=== PATIENT | male | born 1935 | race Native Hawaiian/Other Pacific Islander ===

== ENCOUNTER 2018-12-22 08:41 | Outpatient (CLI) | payer MEDICARE ==
[2018-12-22 12:13] LABS: BASOPHILS # (AUTO) 0.1 10^3/uL (0.0-0.1); BASOPHILS % (AUTO) 1.1 %; EOSINOPHILS # (AUTO) 0.5 10^3/uL (0.0-0.7); EOSINOPHILS % (AUTO) 6.4 %; HGB - HEMOGLOBIN 12.3 g/dL (14.0-18.0); LYMPHOCYTES # (AUTO) 1.6 10^3/uL (1.5-3.5); LYMPHOCYTES % (AUTO) 19.7 %; MEAN CORPUSCULAR HEMOGLOBIN 27.2 pg (27.0-31.0); MEAN CORPUSCULAR VOLUME 79.9 fL (80.0-94.0); MEAN PLATELET VOLUME 7.2 fL (7.4-11.4); MONOCYTES # (AUTO) 0.7 10^3/uL (0.0-1.0); NEUTROPHILS # (AUTO) 5.1 10^3/uL (1.5-6.6); NEUTROPHILS % (AUTO) 63.8 %; PLT - PLATELET COUNT 307 10^3/uL (130-450); RED BLOOD COUNT 4.53 10^6/uL (4.70-6.10); RED CELL DISTRIBUTION WIDTH 14.1 % (12.0-15.0); WHITE BLOOD COUNT 8.1 x10^3/uL (4.8-10.8)
[2018-12-22 12:47] LABS: ALBUMIN 3.8 g/dL (3.2-5.5); ALBUMIN/GLOBULIN RATIO 1.1 (1.0-2.2); ALKALINE PHOSPHATASE 55 IU/L (42-121); ALT ALANINE AMINOTRANSFERASE 28 IU/L (10-60); AST ASPARTATE AMINOTRANSFERASE 25 IU/L (10-42); BILIRUBIN,TOTAL 0.7 mg/dL (0.2-1.0); BUN - BLOOD UREA NITROGEN 26 mg/dL (6-20); CALCIUM 8.9 mg/dL (8.5-10.3); CARBON DIOXIDE - CO2 24 mmol/L (21-32); CHLORIDE 106 mmol/L (101-111); CHOL/HDL RATIO 2.6 (<5.0); CHOLESTEROL 100 mg/dL; CREATININE 1.1 mg/dL (0.6-1.2); GFR - MDRD 64 (>89); GLUCOSE 107 mg/dL (70-100); HDL CHOLESTEROL 38 mg/dL; LDL CHOLESTEROL,CALCULATED 51 mg/dL; LDL/HDL RATIO 1.3 (<3.6); SODIUM 140 mmol/L (135-145); TOTAL PROTEIN 7.2 g/dL (6.7-8.2); VLDL CHOLESTEROL 11 mg/dL
== END 2018-12-22 08:42 | disposition home or self-care (01) ==
LOC: LAB.WCP 08:41
PROVIDERS: ATTEND Family Medicine
DX: I25.10 Atherosclerotic heart disease of native coronary artery without angina pectoris (principal); I10 Essential (primary) hypertension; R73.01 Impaired fasting glucose; E78.5 Hyperlipidemia, unspecified
CPT/HCPCS: 36415; 80053; 80061; 83721; 84443; 85025

== ENCOUNTER 2019-07-07 08:00 | Outpatient (CLI) | payer MEDICARE, OTHER ==
[2019-07-07 12:30] LABS: ALBUMIN 4.1 g/dL (3.2-5.5); ALBUMIN/GLOBULIN RATIO 1.2 (1.0-2.2); BASOPHILS # (AUTO) 0.1 10^3/uL (0.0-0.1); BILIRUBIN,TOTAL 0.7 mg/dL (0.2-1.0); CALCIUM 9.3 mg/dL (8.5-10.3); CREATININE 1.4 mg/dL (0.6-1.2); EOSINOPHILS # (AUTO) 0.5 10^3/uL (0.0-0.7); EOSINOPHILS % (AUTO) 6.4 %; HGB - HEMOGLOBIN 12.5 g/dL (14.0-18.0); LYMPHOCYTES # (AUTO) 2.1 10^3/uL (1.5-3.5); LYMPHOCYTES % (AUTO) 26.3 %; MEAN CORPUSCULAR HEMOGLOBIN 30.4 pg (27.0-31.0); MEAN CORPUSCULAR HGB CONC 35.8 g/dL (32.0-36.0); MEAN CORPUSCULAR VOLUME 84.9 fL (80.0-94.0); MEAN PLATELET VOLUME 9.5 fL (7.4-11.4); MONOCYTES # (AUTO) 0.8 10^3/uL (0.0-1.0); MONOCYTES % (AUTO) 9.8 %; NEUTROPHILS # (AUTO) 4.6 10^3/uL (1.5-6.6); NEUTROPHILS % (AUTO) 56.3 %; PLT - PLATELET COUNT 241 10^3/uL (130-450); RED BLOOD COUNT 4.11 10^6/uL (4.70-6.10); RED CELL DISTRIBUTION WIDTH 15.1 % (12.0-15.0); TOTAL PROTEIN 7.5 g/dL (6.7-8.2); WHITE BLOOD COUNT 8.1 x10^3/uL (4.8-10.8)
== END 2019-07-07 23:59 | disposition home or self-care (01) ==
LOC: LAB.WCP 08:00
PROVIDERS: ATTEND Family Medicine
DX: I10 Essential (primary) hypertension (principal); E78.5 Hyperlipidemia, unspecified
CPT/HCPCS: 36415; 80053; 84443; 85025

== ENCOUNTER 2019-08-08 09:05 | Outpatient (CLI) | payer MEDICARE, OTHER ==
[2019-08-08 13:45] LABS: CREATININE 1.1 mg/dL (0.6-1.2)
== END 2019-08-08 23:59 | disposition home or self-care (01) ==
LOC: LAB.WCP 09:05
PROVIDERS: ATTEND Family Medicine
DX: I10 Essential (primary) hypertension (principal); R05 Cough
CPT/HCPCS: 36415; 80048

== ENCOUNTER 2020-05-03 08:00 | Outpatient (CLI) | payer MEDICARE, OTHER ==
[2020-05-03 11:47] LABS: BASOPHILS # (AUTO) 0.1 10^3/uL (0.0-0.1); BASOPHILS % (AUTO) 1.2 %; EOSINOPHILS # (AUTO) 0.3 10^3/uL (0.0-0.7); EOSINOPHILS % (AUTO) 4.9 %; HGB - HEMOGLOBIN 12.9 g/dL (14.0-18.0); LYMPHOCYTES # (AUTO) 1.5 10^3/uL (1.5-3.5); LYMPHOCYTES % (AUTO) 23.3 %; MEAN CORPUSCULAR HEMOGLOBIN 28.9 pg (27.0-31.0); MEAN CORPUSCULAR HGB CONC 34.6 g/dL (32.0-36.0); MEAN CORPUSCULAR VOLUME 83.4 fL (80.0-94.0); MEAN PLATELET VOLUME 9.3 fL (7.4-11.4); MONOCYTES # (AUTO) 0.6 10^3/uL (0.0-1.0); MONOCYTES % (AUTO) 8.4 %; NEUTROPHILS # (AUTO) 4.1 10^3/uL (1.5-6.6); NEUTROPHILS % (AUTO) 61.9 %; PLT - PLATELET COUNT 252 10^3/uL (130-450); RED BLOOD COUNT 4.47 10^6/uL (4.70-6.10); RED CELL DISTRIBUTION WIDTH 14.9 % (12.0-15.0); WHITE BLOOD COUNT 6.6 x10^3/uL (4.8-10.8)
[2020-05-03 11:53] LABS: HB2 TOTAL 13.5 g/dL; HEMOGLOBIN A1C 0.58 g/dL; HEMOGLOBIN A1C % 6.1 % (4.6-6.2)
[2020-05-03 12:23] LABS: ALBUMIN 3.9 g/dL (3.2-5.5); ALBUMIN/GLOBULIN RATIO 1.2 (1.0-2.2); ALKALINE PHOSPHATASE 45 IU/L (42-121); ALT ALANINE AMINOTRANSFERASE 29 IU/L (10-60); AST ASPARTATE AMINOTRANSFERASE 29 IU/L (10-42); BILIRUBIN,TOTAL 1.1 mg/dL (0.2-1.0); BUN - BLOOD UREA NITROGEN 24 mg/dL (6-20); CALCIUM 8.9 mg/dL (8.5-10.3); CARBON DIOXIDE - CO2 26 mmol/L (21-32); CHLORIDE 110 mmol/L (101-111); CHOL/HDL RATIO 2.4 (<5.0); CHOLESTEROL 115 mg/dL; CREATININE 1.1 mg/dL (0.6-1.2); GLUCOSE 107 mg/dL (70-100); HDL CHOLESTEROL 47 mg/dL; LDL CHOLESTEROL,CALCULATED 57 mg/dL; LDL/HDL RATIO 1.2 (<3.6); SODIUM 140 mmol/L (135-145); TOTAL PROTEIN 7.1 g/dL (6.7-8.2); VLDL CHOLESTEROL 11 mg/dL
== END 2020-05-03 23:59 | disposition home or self-care (01) ==
LOC: LAB.WCP 08:00
PROVIDERS: ATTEND Family Medicine
DX: R73.01 Impaired fasting glucose (principal); I25.10 Atherosclerotic heart disease of native coronary artery without angina pectoris; I10 Essential (primary) hypertension
CPT/HCPCS: 36415; 80053; 80061; 83036; 83721; 84443; 85025

== ENCOUNTER 2021-01-01 08:45 | Outpatient (CLI) | payer MEDICARE, OTHER ==
[2021-01-01 12:17] LABS: HEMOGLOBIN A1c% 5.7 % (4.27-6.07)
[2021-01-01 12:24] LABS: BASOPHILS # (AUTO) 0.1 10^3/uL (0.0-0.1); BASOPHILS % (AUTO) 1.1 %; EOSINOPHILS # (AUTO) 0.4 10^3/uL (0.0-0.7); EOSINOPHILS % (AUTO) 5.2 %; HGB - HEMOGLOBIN 11.6 g/dL (14.0-18.0); LYMPHOCYTES # (AUTO) 1.5 10^3/uL (1.5-3.5); LYMPHOCYTES % (AUTO) 18.1 %; MEAN CORPUSCULAR HEMOGLOBIN 29.3 pg (27.0-31.0); MEAN CORPUSCULAR HGB CONC 34.6 g/dL (32.0-36.0); MEAN CORPUSCULAR VOLUME 84.6 fL (80.0-94.0); MEAN PLATELET VOLUME 9.5 fL (7.4-11.4); MONOCYTES # (AUTO) 0.8 10^3/uL (0.0-1.0); NEUTROPHILS # (AUTO) 5.2 10^3/uL (1.5-6.6); NEUTROPHILS % (AUTO) 65.4 %; PLT - PLATELET COUNT 276 10^3/uL (130-450); RED BLOOD COUNT 3.96 10^6/uL (4.70-6.10); RED CELL DISTRIBUTION WIDTH 13.8 % (12.0-15.0)
[2021-01-01 12:33] LABS: ALBUMIN 3.9 g/dL (3.2-5.5); ALBUMIN/GLOBULIN RATIO 1.2 (1.0-2.2); ALKALINE PHOSPHATASE 51 IU/L (42-121); ALT ALANINE AMINOTRANSFERASE 24 IU/L (10-60); AST ASPARTATE AMINOTRANSFERASE 21 IU/L (10-42); BILIRUBIN,TOTAL 0.7 mg/dL (0.2-1.0); BUN - BLOOD UREA NITROGEN 24 mg/dL (6-20); CALCIUM 9.7 mg/dL (8.5-10.3); CARBON DIOXIDE - CO2 26 mmol/L (21-32); CHLORIDE 104 mmol/L (101-111); CHOL/HDL RATIO 2.3 (<5.0); CHOLESTEROL 107 mg/dL; CREATININE 1.2 mg/dL (0.6-1.2); GLUCOSE 105 mg/dL (70-100); HDL CHOLESTEROL 46 mg/dL; LDL CHOLESTEROL,CALCULATED 51 mg/dL; LDL/HDL RATIO 1.1 (<3.6); TOTAL PROTEIN 7.2 g/dL (6.7-8.2); VLDL CHOLESTEROL 10 mg/dL
[2021-01-01 12:34] LABS: CREATININE,URINE 79.6 mg/dL; MICROALBUM/CREATININE RATIO,UR 56.5 ug/mg (<30.0); MICROALBUMIN,URINE 4.5 mg/dL (0-300.0)
== END 2021-01-01 08:46 | disposition home or self-care (01) ==
LOC: LAB.N 08:45
PROVIDERS: ATTEND Internal Medicine
DX: I25.10 Atherosclerotic heart disease of native coronary artery without angina pectoris (principal); G20 Parkinson's disease; I10 Essential (primary) hypertension; Z83.3 Family history of diabetes mellitus; R73.03 Prediabetes
CPT/HCPCS: 36415; 80053; 80061; 82043; 82570; 83036; 83721; 84443; 85025

== ENCOUNTER 2021-01-08 07:00 | Outpatient (CLI) | payer MEDICARE, OTHER | END 2021-01-08 23:59 | disposition home or self-care (01) | LOC: LAB.R 07:00 | PROVIDERS: ATTEND Internal Medicine | DX: D64.9 Anemia, unspecified (principal) | CPT/HCPCS: 82274 ==

== ENCOUNTER 2021-02-09 10:45 | Outpatient (CLI) | payer MEDICARE, OTHER ==
--- NOTE | 2021-02-09 11:43 | CT Report ---
PROCEDURE: LUMBAR SPINE WO INDICATIONS: NEUROGENIC CLAUDICATION DUE TO SPINAL STENOSIS TECHNIQUE: Noncontrast 3 mm thick sections acquired from the T12 level to the sacrum. Sagittal and coronal refo rmats were constructed. For radiation dose reduction, the following was used: automated exposure co ntrol, adjustment of mA and/or kV according to patient size. COMPARISON: None. FINDINGS: Image quality: Excellent. Bones: No acute vertebral body compression fractures. No suspicious lytic or blastic bony lesions . Central spinal caliber is of normal overall caliber. No pars defects. Mild levoconvex scoliotic curvature is seen. No significant AP alignment abnormality can be seen. T12-L1: There is mild loss of disc height. Bridging anterior osteophytes are seen. No significant ne ural foraminal or central canal narrowing can be seen. L1-L2: The disc height is well-preserved. Bridging anterior osteophytes are seen. No significant n eural foraminal or central canal narrowing can be seen. L2-L3: The disc height is relatively well preserved. Bridging anterior osteophytes are seen. Mode rate disc bulge is seen, which is eccentric to the right side. There is mild to moderate left-sided a nd moderate right-sided neuroforaminal narrowing seen. Mild central canal narrowing is seen. L3-L4: The disc height is relatively well preserved. Moderate disc bulge is seen at this level. Mild facet hypertrophy is seen. There is moderate right-sided and no significant left-sided neurofor aminal narrowing seen. No significant central canal narrowing is seen. L4-L5: The disc height is relatively well preserved. Moderate disc bulge is seen, which is eccentri c to the right side. Bridging anterior osteophytes can be seen on both the right and on the left. The re is mild to moderate right and no significant left-sided neuroforaminal narrowing. No significant c entral canal narrowing can be seen. L5-S1: The disc height is relatively well preserved. Vacuum disc phenomenon is seen at this level. Moderate disc bulge is seen, which is eccentric to the left. Bridging anterior osteophytes are see n on the left and on the right. Mild bilateral neural foraminal narrowing is seen. Mild central c anal narrowing is seen. Soft tissues: No retroperitoneal masses or hematomas. Visualized aorta is normal in caliber. Ather osclerotic calcification is seen. Pacer leads are seen. Apparent simple cysts are seen involving the right kidney. IMPRESSION: Generalized degenerative changes are seen, which are considered to be within normal limits for age. Incidental note is made of: Atherosclerotic calcification Right renal cysts Pacer leads Reviewed by: Saji Cifuentes MD on 02/09/2021 10:41 AM [facility] Approved by: Saji Cifuentes MD on 02/09/2021 10:41 AM [facility] Station ID: [id number]
== END 2021-02-09 10:46 | disposition home or self-care (01) ==
LOC: DI 10:45
PROVIDERS: ATTEND Internal Medicine
DX: M48.062 Spinal stenosis, lumbar region with neurogenic claudication (principal)

== ENCOUNTER 2021-05-22 08:00 | Outpatient (CLI) | payer MEDICARE, OTHER ==
[2021-05-22 12:50] LABS: FERRITIN 530.7 ng/mL (23.9-336.2)
[2021-05-22 12:51] LABS: % IRON SATURATION 25 % (20-50); IRON 77 ug/dL (45-182); TOTAL IRON BINDING CAPACITY 304 ug/dL (250-450); TRANSFERRIN 217 mg/dL (180-329)
[2021-05-22 13:12] LABS: RED BLOOD COUNT 3.6 10^6/uL (4.70-6.10)
[2021-05-22 13:13] LABS: ABSOLUTE RETICS # AUTO 0.05 10^6/uL (0.020-0.110); RETICULOCYTE COUNT % (AUTO) 1.38 % (0.5-2.3)
== END 2021-05-22 23:59 | disposition home or self-care (01) ==
LOC: LAB.WCP 08:00
PROVIDERS: ATTEND Internal Medicine
DX: D64.9 Anemia, unspecified (principal)
CPT/HCPCS: 36415; 82607; 82728; 83540; 84466; 85045

== ENCOUNTER 2021-11-04 09:50 | Outpatient (CLI) | payer MEDICARE, OTHER | END 2021-11-04 09:51 | disposition critical access hospital (66) | LOC: EMS 09:50 | DX: R32 Unspecified urinary incontinence (principal); R47.81 Slurred speech | CPT/HCPCS: A0425; A0429 ==

== ENCOUNTER 2021-11-04 10:05 | Inpatient (IN) | payer MEDICARE, OTHER ==
[2021-11-04] MEDS ORDERED: SODIUM CHLORIDE 0.9% 1,000 ML IV STA (10:20)
[2021-11-04] MEDS ORDERED: IOPAMIDOL-300 100 ML VIAL ONE (10:28)
--- NOTE | 2021-11-04 10:33 | ED Physician Documentation ---
PD HPI ALTERED MENTAL STATUS - Stated complaint Stated Complaint: CVA - History obtained from History obtained from: Patient, Family (), EMS - History of Present Illness Timing - onset: How many days ago (2) Timing - duration: Days (2 Days ago the noted the patient having some mild confusion and slurring of speech. No unilateral weakness noted. She had to help feed him yesterday which is unusual. She found him on the floor beside the bed this morning (she had fallen asleep on the couch last night).) Timing - details: Gradual onset, Still present Quality / character: Less responsive ( says he was not as talkative and seemed weak all over. She helped him to eat yesterday, which had not been necessary before. No noted focal weakness. SPeech seemed weak but not inappropriate.), Confused Associated symptoms: No: Fever, Headache (he denies headache but has abrasion on forehead, so apparent fall.) Contributing factors: No: Anticoagulated, Diabetic, New medication, Recent med change Basline status: Alert and oriented X 3, Ambulatory, Confused ( says some forgetfulness c/w dementia. Has history of Parkinsons as well.) PD PAST MEDICAL HISTORY - Present Medications Home Medications: Ambulatory Orders Medication Instructions Recorded Confirmed Apixaban [Eliquis] 5 mg PO BID 11/04/21 11/04/21 Aspirin Chewable [St Jimmy 81 mg PO QPM 11/04/21 11/04/21 Aspirin] Carbidopa/Levodopa 25/100 [Sinemet 1 tablet PO TID 11/04/21 11/04/21 25 mg/100 mg] Cyanocobalamin [Vitamin B-12] 250 mcg PO DAILY 11/04/21 Isosorbide Mononitrate [Isosorbide 90 mg PO DAILY 11/04/21 11/04/21 Mononitrate ER] Lisinopril [Zestril] 40 mg PO DAILY 11/04/21 11/04/21 Meloxicam [Mobic] 15 mg PO DAILY 11/04/21 11/04/21 Metoprolol Tartrate [Lopressor] 50 mg PO BID 11/04/21 11/04/21 Nitroglycerin [Nitrostat] 0.4 mg SL Q5MIN PRN 11/04/21 11/04/21 Simvastatin [Zocor] 40 mg PO QPM 11/04/21 11/04/21 Tamsulosin HCl [Flomax] 0.8 mg PO QPM 11/04/21 11/04/21 amLODIPine [Norvasc] 5 mg PO DAILY 11/04/21 11/04/21 - Allergies Allergies/Adverse Reactions: Allergies Allergy/AdvReac Type Severity Reaction Status Date / Time No Known Drug Allergies Allergy Verified 11/04/21 10:22 PD ED PE NORMAL - Vitals Vital signs reviewed: Yes (hypothermic. HR seems paced at 60. ) - General General: Well developed/nourished, Other (he is able to answer questions but voice is weak and sluggish thought process. Symmetric movements of face and e xtremities. ) - HEENT HEENT: PERRL, EOMI. No: Atraumatic (abrasion with mild local swelling mid forehead. ), Moist mucous membranes - Neck Neck: Supple, no meningeal sign, No bony TTP, No adenopathy - Cardiac Cardiac: RRR, No murmur, Other (pacemaker felt on left chest wall. ) - Respiratory Respiratory: Clear bilaterally - Abdomen Abdomen: Soft, Non tender, Non distended. No: Normal bowel sounds (diminished) - Back Back: No CVA TTP - Derm Derm: Normal color, Warm and dry - Extremities Extremities: No edema, No calf tenderness / cord - Neuro Neuro: No motor deficit (symmetric but general weakness. ), No sensory deficit. No: Alert and oriented X 3 (sleepy but rouses easily to voice/tactile. sluggish thought process but answers appropriately. ) Eye Opening: To Voice Motor: Obeys Commands Verbal: Oriented GCS Score: 14 - Psych Psych: No: Normal affect (flat) Results - Vitals Vitals: Vital Signs - 24 hr 11/04/21 11/04/21 11/04/21 10:22 10:56 11:34 Temperature 31.8 C L 31.6 C L 32.1 C L Heart Rate 59 L 60 60 Respiratory 11 L 10 L 13 Rate Blood Pressure 130/63 124/69 148/77 H O2 Saturation 100 100 100 11/04/21 11/04/21 11/04/21 12:00 12:30 13:00 Temperature 32.2 C L 32.5 C L 32.9 C L Heart Rate 60 60 60 Respiratory 12 10 L 12 Rate Blood Pressure 125/84 H 131/59 H 90/52 L O2 Saturation 100 100 100 11/04/21 13:30 Temperature 33.2 C L Heart Rate 74 Respiratory 13 Rate Blood Pressure 136/90 H O2 Saturation 100 Oxygen O2 Source Room air - Labs Labs: Laboratory Tests 11/04/21 11/04/21 11/04/21 10:30 10:30 10:30 WBC 5.7 RBC 4.31 L Hgb 11.2 L Hct 34.0 L MCV 78.9 L MCH 26.0 L MCHC 32.9 RDW 15.2 H Plt Count 204 MPV 8.9 Neut # (Auto) 4.4 Lymph # (Auto) 0.6 L Stokes # (Auto) 0.5 Eos # (Auto) 0.1 Baso # (Auto) 0.0 Absolute Nucleated RBC 0.00 Nucleated RBC % 0.0 PT 15.3 H INR 1.4 H APTT 42.0 H Sodium 130 L Potassium 3.7 Chloride 98 L Carbon Dioxide 21 Anion Gap 11.0 BUN 28 H Creatinine 0.9 Estimated GFR (MDRD) 80 L Glucose 90 Lactic Acid Calcium 9.0 Magnesium 2.2 Total Bilirubin 0.7 AST 70 H ALT 18 Alkaline Phosphatase 76 Total Creatine Kinase 355 H Troponin I High Sens Total Protein 6.7 Albumin 3.6 Globulin 3.1 Albumin/Globulin Ratio 1.2 Lipase 54 H TSH Urine Color Urine Clarity Urine pH Ur Specific [place] Urine Protein Urine Glucose (UA) Urine Ketones Urine Occult Blood Urine Nitrite Urine Bilirubin Urine Urobilinogen Ur Leukocyte Esterase Urine RBC Urine WBC Ur Squamous Epith Cells Urine Bacteria Ur Microscopic Review Urine Culture Comments Nasal Adenovirus (PCR) Nasal B. parapertussis DNA (PCR) Nasal Coronavir 229E PCR Nasal Coronavir HKU1 PCR Nasal Coronavir NL63 PCR Nasal Coronavir OC43 PCR Nasal Enterovir/Rhinovir PCR Nasal Influenza B PCR Nasal Influenza A PCR Nasal Parainfluen 1 PCR Nasal Parainfluen 2 PCR Nasal Parainfluen 3 PCR Nasal Parainfluen 4 PCR Nasal RSV (PCR) Nasal B.pertussis DNA PCR Nasal C.pneumoniae (PCR) Micky Human Metapneumo PCR Nasal M.pneumoniae (PCR) Nasal SARS-CoV-2 (PCR) Urine Opiates Screen Ur Oxycodone Screen Urine Methadone Screen Ur Propoxyphene Screen Ur Barbiturates Screen Ur Tricyclics Screen Ur Phencyclidine Scrn Ur Amphetamine Screen U Methamphetamines Scrn U Benzodiazepines Scrn Urine Cocaine Screen U Cannabinoids Screen 11/04/21 11/04/21 11/04/21 10:30 10:30 10:30 WBC RBC Hgb Hct MCV MCH MCHC RDW Plt Count MPV Neut # (Auto) Lymph # (Auto) Stokes # (Auto) Eos # (Auto) Baso # (Auto) Absolute Nucleated RBC Nucleated RBC % PT INR APTT Sodium Potassium Chloride Carbon Dioxide Anion Gap BUN Creatinine Estimated GFR (MDRD) Glucose Lactic Acid 1.0 Calcium Magnesium Total Bilirubin AST ALT Alkaline Phosphatase Total Creatine Kinase Troponin I High Sens 10.8 Total Protein Albumin Globulin Albumin/Globulin Ratio Lipase TSH 2.97 Urine Color Urine Clarity Urine pH Ur Specific [place] Urine Protein Urine Glucose (UA) Urine Ketones Urine Occult Blood Urine Nitrite Urine Bilirubin Urine Urobilinogen Ur Leukocyte Esterase Urine RBC Urine WBC Ur Squamous Epith Cells Urine Bacteria Ur Microscopic Review Urine Culture Comments Nasal Adenovirus (PCR) Nasal B. parapertussis DNA (PCR) Nasal Coronavir 229E PCR Nasal Coronavir HKU1 PCR Nasal Coronavir NL63 PCR Nasal Coronavir OC43 PCR Nasal Enterovir/Rhinovir PCR Nasal Influenza B PCR Nasal Influenza A PCR Nasal Parainfluen 1 PCR Nasal Parainfluen 2 PCR Nasal Parainfluen 3 PCR Nasal Parainfluen 4 PCR Nasal RSV (PCR) Nasal B.pertussis DNA PCR Nasal C.pneumoniae (PCR) Micky Human Metapneumo PCR Nasal M.pneumoniae (PCR) Nasal SARS-CoV-2 (PCR) Urine Opiates Screen Ur Oxycodone Screen Urine Methadone Screen Ur Propoxyphene Screen Ur Barbiturates Screen Ur Tricyclics Screen Ur Phencyclidine Scrn Ur Amphetamine Screen U Methamphetamines Scrn U Benzodiazepines Scrn Urine Cocaine Screen U Cannabinoids Screen 11/04/21 11/04/21 11/04/21 10:32 10:59 10:59 WBC RBC Hgb Hct MCV MCH MCHC RDW Plt Count MPV Neut # (Auto) Lymph # (Auto) Stokes # (Auto) Eos # (Auto) Baso # (Auto) Absolute Nucleated RBC Nucleated RBC % PT INR APTT Sodium Potassium Chloride Carbon Dioxide Anion Gap BUN Creatinine Estimated GFR (MDRD) Glucose Lactic Acid Calcium Magnesium Total Bilirubin AST ALT Alkaline Phosphatase Total Creatine Kinase Troponin I High Sens Total Protein Albumin Globulin Albumin/Globulin Ratio Lipase TSH Urine Color LIGHT YELLOW Urine Clarity CLEAR Urine pH 6.0 Ur Specific Trufant 1.020 Urine Protein NEGATIVE Urine Glucose (UA) NEGATIVE Urine Ketones NEGATIVE Urine Occult Blood MODERATE H Urine Nitrite NEGATIVE Urine Bilirubin NEGATIVE Urine Urobilinogen 0.2 (NORMAL) Ur Leukocyte Esterase NEGATIVE Urine RBC TNTC H Urine WBC 0-3 Ur Squamous Epith Cells NONE SEEN Urine Bacteria None Seen Ur Microscopic Review INDICATED Urine Culture Comments NOT INDICATED Nasal Adenovirus (PCR) NOT DETECTED Nasal B. parapertussis DNA (PCR) NOT DETECTED Nasal Coronavir 229E PCR NOT DETECTED Nasal Coronavir HKU1 PCR NOT DETECTED Nasal Coronavir NL63 PCR NOT DETECTED Nasal Coronavir OC43 PCR NOT DETECTED Nasal Enterovir/Rhinovir PCR NOT DETECTED Nasal Influenza B PCR NOT DETECTED Nasal Influenza A PCR NOT DETECTED Nasal Parainfluen 1 PCR NOT DETECTED Nasal Parainfluen 2 PCR NOT DETECTED Nasal Parainfluen 3 PCR NOT DETECTED Nasal Parainfluen 4 PCR NOT DETECTED Nasal RSV (PCR) NOT DETECTED Nasal B.pertussis DNA PCR NOT DETECTED Nasal C.pneumoniae (PCR) NOT DETECTED Micky Human Metapneumo PCR NOT DETECTED Nasal M.pneumoniae (PCR) NOT DETECTED Nasal SARS-CoV-2 (PCR) NOT DETECTED Urine Opiates Screen NEGATIVE Ur Oxycodone Screen NEGATIVE Urine Methadone Screen NEGATIVE Ur Propoxyphene Screen NEGATIVE Ur Barbiturates Screen NEGATIVE Ur Tricyclics Screen NEGATIVE Ur Phencyclidine Scrn NEGATIVE Ur Amphetamine Screen NEGATIVE U Methamphetamines Scrn NEGATIVE U Benzodiazepines Scrn NEGATIVE Urine Cocaine Screen NEGATIVE U Cannabinoids Screen NEGATIVE - Rads (name of study) head/neck CT angio Radiology: Prelim report reviewed (no acute process), See rad report chest xray Radiology: Prelim report reviewed (mild vascular congestion; cannot exclude perihilar infiltrates. ), See rad report PD MEDICAL DECISION MAKING - ED course Complexity details: reviewed results (NO obvious source for infection/sepsis. CT and CT-A head okay. Metabolic labs good. Not clear the cause of the weakness generally and subsequent fall to floor/hypothermia (the low temp from expsoure and on floor).), re-evaluated patient (he is becoming more talkative and alert with temp improving. Did start to shiver and feel uncomfortable, so given Benadryl for that. ), considered differential (patient feels very cold. Temp not readable oral/temporal. Rectal temp showing 30 degrees. ), d/w patient, d/w family () - Critical Care Time(min): 45 Comments: altered mental status, and significant hypothermia. Assess for dysrhythmia and metabolic/sepsis causes. Evaluate vitals. Time Includes: Direct patient care, Reassess patient, Document care, Coordinate care Data interpretation: Labs, CXR Procedures excluded from critical care time: EKG Departure - Departure Disposition: ED Place in Observation Clinical Impression: Altered mental status Qualifiers: Altered mental status type: disorientation Qualified Code(s): R41.0 - Disorientation, unspecified Hypothermia Qualifiers: Encounter type: initial encounter Qualified Code(s): T68.XXXA - Hypothermia, initial encounter Condition: Stable Record reviewed to determine appropriate education?: Yes Discharge Date/Time: 11/04/21 14:48
[2021-11-04 10:37] LABS: BASOPHILS % (AUTO) 0.4 %; EOSINOPHILS # (AUTO) 0.1 10^3/uL (0.0-0.7); EOSINOPHILS % (AUTO) 1.2 %; HGB - HEMOGLOBIN 11.2 g/dL (14.0-18.0); LYMPHOCYTES # (AUTO) 0.6 10^3/uL (1.5-3.5); LYMPHOCYTES % (AUTO) 11.1 %; MEAN CORPUSCULAR HGB CONC 32.9 g/dL (32.0-36.0); MEAN CORPUSCULAR VOLUME 78.9 fL (80.0-94.0); MEAN PLATELET VOLUME 8.9 fL (7.4-11.4); MONOCYTES # (AUTO) 0.5 10^3/uL (0.0-1.0); MONOCYTES % (AUTO) 9.5 %; NEUTROPHILS # (AUTO) 4.4 10^3/uL (1.5-6.6); NEUTROPHILS % (AUTO) 77.6 %; PLT - PLATELET COUNT 204 10^3/uL (130-450); RED BLOOD COUNT 4.31 10^6/uL (4.70-6.10); RED CELL DISTRIBUTION WIDTH 15.2 % (12.0-15.0); WHITE BLOOD COUNT 5.7 x10^3/uL (4.8-10.8)
[2021-11-04 10:47] LABS: INR 1.4 (0.8-1.2); PT - PROTHROMBIN TIME 15.3 secs (9.9-12.6)
--- NOTE | 2021-11-04 10:49 | XRAY Report ---
PROCEDURE: Chest 1 View X-Ray INDICATIONS: chest pain TECHNIQUE: One view of the chest was acquired. COMPARISON: 11/12/2018 FINDINGS: Surgical changes and devices: Left chest wall pacemaker leads are in the region of right atrium and r ight ventricle.. Lungs and pleura: No pleural effusions or pneumothorax. Mild pulmonary vascular congestion is seen. Small bilateral perihilar infiltrates cannot be excluded. Mediastinum: Mediastinal contours appear normal. Heart size is mildly enlarged. Bones and chest wall: No suspicious bony lesions. Overlying soft tissues appear unremarkable. IMPRESSION: Mild pulmonary vascular congestion. Cannot rule out underlying bilateral perihilar small infiltrates. No pleural effusion or pneumothorax. Reviewed by: Luis A Cervantes MD on 11/04/2021 10:47 AM [facility] Approved by: Luis A Cervantes MD on 11/04/2021 10:47 AM [facility] Station ID: [id number]
[2021-11-04 10:56] LABS: ALBUMIN 3.6 g/dL (3.2-5.5); ALBUMIN/GLOBULIN RATIO 1.2 (1.0-2.2); BILIRUBIN,TOTAL 0.7 mg/dL (0.2-1.0); CREATININE 0.9 mg/dL (0.6-1.2); MAGNESIUM 2.2 mg/dL (1.7-2.8); POTASSIUM 3.7 mmol/L (3.5-5.0); TOTAL PROTEIN 6.7 g/dL (6.7-8.2)
[2021-11-04] MEDS ORDERED: IOPAMIDOL-300 100 ML VIAL IVP ONE (11:43)
[2021-11-04 12:03] LABS: BILIRUBIN,URINE NEGATIVE (NEGATIVE); GLUCOSE, URINE (UA) NEGATIVE (NEGATIVE); KETONES,URINE (UA) NEGATIVE (NEGATIVE); LEUKOCYTE ESTERASE, URINE NEGATIVE (NEGATIVE); NITRITE,URINE NEGATIVE (NEGATIVE); OCCULT BLOOD,URINE MODERATE (NEGATIVE); PROTEIN,URINE NEGATIVE (NEGATIVE); UROBILINOGEN,URINE 0.2 (NORMAL) E.U./dL (NORMAL)
[2021-11-04 12:05] LABS: CLARITY,URINE CLEAR (CLEAR)
--- NOTE | 2021-11-04 12:22 | CT Report ---
PROCEDURE: ANGIO HEAD W/WO INDICATIONS: L sided facial droop CONTRAST: IV CONTRAST: Isovue 300 ml: 80 PO CONTRAST: *NO PO CONTRAST TECHNIQUE: Precontrast 4.5 mm thick angled axial sections acquired from the foramen magnum to the vertex. Afte r the administration of intravenous contrast, 1 mm thick sections acquired through the [place] of [place] is. Postcontrast 4.5 mm thick sections then re-acquired from the foramen magnum to the vertex. 3-di mensional awxhrkn-zonwjdnra-kvdazcoqqy (MIP) and/or volume rendering reformats were acquired of the c entral intracranial vasculature. For radiation dose reduction, the following was used: automated ex posure control, adjustment of mA and/or kV according to patient size. COMPARISON: None FINDINGS: Image quality: Excellent. Anterior circulation: Intracranial internal carotid arteries have calcified atherosclerotic disease with no significant stenosis. The left A1 segment has a narrow caliber with luminal irregularity like ly due to atherosclerotic disease, otherwise flow within the paired anterior cerebral arteries is nor mal and symmetric. The flow within the middle cerebral arteries is normal and symmetric. The anteri or communicating artery is seen. No aneurysms are seen. Posterior circulation: Visualized portions of the vertebral arteries demonstrate normal caliber, and join to form a normal appearing basilar artery. Flow within the posterior cerebral arteries is norm al and symmetric. No aneurysms are seen. CSF spaces: Ventricles are normal in size and shape. Basal cisterns are patent. No extra-axial flu id collections. Brain: No midline shift. No intracranial bleeds or masses. Garcia-white matter interface appears int act. Skull and face: Calvarium and facial bones appear intact, without suspicious lesions. Sinuses: Visualized sinuses and mastoids are clear. IMPRESSION: 1. No large vessel occlusion. 2. No aneurysm or dissection. 3. 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 4. Calcifications of the cavernous segments of the intracranial internal carotid arteries with no sig nificant stenosis. Reviewed by: Flaco Perea on 11/04/2021 11:20 AM [facility] Approved by: Flaco Perea on 11/04/2021 11:20 AM [facility] Station ID: [id number]
[2021-11-04 12:26] LABS: B. PARAPERTUSSIS- RESP PCR PAN NOT DETECTED; B. PERTUSSIS- RESP PCR PANEL NOT DETECTED; C. PNEUMONIAE- RESP PCR PANEL NOT DETECTED; CORONAVIRUS 229E-RESP PCR NOT DETECTED; CORONAVIRUS HKU1-RESP PCR NOT DETECTED; CORONAVIRUS NL63-RESP PCR NOT DETECTED; CORONAVIRUS OC43-RESP PCR NOT DETECTED; HUMAN METAPNEUMOVIRUS NOT DETECTED; INFLUENZA A- RESP PCR PANEL NOT DETECTED; INFLUENZA B - RESP PCR PANEL NOT DETECTED; M. PNEUMONIAE- RESP PCR PANEL NOT DETECTED; PARAINFLUENZA VIRUS 1 NOT DETECTED; PARAINFLUENZA VIRUS 2 NOT DETECTED; PARAINFLUENZA VIRUS 3 NOT DETECTED; PARAINFLUENZA VIRUS 4 NOT DETECTED; RHINOVIRUS/ENTEROVIRUS NOT DETECTED; RSV- RESP PCR PANEL NOT DETECTED; SARS-CoV-2 -RESP PCR PANEL NOT DETECTED
[2021-11-04 12:30] LABS: BACTERIA,URINE None Seen /HPF (None Seen); RBC,URINE TNTC /HPF (0-5); SQUAMOUS EPITHELIAL CELL,UR NONE SEEN (<= Few); WBC,URINE 0-3 /HPF (0-3)
--- NOTE | 2021-11-04 13:03 | CT Report ---
PROCEDURE: ANGIO NECK W INDICATIONS: L sided facial droop CONTRAST: IV CONTRAST: Isovue 300 ml: 80 PO CONTRAST: *NO PO CONTRAST TECHNIQUE: After the administration of intravenous contrast, 1.5 mm axial sections acquired from the aortic arch to the [place] of Ngo. Coronal 3-D maximum intensity projection (MIP) and/or volume rendering ref ormats were then performed. For radiation dose reduction, the following was used: automated exposur e control, adjustment of mA and/or kV according to patient size. COMPARISON: None. FINDINGS: Image quality: Excellent. Carotid system: The great vessels demonstrate a conventional anatomy as they arise from the aortic a [facility]. The origins of the common carotid arteries appear patent. The common carotid arteries demonstr ate normal calibers and courses. There is artifactual narrowing of the right common carotid artery du e to hardening artifact from the contrast bolus in the left jugular vein. The bifurcation regions hav e atherosclerotic calcifications bilaterally causing approximately 20% stenosis on the right and no s ignificant stenosis on the left. The internal carotid arteries demonstrate normal caliber and course. Posterior circulation: The origin of the right vertebral artery has a focal calcification with high-g rade stenosis. The more superior portions of the vertebral arteries demonstrate normal course and murali iber. They join to form a normal appearing basilar artery. Soft tissues: Visualized neck soft tissues demonstrate no suspicious abnormalities. The thyroid is normal in size and there are no incidental findings. Bones: No suspicious bony lesions. Visualized cervical spine appears normally aligned. IMPRESSION: 1. Atherosclerotic calcifications in the carotid bulbs bilaterally with 20% stenosis on the right and no significant stenosis on the left. 2. Focal atherosclerotic calcification at the origin of the right vertebral artery with high-grade st enosis. 3. No aneurysm or dissection of the carotid or vertebral arteries. The estimate of stenosis included in the report of the imaging study was calculated using the NASCET method Reviewed by: Flaco Perea on 11/04/2021 12:01 PM [facility] Approved by: Flaco Perea on 11/04/2021 12:01 PM [facility] Station ID: [id number]
[2021-11-04] MEDS ORDERED: ONDANSETRON 4 MG/2 ML VIAL IVP PRN (13:51)
--- NOTE | 2021-11-04 13:58 | HISTORY & PHYSICAL EXAMINATION ---
Chief Complaint - Chief Complaint Chief Complaint: altered mental status, hypothermia History of Present Illness - Admitted From Admitted From:: [facility] ED - History Obtained From Records Reviewed: yes History obtained from: patient's Exam Limitations: altered mental status - History of Present Illness HPI Comment/Other: Patient is an 86-year-old male with medical history significant for hypertension, hyperlipidemia, Parkinson's disease, BPH and a pacemaker placed in June 2021 for an unspecified reason who presented to the ED with altered mental status. The history is mostly provided by the patient's who reports that for the past 2 to 3 days the patient's speech has been slurred and he has been intermittently confused. She found the patient on the floor of the bedroom around 815 this morning. She had last checked on him around 4 AM. He was incontinent of urine at the time. She has numerous he was trying to go to the bathroom and must of fallen. The room was cold and he was exposed to cold temperatures. As a result upon presentation his temperature was 31.8 C. Thus warming unit was applied. The patient is somewhat agitated but moving all extremities. He is unable to provide any history. He has pulled out one of the IV lines placed and has been attempting to pull out Burden catheter. Work-up in the ED included a CT/CT angiogram of the head and neck Which was negative for any large vessel occlusion aneurysm or dissection. There was atherosclerotic disease of the left A1 segment with narrowing. Calcification of the cavernous segments of the intracranial internal carotid arteries with no significant stenosis. CT angiogram of the neck showed focal atherosclerotic calcification at the origin of the right vertebral artery with high-grade stenosis. Showed mild pulmonary vascular congestion. Perihilar small infiltrates could not be ruled out. Urine analysis and toxicology was negative. Patient's white blood cell count was 5.7. As a result of his altered mental status he was presented for admission for further work-up. History - Past Medical History Cardiovascular: reports: Hypertension, High cholesterol, Coronary artery disease Neuro: reports: Parkinson's : reports: Benign prostate hypertrophy - Past Surgical History Cardiovascular: reports: Pacemaker (in [facility] in June 2021) - Family & Social History Family History Comment/Other: Family history is limited because the patient is currently encephalopathic and unable to provide. His does not know his fam kristina medical history Social History Notes: He lives at home with his . He quit smoking about 50 years ago. He rarely consumes alcohol. He does not consume any recreational substance.. They have been for 11 years only. - POLST Patient has POLST: No POLST Status: Full Code Meds/Allgy - Home Medications Home Medications: Ambulatory Orders Medication Instructions Recorded Confirmed Apixaban [Eliquis] 5 mg PO BID 11/04/21 11/04/21 Aspirin Chewable [St Jimmy 81 mg PO QPM 11/04/21 11/04/21 Aspirin] Carbidopa/Levodopa 25/100 [Sinemet 1 tablet PO TID 11/04/21 11/04/21 25 mg/100 mg] Cyanocobalamin [Vitamin B-12] 250 mcg PO DAILY 11/04/21 Isosorbide Mononitrate [Isosorbide 90 mg PO DAILY 11/04/21 11/04/21 Mononitrate ER] Lisinopril [Zestril] 40 mg PO DAILY 11/04/21 11/04/21 Meloxicam [Mobic] 15 mg PO DAILY 11/04/21 11/04/21 Metoprolol Tartrate [Lopressor] 50 mg PO BID 11/04/21 11/04/21 Nitroglycerin [Nitrostat] 0.4 mg SL Q5MIN PRN 11/04/21 11/04/21 Simvastatin [Zocor] 40 mg PO QPM 11/04/21 11/04/21 Tamsulosin HCl [Flomax] 0.8 mg PO QPM 11/04/21 11/04/21 amLODIPine [Norvasc] 5 mg PO DAILY 11/04/21 11/04/21 - Allergies Allergies/Adverse Reactions: Allergies Allergy/AdvReac Type Severity Reaction Status Date / Time No Known Drug Allergies Allergy Verified 11/04/21 10:22 Review of Systems - Other Findings Other Findings: Review of system is limited because the patient currently has altered mental status and is unable to provide. Prior Level of Functionality: Patient is fairly independent of activities of daily living. He no longer drives due to his 's discomfort with him driving since placement of his pacemaker in June 2021. Exam - Vital Signs Vital Signs: Vital Signs x48h Temp Pulse Resp BP Pulse Ox 11/04/21 13:30 33.2 C L 74 13 136/90 H 100 11/04/21 13:00 32.9 C L 60 12 90/52 L 100 11/04/21 12:30 32.5 C L 60 10 L 131/59 H 100 11/04/21 12:00 32.2 C L 60 12 125/84 H 100 11/04/21 11:34 32.1 C L 60 13 148/77 H 100 11/04/21 10:56 31.6 C L 60 10 L 124/69 100 11/04/21 10:22 31.8 C L 59 L 11 L 130/63 100 - Physical Exam General Appearance: positive: No acute distress, Other (Not oriented to place, time or reason) Eyes Bilateral: positive: PERRL, EOMI ENT: positive: Dry mucous membranes Neck: positive: No JVD, Trachea midline Respiratory: positive: Chest non-tender, No respiratory distress, Breath sounds nml. negative: Wheezes, Rales, Rhonchi Cardiovascular: positive: No murmur, Other (paced rhythm) Abdomen: positive: Non-tender, No organomegaly, Nml bowel sounds, No distention. negative: Guarding, Rebound Back: positive: Nml inspection Skin: positive: Color nml, No rash, Warm, Dry. negative: Cyanosis Extremities: positive: Non-tender, No pedal edema Neurologic/Psychiatric: positive: Disoriented to person, Disoriented to place, Disoriented to time, Other (agitated, altered mental status). negative: Facial droop Conclusion/Plan - Problem List (1) Altered mental status Conclusion/Plan: Etiology undetermined however suspect CVA. Infection is possible but less likely Urine analysis and toxicology was negative. WBC was 5.7 CT/CT angio head and neck was negative for any acute process. An MRI is likely not possible because the patient has a pacemaker. His informed us that the pacemaker was placed in [place] in June 2021. Records have been requested from [facility] to determine if it would be compatible with an MRI 2D echocardiogram and lipid panel ordered. Neurochecks every shift. Patient has required nonviolent restraints and Ativan due to agitation and pulling on IV lines and Burden catheter. Patient was given a full dose of aspirin in the ED. We will continue aspirin 81 mg p.o. daily. Qualifiers: Altered mental status type: disorientation Qualified Code(s): R41.0 - Disorientation, unspecified (2) Hypothermia Conclusion/Plan: Temperature at admission was 31.8 degrees Celsius. This is likely because the patient was exposed to cold temperatures uncovered in the bedroom for at least 4 hours. A warming unit was applied to patient. Over 3 hours the patient's temperature improved to 36.4 C. Qualifiers: Encounter type: initial encounter Qualified Code(s): T68.XXXA - Hypothermia, initial encounter (3) Hypertension Conclusion/Plan: Given that it is over 48 hours since patient's symptoms started, will resume patient's blood pressure medications once verified On Imdur 90 mg p.o. daily, lisinopril 40 mg p.o. daily, metoprolol tartrate 50 mg p.o. twice daily, Amlodipine 5 mg p.o. daily (4) Hyperlipidemia Conclusion/Plan: On simvastatin 40 mg p.o. every afternoon. Lipid panel ordered for the morning. (5) Parkinson disease Conclusion/Plan: On Sinemet 25 mg / 100 mg 1 tablet p.o. 3 times daily (6) BPH (benign prostatic hyperplasia) Conclusion/Plan: On tamsulosin 0.8 mg p.o. every afternoon (7) History of coronary artery disease Conclusion/Plan: This is presumed given the patient is on a baby aspirin, Imdur, lisinopril, metoprolol, simvastatin and sublingual nitroglycerin as needed. - Lab Results Fish Bones: 11/04/21 10:30 11/04/21 10:30 Core Measures - Anticipated LOS I expect patient to be DC'd or transferred within 96 hours.: Yes - DVT/VTE - Prophylaxis VTE/DVT Device ordered at admit?: Yes VTE/DVT Prophylaxis med ordered at admit?: Yes
[2021-11-04 14:13] LABS: MUDS CUTOFF CONCENTRATIONS CUTOFF CONC BELOW:
[2021-11-04] MEDS ORDERED: diphenhydrAMINE INJ 50 MG/ML VIAL IVP STA (14:25)
[2021-11-04 14:27] LABS: AMPHETAMINE SCREEN,URINE NEGATIVE (NEGATIVE); BARBITURATE SCREEN,UR NEGATIVE (NEGATIVE); BENZODIAZEPINES SCREEN, URINE NEGATIVE (NEGATIVE); COCAINE SCREEN URINE NEGATIVE (NEGATIVE); METHADONE SCREEN, URINE NEGATIVE (NEGATIVE); METHAMPHETAMINES SCREEN, URINE NEGATIVE (NEGATIVE); OPIATE SCREEN, URINE NEGATIVE (NEGATIVE); OXYCODONE SCREEN, URINE NEGATIVE (NEGATIVE); PROPOXYPHENE SCREEN, URINE NEGATIVE (NEGATIVE); THC CANNABINOID SCREEN, URINE NEGATIVE (NEGATIVE); TRICYCLIC ANTIDEPRESSANT,URINE NEGATIVE (NEGATIVE)
--- NOTE | 2021-11-04 16:31 | PHARMACY PROGRESS NOTE ---
- Best Possible Medication History Admit Date and Time: 11/04/21 1747 Processed by: Pharmacy Medication History completed: Yes Patient Interview: Pt unable to participate Secondary Source(s): Physician records, Pharmacy records, Insurance records As the person ultimately responsible for medication therapy, providers are able to order a medication from an existing home medication list in [facility] via the "Reconcile Routine" prior to Confirmation of that medication by support coordinator. Such practice is discouraged except when the physician, in their clinical judgment, deems that a medical need exists for a medication without regard to previous use.
[2021-11-04] MEDS ORDERED: LORazepam 2 MG/ML VIAL IVP PRN (17:54)
[2021-11-04] MEDS: SODIUM CHLORIDE FLUSH 0.9% 10 ML SYRINGE IVP SCH (18:03)
[2021-11-04] MEDS ORDERED: NITROGLYCERIN SL 0.4 MG TABLET SL PRN (21:16)
[2021-11-04] MEDS ORDERED: SODIUM CHLORIDE 0.9% 500 ML IV ONE (21:19)
[2021-11-04] MEDS: SODIUM CHLORIDE FLUSH 0.9% 10 ML SYRINGE IVP PRN (21:38)
[2021-11-04] MEDS ORDERED: DEXTROSE 5%-0.9% NACL 1,000 ML IV SCH (22:00)
[2021-11-05] MEDS: SODIUM CHLORIDE FLUSH 0.9% 10 ML SYRINGE IVP SCH ×3 (01:50→18:59)
[2021-11-05 06:11] LABS: BASOPHILS % (AUTO) 0.5 %; EOSINOPHILS # (AUTO) 0.1 10^3/uL (0.0-0.7); EOSINOPHILS % (AUTO) 0.6 %; HCT - HEMATOCRIT 30.4 % (42.0-52.0); LYMPHOCYTES # (AUTO) 0.8 10^3/uL (1.5-3.5); LYMPHOCYTES % (AUTO) 10.3 %; MEAN CORPUSCULAR HEMOGLOBIN 25.4 pg (27.0-31.0); MEAN CORPUSCULAR HGB CONC 32.9 g/dL (32.0-36.0); MEAN CORPUSCULAR VOLUME 77.4 fL (80.0-94.0); MEAN PLATELET VOLUME 9.3 fL (7.4-11.4); NEUTROPHILS # (AUTO) 5.9 10^3/uL (1.5-6.6); NEUTROPHILS % (AUTO) 75.1 %; NRBC ABSOLUTE COUNT (AUTO) 0.02 x10^3/uL; NUCLEATED RED BLOOD CELLS AUTO 0.3 /100WBC; PLT - PLATELET COUNT 151 10^3/uL (130-450); RED BLOOD COUNT 3.93 10^6/uL (4.70-6.10); RED CELL DISTRIBUTION WIDTH 15.6 % (12.0-15.0); WHITE BLOOD COUNT 7.8 x10^3/uL (4.8-10.8)
[2021-11-05 06:21] LABS: CALCIUM 8.5 mg/dL (8.5-10.3); CREATININE 1.3 mg/dL (0.6-1.2); POTASSIUM 3.8 mmol/L (3.5-5.0)
[2021-11-05 06:40] LABS: CHOL/HDL RATIO 1.8 (<5.0); CHOLESTEROL 91 mg/dL; CK- CREATINE KINASE 295 IU/L (22-269); HDL CHOLESTEROL 52 mg/dL; LDL CHOLESTEROL,CALCULATED 29 mg/dL; LDL/HDL RATIO 0.6 (<3.6); TRIGLYCERIDES 51 mg/dL; VLDL CHOLESTEROL 10 mg/dL
[2021-11-05 08:05] LABS: ABSOLUTE RETICS # AUTO 0.06 10^6/uL (0.020-0.110); RED BLOOD COUNT 3.72 10^6/uL (4.70-6.10); RETICULOCYTE COUNT % (AUTO) 1.62 % (0.5-2.3)
[2021-11-05 08:25] LABS: % IRON SATURATION 12 % (20-50); IRON 29 ug/dL (45-182); TOTAL IRON BINDING CAPACITY 245 ug/dL (250-450); TRANSFERRIN 175 mg/dL (180-329)
[2021-11-05] MEDS: SODIUM CHLORIDE 0.9% 1,000 ML IV SCH ×2 (08:27→18:59)
[2021-11-05] MEDS: APIXABAN 5 MG TABLET PO SCH ×2 (08:44→21:53)
[2021-11-05] MEDS ORDERED: ASPIRIN CHEW 81 MG TABLET PO SCH (09:00)
[2021-11-05] MEDS ORDERED: FERROUS GLUCONATE 324 MG TABLET PO SCH (09:00)
--- NOTE | 2021-11-05 09:37 | CT Report ---
PROCEDURE: HEAD WO INDICATIONS: Slurred speech for 3 days TECHNIQUE: Noncontrast 4.5 mm thick angled axial sections acquired from the foramen magnum to the vertex. For r adiation dose reduction, the following was used: automated exposure control, adjustment of mA and/or kV according to patient size. COMPARISON: CT had an angiogram of the head 11/04/2021 FINDINGS: These images demonstrate subtle decreased attenuation of the right caudate and putamen when compared with the prior study. There is also questionable decreased attenuation of the right insular ribbon wi th decreased creatinine and white matter differentiation in the right lenticulostriate region. Findin gs raise concern for ischemia, although chronic microvascular ischemic changes could cause a similar appearance. No acute intracranial hemorrhage or abnormal extra axial fluid collection. Global cerebral volume los s and mild to moderate chronic vascular ischemic changes are redemonstrated. The ventricular system a nd basilar cisterns are patent. There is no mass effect or midline shift. Regional osseous structures intact. Paranasal sinuses and mastoid air cells are clear. IMPRESSION: Hypoattenuation of the right deep fried nuclei with subtle decrease in fried-white matter differentiati on. Findings raise concern for ischemia. Correlate with clinical symptoms and consider MRI for furthe r evaluation. Reviewed by: Skip Gold MD on 11/05/2021 9:36 AM PST Approved by: Skip Gold MD on 11/05/2021 9:36 AM PST Station ID: [id number]
[2021-11-05] MEDS: METOPROLOL TARTRATE 50 MG TABLET PO SCH ×2 (10:25→21:52)
--- NOTE | 2021-11-05 11:00 | PROVIDER PROGRESS NOTE ---
Assessment/Plan - Problem List (1) Stroke Assessment/Plan: 11/05 pt fall in the deep sleep and he had Ativan. pt's report he still has slurred speech. pt ate about 25% his breakfast, it seems pt has no Dysphagia issue. Patient's hope patient could be transferred to [facility]. I called twice but I could not get call back from [facility]. 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 Repeat CT of the head show hypoattenuation of right deep fried nuclei with subtle decrease fried-white matter. finding raise concern for ischemia. Will resume home medication aspirin, Eliquis, Lipitor. We will finish echo study. We will have PT and OT evaluation and treatment for patient. Consult social work for disposition planning. (2) Hypothermia Resolved, TSH is at normal range (3) Hypertension Patient's blood pressure is at low side, we will hold other home blood pressure medicine, just resume metoprolol now (4) Hyperlipidemia add Lipitor (5) Parkinson disease Conclusion/Plan: resume home Sinemet (6) BPH (benign prostatic hyperplasia) Conclusion/Plan: On tamsulosin 0.8 mg p.o. every afternoon. pt's report pt can urinate by herself, will d/c Bertram (7) History of coronary artery disease Conclusion/Plan: stable now. will have ECHO study for pt and is pending. resume his home meds metoprolol, simvastatin and sublingual nitroglycerin as needed. 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, avoid nephrotoxic agents - Current Meds Current Meds: Current Medications Generic Name Dose Route Start Last Admin Trade Name Buddyq PRN Reason Stop Dose Admin Apixaban 5 mg 11/05/21 09:00 11/05/21 08:44 Apixaban 5 Mg Tablet PO 5 mg BID LITA Administration Aspirin 81 mg 11/05/21 09:00 11/05/21 08:44 Aspirin Chew 81 Mg Tablet PO 81 mg DAILY LITA Administration Ferrous Gluconate 324 mg 11/05/21 09:00 11/05/21 10:26 Ferrous Gluconate 324 Mg Tablet PO 324 mg DAILYWM LITA Administration Sodium Chloride 1,000 mls @ 100 mls/hr 11/05/21 08:00 11/05/21 10:28 Normal Saline 0.9% IV 11/06/21 03:59 0 mls/hr .Q10H LITA Infusion Metoprolol Tartrate 50 mg 11/05/21 09:00 11/05/21 10:25 Metoprolol Tartrate 50 Mg Tablet PO Not Given BID LITA Sodium Chloride 10 ml 11/04/21 13:51 11/04/21 21:38 Sodium Chloride Flush 0.9% 10 Ml Syringe IVP 10 ml PRN PRN Administration NEEDED PER PROVIDER ORDERS Sodium Chloride 10 ml 11/04/21 17:00 11/05/21 10:25 Sodium Chloride Flush 0.9% 10 Ml Syringe IVP Not Given 0100,0900,1700 LITA - Lab Result Fish Bone Diagrams: 11/05/21 05:55 11/05/21 05:55 - Additional Planning My Orders: My Active Orders 11/05/21 Evaluate and Treat OT [OT] Routine Evaluate and Treat PT [PT] Routine 11/05/21 08:00 Sodium Chloride 0.9% [Normal Saline 0.9%] 1,000 ml IV 100 mls/hr 11/05/21 09:00 Apixaban [Eliquis] 5 mg PO BID Ferrous Gluconate [Fergon] 324 mg PO DAILYWM 11/05/21 14:00 Carbidopa/Levodopa 25/100 [Sinemet 25 mg/100 mg] 1 tab PO TID 11/05/21 21:00 Atorvastatin [Lipitor] 40 mg PO QPM Subjective - Subjective Patient Reports: Resting Comfortably Objective Vital Signs: Vital Signs - 24 hr 11/04/21 11/04/21 11/04/21 11:34 12:00 12:30 Temperature 32.1 C L 32.2 C L 32.5 C L Heart Rate 60 60 60 Heart Rate [ Brachial] Heart Rate [ Radial] Respiratory 13 12 10 L Rate Blood Pressure 148/77 H 125/84 H 131/59 H Blood Pressure [Left Brachial artery] Blood Pressure [Right Radial artery] O2 Saturation 100 100 100 11/04/21 11/04/21 11/04/21 13:00 13:30 14:00 Temperature 32.9 C L 33.2 C L 33.8 C L Heart Rate 60 74 88 Heart Rate [ Brachial] Heart Rate [ Radial] Respiratory 12 13 15 Rate Blood Pressure 90/52 L 136/90 H 105/89 H Blood Pressure [Left Brachial artery] Blood Pressure [Right Radial artery] O2 Saturation 100 100 100 11/04/21 11/04/21 11/04/21 14:30 14:40 14:54 Temperature 34.1 C L 34.3 C L 34.6 C L Heart Rate 89 90 Heart Rate [ Brachial] Heart Rate [ 88 Radial] Respiratory 14 16 14 Rate Blood Pressure 110/62 122/84 H Blood Pressure [Left Brachial artery] Blood Pressure 126/57 L [Right Radial artery] O2 Saturation 100 100 100 11/04/21 11/04/21 11/04/21 16:00 18:00 20:52 Temperature 36.4 C L 36.4 C L 37.1 C Heart Rate Heart Rate [ 61 Brachial] Heart Rate [ 60 Radial] Respiratory 20 18 Rate Blood Pressure Blood Pressure [Left Brachial artery] Blood Pressure 126/94 H 99/63 [Right Radial artery] O2 Saturation 100 96 11/05/21 11/05/21 11/05/21 00:34 02:00 06:03 Temperature 37.4 C 37.4 C 37.2 C Heart Rate Heart Rate [ 61 60 Brachial] Heart Rate [ Radial] Respiratory 19 19 18 Rate Blood Pressure Blood Pressure 128/90 H [Left Brachial artery] Blood Pressure 110/84 H [Right Radial artery] O2 Saturation 96 96 95 11/05/21 11/05/21 08:43 10:25 Temperature 36.9 C Heart Rate Heart Rate [ 62 Brachial] Heart Rate [ Radial] Respiratory 20 Rate Blood Pressure 105/81 H Blood Pressure 105/81 H [Left Brachial artery] Blood Pressure [Right Radial artery] O2 Saturation 95 Oxygen O2 Source Room air I&O (Last 24 Hrs): Intake and Output Totals x24h 11/03/21 11/04/21 11/05/21 23:59 23:59 23:59 Intake Total 1850 1252.217 Output Total 450 725 Balance 1400 527.217 General: Alert, No acute distress HEENT: Atraumatic Neck: Supple Lymphatic: no adenopathy Neuro: Alert, Speech Slurred Cardiovascular: Regular rate, Normal S1, Normal S2 Respiratory: Chest non-tender, No respiratory distress Abdomen: Normal bowel sounds, Soft, No tenderness Extremities: Normal pulses - Results Results: Laboratory Results WBC 7.8 x10^3/uL (4.8-10.8) 11/05/21 05:55 RBC 3.72 10^6/uL (4.70-6.10) L 11/05/21 05:55 RBC 3.93 10^6/uL (4.70-6.10) L 11/05/21 05:55 Hgb 10.0 g/dL (14.0-18.0) L 11/05/21 05:55 Hct 30.4 % (42.0-52.0) L 11/05/21 05:55 MCV 77.4 fL (80.0-94.0) L 11/05/21 05:55 MCH 25.4 pg (27.0-31.0) L 11/05/21 05:55 MCHC 32.9 g/dL (32.0-36.0) 11/05/21 05:55 RDW 15.6 % (12.0-15.0) H 11/05/21 05:55 Plt Count 151 10^3/uL (130-450) 11/05/21 05:55 MPV 9.3 fL (7.4-11.4) 11/05/21 05:55 Reticulocyte % (Auto) 1.62 % (0.5-2.3) 11/05/21 05:55 Neut # (Auto) 5.9 10^3/uL (1.5-6.6) 11/05/21 05:55 Lymph # (Auto) 0.8 10^3/uL (1.5-3.5) L 11/05/21 05:55 Hunt # (Auto) 1.0 10^3/uL (0.0-1.0) 11/05/21 05:55 Eos # (Auto) 0.1 10^3/uL (0.0-0.7) 11/05/21 05:55 Baso # (Auto) 0.0 10^3/uL (0.0-0.1) 11/05/21 05:55 Absolute Nucleated RBC 0.02 x10^3/uL 11/05/21 05:55 Nucleated RBC % 0.3 /100WBC 11/05/21 05:55 Absolute Retic 0.060 10^6/uL (0.020-0.110) 11/05/21 05:55 PT 15.3 secs (9.9-12.6) H 11/04/21 10:30 INR 1.4 (0.8-1.2) H 11/04/21 10:30 APTT 42.0 secs (24.9-33.3) H 11/04/21 10:30 Sodium 140 mmol/L (135-145) 11/05/21 05:55 Potassium 3.8 mmol/L (3.5-5.0) 11/05/21 05:55 Chloride 110 mmol/L (101-111) 11/05/21 05:55 Carbon Dioxide 22 mmol/L (21-32) 11/05/21 05:55 Anion Gap 8.0 (6-13) 11/05/21 05:55 BUN 27 mg/dL (6-20) H 11/05/21 05:55 Creatinine 1.3 mg/dL (0.6-1.2) H 11/05/21 05:55 Estimated GFR (MDRD) 52 (>89) L 11/05/21 05:55 Glucose 94 mg/dL (70-100) 11/05/21 05:55 Lactic Acid 1.0 mmol/L (0.5-2.2) 11/04/21 10:30 Calcium 8.5 mg/dL (8.5-10.3) 11/05/21 05:55 Magnesium 2.2 mg/dL (1.7-2.8) 11/04/21 10:30 Iron 29 ug/dL (45-182) L 11/05/21 05:55 TIBC 245 ug/dL (250-450) L 11/05/21 05:55 % Saturation 12 % (20-50) L 11/05/21 05:55 Transferrin 175 mg/dL (180-329) L 11/05/21 05:55 Ferritin 544.0 ng/mL (23.9-336.2) H 11/05/21 05:55 Total Bilirubin 0.7 mg/dL (0.2-1.0) 11/04/21 10:30 AST 70 IU/L (10-42) H 11/04/21 10:30 ALT 18 IU/L (10-60) 11/04/21 10:30 Alkaline Phosphatase 76 IU/L (42-121) 11/04/21 10:30 Lactate Dehydrogenase 160 IU/L (91-225) 11/05/21 05:55 Total Creatine Kinase 295 IU/L (22-269) H 11/05/21 05:55 Troponin I High Sens 14.3 ng/L (2.3-19.7) 11/04/21 22:00 Total Protein 6.7 g/dL (6.7-8.2) 11/04/21 10:30 Albumin 3.6 g/dL (3.2-5.5) 11/04/21 10:30 Globulin 3.1 g/dL (2.1-4.2) 11/04/21 10:30 Albumin/Globulin Ratio 1.2 (1.0-2.2) 11/04/21 10:30 Triglycerides 51 mg/dL (-149) 11/05/21 05:55 Cholesterol 91 mg/dL (-199) 11/05/21 05:55 LDL Cholesterol, Calc 29 mg/dL (-129) 11/05/21 05:55 VLDL Cholesterol 10 mg/dL 11/05/21 05:55 HDL Cholesterol 52 mg/dL (60-) L 11/05/21 05:55 LDL/HDL Ratio 0.6 (<3.6) 11/05/21 05:55 Cholesterol/HDL Ratio 1.8 (<5.0) 11/05/21 05:55 Lipase 54 U/L (22-51) H 11/04/21 10:30 Vitamin B12 > 7000 pg/mL (180-914) H 11/05/21 05:55 TSH 2.97 uIU/mL (0.34-5.60) 11/04/21 10:30 Urine Color LIGHT YELLOW 11/04/21 10:59 Urine Clarity CLEAR (CLEAR) 11/04/21 10:59 Urine pH 6.0 PH (5.0-7.5) 11/04/21 10:59 Ur Specific [place] 1.020 (1.002-1.030) 11/04/21 10:59 Urine Protein NEGATIVE mg/dL (NEGATIVE) 11/04/21 10:59 Urine Glucose (UA) NEGATIVE mg/dL (NEGATIVE) 11/04/21 10:59 Urine Ketones NEGATIVE mg/dL (NEGATIVE) 11/04/21 10:59 Urine Occult Blood MODERATE (NEGATIVE) H 11/04/21 10:59 Urine Nitrite NEGATIVE (NEGATIVE) 11/04/21 10:59 Urine Bilirubin NEGATIVE (NEGATIVE) 11/04/21 10:59 Urine Urobilinogen 0.2 (NORMAL) E.U./dL (NORMAL) 11/04/21 10:59 Ur Leukocyte Esterase NEGATIVE (NEGATIVE) 11/04/21 10:59 Urine RBC TNTC /HPF (0-5) H 11/04/21 10:59 Urine WBC 0-3 /HPF (0-3) 11/04/21 10:59 Ur Squamous Epith Cells NONE SEEN (<= Few) 11/04/21 10:59 Urine Bacteria None Seen /HPF (None Seen) 11/04/21 10:59 Ur Microscopic Review INDICATED 11/04/21 10:59 Urine Culture Comments NOT INDICATED 11/04/21 10:59 Nasal Adenovirus (PCR) NOT DETECTED 11/04/21 10:32 Nasal B. parapertussis DNA (PCR) NOT DETECTED 11/04/21 10:32 Nasal Coronavir 229E PCR NOT DETECTED 11/04/21 10:32 Nasal Coronavir HKU1 PCR NOT DETECTED 11/04/21 10:32 Nasal Coronavir NL63 PCR NOT DETECTED 11/04/21 10:32 Nasal Coronavir OC43 PCR NOT DETECTED 11/04/21 10:32 Nasal Enterovir/Rhinovir PCR NOT DETECTED 11/04/21 10:32 Nasal Influenza B PCR NOT DETECTED 11/04/21 10:32 Nasal Influenza A PCR NOT DETECTED 11/04/21 10:32 Nasal Parainfluen 1 PCR NOT DETECTED 11/04/21 10:32 Nasal Parainfluen 2 PCR NOT DETECTED 11/04/21 10:32 Nasal Parainfluen 3 PCR NOT DETECTED 11/04/21 10:32 Nasal Parainfluen 4 PCR NOT DETECTED 11/04/21 10:32 Nasal RSV (PCR) NOT DETECTED 11/04/21 10:32 Nasal B.pertussis DNA PCR NOT DETECTED 11/04/21 10:32 Nasal C.pneumoniae (PCR) NOT DETECTED 11/04/21 10:32 Micky Human Metapneumo PCR NOT DETECTED 11/04/21 10:32 Nasal M.pneumoniae (PCR) NOT DETECTED 11/04/21 10:32 Nasal SARS-CoV-2 (PCR) NOT DETECTED 11/04/21 10:32 Urine Opiates Screen NEGATIVE (NEGATIVE) 11/04/21 10:59 Ur Oxycodone Screen NEGATIVE (NEGATIVE) 11/04/21 10:59 Urine Methadone Screen NEGATIVE (NEGATIVE) 11/04/21 10:59 Ur Propoxyphene Screen NEGATIVE (NEGATIVE) 11/04/21 10:59 Ur Barbiturates Screen NEGATIVE (NEGATIVE) 11/04/21 10:59 Ur Tricyclics Screen NEGATIVE (NEGATIVE) 11/04/21 10:59 Ur Phencyclidine Scrn NEGATIVE (NEGATIVE) 11/04/21 10:59 Ur Amphetamine Screen NEGATIVE (NEGATIVE) 11/04/21 10:59 U Methamphetamines Scrn NEGATIVE (NEGATIVE) 11/04/21 10:59 U Benzodiazepines Scrn NEGATIVE (NEGATIVE) 11/04/21 10:59 Urine Cocaine Screen NEGATIVE (NEGATIVE) 11/04/21 10:59 U Cannabinoids Screen NEGATIVE (NEGATIVE) 11/04/21 10:59 Ethyl Alcohol < 5.0 mg/dL 11/04/21 14:02 ABX Reporting Has patient been on IV antibiotics over the past 48 hours?: No Current Medications - Current Medications Current Medications: Active Medications Acetaminophen (Acetaminophen 325 Mg Tablet) 650 mg PO Q4HR PRN PRN Reason: Pain 1 to 4 Apixaban (Apixaban 5 Mg Tablet) 5 mg PO BID [facility] Last Admin: 11/05/21 08:44 Dose: 5 mg Documented by: Aspirin (Aspirin Chew 81 Mg Tablet) 81 mg PO DAILY [facility] Last Admin: 11/05/21 08:44 Dose: 81 mg Documented by: Atorvastatin Calcium (Atorvastatin 40 Mg Tablet) 40 mg PO QPM [facility] Carbidopa/Levodopa (Carbidopa/Levodopa 25 Mg/100 Mg Tablet) 1 tab PO TID [facility] Ferrous Gluconate (Ferrous Gluconate 324 Mg Tablet) 324 mg PO DAILYWM [facility] Last Admin: 11/05/21 10:26 Dose: 324 mg Documented by: Sodium Chloride (Normal Saline 0.9%) 1,000 mls @ 100 mls/hr IV .Q10H [facility] Stop: 11/06/21 03:59 Last Infusion: 11/05/21 10:58 Dose: 100 mls/hr Documented by: Metoprolol Tartrate (Metoprolol Tartrate 50 Mg Tablet) 50 mg PO BID [facility] Last Admin: 11/05/21 10:25 Dose: Not Given Documented by: Nitroglycerin (Nitroglycerin Sl 0.4 Mg Tablet) 0.4 mg SL Q5MIN PRN PRN Reason: Chest Pain Ondansetron HCl (Ondansetron 4 Mg/2 Ml Vial) 4 mg IVP Q6HR PRN PRN Reason: Nausea / Vomiting Sodium Chloride (Sodium Chloride Flush 0.9% 10 Ml Syringe) 10 ml IVP PRN PRN PRN Reason: NEEDED PER PROVIDER ORDERS Last Admin: 11/04/21 21:38 Dose: 10 ml Documented by: Sodium Chloride (Sodium Chloride Flush 0.9% 10 Ml Syringe) 10 ml IVP 0100,0900,1700 LITA Last Admin: 11/05/21 10:25 Dose: Not Given Documented by: Tamsulosin HCl (Tamsulosin 0.4 Mg Capsule) 0.8 mg PO QPM [facility] Apixaban [Eliquis] 5 mg PO BID 11/04/21 Aspirin Chewable [St Jimmy Aspirin] 81 mg PO QPM 11/04/21 Carbidopa/Levodopa 25/100 [Sinemet 25 mg/100 mg] 1 tablet PO TID 11/04/21 Cyanocobalamin [Vitamin B-12] 250 mcg PO DAILY 11/04/21 Isosorbide Mononitrate [Isosorbide Mononitrate ER] 90 mg PO DAILY 11/04/21 Lisinopril [Zestril] 40 mg PO DAILY 11/04/21 Meloxicam [Mobic] 15 mg PO DAILY 11/04/21 Metoprolol Tartrate [Lopressor] 50 mg PO BID 11/04/21 Nitroglycerin [Nitrostat] 0.4 mg SL Q5MIN PRN 11/04/21 Simvastatin [Zocor] 40 mg PO QPM 11/04/21 Tamsulosin HCl [Flomax] 0.8 mg PO QPM 11/04/21 amLODIPine [Norvasc] 5 mg PO DAILY 11/04/21
[2021-11-05] MEDS: ACETAMINOPHEN 325 MG TABLET PO PRN ×2 (12:17→21:54)
[2021-11-05] MEDS: CARBIDOPA/LEVODOPA 25 MG/100 MG TABLET PO SCH ×2 (15:43→21:51)
[2021-11-05] MEDS ORDERED: ATORVASTATIN 40 MG TABLET PO SCH (21:00)
[2021-11-05] MEDS ORDERED: TAMSULOSIN 0.4 MG CAPSULE PO SCH (21:00)
--- NOTE | 2021-11-05 22:16 | PROVIDER PROGRESS NOTE ---
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 Plan: Chest x-ray ordered Diet and p.o. meds discontinued. IV beta-blockers continued, aspirin per rectum daily also continued. BPH medication unfortunately needed to be stopped. I reviewed his chart and cannot find a reason that he is on the Eliquis. We will stop the Eliquis since in this acute phase of stroke, anticoagulant may contribute to changing his stroke to a hemorrhagic stroke. Swallowing eval by the speech therapist ordered to be done tomorrow.
--- NOTE | 2021-11-05 22:26 | XRAY Report ---
PROCEDURE: Chest 1 View X-Ray INDICATIONS: Poss aspiration TECHNIQUE: One view of the chest was acquired. COMPARISON: CXR 11/04/2021, 11/12/2018. FINDINGS: Surgical changes and devices: Left pacemaker with right atrial and right ventricular leads. Lungs and pleura: No pleural effusions or pneumothorax. Bilateral hazy airspace opacity with a centr al predominance. Mediastinum: Mediastinal contours appear unchanged. Aortic arch calcifications. Heart size is at th e upper limits of normal. Bones and chest wall: No suspicious bony lesions. Overlying soft tissues appear unremarkable. IMPRESSION: Bilateral hazy airspace opacity. Imaging appearance most likely represents fluid overload/CHF. Aspiration or multifocal pneumonia are felt to be less likely. Reviewed by: Roge Cat MD on 11/05/2021 10:24 PM PST Approved by: Roge Cat MD on 11/05/2021 10:24 PM PST Station ID: [id number]
[2021-11-06] MEDS: METOPROLOL 5 MG/5 ML VIAL IVP SCH ×2 (05:09→13:30)
[2021-11-06 08:13] LABS: BASOPHILS % (AUTO) 0.2 %; EOSINOPHILS % (AUTO) 0.1 %; HCT - HEMATOCRIT 34.1 % (42.0-52.0); HGB - HEMOGLOBIN 11.2 g/dL (14.0-18.0); LYMPHOCYTES # (AUTO) 0.6 10^3/uL (1.5-3.5); LYMPHOCYTES % (AUTO) 4.5 %; MEAN CORPUSCULAR HGB CONC 32.8 g/dL (32.0-36.0); MEAN CORPUSCULAR VOLUME 79.3 fL (80.0-94.0); MEAN PLATELET VOLUME 8.7 fL (7.4-11.4); MONOCYTES # (AUTO) 0.9 10^3/uL (0.0-1.0); MONOCYTES % (AUTO) 6.6 %; NEUTROPHILS # (AUTO) 12.2 10^3/uL (1.5-6.6); NEUTROPHILS % (AUTO) 88.2 %; PLT - PLATELET COUNT 173 10^3/uL (130-450); RED CELL DISTRIBUTION WIDTH 15.9 % (12.0-15.0); WHITE BLOOD COUNT 13.8 x10^3/uL (4.8-10.8)
[2021-11-06 08:24] LABS: CALCIUM 8.5 mg/dL (8.5-10.3); CREATININE 1.1 mg/dL (0.6-1.2); POTASSIUM 4.1 mmol/L (3.5-5.0)
[2021-11-06] MEDS ORDERED: ASPIRIN 300 MG SUPP PR SCH (09:00)
[2021-11-06] MEDS ORDERED: FUROSEMIDE 20 MG/2 ML VIAL IVP SCH (09:00)
[2021-11-06] MEDS ORDERED: LORazepam 0.5 MG TABLET PO PRN ×2 (09:07→09:20)
[2021-11-06] MEDS: SODIUM CHLORIDE FLUSH 0.9% 10 ML SYRINGE IVP SCH ×3 (09:07→17:05)
[2021-11-06] MEDS: AMPICILLIN/SULBACTAM 1.5 GM in SODIUM CHLORIDE 0.9% MINIBAG 100 ML IV SCH ×3 (11:00→22:19)
[2021-11-06] MEDS ORDERED: DEXTROSE 5%-0.9% NACL 1,000 ML IV SCH ×2 (13:00→19:00)
--- NOTE | 2021-11-06 13:02 | PROVIDER PROGRESS NOTE ---
Subjective - Prog Note Date Prog Note Date: 11/06/21 Prog Note Time: 12:58 - Subjective Pt reports feeling: No change Subjective: pt's hope we could transfer pt to [facility]. I called three times but I did not get phone call back from [facility]. I updated the information to pt and his . pt and her initially request AMA, then they change their mind and continue stay at hospital for treatment. Current Medications - Current Medications Current Medications: Active Medications Acetaminophen (Acetaminophen 325 Mg Tablet) 650 mg PO Q4HR PRN PRN Reason: Pain 1 to 4 Last Admin: 11/05/21 21:54 Dose: 650 mg Documented by: Aspirin (Aspirin 300 Mg Supp) 300 mg SD DAILY [facility] Last Admin: 11/06/21 11:03 Dose: 300 mg Documented by: Atorvastatin Calcium (Atorvastatin 40 Mg Tablet) 40 mg PO QPM [facility] Ampicillin Sodium/Sulbactam (Sodium 1.5 gm/ Sodium Chloride) 100 mls @ 200 mls/hr IV Q6H [facility] Last Infusion: 11/06/21 11:35 Dose: Infused Documented by: Dextrose/Sodium Chloride (D5ns) 1,000 mls @ 75 mls/hr IV .[id number] [facility] Stop: 11/07/21 15:39 Lorazepam (Lorazepam 0.5 Mg Tablet) 0.5 mg PO Q8H PRN PRN Reason: Anxiety Metoprolol Tartrate (Metoprolol 5 Mg/5 Ml Vial) 5 mg IVP Q8HR [facility] Last Admin: 11/06/21 05:09 Dose: Not Given Documented by: Nitroglycerin (Nitroglycerin Sl 0.4 Mg Tablet) 0.4 mg SL Q5MIN PRN PRN Reason: Chest Pain Ondansetron HCl (Ondansetron 4 Mg/2 Ml Vial) 4 mg IVP Q6HR PRN PRN Reason: Nausea / Vomiting Saccharomyces Boulardii (Saccharomyces Boulardii 250 Mg Capsule) 250 mg PO BIDWM [facility] Sodium Chloride (Sodium Chloride Flush 0.9% 10 Ml Syringe) 10 ml IVP PRN PRN PRN Reason: NEEDED PER PROVIDER ORDERS Last Admin: 11/04/21 21:38 Dose: 10 ml Documented by: Sodium Chloride (Sodium Chloride Flush 0.9% 10 Ml Syringe) 10 ml IVP 0100,0900,1700 [facility] Last Admin: 11/06/21 09:07 Dose: 10 ml Documented by: Apixaban [Eliquis] 5 mg PO BID 11/04/21 Aspirin Chewable [[facility] Jimmy Aspirin] 81 mg PO QPM 11/04/21 Carbidopa/Levodopa 25/100 [Sinemet 25 mg/100 mg] 1 tablet PO TID 11/04/21 Cyanocobalamin [Vitamin B-12] 250 mcg PO DAILY 11/04/21 Isosorbide Mononitrate [Isosorbide Mononitrate ER] 90 mg PO DAILY 11/04/21 Lisinopril [Zestril] 40 mg PO DAILY 11/04/21 Meloxicam [Mobic] 15 mg PO DAILY 11/04/21 Metoprolol Tartrate [Lopressor] 50 mg PO BID 11/04/21 Nitroglycerin [Nitrostat] 0.4 mg SL Q5MIN PRN 11/04/21 Simvastatin [Zocor] 40 mg PO QPM 11/04/21 Tamsulosin HCl [Flomax] 0.8 mg PO QPM 11/04/21 amLODIPine [Norvasc] 5 mg PO DAILY 11/04/21 Objective - Vital Signs/Intake & Output Vital Signs: Vital Signs x48h Temp Pulse Resp BP Pulse Ox 11/06/21 07:48 36.3 C L 69 23 92 11/06/21 05:09 130/67 Intake & Output: Intake & Output 11/03/21 11/04/21 11/05/21 11/06/21 23:59 23:59 23:59 23:59 Intake Total 1850 2880.550 100 Output Total 450 825 Balance 1400 2055.550 100 - Objective General Appearance: positive: Alert, Mild distress. negative: Lethargic Eyes Bilateral: positive: Normal inspection, No lid inflammation ENT: positive: ENT inspection nml. negative: Purulent nasal drainage Neck: positive: Nml inspection, Trachea midline. negative: Tracheal deviation Respiratory: positive: Chest non-tender, Wheezes, Rales Cardiovascular: positive: Regular rate & rhythm. negative: Tachycardia, Bradycardia, Systolic murmur Peripheral Pulses: 2+ Radial (R), 2+ Radial (L) Abdomen: positive: Non-tender, Nml bowel sounds, No distention Back: positive: Nml inspection Skin: positive: Color nml, Warm, Dry. negative: Cyanosis Extremities: positive: Non-tender, Nml appearance Neurologic/Psychiatric: positive: Sensation nml, Weakness (left upper extremity show weakness), Slurred/abnml speech. negative: Facial droop - Lab Results Fish Bones: 11/06/21 08:07 11/06/21 08:07 Other Labs: Lab Results x24hrs 11/06/21 11/06/21 11/06/21 Range/Units 08:07 08:07 08:07 WBC 13.8 H (4.8-10.8) x10^3/uL RBC 4.30 L (4.70-6.10) 10^6/uL Hgb 11.2 L (14.0-18.0) g/dL Hct 34.1 L (42.0-52.0) % MCV 79.3 L (80.0-94.0) fL MCH 26.0 L (27.0-31.0) pg MCHC 32.8 (32.0-36.0) g/dL RDW 15.9 H (12.0-15.0) % Plt Count 173 (130-450) 10^3/uL MPV 8.7 (7.4-11.4) fL Neut # (Auto) 12.2 H (1.5-6.6) 10^3/uL Lymph # (Auto) 0.6 L (1.5-3.5) 10^3/uL [place] # (Auto) 0.9 (0.0-1.0) 10^3/uL Eos # (Auto) 0.0 (0.0-0.7) 10^3/uL Baso # (Auto) 0.0 (0.0-0.1) 10^3/uL Absolute Nucleated RBC 0.00 x10^3/uL Nucleated RBC % 0.0 /100WBC Sodium 139 (135-145) mmol/L Potassium 4.1 (3.5-5.0) mmol/L Chloride 109 (101-111) mmol/L Carbon Dioxide 20 L (21-32) mmol/L Anion Gap 10.0 (6-13) BUN 26 H (6-20) mg/dL Creatinine 1.1 (0.6-1.2) mg/dL Estimated GFR (MDRD) 63 L (>89) Glucose 132 H (70-100) mg/dL Calcium 8.5 (8.5-10.3) mg/dL Total Creatine Kinase 423 H (22-269) IU/L B-Natriuretic Peptide 918 H (5-100) pg/mL ABX Reporting Has patient been on IV antibiotics over the past 48 hours?: Yes Assessment/Plan - Problem List (1) Stroke Impression: (1) Stroke Assessment/Plan: 11/06 pt represent left side weakness, still present slurred speech. CT of the head show hypoattenuation of right deep fried nuclei with subtle decrease fried- white matter. finding raise concern for ischemia. ECHO is unremarkable. pt has aspiration, we will aspiration precaution for pt. order ST for pt, begin NPO. continue SD aspirin unfortunately pt refused to PT/OT updated and discussed care plan with pt's at the bedside 11/05 pt fall in the deep sleep and he had Ativan. pt's report he still has slurred speech. pt ate about 25% his breakfast, it seems pt has no Dysphagia issue. Patient's hope patient could be transferred to [facility]. I called twice but [facility] 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 Repeat CT of the head show hypoattenuation of right deep fried nuclei with subtle decrease fried-white matter. finding raise concern for ischemia. Will resume home medication aspirin, Eliquis, Lipitor. We will finish echo [facility]. We will have PT and OT evaluation and treatment for patient. Consult social work for disposition planning. (2)aspiration pneumonia pt had elevated WBC, pt require more O2, pt clinic show aspiration after he had stroke. CXR reveals bilateral hazy airspace opacity. order once Lasix IV, start with Unasy IV and probiotics, hold IVF until tonight. pt is NPO and pending ST evaluation. (3) Hypothermia Resolved, TSH is at normal range (4) Hypertension Patient's blood pressure is at low side, we will hold other home blood pressure medicine, just resume metoprolol now (5) Hyperlipidemia add Lipitor (6) Parkinson disease Conclusion/Plan: resume home Sinemet (7) BPH (benign prostatic hyperplasia) Conclusion/Plan: On tamsulosin 0.8 mg p.o. every afternoon. pt's report pt can urinate by herself, will d/c Bertram (8) History of coronary artery disease Conclusion/Plan: stable now. will have ECHO study for pt and is pending. resume his home meds metoprolol, simvastatin and sublingual nitroglycerin as needed. (9)BORIS 11/06 resolved. 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
[2021-11-06] MEDS: SODIUM CHLORIDE FLUSH 0.9% 10 ML SYRINGE IVP PRN ×2 (13:31→22:20)
[2021-11-06] MEDS: SACCHAROMYCES BOULARDII 250 MG CAPSULE PO SCH (17:05)
[2021-11-06] MEDS: CARBIDOPA/LEVODOPA 25 MG/100 MG TABLET PO SCH ×2 (17:05→22:20)
[2021-11-06] MEDS: LORazepam 0.5 MG TABLET PO PRN (17:05)
[2021-11-06] MEDS: ACETAMINOPHEN 325 MG TABLET PO PRN ×2 (17:05→22:20)
[2021-11-06] MEDS: ATORVASTATIN 40 MG TABLET PO SCH (22:20)
[2021-11-06] MEDS: METOPROLOL TARTRATE 50 MG TABLET PO SCH (22:20)
[2021-11-07] MEDS: SODIUM CHLORIDE FLUSH 0.9% 10 ML SYRINGE IVP SCH ×3 (01:00→17:15)
[2021-11-07] MEDS: AMPICILLIN/SULBACTAM 1.5 GM in SODIUM CHLORIDE 0.9% MINIBAG 100 ML IV SCH ×4 (04:41→22:08)
[2021-11-07 05:31] LABS: BASOPHILS % (AUTO) 0.3 %; EOSINOPHILS % (AUTO) 0.3 %; HCT - HEMATOCRIT 32.8 % (42.0-52.0); HGB - HEMOGLOBIN 11.4 g/dL (14.0-18.0); LYMPHOCYTES # (AUTO) 0.6 10^3/uL (1.5-3.5); LYMPHOCYTES % (AUTO) 4.9 %; MEAN CORPUSCULAR HEMOGLOBIN 28.6 pg (27.0-31.0); MEAN CORPUSCULAR HGB CONC 34.8 g/dL (32.0-36.0); MEAN CORPUSCULAR VOLUME 82.2 fL (80.0-94.0); MEAN PLATELET VOLUME 9.5 fL (7.4-11.4); MONOCYTES % (AUTO) 8.4 %; NEUTROPHILS # (AUTO) 10.3 10^3/uL (1.5-6.6); NEUTROPHILS % (AUTO) 85.8 %; PLT - PLATELET COUNT 167 10^3/uL (130-450); RED BLOOD COUNT 3.99 10^6/uL (4.70-6.10); RED CELL DISTRIBUTION WIDTH 16.2 % (12.0-15.0)
[2021-11-07 05:38] LABS: POTASSIUM 3.8 mmol/L (3.5-5.0)
[2021-11-07] MEDS: CARBIDOPA/LEVODOPA 25 MG/100 MG TABLET PO SCH ×3 (06:58→22:09)
--- NOTE | 2021-11-07 08:05 | XRAY Report ---
PROCEDURE: Chest 1 View X-Ray INDICATIONS: SOB TECHNIQUE: One view of the chest was acquired. COMPARISON: 11/05/2021. FINDINGS: Surgical changes and devices: None. Lungs and pleura: Small bilateral pleural fluid collections. Bilateral lung hazy opacification with p erihilar predominance stable compared to 11/05/2021. Focal opacity in the right upper lobe and right lower lobe. Mediastinum: Mediastinal contours appear normal. Heart size is normal. Bones and chest wall: No suspicious bony lesions. Overlying soft tissues appear unremarkable. IMPRESSION: 1. Persistent CHF/fluid overload. 2. Focal opacities in the right upper lobe and right lower lobe which could represent atelectasis or pneumonia. 3. Small bilateral pleural fluid collections. Reviewed by: Alicia Farooq MD, PhD on 11/07/2021 8:04 AM PST Approved by: Alicia Farooq MD, PhD on 11/07/2021 8:04 AM PST Station ID: [id number]
[2021-11-07] MEDS ORDERED: FUROSEMIDE 20 MG/2 ML VIAL IVP SCH (08:09)
[2021-11-07] MEDS: METOPROLOL TARTRATE 50 MG TABLET PO SCH ×2 (08:50→22:09)
[2021-11-07] MEDS: SACCHAROMYCES BOULARDII 250 MG CAPSULE PO SCH ×2 (08:51→17:15)
[2021-11-07] MEDS: ISOSORBIDE MONONITRATE ER 30 MG TABLET PO SCH (08:51)
[2021-11-07] MEDS: lisinopriL 20 MG TABLET PO SCH (08:51)
[2021-11-07] MEDS: ASPIRIN 325 MG TABLET PO SCH (08:51)
[2021-11-07] MEDS ORDERED: ISOSORBIDE MONONITRATE ER 30 MG TABLET PO SCH (09:00)
[2021-11-07] MEDS ORDERED: FUROSEMIDE 20 MG/2 ML VIAL IVP ONE (09:00)
--- NOTE | 2021-11-07 11:24 | PROVIDER PROGRESS NOTE ---
Assessment/Plan - Problem List (1) Stroke Assessment/Plan: 1223, Patient feels better. Patient ate 50% of his breakfast feed by his . ST saw the patient on yesterday, patient is on dysphagia diet. ST will continue see the patient to help patient improve for his slurring speech. Patient still present significant weakness at his left side with his significantly slurring speech. We will continue to have PT and OT for patient, Continue aspirin, Lipitor. Consult with social work for disposition planning. 11/06 pt represent left side weakness, still present slurred speech. CT of the head show hypoattenuation of right deep fried nuclei with subtle decrease fried- white matter. finding raise concern for ischemia. ECHO is unremarkable. pt has aspiration, we will aspiration precaution for pt. order ST for pt, begin NPO. continue MA aspirin unfortunately pt refused to PT/OT updated and discussed care plan with pt's at the bedside 11/05 pt fall in the deep sleep and he had Ativan. pt's report he still has slurred speech. pt ate about 25% his breakfast, it seems pt has no Dysphagia issue. Patient's hope patient could be transferred to [facility]. I called twice but I could not get call back from [facility]. 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 Repeat CT of the head show hypoattenuation of right deep fried nuclei with subtle decrease fried-white matter. finding raise concern for ischemia. Will resume home medication aspirin, Eliquis, Lipitor. We will finish echo study. We will have PT and OT evaluation and treatment for patient. Consult social work for disposition planning. (2)aspiration pneumonia 11/07, improved. Patient has no acute respiratory distress, patient he had a 95% oxygen saturation on 4 liter of O2. BNP is down to 570 from 900 on yesterday. CXR reveal patient had right lung pneumonia and pulmonary congestion/fluid overloaded. We will continue intravenous antibiotics, probiotics, Lasix. pt had elevated WBC, pt require more O2, pt clinic show aspiration after he had stroke. CXR reveals bilateral hazy airspace opacity. order once Lasix IV, start with Unasy IV and probiotics, hold IVF until tonight. pt is NPO and pending ST evaluation. (3) Hypothermia Resolved, TSH is at normal range (4) Hypertension 11/07 stable, resume home meds Patient's blood pressure is at low side, we will hold other home blood pressure medicine, just resume metoprolol now (5) Hyperlipidemia add Lipitor (6) Parkinson disease Conclusion/Plan: resume home Sinemet (7) BPH (benign prostatic hyperplasia) Conclusion/Plan: On tamsulosin 0.8 mg p.o. every afternoon. pt's report pt can urinate by herself, will d/c Burden (8) History of coronary artery disease Conclusion/Plan: stable now. will have ECHO study for pt and is pending. resume his home meds metoprolol, simvastatin and sublingual nitroglycerin as needed. (9)BORIS 11/06 resolved. 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, avoid nephrotoxic agents (10)anxiety 11/06 pt present anxiety, start lower dosage Ativan PRN - Current Meds Current Meds: Current Medications Generic Name Dose Route Start Last Admin Trade Name Terri PRN Reason Stop Dose Admin Acetaminophen 650 mg 11/04/21 13:51 11/06/21 22:20 Acetaminophen 325 Mg Tablet PO 650 mg Q4HR PRN Administration Pain 1 to 4 Aspirin 325 mg 11/07/21 08:00 11/07/21 08:51 Aspirin 325 Mg Tablet PO 325 mg DAILYWM LITA Administration Atorvastatin Calcium 40 mg 11/06/21 21:00 11/06/21 22:20 Atorvastatin 40 Mg Tablet PO 40 mg QPM LITA Administration Carbidopa/Levodopa 1 tab 11/06/21 15:32 11/07/21 06:58 Carbidopa/Levodopa 25 Mg/100 Mg Tablet PO 1 tab TID LITA Administration Ampicillin Sodium/Sulbactam 100 mls @ 200 mls/hr 11/06/21 10:30 11/07/21 10:05 Sodium 1.5 gm/ Sodium Chloride IV Infused Q6H LITA Infusion Isosorbide Mononitrate 90 mg 11/07/21 09:00 11/07/21 08:51 Isosorbide Mononitrate Er 30 Mg Tablet PO 90 mg DAILY LITA Administration Lisinopril 40 mg 11/07/21 09:00 11/07/21 08:51 Lisinopril 20 Mg Tablet PO 40 mg DAILY LITA Administration Lorazepam 0.5 mg 11/06/21 14:17 11/06/21 17:05 Lorazepam 0.5 Mg Tablet PO 0.5 mg Q12H PRN Administration Anxiety Metoprolol Tartrate 50 mg 11/06/21 21:00 11/07/21 08:50 Metoprolol Tartrate 50 Mg Tablet PO 50 mg BID LITA Administration Saccharomyces Boulardii 250 mg 11/06/21 17:00 11/07/21 08:51 Saccharomyces Boulardii 250 Mg Capsule PO 250 mg BIDWM LITA Administration Sodium Chloride 10 ml 11/04/21 13:51 11/06/21 22:20 Sodium Chloride Flush 0.9% 10 Ml Syringe IVP 10 ml PRN PRN Administration NEEDED PER PROVIDER ORDERS Sodium Chloride 10 ml 11/04/21 17:00 11/07/21 08:48 Sodium Chloride Flush 0.9% 10 Ml Syringe IVP 10 ml 0100,0900,1700 LITA Administration - Lab Result Fish Bone Diagrams: 11/07/21 04:35 11/07/21 04:35 - Additional Planning My Orders: My Active Orders 11/06/21 10:30 Ampicillin/Sulbactam [Unasyn] 1.5 gm Sodium Chloride 0.9% Minibag [Normal Rui ine 0.9% Minibag] 100 ml IV Q6H 11/06/21 14:17 LORazepam [Ativan] 0.5 mg PO Q12H PRN 11/06/21 15:32 Carbidopa/Levodopa 25/100 [Sinemet 25 mg/100 mg] 1 tab PO TID 11/06/21 Dinner Dysphagia - Minced and Moist [DIET] 11/06/21 16:42 Miscellaenous Nursing Order [RC] PRN 11/06/21 17:00 Saccharomyces Boulardii [Florastor] 250 mg PO BIDWM 11/06/21 21:00 Atorvastatin [Lipitor] 40 mg PO QPM Metoprolol Tartrate [Lopressor] 50 mg PO BID 11/07/21 08:00 Aspirin [Ariane] 325 mg PO DAILYWM 11/07/21 09:00 Isosorbide Mononitrate ER [Imdur] 90 mg PO DAILY lisinopriL [Zestril] 40 mg PO DAILY Subjective - Subjective Patient Reports: Feeling Better, Resting Comfortably Objective Vital Signs: Vital Signs - 24 hr 12/22/21 12/22/21 12/22/21 13:29 15:25 17:00 Temperature 36.6 C 36.4 C L Heart Rate [ 73 Brachial] Heart Rate [ 80 Monitoring electrodes] Heart Rate [ 73 Supine] Respiratory 23 18 Rate Blood Pressure Blood Pressure 148/77 H [Left Brachial artery] Blood Pressure 153/87 H [Right Brachial artery] Blood Pressure 153/87 H [Supine] O2 Saturation 91 L 94 11/06/21 11/06/21 11/06/21 20:32 22:20 22:29 Temperature 36.9 C Heart Rate [ 69 Brachial] Heart Rate [ Monitoring electrodes] Heart Rate [ Supine] Respiratory 20 24 Rate Blood Pressure 147/62 H Blood Pressure [Left Brachial artery] Blood Pressure 162/105 H [Right Brachial artery] Blood Pressure [Supine] O2 Saturation 100 95 11/06/21 11/07/21 11/07/21 23:44 04:15 04:23 Temperature 36.9 C Heart Rate [ Brachial] Heart Rate [ 59 L 67 72 Monitoring electrodes] Heart Rate [ Supine] Respiratory 22 24 24 Rate Blood Pressure Blood Pressure [Left Brachial artery] Blood Pressure 144/58 H [Right Brachial artery] Blood Pressure [Supine] O2 Saturation 94 85 L 92 11/07/21 11/07/21 11/07/21 05:15 05:26 07:31 Temperature 36.8 C 36.5 C Heart Rate [ Brachial] Heart Rate [ 75 70 68 Monitoring electrodes] Heart Rate [ Supine] Respiratory 28 H 28 H 23 Rate Blood Pressure Blood Pressure [Left Brachial artery] Blood Pressure 151/88 H 156/64 H [Right Brachial artery] Blood Pressure [Supine] O2 Saturation 79 L 91 L 92 11/07/21 11/07/21 08:17 08:50 Temperature Heart Rate [ Brachial] Heart Rate [ 66 Monitoring electrodes] Heart Rate [ Supine] Respiratory Rate Blood Pressure 160/56 H Blood Pressure [Left Brachial artery] Blood Pressure [Right Brachial artery] Blood Pressure [Supine] O2 Saturation 95 Oxygen O2 Source Nasal cannula I&O (Last 24 Hrs): Intake and Output Totals x24h 11/05/21 11/06/21 11/07/21 23:59 23:59 23:59 Intake Total 2880.550 300 400 Output Total 825 Balance 2055.550 300 400 General: Alert, Cooperative, No acute distress HEENT: Atraumatic Neck: Supple Lymphatic: no adenopathy Neuro: Alert, Focal Deficits, Speech Slurred Cardiovascular: Regular rate, Normal S1, Normal S2 Respiratory: Chest non-tender, No respiratory distress Abdomen: Normal bowel sounds, Soft Extremities: Normal pulses - Results Results: Laboratory Results WBC 12.0 x10^3/uL (4.8-10.8) H 11/07/21 04:35 RBC 3.99 10^6/uL (4.70-6.10) L 11/07/21 04:35 Hgb 11.4 g/dL (14.0-18.0) L 11/07/21 04:35 Hct 32.8 % (42.0-52.0) L 11/07/21 04:35 MCV 82.2 fL (80.0-94.0) 11/07/21 04:35 MCH 28.6 pg (27.0-31.0) 11/07/21 04:35 MCHC 34.8 g/dL (32.0-36.0) 11/07/21 04:35 RDW 16.2 % (12.0-15.0) H 11/07/21 04:35 Plt Count 167 10^3/uL (130-450) 11/07/21 04:35 MPV 9.5 fL (7.4-11.4) 11/07/21 04:35 Reticulocyte % (Auto) 1.62 % (0.5-2.3) 11/05/21 05:55 Neut # (Auto) 10.3 10^3/uL (1.5-6.6) H 11/07/21 04:35 Lymph # (Auto) 0.6 10^3/uL (1.5-3.5) L 11/07/21 04:35 Mcdonald # (Auto) 1.0 10^3/uL (0.0-1.0) 11/07/21 04:35 Eos # (Auto) 0.0 10^3/uL (0.0-0.7) 11/07/21 04:35 Baso # (Auto) 0.0 10^3/uL (0.0-0.1) 11/07/21 04:35 Absolute Nucleated RBC 0.00 x10^3/uL 11/07/21 04:35 Nucleated RBC % 0.0 /100WBC 11/07/21 04:35 Absolute Retic 0.060 10^6/uL (0.020-0.110) 11/05/21 05:55 PT 15.3 secs (9.9-12.6) H 11/04/21 10:30 INR 1.4 (0.8-1.2) H 11/04/21 10:30 APTT 42.0 secs (24.9-33.3) H 11/04/21 10:30 Sodium 145 mmol/L (135-145) 11/07/21 04:35 Potassium 3.8 mmol/L (3.5-5.0) 11/07/21 04:35 Chloride 110 mmol/L (101-111) 11/07/21 04:35 Carbon Dioxide 24 mmol/L (21-32) 11/07/21 04:35 Anion Gap 11.0 (6-13) 11/07/21 04:35 BUN 30 mg/dL (6-20) H 11/07/21 04:35 Creatinine 1.0 mg/dL (0.6-1.2) 11/07/21 04:35 Estimated GFR (MDRD) 71 (>89) L 11/07/21 04:35 Glucose 110 mg/dL (70-100) H 11/07/21 04:35 Lactic Acid 1.0 mmol/L (0.5-2.2) 11/04/21 10:30 Calcium 9.0 mg/dL (8.5-10.3) 11/07/21 04:35 Magnesium 2.2 mg/dL (1.7-2.8) 11/04/21 10:30 Iron 29 ug/dL (45-182) L 11/05/21 05:55 TIBC 245 ug/dL (250-450) L 11/05/21 05:55 % Saturation 12 % (20-50) L 11/05/21 05:55 Transferrin 175 mg/dL (180-329) L 11/05/21 05:55 Ferritin 544.0 ng/mL (23.9-336.2) H 11/05/21 05:55 Total Bilirubin 0.7 mg/dL (0.2-1.0) 11/04/21 10:30 AST 70 IU/L (10-42) H 11/04/21 10:30 ALT 18 IU/L (10-60) 11/04/21 10:30 Alkaline Phosphatase 76 IU/L (42-121) 11/04/21 10:30 Lactate Dehydrogenase 160 IU/L (91-225) 11/05/21 05:55 Total Creatine Kinase 423 IU/L (22-269) H 11/06/21 08:07 Troponin I High Sens 14.3 ng/L (2.3-19.7) 11/04/21 22:00 B-Natriuretic Peptide 571 pg/mL (5-100) H 11/07/21 05:24 Total Protein 6.7 g/dL (6.7-8.2) 11/04/21 10:30 Albumin 3.6 g/dL (3.2-5.5) 11/04/21 10:30 Globulin 3.1 g/dL (2.1-4.2) 11/04/21 10:30 Albumin/Globulin Ratio 1.2 (1.0-2.2) 11/04/21 10:30 Triglycerides 51 mg/dL (-149) 11/05/21 05:55 Cholesterol 91 mg/dL (-199) 11/05/21 05:55 LDL Cholesterol, Calc 29 mg/dL (-129) 11/05/21 05:55 VLDL Cholesterol 10 mg/dL 11/05/21 05:55 HDL Cholesterol 52 mg/dL (60-) L 11/05/21 05:55 LDL/HDL Ratio 0.6 (<3.6) 11/05/21 05:55 Cholesterol/HDL Ratio 1.8 (<5.0) 11/05/21 05:55 Lipase 54 U/L (22-51) H 11/04/21 10:30 Vitamin B12 > 7000 pg/mL (180-914) H 11/05/21 05:55 TSH 2.97 uIU/mL (0.34-5.60) 11/04/21 10:30 Urine Color LIGHT YELLOW 11/04/21 10:59 Urine Clarity CLEAR (CLEAR) 11/04/21 10:59 Urine pH 6.0 PH (5.0-7.5) 11/04/21 10:59 Ur Specific [place] 1.020 (1.002-1.030) 11/04/21 10:59 Urine Protein NEGATIVE mg/dL (NEGATIVE) 11/04/21 10:59 Urine Glucose (UA) NEGATIVE mg/dL (NEGATIVE) 11/04/21 10:59 Urine Ketones NEGATIVE mg/dL (NEGATIVE) 11/04/21 10:59 Urine Occult Blood MODERATE (NEGATIVE) H 11/04/21 10:59 Urine Nitrite NEGATIVE (NEGATIVE) 11/04/21 10:59 Urine Bilirubin NEGATIVE (NEGATIVE) 11/04/21 10:59 Urine Urobilinogen 0.2 (NORMAL) E.U./dL (NORMAL) 11/04/21 10:59 Ur Leukocyte Esterase NEGATIVE (NEGATIVE) 11/04/21 10:59 Urine RBC TNTC /HPF (0-5) H 11/04/21 10:59 Urine WBC 0-3 /HPF (0-3) 11/04/21 10:59 Ur Squamous Epith Cells NONE SEEN (<= Few) 11/04/21 10:59 Urine Bacteria None Seen /HPF (None Seen) 11/04/21 10:59 Ur Microscopic Review INDICATED 11/04/21 10:59 Urine Culture Comments NOT INDICATED 11/04/21 10:59 Nasal Adenovirus (PCR) NOT DETECTED 11/04/21 10:32 Nasal B. parapertussis DNA (PCR) NOT DETECTED 11/04/21 10:32 Nasal Coronavir 229E PCR NOT DETECTED 11/04/21 10:32 Nasal Coronavir HKU1 PCR NOT DETECTED 11/04/21 10:32 Nasal Coronavir NL63 PCR NOT DETECTED 11/04/21 10:32 Nasal Coronavir OC43 PCR NOT DETECTED 11/04/21 10:32 Nasal Enterovir/Rhinovir PCR NOT DETECTED 11/04/21 10:32 Nasal Influenza B PCR NOT DETECTED 11/04/21 10:32 Nasal Influenza A PCR NOT DETECTED 11/04/21 10:32 Nasal Parainfluen 1 PCR NOT DETECTED 11/04/21 10:32 Nasal Parainfluen 2 PCR NOT DETECTED 11/04/21 10:32 Nasal Parainfluen 3 PCR NOT DETECTED 11/04/21 10:32 Nasal Parainfluen 4 PCR NOT DETECTED 11/04/21 10:32 Nasal RSV (PCR) NOT DETECTED 11/04/21 10:32 Nasal B.pertussis DNA PCR NOT DETECTED 11/04/21 10:32 Nasal C.pneumoniae (PCR) NOT DETECTED 11/04/21 10:32 Micky Human Metapneumo PCR NOT DETECTED 11/04/21 10:32 Nasal M.pneumoniae (PCR) NOT DETECTED 11/04/21 10:32 Nasal SARS-CoV-2 (PCR) NOT DETECTED 11/04/21 10:32 Urine Opiates Screen NEGATIVE (NEGATIVE) 11/04/21 10:59 Ur Oxycodone Screen NEGATIVE (NEGATIVE) 11/04/21 10:59 Urine Methadone Screen NEGATIVE (NEGATIVE) 11/04/21 10:59 Ur Propoxyphene Screen NEGATIVE (NEGATIVE) 11/04/21 10:59 Ur Barbiturates Screen NEGATIVE (NEGATIVE) 11/04/21 10:59 Ur Tricyclics Screen NEGATIVE (NEGATIVE) 11/04/21 10:59 Ur Phencyclidine Scrn NEGATIVE (NEGATIVE) 11/04/21 10:59 Ur Amphetamine Screen NEGATIVE (NEGATIVE) 11/04/21 10:59 U Methamphetamines Scrn NEGATIVE (NEGATIVE) 11/04/21 10:59 U Benzodiazepines Scrn NEGATIVE (NEGATIVE) 11/04/21 10:59 Urine Cocaine Screen NEGATIVE (NEGATIVE) 11/04/21 10:59 U Cannabinoids Screen NEGATIVE (NEGATIVE) 11/04/21 10:59 Ethyl Alcohol < 5.0 mg/dL 11/04/21 14:02 ABX Reporting Has patient been on IV antibiotics over the past 48 hours?: Yes Current Medications - Current Medications Current Medications: Active Medications Acetaminophen (Acetaminophen 325 Mg Tablet) 650 mg PO Q4HR PRN PRN Reason: Pain 1 to 4 Last Admin: 11/06/21 22:20 Dose: 650 mg Documented by: Aspirin (Aspirin 325 Mg Tablet) 325 mg PO DAILYWM [facility] Last Admin: 11/07/21 08:51 Dose: 325 mg Documented by: Atorvastatin Calcium (Atorvastatin 40 Mg Tablet) 40 mg PO QPM [facility] Last Admin: 11/06/21 22:20 Dose: 40 mg Documented by: Carbidopa/Levodopa (Carbidopa/Levodopa 25 Mg/100 Mg Tablet) 1 tab PO TID [facility] Last Admin: 11/07/21 06:58 Dose: 1 tab Documented by: Ampicillin Sodium/Sulbactam (Sodium 1.5 gm/ Sodium Chloride) 100 mls @ 200 mls/hr IV Q6H [facility] Last Infusion: 11/07/21 10:05 Dose: Infused Documented by: Isosorbide Mononitrate (Isosorbide Mononitrate Er 30 Mg Tablet) 90 mg PO DAILY [facility] Last Admin: 11/07/21 08:51 Dose: 90 mg Documented by: Lisinopril (Lisinopril 20 Mg Tablet) 40 mg PO DAILY [facility] Last Admin: 11/07/21 08:51 Dose: 40 mg Documented by: Lorazepam (Lorazepam 0.5 Mg Tablet) 0.5 mg PO Q12H PRN PRN Reason: Anxiety Last Admin: 11/06/21 17:05 Dose: 0.5 mg Documented by: Metoprolol Tartrate (Metoprolol Tartrate 50 Mg Tablet) 50 mg PO BID [facility] Last Admin: 11/07/21 08:50 Dose: 50 mg Documented by: Multi-Ingredient Ointment (Zinc Oxide 20% Oint 30 Gm Tube) 1 applic TOP PRN PRN PRN Reason: Skin Care Nitroglycerin (Nitroglycerin Sl 0.4 Mg Tablet) 0.4 mg SL Q5MIN PRN PRN Reason: Chest Pain Ondansetron HCl (Ondansetron 4 Mg/2 Ml Vial) 4 mg IVP Q6HR PRN PRN Reason: Nausea / Vomiting Saccharomyces Boulardii (Saccharomyces Boulardii 250 Mg Capsule) 250 mg PO BIDWM [facility] Last Admin: 11/07/21 08:51 Dose: 250 mg Documented by: Sodium Chloride (Sodium Chloride Flush 0.9% 10 Ml Syringe) 10 ml IVP PRN PRN PRN Reason: NEEDED PER PROVIDER ORDERS Last Admin: 11/06/21 22:20 Dose: 10 ml Documented by: Sodium Chloride (Sodium Chloride Flush 0.9% 10 Ml Syringe) 10 ml IVP 0100,0900,1700 [facility] Last Admin: 11/07/21 08:48 Dose: 10 ml Documented by: Apixaban [Eliquis] 5 mg PO BID 11/04/21 Aspirin Chewable [[facility] [place] Aspirin] 81 mg PO QPM 11/04/21 Carbidopa/Levodopa 25/100 [Sinemet 25 mg/100 mg] 1 tablet PO TID 11/04/21 Cyanocobalamin [Vitamin B-12] 250 mcg PO DAILY 11/04/21 Isosorbide Mononitrate [Isosorbide Mononitrate ER] 90 mg PO DAILY 11/04/21 Lisinopril [Zestril] 40 mg PO DAILY 11/04/21 Meloxicam [Mobic] 15 mg PO DAILY 11/04/21 Metoprolol Tartrate [Lopressor] 50 mg PO BID 11/04/21 Nitroglycerin [Nitrostat] 0.4 mg SL Q5MIN PRN 11/04/21 Simvastatin [Zocor] 40 mg PO QPM 11/04/21 Tamsulosin HCl [Flomax] 0.8 mg PO QPM 11/04/21 amLODIPine [Norvasc] 5 mg PO DAILY 11/04/21
[2021-11-07] MEDS: SODIUM CHLORIDE FLUSH 0.9% 10 ML SYRINGE IVP PRN (18:47)
[2021-11-07] MEDS: FUROSEMIDE 20 MG/2 ML VIAL IVP SCH (18:47)
[2021-11-07] MEDS: ATORVASTATIN 40 MG TABLET PO SCH (22:09)
[2021-11-08] MEDS: SODIUM CHLORIDE FLUSH 0.9% 10 ML SYRINGE IVP SCH ×3 (01:06→16:21)
[2021-11-08] MEDS: AMPICILLIN/SULBACTAM 1.5 GM in SODIUM CHLORIDE 0.9% MINIBAG 100 ML IV SCH ×4 (04:39→21:12)
[2021-11-08 05:40] LABS: BASOPHILS % (AUTO) 0.3 %; EOSINOPHILS # (AUTO) 0.1 10^3/uL (0.0-0.7); EOSINOPHILS % (AUTO) 0.6 %; HCT - HEMATOCRIT 30.5 % (42.0-52.0); HGB - HEMOGLOBIN 10.5 g/dL (14.0-18.0); LYMPHOCYTES # (AUTO) 0.8 10^3/uL (1.5-3.5); LYMPHOCYTES % (AUTO) 6.6 %; MEAN CORPUSCULAR HEMOGLOBIN 28.2 pg (27.0-31.0); MEAN CORPUSCULAR HGB CONC 34.4 g/dL (32.0-36.0); MEAN CORPUSCULAR VOLUME 81.8 fL (80.0-94.0); MEAN PLATELET VOLUME 9.5 fL (7.4-11.4); MONOCYTES % (AUTO) 8.7 %; NEUTROPHILS # (AUTO) 9.8 10^3/uL (1.5-6.6); NEUTROPHILS % (AUTO) 83.4 %; PLT - PLATELET COUNT 174 10^3/uL (130-450); RED BLOOD COUNT 3.73 10^6/uL (4.70-6.10); RED CELL DISTRIBUTION WIDTH 16.2 % (12.0-15.0); WHITE BLOOD COUNT 11.7 x10^3/uL (4.8-10.8)
[2021-11-08 05:49] LABS: POTASSIUM 3.3 mmol/L (3.5-5.0)
[2021-11-08] MEDS: CARBIDOPA/LEVODOPA 25 MG/100 MG TABLET PO SCH ×3 (06:15→21:11)
[2021-11-08] MEDS: FUROSEMIDE 20 MG/2 ML VIAL IVP SCH ×2 (06:16→14:10)
[2021-11-08] MEDS ORDERED: POTASSIUM CHLORIDE 20 MEQ TABLET PO ONE (07:48)
[2021-11-08] MEDS: ZINC OXIDE 20% OINT 30 GM TUBE TOP PRN (08:00)
[2021-11-08] MEDS: SACCHAROMYCES BOULARDII 250 MG CAPSULE PO SCH ×2 (08:19→16:20)
[2021-11-08] MEDS: ASPIRIN 325 MG TABLET PO SCH (08:19)
--- NOTE | 2021-11-08 08:52 | PROVIDER PROGRESS NOTE ---
Assessment/Plan - Problem List (1) Stroke Assessment/Plan: 11/08, slowly improved. pt ate 75% his breakfast, pt seem mild improved on his upper extremity strength. continue to have PT and OT for patient, Continue aspirin, Lipitor. Consult with social work for disposition planning. 1223, Patient feels better. Patient ate 50% of his breakfast feed by his . ST saw the patient on yesterday, patient is on dysphagia diet. ST will continue see the patient to help patient improve for his slurring speech. Patient still present significant weakness at his left side with his significantly slurring speech. We will continue to have PT and OT for patient, Continue aspirin, Lipitor. Consult with social work for disposition planning. 11/06 pt represent left side weakness, still present slurred speech. CT of the head show hypoattenuation of right deep fried nuclei with subtle decrease fried- white matter. finding raise concern for ischemia. ECHO is unremarkable. pt has aspiration, we will aspiration precaution for pt. order ST for pt, begin NPO. continue NM aspirin unfortunately pt refused to PT/OT updated and discussed care plan with pt's at the bedside 11/05 pt fall in the deep sleep and he had Ativan. pt's report he still has slurred speech. pt ate about 25% his breakfast, it seems pt has no Dysphagia issue. Patient's hope patient could be transferred to [facility]. I called twice but I could not get call back from [facility]. 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 Repeat CT of the head show hypoattenuation of right deep fried nuclei with subtle decrease fried-white matter. finding raise concern for ischemia. Will resume home medication aspirin, Eliquis, Lipitor. We will finish echo study. We will have PT and OT evaluation and treatment for patient. Consult social work for disposition planning. (2)aspiration pneumonia 11/08 slowly improved. pt had 95% on 3 liter of O2. Last night he had cough. WBC is slowly down to 11.7 on today. pt has no fever or chill. CXR reveal patient had right lung pneumonia and pulmonary congestion/fluid overloaded. BNP is slight trended down We will continue intravenous antibiotics, probiotics, Lasix. Supplemental oxygen as needed. Patient did not take oxygen at home. 11/07, improved. Patient has no acute respiratory distress, patient he had a 95% oxygen saturation on 4 liter of O2. BNP is down to 570 from 900 on yesterday. CXR reveal patient had right lung pneumonia and pulmonary congestion/fluid overloaded. We will continue intravenous antibiotics, probiotics, Lasix. pt had elevated WBC, pt require more O2, pt clinic show aspiration after he had stroke. CXR reveals bilateral hazy airspace opacity. order once Lasix IV, start with Unasy IV and probiotics, hold IVF until tonight. pt is NPO and pending ST evaluation. (3) Hypothermia Resolved, TSH is at normal range (4) Hypertension 11/07 stable, resume home meds Patient's blood pressure is at low side, we will hold other home blood pressure medicine, just resume metoprolol now (5) Hyperlipidemia add Lipitor (6) Parkinson disease Conclusion/Plan: resume home Sinemet (7) BPH (benign prostatic hyperplasia) Conclusion/Plan: On tamsulosin 0.8 mg p.o. every afternoon. pt's report pt can urinate by herself, will d/c Burden (8) History of coronary artery disease Conclusion/Plan: stable now. will have ECHO study for pt and is pending. resume his home meds metoprolol, simvastatin and sublingual nitroglycerin as needed. (9)BORIS 11/06 resolved. 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 agents (10)anxiety 11/06 pt present anxiety, start lower dosage Ativan PRN - Current Meds Current Meds: Current Medications Generic Name Dose Route Start Last Admin Trade Name Terri PRN Reason Stop Dose Admin Acetaminophen 650 mg 11/04/21 13:51 11/06/21 22:20 Acetaminophen 325 Mg Tablet PO 650 mg Q4HR PRN Administration Pain 1 to 4 Aspirin 325 mg 11/07/21 08:00 11/08/21 08:19 Aspirin 325 Mg Tablet PO 325 mg DAILYWM LITA Administration Atorvastatin Calcium 40 mg 11/06/21 21:00 11/07/21 22:09 Atorvastatin 40 Mg Tablet PO 40 mg QPM LITA Administration Carbidopa/Levodopa 1 tab 11/06/21 15:32 11/08/21 06:15 Carbidopa/Levodopa 25 Mg/100 Mg Tablet PO 1 tab TID LITA Administration Furosemide 20 mg 11/07/21 18:00 11/08/21 06:16 Furosemide 20 Mg/2 Ml Vial IVP 20 mg BIDDIURETIC LITA Administration Ampicillin Sodium/Sulbactam 100 mls @ 200 mls/hr 11/06/21 10:30 11/08/21 05:10 Sodium 1.5 gm/ Sodium Chloride IV Infused Q6H LITA Infusion Isosorbide Mononitrate 90 mg 11/07/21 09:00 11/07/21 08:51 Isosorbide Mononitrate Er 30 Mg Tablet PO 90 mg DAILY LITA Administration Lisinopril 40 mg 11/07/21 09:00 11/07/21 08:51 Lisinopril 20 Mg Tablet PO 40 mg DAILY LITA Administration Lorazepam 0.5 mg 11/06/21 14:17 11/06/21 17:05 Lorazepam 0.5 Mg Tablet PO 0.5 mg Q12H PRN Administration Anxiety Metoprolol Tartrate 50 mg 11/06/21 21:00 11/07/21 22:09 Metoprolol Tartrate 50 Mg Tablet PO 50 mg BID LITA Administration Saccharomyces Boulardii 250 mg 11/06/21 17:00 11/08/21 08:19 Saccharomyces Boulardii 250 Mg Capsule PO 250 mg BIDWM LITA Administration Sodium Chloride 10 ml 11/04/21 13:51 11/07/21 18:47 Sodium Chloride Flush 0.9% 10 Ml Syringe IVP 10 ml PRN PRN Administration NEEDED PER PROVIDER ORDERS Sodium Chloride 10 ml 11/04/21 17:00 11/08/21 01:06 Sodium Chloride Flush 0.9% 10 Ml Syringe IVP 10 ml 0100,0900,1700 LITA Administration - Lab Result Fish Bone Diagrams: 11/08/21 04:22 11/08/21 04:22 - Additional Planning My Orders: My Active Orders 11/07/21 08:00 Aspirin [Ariane] 325 mg PO DAILYWM 11/07/21 09:00 Isosorbide Mononitrate ER [Imdur] 90 mg PO DAILY lisinopriL [Zestril] 40 mg PO DAILY 11/07/21 18:00 FUROSEMIDE INJ 20mg VIAL [LASIX INJ 20mg VIAL] 20 mg IVP BIDDIURETIC 11/08/21 CUL, RESPIRATORY [RM] Urgent 11/08/21 09:00 guaiFENesin [Mucinex] 600 mg PO BID 11/09/21 05:00 BNP - B-NATRIURETIC PEPTIDE [IAI] DAILYLAB Subjective - Subjective Patient Reports: Resting Comfortably Objective Vital Signs: Vital Signs - 24 hr 11/07/21 11/07/21 11/07/21 13:00 15:49 22:09 Temperature 36.5 C 36.6 C Heart Rate [ 60 61 Brachial] Respiratory 20 21 Rate Blood Pressure 171/59 H Blood Pressure 123/53 L 146/79 H [Right Brachial artery] O2 Saturation 97 94 11/07/21 11/07/21 11/08/21 22:15 23:39 01:19 Temperature 37 C 36.9 C Heart Rate [ 63 60 Brachial] Respiratory 24 24 19 Rate Blood Pressure Blood Pressure 171/59 H 171/55 H 147/40 H [Right Brachial artery] O2 Saturation 95 92 92 11/08/21 04:51 Temperature 36.9 C Heart Rate [ 63 Brachial] Respiratory 20 Rate Blood Pressure Blood Pressure 150/71 H [Right Brachial artery] O2 Saturation 93 Oxygen O2 Source Nasal cannula I&O (Last 24 Hrs): Intake and Output Totals x24h 11/06/21 11/07/21 11/08/21 23:59 23:59 23:59 Intake Total 300 1250 100 Balance 300 1250 100 General: Alert, No acute distress HEENT: Atraumatic Neck: Supple Lymphatic: no adenopathy Neuro: Alert, Focal Deficits Cardiovascular: Regular rate, Normal S1, Normal S2 Respiratory: Chest non-tender, No respiratory distress, Rales Abdomen: Normal bowel sounds, Soft Extremities: Normal pulses - Results Results: Laboratory Results WBC 11.7 x10^3/uL (4.8-10.8) H 11/08/21 04:22 RBC 3.73 10^6/uL (4.70-6.10) L 11/08/21 04:22 Hgb 10.5 g/dL (14.0-18.0) L 11/08/21 04:22 Hct 30.5 % (42.0-52.0) L 11/08/21 04:22 MCV 81.8 fL (80.0-94.0) 11/08/21 04:22 MCH 28.2 pg (27.0-31.0) 11/08/21 04:22 MCHC 34.4 g/dL (32.0-36.0) 11/08/21 04:22 RDW 16.2 % (12.0-15.0) H 11/08/21 04:22 Plt Count 174 10^3/uL (130-450) 11/08/21 04:22 MPV 9.5 fL (7.4-11.4) 11/08/21 04:22 Reticulocyte % (Auto) 1.62 % (0.5-2.3) 11/05/21 05:55 Neut # (Auto) 9.8 10^3/uL (1.5-6.6) H 11/08/21 04:22 Lymph # (Auto) 0.8 10^3/uL (1.5-3.5) L 11/08/21 04:22 [place] # (Auto) 1.0 10^3/uL (0.0-1.0) 11/08/21 04:22 Eos # (Auto) 0.1 10^3/uL (0.0-0.7) 11/08/21 04:22 Baso # (Auto) 0.0 10^3/uL (0.0-0.1) 11/08/21 04:22 Absolute Nucleated RBC 0.00 x10^3/uL 11/08/21 04:22 Nucleated RBC % 0.0 /100WBC 11/08/21 04:22 Absolute Retic 0.060 10^6/uL (0.020-0.110) 11/05/21 05:55 PT 15.3 secs (9.9-12.6) H 11/04/21 10:30 INR 1.4 (0.8-1.2) H 11/04/21 10:30 APTT 42.0 secs (24.9-33.3) H 11/04/21 10:30 Sodium 143 mmol/L (135-145) 11/08/21 04:22 Potassium 3.3 mmol/L (3.5-5.0) L 11/08/21 04:22 Chloride 106 mmol/L (101-111) 11/08/21 04:22 Carbon Dioxide 26 mmol/L (21-32) 11/08/21 04:22 Anion Gap 11.0 (6-13) 11/08/21 04:22 BUN 35 mg/dL (6-20) H 11/08/21 04:22 Creatinine 1.0 mg/dL (0.6-1.2) 11/08/21 04:22 Estimated GFR (MDRD) 71 (>89) L 11/08/21 04:22 Glucose 119 mg/dL (70-100) H 11/08/21 04:22 Lactic Acid 1.0 mmol/L (0.5-2.2) 11/04/21 10:30 Calcium 9.0 mg/dL (8.5-10.3) 11/08/21 04:22 Magnesium 2.2 mg/dL (1.7-2.8) 11/04/21 10:30 Iron 29 ug/dL (45-182) L 11/05/21 05:55 TIBC 245 ug/dL (250-450) L 11/05/21 05:55 % Saturation 12 % (20-50) L 11/05/21 05:55 Transferrin 175 mg/dL (180-329) L 11/05/21 05:55 Ferritin 544.0 ng/mL (23.9-336.2) H 11/05/21 05:55 Total Bilirubin 0.7 mg/dL (0.2-1.0) 11/04/21 10:30 AST 70 IU/L (10-42) H 11/04/21 10:30 ALT 18 IU/L (10-60) 11/04/21 10:30 Alkaline Phosphatase 76 IU/L (42-121) 11/04/21 10:30 Lactate Dehydrogenase 160 IU/L (91-225) 11/05/21 05:55 Total Creatine Kinase 423 IU/L (22-269) H 11/06/21 08:07 Troponin I High Sens 14.3 ng/L (2.3-19.7) 11/04/21 22:00 B-Natriuretic Peptide 508 pg/mL (5-100) H 11/08/21 04:22 Total Protein 6.7 g/dL (6.7-8.2) 11/04/21 10:30 Albumin 3.6 g/dL (3.2-5.5) 11/04/21 10:30 Globulin 3.1 g/dL (2.1-4.2) 11/04/21 10:30 Albumin/Globulin Ratio 1.2 (1.0-2.2) 11/04/21 10:30 Triglycerides 51 mg/dL (-149) 11/05/21 05:55 Cholesterol 91 mg/dL (-199) 11/05/21 05:55 LDL Cholesterol, Calc 29 mg/dL (-129) 11/05/21 05:55 VLDL Cholesterol 10 mg/dL 11/05/21 05:55 HDL Cholesterol 52 mg/dL (60-) L 11/05/21 05:55 LDL/HDL Ratio 0.6 (<3.6) 11/05/21 05:55 Cholesterol/HDL Ratio 1.8 (<5.0) 11/05/21 05:55 Lipase 54 U/L (22-51) H 11/04/21 10:30 Vitamin B12 > 7000 pg/mL (180-914) H 11/05/21 05:55 TSH 2.97 uIU/mL (0.34-5.60) 11/04/21 10:30 Urine Color LIGHT YELLOW 11/04/21 10:59 Urine Clarity CLEAR (CLEAR) 11/04/21 10:59 Urine pH 6.0 PH (5.0-7.5) 11/04/21 10:59 Ur Specific [place] 1.020 (1.002-1.030) 11/04/21 10:59 Urine Protein NEGATIVE mg/dL (NEGATIVE) 11/04/21 10:59 Urine Glucose (UA) NEGATIVE mg/dL (NEGATIVE) 11/04/21 10:59 Urine Ketones NEGATIVE mg/dL (NEGATIVE) 11/04/21 10:59 Urine Occult Blood MODERATE (NEGATIVE) H 11/04/21 10:59 Urine Nitrite NEGATIVE (NEGATIVE) 11/04/21 10:59 Urine Bilirubin NEGATIVE (NEGATIVE) 11/04/21 10:59 Urine Urobilinogen 0.2 (NORMAL) E.U./dL (NORMAL) 11/04/21 10:59 Ur Leukocyte Esterase NEGATIVE (NEGATIVE) 11/04/21 10:59 Urine RBC TNTC /HPF (0-5) H 11/04/21 10:59 Urine WBC 0-3 /HPF (0-3) 11/04/21 10:59 Ur Squamous Epith Cells NONE SEEN (<= Few) 11/04/21 10:59 Urine Bacteria None Seen /HPF (None Seen) 11/04/21 10:59 Ur Microscopic Review INDICATED 11/04/21 10:59 Urine Culture Comments NOT INDICATED 11/04/21 10:59 Nasal Adenovirus (PCR) NOT DETECTED 11/04/21 10:32 Nasal B. parapertussis DNA (PCR) NOT DETECTED 11/04/21 10:32 Nasal Coronavir 229E PCR NOT DETECTED 11/04/21 10:32 Nasal Coronavir HKU1 PCR NOT DETECTED 11/04/21 10:32 Nasal Coronavir NL63 PCR NOT DETECTED 11/04/21 10:32 Nasal Coronavir OC43 PCR NOT DETECTED 11/04/21 10:32 Nasal Enterovir/Rhinovir PCR NOT DETECTED 11/04/21 10:32 Nasal Influenza B PCR NOT DETECTED 11/04/21 10:32 Nasal Influenza A PCR NOT DETECTED 11/04/21 10:32 Nasal Parainfluen 1 PCR NOT DETECTED 11/04/21 10:32 Nasal Parainfluen 2 PCR NOT DETECTED 11/04/21 10:32 Nasal Parainfluen 3 PCR NOT DETECTED 11/04/21 10:32 Nasal Parainfluen 4 PCR NOT DETECTED 11/04/21 10:32 Nasal RSV (PCR) NOT DETECTED 11/04/21 10:32 Nasal B.pertussis DNA PCR NOT DETECTED 11/04/21 10:32 Nasal C.pneumoniae (PCR) NOT DETECTED 11/04/21 10:32 Micky Human Metapneumo PCR NOT DETECTED 11/04/21 10:32 Nasal M.pneumoniae (PCR) NOT DETECTED 11/04/21 10:32 Nasal SARS-CoV-2 (PCR) NOT DETECTED 11/04/21 10:32 Urine Opiates Screen NEGATIVE (NEGATIVE) 11/04/21 10:59 Ur Oxycodone Screen NEGATIVE (NEGATIVE) 11/04/21 10:59 Urine Methadone Screen NEGATIVE (NEGATIVE) 11/04/21 10:59 Ur Propoxyphene Screen NEGATIVE (NEGATIVE) 11/04/21 10:59 Ur Barbiturates Screen NEGATIVE (NEGATIVE) 11/04/21 10:59 Ur Tricyclics Screen NEGATIVE (NEGATIVE) 11/04/21 10:59 Ur Phencyclidine Scrn NEGATIVE (NEGATIVE) 11/04/21 10:59 Ur Amphetamine Screen NEGATIVE (NEGATIVE) 11/04/21 10:59 U Methamphetamines Scrn NEGATIVE (NEGATIVE) 11/04/21 10:59 U Benzodiazepines Scrn NEGATIVE (NEGATIVE) 11/04/21 10:59 Urine Cocaine Screen NEGATIVE (NEGATIVE) 11/04/21 10:59 U Cannabinoids Screen NEGATIVE (NEGATIVE) 11/04/21 10:59 Ethyl Alcohol < 5.0 mg/dL 11/04/21 14:02 ABX Reporting Has patient been on IV antibiotics over the past 48 hours?: Yes Current Medications - Current Medications Current Medications: Active Medications Acetaminophen (Acetaminophen 325 Mg Tablet) 650 mg PO Q4HR PRN PRN Reason: Pain 1 to 4 Last Admin: 11/06/21 22:20 Dose: 650 mg Documented by: Aspirin (Aspirin 325 Mg Tablet) 325 mg PO DAILYWM [facility] Last Admin: 11/08/21 08:19 Dose: 325 mg Documented by: Atorvastatin Calcium (Atorvastatin 40 Mg Tablet) 40 mg PO QPM [facility] Last Admin: 11/07/21 22:09 Dose: 40 mg Documented by: Carbidopa/Levodopa (Carbidopa/Levodopa 25 Mg/100 Mg Tablet) 1 tab PO TID [facility] Last Admin: 11/08/21 06:15 Dose: 1 tab Documented by: Furosemide (Furosemide 20 Mg/2 Ml Vial) 20 mg IVP BIDDIURETIC [facility] Last Admin: 11/08/21 06:16 Dose: 20 mg Documented by: Guaifenesin (Guaifenesin 600 Mg Tablet) 600 mg PO BID [facility] Ampicillin Sodium/Sulbactam (Sodium 1.5 gm/ Sodium Chloride) 100 mls @ 200 ml s/hr IV Q6H [facility] Last Infusion: 11/08/21 05:10 Dose: Infused Documented by: Isosorbide Mononitrate (Isosorbide Mononitrate Er 30 Mg Tablet) 90 mg PO DAILY [facility] Last Admin: 11/07/21 08:51 Dose: 90 mg Documented by: Lisinopril (Lisinopril 20 Mg Tablet) 40 mg PO DAILY [facility] Last Admin: 11/07/21 08:51 Dose: 40 mg Documented by: Lorazepam (Lorazepam 0.5 Mg Tablet) 0.5 mg PO Q12H PRN PRN Reason: Anxiety Last Admin: 11/06/21 17:05 Dose: 0.5 mg Documented by: Metoprolol Tartrate (Metoprolol Tartrate 50 Mg Tablet) 50 mg PO BID [facility] Last Admin: 11/07/21 22:09 Dose: 50 mg Documented by: Multi-Ingredient Ointment (Zinc Oxide 20% Oint 30 Gm Tube) 1 applic TOP PRN PRN PRN Reason: Skin Care Nitroglycerin (Nitroglycerin Sl 0.4 Mg Tablet) 0.4 mg SL Q5MIN PRN PRN Reason: Chest Pain Ondansetron HCl (Ondansetron 4 Mg/2 Ml Vial) 4 mg IVP Q6HR PRN PRN Reason: Nausea / Vomiting Saccharomyces Boulardii (Saccharomyces Boulardii 250 Mg Capsule) 250 mg PO BIDWM [facility] Last Admin: 11/08/21 08:19 Dose: 250 mg Documented by: Sodium Chloride (Sodium Chloride Flush 0.9% 10 Ml Syringe) 10 ml IVP PRN PRN PRN Reason: NEEDED PER PROVIDER ORDERS Last Admin: 11/07/21 18:47 Dose: 10 ml Documented by: Sodium Chloride (Sodium Chloride Flush 0.9% 10 Ml Syringe) 10 ml IVP 0100,0900,1700 [facility] Last Admin: 11/08/21 01:06 Dose: 10 ml Documented by: Apixaban [Eliquis] 5 mg PO BID 11/04/21 Aspirin Chewable [[place] Aspirin] 81 mg PO QPM 11/04/21 Carbidopa/Levodopa 25/100 [Sinemet 25 mg/100 mg] 1 tablet PO TID 11/04/21 Cyanocobalamin [Vitamin B-12] 250 mcg PO DAILY 11/04/21 Isosorbide Mononitrate [Isosorbide Mononitrate ER] 90 mg PO DAILY 11/04/21 Lisinopril [Zestril] 40 mg PO DAILY 11/04/21 Meloxicam [Mobic] 15 mg PO DAILY 11/04/21 Metoprolol Tartrate [Lopressor] 50 mg PO BID 11/04/21 Nitroglycerin [Nitrostat] 0.4 mg SL Q5MIN PRN 11/04/21 Simvastatin [Zocor] 40 mg PO QPM 11/04/21 Tamsulosin HCl [Flomax] 0.8 mg PO QPM 11/04/21 amLODIPine [Norvasc] 5 mg PO DAILY 11/04/21
[2021-11-08] MEDS: lisinopriL 20 MG TABLET PO SCH (09:57)
[2021-11-08] MEDS: guaiFENesin 600 MG TABLET PO SCH ×2 (09:57→21:11)
[2021-11-08] MEDS: ISOSORBIDE MONONITRATE ER 30 MG TABLET PO SCH (09:57)
[2021-11-08] MEDS: METOPROLOL TARTRATE 50 MG TABLET PO SCH ×2 (09:57→21:12)
[2021-11-08] MEDS: SODIUM CHLORIDE FLUSH 0.9% 10 ML SYRINGE IVP PRN ×2 (14:11→21:13)
[2021-11-08] MEDS: DOCUSATE SODIUM 250 MG CAPSULE PO SCH (16:27)
[2021-11-08] MEDS: ATORVASTATIN 40 MG TABLET PO SCH (21:11)
[2021-11-09] MEDS: SODIUM CHLORIDE FLUSH 0.9% 10 ML SYRINGE IVP SCH ×4 (00:20→23:59)
[2021-11-09] MEDS: AMPICILLIN/SULBACTAM 1.5 GM in SODIUM CHLORIDE 0.9% MINIBAG 100 ML IV SCH ×4 (04:24→20:19)
[2021-11-09] MEDS: CARBIDOPA/LEVODOPA 25 MG/100 MG TABLET PO SCH ×3 (05:39→20:31)
[2021-11-09 06:25] LABS: BASOPHILS % (AUTO) 0.4 %; EOSINOPHILS # (AUTO) 0.2 10^3/uL (0.0-0.7); EOSINOPHILS % (AUTO) 2.2 %; HCT - HEMATOCRIT 29.7 % (42.0-52.0); LYMPHOCYTES # (AUTO) 1.1 10^3/uL (1.5-3.5); MEAN CORPUSCULAR HEMOGLOBIN 27.9 pg (27.0-31.0); MEAN CORPUSCULAR HGB CONC 33.7 g/dL (32.0-36.0); MEAN PLATELET VOLUME 9.7 fL (7.4-11.4); MONOCYTES # (AUTO) 0.9 10^3/uL (0.0-1.0); MONOCYTES % (AUTO) 11.8 %; NEUTROPHILS # (AUTO) 5.1 10^3/uL (1.5-6.6); NEUTROPHILS % (AUTO) 70.2 %; NRBC ABSOLUTE COUNT (AUTO) 0.02 x10^3/uL; NUCLEATED RED BLOOD CELLS AUTO 0.3 /100WBC; PLT - PLATELET COUNT 159 10^3/uL (130-450); RED BLOOD COUNT 3.58 10^6/uL (4.70-6.10); RED CELL DISTRIBUTION WIDTH 15.7 % (12.0-15.0); WHITE BLOOD COUNT 7.3 x10^3/uL (4.8-10.8)
[2021-11-09 06:31] LABS: CALCIUM 8.5 mg/dL (8.5-10.3); POTASSIUM 3.1 mmol/L (3.5-5.0)
[2021-11-09] MEDS ORDERED: POTASSIUM CHLORIDE 20 MEQ/15 ML UDC PO ONE (08:00)
[2021-11-09] MEDS: METOPROLOL TARTRATE 50 MG TABLET PO SCH ×2 (08:25→20:27)
[2021-11-09] MEDS: SENNA 8.6 MG TABLET PO SCH (08:26)
[2021-11-09] MEDS: SACCHAROMYCES BOULARDII 250 MG CAPSULE PO SCH ×2 (08:26→16:16)
[2021-11-09] MEDS: DOCUSATE SODIUM 250 MG CAPSULE PO SCH (08:26)
[2021-11-09] MEDS: ASPIRIN 325 MG TABLET PO SCH (08:27)
[2021-11-09] MEDS: ISOSORBIDE MONONITRATE ER 30 MG TABLET PO SCH (08:27)
[2021-11-09] MEDS: guaiFENesin 600 MG TABLET PO SCH ×2 (08:27→20:29)
[2021-11-09] MEDS: polyethylene glycoL 3350 17 GM PACKET PO SCH (08:28)
[2021-11-09] MEDS: lisinopriL 20 MG TABLET PO SCH (08:34)
[2021-11-09] MEDS ORDERED: FUROSEMIDE 20 MG/2 ML VIAL IVP SCH (09:00)
--- NOTE | 2021-11-09 14:21 | PROVIDER PROGRESS NOTE ---
Subjective - Prog Note Date Prog Note Date: 11/09/21 - Subjective Subjective: He denies any chest pain or dyspnea. Still has a cough. Reports no weakness in his extremities. Current Medications - Current Medications Current Medications: Active Medications Acetaminophen (Acetaminophen 325 Mg Tablet) 650 mg PO Q4HR PRN PRN Reason: Pain 1 to 4 Last Admin: 11/06/21 22:20 Dose: 650 mg Documented by: Aspirin (Aspirin 325 Mg Tablet) 325 mg PO DAILYWM [facility] Last Admin: 11/09/21 08:27 Dose: 325 mg Documented by: Atorvastatin Calcium (Atorvastatin 40 Mg Tablet) 40 mg PO QPM [facility] Last Admin: 11/08/21 21:11 Dose: 40 mg Documented by: Carbidopa/Levodopa (Carbidopa/Levodopa 25 Mg/100 Mg Tablet) 1 tab PO TID [facility] Last Admin: 11/09/21 05:39 Dose: 1 tab Documented by: Docusate Sodium (Docusate Sodium 250 Mg Capsule) 250 - 500 mg PO DAILY [facility] Last Admin: 11/09/21 08:26 Dose: 250 mg Documented by: Furosemide (Furosemide 20 Mg/2 Ml Vial) 20 mg IVP DAILY [facility] Last Admin: 11/09/21 08:28 Dose: 20 mg Documented by: Guaifenesin (Guaifenesin 600 Mg Tablet) 600 mg PO BID [facility] Last Admin: 11/09/21 08:27 Dose: 600 mg Documented by: Ampicillin Sodium/Sulbactam (Sodium 1.5 gm/ Sodium Chloride) 100 mls @ 200 mls/hr IV Q6H [facility] Last Infusion: 11/09/21 11:30 Dose: Infused Documented by: Isosorbide Mononitrate (Isosorbide Mononitrate Er 30 Mg Tablet) 90 mg PO DAILY [facility] Last Admin: 11/09/21 08:27 Dose: 90 mg Documented by: Lisinopril (Lisinopril 20 Mg Tablet) 40 mg PO DAILY [facility] Last Admin: 11/09/21 08:34 Dose: 40 mg Documented by: Lorazepam (Lorazepam 0.5 Mg Tablet) 0.5 mg PO Q12H PRN PRN Reason: Anxiety Last Admin: 11/06/21 17:05 Dose: 0.5 mg Documented by: Metoprolol Tartrate (Metoprolol Tartrate 50 Mg Tablet) 50 mg PO BID [facility] Last Admin: 11/09/21 08:25 Dose: 50 mg Documented by: Multi-Ingredient Ointment (Zinc Oxide 20% Oint 30 Gm Tube) 1 applic TOP PRN PRN PRN Reason: Skin Care Last Admin: 11/08/21 08:00 Dose: 1 applic Documented by: Nitroglycerin (Nitroglycerin Sl 0.4 Mg Tablet) 0.4 mg SL Q5MIN PRN PRN Reason: Chest Pain Ondansetron HCl (Ondansetron 4 Mg/2 Ml Vial) 4 mg IVP Q6HR PRN PRN Reason: Nausea / Vomiting Polyethylene Glycol (Polyethylene Glycol 3350 17 Gm Packet) 17 gm PO DAILY [facility] Last Admin: 11/09/21 08:28 Dose: 17 gm Documented by: Saccharomyces Boulardii (Saccharomyces Boulardii 250 Mg Capsule) 250 mg PO BIDWM [facility] Last Admin: 11/09/21 08:26 Dose: 250 mg Documented by: Senna (Senna 8.6 Mg Tablet) 8.6 - 17.2 mg PO DAILY [facility] Last Admin: 11/09/21 08:26 Dose: 8.6 mg Documented by: Sodium Chloride (Sodium Chloride Flush 0.9% 10 Ml Syringe) 10 ml IVP PRN PRN PRN Reason: NEEDED PER PROVIDER ORDERS Last Admin: 11/08/21 21:13 Dose: 10 ml Documented by: Sodium Chloride (Sodium Chloride Flush 0.9% 10 Ml Syringe) 10 ml IVP 0100,0900,1700 [facility] Last Admin: 11/09/21 08:29 Dose: 10 ml Documented by: Apixaban [Eliquis] 5 mg PO BID 11/04/21 Aspirin Chewable [[facility] [place] Aspirin] 81 mg PO QPM 11/04/21 Carbidopa/Levodopa 25/100 [Sinemet 25 mg/100 mg] 1 tablet PO TID 11/04/21 Cyanocobalamin [Vitamin B-12] 250 mcg PO DAILY 11/04/21 Isosorbide Mononitrate [Isosorbide Mononitrate ER] 90 mg PO DAILY 11/04/21 Lisinopril [Zestril] 40 mg PO DAILY 11/04/21 Meloxicam [Mobic] 15 mg PO DAILY 11/04/21 Metoprolol Tartrate [Lopressor] 50 mg PO BID 11/04/21 Nitroglycerin [Nitrostat] 0.4 mg SL Q5MIN PRN 11/04/21 Simvastatin [Zocor] 40 mg PO QPM 11/04/21 Tamsulosin HCl [Flomax] 0.8 mg PO QPM 11/04/21 amLODIPine [Norvasc] 5 mg PO DAILY 11/04/21 Objective - Vital Signs/Intake & Output Reviewed Vital Signs: Yes Vital Signs: Vital Signs x48h Temp Pulse Resp BP BP Pulse Ox 11/09/21 12:20 100 11/09/21 09:00 37.4 C 77 16 131/54 H 100 11/09/21 08:25 131/54 H Intake & Output: Intake & Output 11/06/21 11/07/21 11/08/21 11/09/21 23:59 23:59 23:59 23:59 Intake Total 300 1250 1560 320 Balance 300 1250 1560 320 - Objective General Appearance: positive: No acute distress, Alert Eyes Bilateral: positive: Normal inspection, Conjunctivae nml ENT: positive: ENT inspection nml, Other (Nasal cannula in place.) Neck: positive: Nml inspection Respiratory: positive: No respiratory distress, Rhonchi (Right upper and lower lobe). negative: Wheezes, Rales Cardiovascular: positive: Regular rate & rhythm. negative: Tachycardia Abdomen: positive: Non-tender, No distention. negative: Tenderness Skin: positive: Warm, Dry Extremities: positive: No pedal edema Neurologic/Psychiatric: positive: Slurred/abnml speech, Other (He has 5 out of 5 motor strength in his upper and bilateral lower extremities. He does have difficulty with fine motor movements of the upper extremities with slightly abnormal [id number] test). negative: Disoriented to person, Disoriented to place - Lab Results Fish Bones: 11/10/21 05:53 11/10/21 05:53 Other Labs: Lab Results x24hrs 11/09/21 11/09/21 11/09/21 Range/Units 05:24 05:24 05:24 WBC 7.3 (4.8-10.8) x10^3/uL RBC 3.58 L (4.70-6.10) 10^6/uL Hgb 10.0 L (14.0-18.0) g/dL Hct 29.7 L (42.0-52.0) % MCV 83.0 (80.0-94.0) fL MCH 27.9 (27.0-31.0) pg MCHC 33.7 (32.0-36.0) g/dL RDW 15.7 H (12.0-15.0) % Plt Count 159 (130-450) 10^3/uL MPV 9.7 (7.4-11.4) fL Neut # (Auto) 5.1 (1.5-6.6) 10^3/uL Lymph # (Auto) 1.1 L (1.5-3.5) 10^3/uL [place] # (Auto) 0.9 (0.0-1.0) 10^3/uL Eos # (Auto) 0.2 (0.0-0.7) 10^3/uL Baso # (Auto) 0.0 (0.0-0.1) 10^3/uL Absolute Nucleated RBC 0.02 x10^3/uL Nucleated RBC % 0.3 /100WBC Sodium 143 (135-145) mmol/L Potassium 3.1 L (3.5-5.0) mmol/L Chloride 105 (101-111) mmol/L Carbon Dioxide 28 (21-32) mmol/L Anion Gap 10.0 (6-13) BUN 39 H (6-20) mg/dL Creatinine 1.0 (0.6-1.2) mg/dL Estimated GFR (MDRD) 71 L (>89) Glucose 96 (70-100) mg/dL Calcium 8.5 (8.5-10.3) mg/dL B-Natriuretic Peptide 861 H (5-100) pg/mL - Diagnostic Imaging Diagnostic Imaging Results: positive: Final report reviewed Assessment/Plan - Problem List (1) Stroke Impression: Repeat CT was concerning for an infarct. Unfortunately cannot obtain MRI due to the pacemaker that was recently placed. Fortunately, he appears to clinically be improving. He still has slurred speech and difficulty with dysphagia. His motor strength is improving. We will continue him on aspirin and Lipitor. We are holding his home Eliquis until 2 weeks after the stroke. Continue with PT and OT who are recommending SNF. (2) Aspiration pneumonia Impression: This is secondary to the stroke. Imaging revealed a right-sided infiltrate. We have him on Unasyn and he is improving as oxygen comes in on 2 L. His sats are in the high 90s so I suspect we can wean him to room air over the next 24 hours. He has been supervene by speech therapy and we are continuing their diet recommendations. (3) Diastolic heart failure Impression: There was concern that he may have been an acute diastolic heart failure. Echocardiogram revealed a preserved ejection fraction. His BNP had been increasing and x-ray also aggressive pulmonary vascular congestion. He is receiving daily IV Lasix and he currently appears close to euvolemia. We will resume his oral Lasix tomorrow. (4) History of coronary artery disease Impression: Stable. We are continuing his home medications except for the Eliquis given the recent stroke. (5) Parkinson disease Impression: Continue Sinemet. (6) BPH (benign prostatic hyperplasia) Impression: Continue Flomax.
[2021-11-09] MEDS: SODIUM CHLORIDE FLUSH 0.9% 10 ML SYRINGE IVP PRN (20:18)
[2021-11-09] MEDS: ATORVASTATIN 40 MG TABLET PO SCH (20:23)
[2021-11-10] MEDS: AMPICILLIN/SULBACTAM 1.5 GM in SODIUM CHLORIDE 0.9% MINIBAG 100 ML IV SCH ×2 (04:00→10:08)
[2021-11-10] MEDS: ZINC OXIDE 20% OINT 30 GM TUBE TOP PRN (04:00)
[2021-11-10] MEDS: SODIUM CHLORIDE FLUSH 0.9% 10 ML SYRINGE IVP PRN (04:00)
[2021-11-10] MEDS: CARBIDOPA/LEVODOPA 25 MG/100 MG TABLET PO SCH ×3 (05:31→20:15)
[2021-11-10 06:05] LABS: BASOPHILS % (AUTO) 0.4 %; EOSINOPHILS # (AUTO) 0.4 10^3/uL (0.0-0.7); HCT - HEMATOCRIT 31.1 % (42.0-52.0); HGB - HEMOGLOBIN 9.8 g/dL (14.0-18.0); LYMPHOCYTES % (AUTO) 13.9 %; MEAN CORPUSCULAR HEMOGLOBIN 25.4 pg (27.0-31.0); MEAN CORPUSCULAR HGB CONC 31.5 g/dL (32.0-36.0); MEAN CORPUSCULAR VOLUME 80.6 fL (80.0-94.0); MEAN PLATELET VOLUME 9.8 fL (7.4-11.4); MONOCYTES # (AUTO) 0.8 10^3/uL (0.0-1.0); MONOCYTES % (AUTO) 10.7 %; NEUTROPHILS % (AUTO) 69.6 %; PLT - PLATELET COUNT 183 10^3/uL (130-450); RED BLOOD COUNT 3.86 10^6/uL (4.70-6.10); RED CELL DISTRIBUTION WIDTH 15.4 % (12.0-15.0); WHITE BLOOD COUNT 7.2 x10^3/uL (4.8-10.8)
[2021-11-10 06:10] LABS: CALCIUM 8.3 mg/dL (8.5-10.3); POTASSIUM 3.7 mmol/L (3.5-5.0)
--- NOTE | 2021-11-10 07:43 | PROVIDER PROGRESS NOTE ---
Subjective - Prog Note Date Prog Note Date: 11/10/21 - Subjective Subjective: He denies any dyspnea or weakness. is present at bedside and she is happy to see improvement each day. Current Medications - Current Medications Current Medications: Active Medications Acetaminophen (Acetaminophen 325 Mg Tablet) 650 mg PO Q4HR PRN PRN Reason: Pain 1 to 4 Last Admin: 11/06/21 22:20 Dose: 650 mg Documented by: Amoxicillin/Clavulanate Potassium (Amox/Clav 875 Mg/125 Mg Tablet) 1 tab PO BID [facility] Aspirin (Aspirin 325 Mg Tablet) 325 mg PO DAILYWM [facility] Last Admin: 11/10/21 10:07 Dose: 325 mg Documented by: Atorvastatin Calcium (Atorvastatin 40 Mg Tablet) 40 mg PO QPM [facility] Last Admin: 11/09/21 20:23 Dose: 40 mg Documented by: Carbidopa/Levodopa (Carbidopa/Levodopa 25 Mg/100 Mg Tablet) 1 tab PO TID [facility] Last Admin: 11/10/21 05:31 Dose: 1 tab Documented by: Docusate Sodium (Docusate Sodium 250 Mg Capsule) 250 - 500 mg PO DAILY [facility] Last Admin: 11/10/21 10:01 Dose: 250 mg Documented by: Furosemide (Furosemide 20 Mg Tablet) 20 mg PO DAILY [facility] Last Admin: 11/10/21 10:01 Dose: 20 mg Documented by: Guaifenesin (Guaifenesin 600 Mg Tablet) 600 mg PO BID [facility] Last Admin: 11/10/21 10:07 Dose: 600 mg Documented by: Isosorbide Mononitrate (Isosorbide Mononitrate Er 30 Mg Tablet) 90 mg PO DAILY [facility] Last Admin: 11/10/21 10:07 Dose: 90 mg Documented by: Lisinopril (Lisinopril 20 Mg Tablet) 40 mg PO DAILY [facility] Last Admin: 11/10/21 10:07 Dose: 40 mg Documented by: Lorazepam (Lorazepam 0.5 Mg Tablet) 0.5 mg PO Q12H PRN PRN Reason: Anxiety Last Admin: 11/06/21 17:05 Dose: 0.5 mg Documented by: Metoprolol Tartrate (Metoprolol Tartrate 50 Mg Tablet) 50 mg PO BID [facility] Last Admin: 11/10/21 10:06 Dose: 50 mg Documented by: Multi-Ingredient Ointment (Zinc Oxide 20% Oint 30 Gm Tube) 1 applic TOP PRN PRN PRN Reason: Skin Care Last Admin: 11/10/21 04:00 Dose: 1 applic Documented by: Nitroglycerin (Nitroglycerin Sl 0.4 Mg Tablet) 0.4 mg SL Q5MIN PRN PRN Reason: Chest Pain Ondansetron HCl (Ondansetron 4 Mg/2 Ml Vial) 4 mg IVP Q6HR PRN PRN Reason: Nausea / Vomiting Polyethylene Glycol (Polyethylene Glycol 3350 17 Gm Packet) 17 gm PO DAILY [facility] Last Admin: 11/10/21 10:07 Dose: 17 gm Documented by: Saccharomyces Boulardii (Saccharomyces Boulardii 250 Mg Capsule) 250 mg PO BIDWM [facility] Last Admin: 11/10/21 10:07 Dose: 250 mg Documented by: Senna (Senna 8.6 Mg Tablet) 8.6 - 17.2 mg PO DAILY [facility] Last Admin: 11/10/21 10:07 Dose: 8.6 mg Documented by: Sodium Chloride (Sodium Chloride Flush 0.9% 10 Ml Syringe) 10 ml IVP PRN PRN PRN Reason: NEEDED PER PROVIDER ORDERS Last Admin: 11/10/21 04:00 Dose: 10 ml Documented by: Sodium Chloride (Sodium Chloride Flush 0.9% 10 Ml Syringe) 10 ml IVP 0100,0900,1700 [facility] Last Admin: 11/10/21 10:08 Dose: 10 ml Documented by: Apixaban [Eliquis] 5 mg PO BID 11/04/21 Aspirin Chewable [St Jimmy Aspirin] 81 mg PO QPM 11/04/21 Carbidopa/Levodopa 25/100 [Sinemet 25 mg/100 mg] 1 tablet PO TID 11/04/21 Cyanocobalamin [Vitamin B-12] 250 mcg PO DAILY 11/04/21 Isosorbide Mononitrate [Isosorbide Mononitrate ER] 90 mg PO DAILY 11/04/21 Lisinopril [Zestril] 40 mg PO DAILY 11/04/21 Meloxicam [Mobic] 15 mg PO DAILY 11/04/21 Metoprolol Tartrate [Lopressor] 50 mg PO BID 11/04/21 Nitroglycerin [Nitrostat] 0.4 mg SL Q5MIN PRN 11/04/21 Simvastatin [Zocor] 40 mg PO QPM 11/04/21 Tamsulosin HCl [Flomax] 0.8 mg PO QPM 11/04/21 amLODIPine [Norvasc] 5 mg PO DAILY 11/04/21 Objective - Vital Signs/Intake & Output Reviewed Vital Signs: Yes Vital Signs: Vital Signs x48h Temp Pulse Resp BP Pulse Ox 11/10/21 04:06 94 11/10/21 04:05 62 16 149/51 H 99 11/10/21 01:10 97 11/10/21 01:05 91 L 11/10/21 01:00 36.9 C 62 16 142/58 H 99 Intake & Output: Intake & Output 11/07/21 11/08/21 11/09/21 11/10/21 23:59 23:59 23:59 23:59 Intake Total 1250 1560 1090 100 Output Total 100 Balance 1250 1560 990 100 - Objective General Appearance: positive: No acute distress, Alert Eyes Bilateral: positive: Normal inspection, Conjunctivae nml ENT: positive: ENT inspection nml Neck: positive: Nml inspection Respiratory: positive: No respiratory distress. negative: Wheezes, Rales Cardiovascular: positive: Regular rate & rhythm. negative: Tachycardia Abdomen: positive: Non-tender, No distention. negative: Tenderness Skin: positive: Warm, Dry Extremities: positive: No pedal edema Neurologic/Psychiatric: positive: Disoriented to time, Slurred/abnml speech, Other (He has 5 out of 5 motor strength in all 4 extremities. He is forgetful to location and has poor short-term memory.). negative: Disoriented to person, Disoriented to place - Lab Results Fish Bones: 11/10/21 05:53 11/10/21 05:53 Other Labs: Lab Results x24hrs 11/10/21 11/10/21 Range/Units 05:53 05:53 WBC 7.2 (4.8-10.8) x10^3/uL RBC 3.86 L (4.70-6.10) 10^6/uL Hgb 9.8 L (14.0-18.0) g/dL Hct 31.1 L (42.0-52.0) % MCV 80.6 (80.0-94.0) fL MCH 25.4 L (27.0-31.0) pg MCHC 31.5 L (32.0-36.0) g/dL RDW 15.4 H (12.0-15.0) % Plt Count 183 (130-450) 10^3/uL MPV 9.8 (7.4-11.4) fL Neut # (Auto) 5.0 (1.5-6.6) 10^3/uL Lymph # (Auto) 1.0 L (1.5-3.5) 10^3/uL [place] # (Auto) 0.8 (0.0-1.0) 10^3/uL Eos # (Auto) 0.4 (0.0-0.7) 10^3/uL Baso # (Auto) 0.0 (0.0-0.1) 10^3/uL Absolute Nucleated RBC 0.00 x10^3/uL Nucleated RBC % 0.0 /100WBC Sodium 144 (135-145) mmol/L Potassium 3.7 (3.5-5.0) mmol/L Chloride 107 (101-111) mmol/L Carbon Dioxide 29 (21-32) mmol/L Anion Gap 8.0 (6-13) BUN 37 H (6-20) mg/dL Creatinine 1.0 (0.6-1.2) mg/dL Estimated GFR (MDRD) 71 L (>89) Glucose 100 (70-100) mg/dL Calcium 8.3 L (8.5-10.3) mg/dL ABX Reporting Has patient been on IV antibiotics over the past 48 hours?: Yes Assessment/Plan - Problem List (1) Stroke Impression: Repeat CT was concerning for infarct in the cannot obtain MRI due to the pacemaker he has. He has been improving on a daily basis from a motor function standpoint. He still continues to have slurred speech and difficulty with dysphagia but is improved overall. We have him on aspirin and Lipitor as we are holding his home Eliquis in until 2 weeks after the stroke. He is being evaluated by PT and OT and SNF is recommended at this time. (2) Aspiration pneumonia Impression: He had aspiration secondary to the stroke and dysphagia. Imaging revealed a right-sided infiltrate. He was initially hypoxic but this is improved today and he is now down to room air. We will switch his Unasyn to Augmentin we will complete a total of 7 days of therapy. Continue with the diet recommended by speech therapy. (3) Diastolic heart failure Impression: This was initially thought to be an exacerbation but at this time, he appears euvolemic. We have DC'd his IV Lasix switch him to oral Lasix. (4) Hypertension Impression: His blood pressure is well controlled on his current antihypertensives which we will continue. (5) History of coronary artery disease Impression: Stable. We are continuing his home medications except for the Eliquis given the recent stroke. (6) Parkinson disease Impression: Continue Sinemet. (7) BPH (benign prostatic hyperplasia) Impression: Continue Flomax.
[2021-11-10] MEDS: DOCUSATE SODIUM 250 MG CAPSULE PO SCH (10:01)
[2021-11-10] MEDS: FUROSEMIDE 20 MG TABLET PO SCH (10:01)
[2021-11-10] MEDS: METOPROLOL TARTRATE 50 MG TABLET PO SCH ×2 (10:06→20:15)
[2021-11-10] MEDS: lisinopriL 20 MG TABLET PO SCH (10:07)
[2021-11-10] MEDS: SACCHAROMYCES BOULARDII 250 MG CAPSULE PO SCH ×2 (10:07→20:16)
[2021-11-10] MEDS: ASPIRIN 325 MG TABLET PO SCH (10:07)
[2021-11-10] MEDS: SENNA 8.6 MG TABLET PO SCH (10:07)
[2021-11-10] MEDS: ISOSORBIDE MONONITRATE ER 30 MG TABLET PO SCH (10:07)
[2021-11-10] MEDS: polyethylene glycoL 3350 17 GM PACKET PO SCH (10:07)
[2021-11-10] MEDS: guaiFENesin 600 MG TABLET PO SCH ×2 (10:07→20:16)
[2021-11-10] MEDS: SODIUM CHLORIDE FLUSH 0.9% 10 ML SYRINGE IVP SCH ×3 (10:08→22:58)
[2021-11-10] MEDS ORDERED: BISACODYL 10 MG SUPP PR ONE (15:11)
[2021-11-10] MEDS: AMOX/CLAV 875 MG/125 MG TABLET PO SCH (20:15)
[2021-11-10] MEDS: ATORVASTATIN 40 MG TABLET PO SCH (20:16)
[2021-11-11 05:34] LABS: BASOPHILS % (AUTO) 0.5 %; EOSINOPHILS # (AUTO) 0.3 10^3/uL (0.0-0.7); EOSINOPHILS % (AUTO) 4.1 %; HCT - HEMATOCRIT 29.7 % (42.0-52.0); HGB - HEMOGLOBIN 9.6 g/dL (14.0-18.0); LYMPHOCYTES # (AUTO) 0.9 10^3/uL (1.5-3.5); LYMPHOCYTES % (AUTO) 11.7 %; MEAN CORPUSCULAR HEMOGLOBIN 26.4 pg (27.0-31.0); MEAN CORPUSCULAR HGB CONC 32.3 g/dL (32.0-36.0); MEAN CORPUSCULAR VOLUME 81.6 fL (80.0-94.0); MEAN PLATELET VOLUME 9.9 fL (7.4-11.4); MONOCYTES # (AUTO) 0.8 10^3/uL (0.0-1.0); MONOCYTES % (AUTO) 10.1 %; NEUTROPHILS # (AUTO) 5.5 10^3/uL (1.5-6.6); NEUTROPHILS % (AUTO) 73.2 %; PLT - PLATELET COUNT 204 10^3/uL (130-450); RED BLOOD COUNT 3.64 10^6/uL (4.70-6.10); RED CELL DISTRIBUTION WIDTH 14.9 % (12.0-15.0); WHITE BLOOD COUNT 7.5 x10^3/uL (4.8-10.8)
[2021-11-11] MEDS: CARBIDOPA/LEVODOPA 25 MG/100 MG TABLET PO SCH ×3 (05:40→21:30)
[2021-11-11 05:55] LABS: CALCIUM 8.1 mg/dL (8.5-10.3); POTASSIUM 3.8 mmol/L (3.5-5.0)
[2021-11-11] MEDS: lisinopriL 20 MG TABLET PO SCH (08:52)
[2021-11-11] MEDS: DOCUSATE SODIUM 250 MG CAPSULE PO SCH (08:52)
[2021-11-11] MEDS: SENNA 8.6 MG TABLET PO SCH (08:52)
[2021-11-11] MEDS: guaiFENesin 600 MG TABLET PO SCH ×2 (08:52→21:29)
[2021-11-11] MEDS: ASPIRIN 325 MG TABLET PO SCH (08:52)
[2021-11-11] MEDS: FUROSEMIDE 20 MG TABLET PO SCH (08:52)
[2021-11-11] MEDS: ISOSORBIDE MONONITRATE ER 30 MG TABLET PO SCH (08:52)
[2021-11-11] MEDS: AMOX/CLAV 875 MG/125 MG TABLET PO SCH ×2 (08:52→21:29)
[2021-11-11] MEDS: SODIUM CHLORIDE FLUSH 0.9% 10 ML SYRINGE IVP SCH ×2 (08:53→17:33)
[2021-11-11] MEDS: SACCHAROMYCES BOULARDII 250 MG CAPSULE PO SCH ×2 (08:53→17:33)
[2021-11-11] MEDS: polyethylene glycoL 3350 17 GM PACKET PO SCH (08:53)
[2021-11-11] MEDS: METOPROLOL TARTRATE 50 MG TABLET PO SCH ×2 (08:53→21:30)
--- NOTE | 2021-11-11 10:58 | PROVIDER PROGRESS NOTE ---
Subjective - Prog Note Date Prog Note Date: 11/11/21 - Subjective Subjective: He feels well. Reports no dyspnea or chest pain. He feels stronger each day. Current Medications - Current Medications Current Medications: Active Medications Acetaminophen (Acetaminophen 325 Mg Tablet) 650 mg PO Q4HR PRN PRN Reason: Pain 1 to 4 Last Admin: 11/06/21 22:20 Dose: 650 mg Documented by: Amoxicillin/Clavulanate Potassium (Amox/Clav 875 Mg/125 Mg Tablet) 1 tab PO BID [facility] Last Admin: 11/11/21 08:52 Dose: 1 tab Documented by: Aspirin (Aspirin 325 Mg Tablet) 325 mg PO DAILYWM [facility] Last Admin: 11/11/21 08:52 Dose: 325 mg Documented by: Atorvastatin Calcium (Atorvastatin 40 Mg Tablet) 40 mg PO QPM [facility] Last Admin: 11/10/21 20:16 Dose: 40 mg Documented by: Carbidopa/Levodopa (Carbidopa/Levodopa 25 Mg/100 Mg Tablet) 1 tab PO TID [facility] Last Admin: 11/11/21 05:40 Dose: 1 tab Documented by: Docusate Sodium (Docusate Sodium 250 Mg Capsule) 250 - 500 mg PO DAILY [facility] Last Admin: 11/11/21 08:52 Dose: 250 mg Documented by: Furosemide (Furosemide 20 Mg Tablet) 20 mg PO DAILY [facility] Last Admin: 11/11/21 08:52 Dose: 20 mg Documented by: Guaifenesin (Guaifenesin 600 Mg Tablet) 600 mg PO BID [facility] Last Admin: 11/11/21 08:52 Dose: 600 mg Documented by: Isosorbide Mononitrate (Isosorbide Mononitrate Er 30 Mg Tablet) 90 mg PO DAILY [facility] Last Admin: 11/11/21 08:52 Dose: 90 mg Documented by: Lisinopril (Lisinopril 20 Mg Tablet) 40 mg PO DAILY [facility] Last Admin: 11/11/21 08:52 Dose: 40 mg Documented by: Lorazepam (Lorazepam 0.5 Mg Tablet) 0.5 mg PO Q12H PRN PRN Reason: Anxiety Last Admin: 11/06/21 17:05 Dose: 0.5 mg Documented by: Metoprolol Tartrate (Metoprolol Tartrate 50 Mg Tablet) 50 mg PO BID [facility] Last Admin: 11/11/21 08:53 Dose: 50 mg Documented by: Multi-Ingredient Ointment (Zinc Oxide 20% Oint 30 Gm Tube) 1 applic TOP PRN PRN PRN Reason: Skin Care Last Admin: 11/10/21 04:00 Dose: 1 applic Documented by: Nitroglycerin (Nitroglycerin Sl 0.4 Mg Tablet) 0.4 mg SL Q5MIN PRN PRN Reason: Chest Pain Ondansetron HCl (Ondansetron 4 Mg/2 Ml Vial) 4 mg IVP Q6HR PRN PRN Reason: Nausea / Vomiting Polyethylene Glycol (Polyethylene Glycol 3350 17 Gm Packet) 17 gm PO DAILY [facility] Last Admin: 11/11/21 08:53 Dose: 17 gm Documented by: Saccharomyces Boulardii (Saccharomyces Boulardii 250 Mg Capsule) 250 mg PO BIDWM [facility] Last Admin: 11/11/21 08:53 Dose: 250 mg Documented by: Senna (Senna 8.6 Mg Tablet) 8.6 - 17.2 mg PO DAILY [facility] Last Admin: 11/11/21 08:52 Dose: 8.6 mg Documented by: Sodium Chloride (Sodium Chloride Flush 0.9% 10 Ml Syringe) 10 ml IVP PRN PRN PRN Reason: NEEDED PER PROVIDER ORDERS Last Admin: 11/10/21 04:00 Dose: 10 ml Documented by: Sodium Chloride (Sodium Chloride Flush 0.9% 10 Ml Syringe) 10 ml IVP 0100,0900,1700 [facility] Last Admin: 11/11/21 08:53 Dose: 10 ml Documented by: Apixaban [Eliquis] 5 mg PO BID 11/04/21 Aspirin Chewable [St Jimmy Aspirin] 81 mg PO QPM 11/04/21 Carbidopa/Levodopa 25/100 [Sinemet 25 mg/100 mg] 1 tablet PO TID 11/04/21 Cyanocobalamin [Vitamin B-12] 250 mcg PO DAILY 11/04/21 Isosorbide Mononitrate [Isosorbide Mononitrate ER] 90 mg PO DAILY 11/04/21 Lisinopril [Zestril] 40 mg PO DAILY 11/04/21 Meloxicam [Mobic] 15 mg PO DAILY 11/04/21 Metoprolol Tartrate [Lopressor] 50 mg PO BID 11/04/21 Nitroglycerin [Nitrostat] 0.4 mg SL Q5MIN PRN 11/04/21 Simvastatin [Zocor] 40 mg PO QPM 11/04/21 Tamsulosin HCl [Flomax] 0.8 mg PO QPM 11/04/21 amLODIPine [Norvasc] 5 mg PO DAILY 11/04/21 Objective - Vital Signs/Intake & Output Reviewed Vital Signs: Yes Vital Signs: Vital Signs x48h Temp Pulse Pulse Resp BP BP Pulse Ox 11/11/21 08:53 116/40 L 11/11/21 08:15 37.1 C 70 16 116/40 L 97 11/11/21 05:00 36.9 C 63 16 125/40 L 94 Intake & Output: Intake & Output 11/08/21 11/09/21 11/10/21 11/11/21 23:59 23:59 23:59 23:59 Intake Total 1560 1090 880 440 Output Total 100 Balance 1560 990 880 440 - Objective General Appearance: positive: No acute distress, Alert Eyes Bilateral: positive: Normal inspection, Conjunctivae nml ENT: positive: ENT inspection nml Neck: positive: Nml inspection Respiratory: positive: No respiratory distress. negative: Wheezes, Rales Cardiovascular: positive: Regular rate & rhythm. negative: Tachycardia Skin: positive: Warm, Dry Extremities: positive: No pedal edema Neurologic/Psychiatric: positive: Slurred/abnml speech, Other (5/5 motor strength in all four extremities.). negative: Disoriented to person, Disoriented to place - Lab Results Fish Bones: 11/11/21 05:13 11/11/21 05:13 Other Labs: Lab Results x24hrs 11/11/21 11/11/21 Range/Units 05:13 05:13 WBC 7.5 (4.8-10.8) x10^3/uL RBC 3.64 L (4.70-6.10) 10^6/uL Hgb 9.6 L (14.0-18.0) g/dL Hct 29.7 L (42.0-52.0) % MCV 81.6 (80.0-94.0) fL MCH 26.4 L (27.0-31.0) pg MCHC 32.3 (32.0-36.0) g/dL RDW 14.9 (12.0-15.0) % Plt Count 204 (130-450) 10^3/uL MPV 9.9 (7.4-11.4) fL Neut # (Auto) 5.5 (1.5-6.6) 10^3/uL Lymph # (Auto) 0.9 L (1.5-3.5) 10^3/uL [place] # (Auto) 0.8 (0.0-1.0) 10^3/uL Eos # (Auto) 0.3 (0.0-0.7) 10^3/uL Baso # (Auto) 0.0 (0.0-0.1) 10^3/uL Absolute Nucleated RBC 0.00 x10^3/uL Nucleated RBC % 0.0 /100WBC Sodium 144 (135-145) mmol/L Potassium 3.8 (3.5-5.0) mmol/L Chloride 110 (101-111) mmol/L Carbon Dioxide 26 (21-32) mmol/L Anion Gap 8.0 (6-13) BUN 35 H (6-20) mg/dL Creatinine 1.0 (0.6-1.2) mg/dL Estimated GFR (MDRD) 71 L (>89) Glucose 107 H (70-100) mg/dL Calcium 8.1 L (8.5-10.3) mg/dL Assessment/Plan - Problem List (1) Stroke Impression: He has been doing well from motor function standpoint. He still is a 2 person assist and still has slurred speech at times and difficulty with dysphagia but has made progress each day. We had him on aspirin and Lipitor as we continue to hold his Eliquis until 2 weeks after the stroke. PT is now recommending inpatient rehab. I spoke extensively with his yesterday to discuss this as she prefers to take him home. I expressed my concern about him going home as she likely will not be able to care for him as he is a 2 person assist. She is worried that by going to rehab, she would not be able to see him and that might affect his motivation and willingness to improve. I have asked her to see how he does with physical therapy today and to reconsider but ultimately we should consider rehab. The decision will ultimately come down to her. (2) Aspiration pneumonia Impression: He is doing well on room air. We will continue Augmentin for total of 7 days of therapy. We will asked speech therapy to reevaluate him today to see if his diet can be advanced. (3) Diastolic heart failure Impression: Stable and not in exacerbation. We have him now on oral diuretics. (4) Hypertension Impression: His blood pressure is well controlled on the current regimen. (5) History of coronary artery disease Impression: We are continuing his home medication except for the Eliquis given the recent stroke. (6) Parkinson disease Impression: Continue Sinemet. (7) BPH (benign prostatic hyperplasia) Impression: Continue Flomax.
[2021-11-11] MEDS: ATORVASTATIN 40 MG TABLET PO SCH (21:29)
[2021-11-12] MEDS: SODIUM CHLORIDE FLUSH 0.9% 10 ML SYRINGE IVP SCH ×2 (00:29→08:24)
[2021-11-12] MEDS: LORazepam 0.5 MG TABLET PO PRN (01:44)
[2021-11-12 06:17] LABS: BASOPHILS # (AUTO) 0.1 10^3/uL (0.0-0.1); BASOPHILS % (AUTO) 0.6 %; EOSINOPHILS # (AUTO) 0.4 10^3/uL (0.0-0.7); EOSINOPHILS % (AUTO) 5.1 %; HCT - HEMATOCRIT 30.5 % (42.0-52.0); HGB - HEMOGLOBIN 9.7 g/dL (14.0-18.0); LYMPHOCYTES # (AUTO) 1.1 10^3/uL (1.5-3.5); LYMPHOCYTES % (AUTO) 14.5 %; MEAN CORPUSCULAR HEMOGLOBIN 25.9 pg (27.0-31.0); MEAN CORPUSCULAR HGB CONC 31.8 g/dL (32.0-36.0); MEAN CORPUSCULAR VOLUME 81.3 fL (80.0-94.0); MEAN PLATELET VOLUME 9.7 fL (7.4-11.4); MONOCYTES # (AUTO) 0.7 10^3/uL (0.0-1.0); MONOCYTES % (AUTO) 8.5 %; NEUTROPHILS # (AUTO) 5.5 10^3/uL (1.5-6.6); NEUTROPHILS % (AUTO) 70.8 %; PLT - PLATELET COUNT 231 10^3/uL (130-450); RED BLOOD COUNT 3.75 10^6/uL (4.70-6.10); RED CELL DISTRIBUTION WIDTH 14.9 % (12.0-15.0); WHITE BLOOD COUNT 7.8 x10^3/uL (4.8-10.8)
[2021-11-12 06:24] LABS: CALCIUM 8.5 mg/dL (8.5-10.3); CREATININE 0.9 mg/dL (0.6-1.2); POTASSIUM 3.5 mmol/L (3.5-5.0)
[2021-11-12] MEDS: CARBIDOPA/LEVODOPA 25 MG/100 MG TABLET PO SCH ×2 (06:29→14:05)
[2021-11-12] MEDS ORDERED: FERROUS GLUCONATE 324 MG TABLET PO SCH (08:00)
[2021-11-12] MEDS: polyethylene glycoL 3350 17 GM PACKET PO SCH (08:24)
[2021-11-12] MEDS: SENNA 8.6 MG TABLET PO SCH (08:24)
[2021-11-12] MEDS: DOCUSATE SODIUM 250 MG CAPSULE PO SCH (08:24)
[2021-11-12] MEDS: guaiFENesin 600 MG TABLET PO SCH (08:25)
[2021-11-12] MEDS: METOPROLOL TARTRATE 50 MG TABLET PO SCH (08:25)
[2021-11-12] MEDS: AMOX/CLAV 875 MG/125 MG TABLET PO SCH (08:25)
[2021-11-12] MEDS: FUROSEMIDE 20 MG TABLET PO SCH (08:25)
[2021-11-12] MEDS: lisinopriL 20 MG TABLET PO SCH (08:25)
[2021-11-12] MEDS: ISOSORBIDE MONONITRATE ER 30 MG TABLET PO SCH (08:25)
[2021-11-12] MEDS: ASPIRIN 325 MG TABLET PO SCH (08:25)
[2021-11-12] MEDS: SACCHAROMYCES BOULARDII 250 MG CAPSULE PO SCH (08:25)
[2021-11-12 11:23] VITALS: BP 103/35
--- NOTE | 2021-11-12 12:19 | Discharge Plan ---
Discharge Plan Problem Reviewed?: Yes Disposition: Home Health Service Condition: Poor Prescriptions: Amox/Clav 875/125 [Augmentin 875/125 Tab] 1 tab PO BID #10 tablet Ferrous Gluconate [Fergon] 324 mg PO DAILYWM #30 tablet Saccharomyces Boulardii [Florastor] 250 mg PO BIDWM #10 cap Furosemide [Lasix] 20 mg PO DAILY #30 tablet Diet: Soft (dysphagia pureed diet) Activity Restrictions: Activity as Tolerated (you are at high risk of fall, please extremely precaution of fall) Shower Restrictions: No (fall precaution, caregiver closely monitor ) Instruction Topics: Stroke Ischemic, Aphasia, Aphasia Improve Comm, Stroke Taking Meds, Stroke Prepare Home After, Stroke Resources Support, Aspiration Dysphagia, Dysphagia Diet Pureed, Falls Risks Prevent, Falls Change Living Space, Falls Prevent Home, Furosemide tablets, Amoxicillin Clavulanic Acid tablets Health Concerns: stroke, aspiration pneumonia Plan of Treatment: you were found to have stroke and your left side has significant weakness. you and your declined to be discharged to SNF or inpatient rehab. You are at the high risk of fall and aspiration pneumonia as we discussed with you and your . We discussed the Fall precaution and aspiration prevention. Home health PT/OT/ST/skill nurse and home health Aide are arranged for you. You may resume your home medications as the schedule. Antibiotics are prescribed for you continue treatment for your aspiration pneumonia. Care Goals: Stabilization and improvement for your stroke. Assessment: Discussed the care plan in detail with you and your , answered your questions, your and you understood Additional Instructions or Follow Up instructions: You may followup with your PCP in one week. Should your symptoms return or worsen, you may present to ER or call 911 for help Follow-Up Care: Home Health - RN, Home Health - PT, Home Health - OT, Home Health - ST No Smoking: If you smoke, Please STOP! Call for help. Follow-up with: Emmanuel Hernandez MD [Primary Care Provider] -
--- NOTE | 2021-11-12 12:37 | DISCHARGE SUMMARY ---
Discharge Summary Admit Date: 11/04/21 Discharge Date: 11/12/21 Discharging Provider: Reed Martinez Primary Care Provider: Emmanuel Mckeon Condition at Discharge: Poor Discharge Disposition: Home Health Service Discharge Facility Name: home - DIAGNOSES Discharge Diagnoses with Status of Each Condition: (1) Stroke repeat CT of head reveal hypoattenuation Of the right deep fried nuclei with subtle decreased in fried-white matter, concern of ischemia. pt present left upper and lower extremities weakness and worsen slurred speech. Unfortunately patient cannot have MRI of brain because he had pacemaker. Patient had PT and OT and speech therapist evaluation and treatment in hospital. Patient was strongly advised to be discharged to SNF or inpatient rehab for continue stroke rehab care but pt's and pt self continue to refuse the discharge plan and requested to be d/c to home. pt and her were Clearly explained that pt has high risk of fall and aspiration Pneumonia from his stroke. Resume pt's home Aspirin and eliquis, and statin. Patient was arranged to have home health PT, OT, ST, skilled nurse, home health aide. Patient may follow-up with his PCP and neurologist as outpatient. (2) Aspiration pneumonia Patient was found aspiration pneumonia in the hospital, patient is prescribed Augmentin to finish the treatment course. (3) Diastolic heart failure Patient had normal range EF in echo study patient but pt likely has diastolic heart failure. Patient was prescribed Lasix. Patient may continue his home meds lisinopril and metoprolol and statin. (4) Hypertension stable, resume home meds (5) History of coronary artery disease stable, resume home meds, Patient may continue follow-up with his director of home health services as outpatient (6) Parkinson disease Stable, resume home meds (7) BPH (benign prostatic hyperplasia) Stable, resume home meds - [facility] History of Present Illness: refer from Dr. King's HPI on 11/04/21 Patient is an 86-year-old male with medical history significant for hypertension, hyperlipidemia, Parkinson's disease, BPH and a pacemaker placed in June 2021 for an unspecified reason who presented to the ED with altered mental status. The history is mostly provided by the patient's who reports that for the past 2 to 3 days the patient's speech has been slurred and he has been intermittently confused. She found the patient on the floor of the bedroom around 815 this morning. She had last checked on him around 4 AM. He was incontinent of urine at the time. She has numerous he was trying to go to the bathroom and must of fallen. The room was cold and he was exposed to cold temperatures. As a result upon presentation his temperature was 31.8 C. Thus warming unit was applied. The patient is somewhat agitated but moving all extremities. He is unable to provide any history. He has pulled out one of the IV lines placed and has been attempting to pull out Burden catheter. Work-up in the ED included a CT/CT angiogram of the head and neck Which was negative for any large vessel occlusion aneurysm or dissection. There was atherosclerotic disease of the left A1 segment with narrowing. Calcification of the cavernous segments of the intracranial internal carotid arteries with no significant stenosis. CT angiogram of the neck showed focal atherosclerotic calcification at the origin of the right vertebral artery with high-grade stenosis. Showed mild pulmonary vascular congestion. Perihilar small infiltrates could not be ruled out. Urine analysis and toxicology was negative. Patient's white blood cell count was 5.7. As a result of his altered mental status he was presented for admission for further work-up. - ALLERGIES Allergies/Adverse Reactions: Allergies Allergy/AdvReac Type Severity Reaction Status Date / Time No Known Drug Allergies Allergy Verified 11/04/21 10:22 - MEDICATIONS Home Medications: Ambulatory Orders Medication Instructions Recorded Confirmed Apixaban [Eliquis] 5 mg PO BID 11/04/21 11/04/21 Aspirin Chewable [St Jimmy 81 mg PO QPM 11/04/21 11/04/21 Aspirin] Carbidopa/Levodopa 25/100 [Sinemet 1 tablet PO TID 11/04/21 11/04/21 25 mg/100 mg] Cyanocobalamin [Vitamin B-12] 250 mcg PO DAILY 11/04/21 Isosorbide Mononitrate [Isosorbide 90 mg PO DAILY 11/04/21 11/04/21 Mononitrate ER] Lisinopril [Zestril] 40 mg PO DAILY 11/04/21 11/04/21 Meloxicam [Mobic] 15 mg PO DAILY 11/04/21 11/04/21 Metoprolol Tartrate [Lopressor] 50 mg PO BID 11/04/21 11/04/21 Nitroglycerin [Nitrostat] 0.4 mg SL Q5MIN PRN 11/04/21 11/04/21 Simvastatin [Zocor] 40 mg PO QPM 11/04/21 11/04/21 Tamsulosin HCl [Flomax] 0.8 mg PO QPM 11/04/21 11/04/21 amLODIPine [Norvasc] 5 mg PO DAILY 11/04/21 11/04/21 Amox/Clav 875/125 [Augmentin 1 tab PO BID #10 tablet 11/12/21 875/125 Tab] Ferrous Gluconate [Fergon] 324 mg PO DAILYWM #30 tablet 11/12/21 Furosemide [Lasix] 20 mg PO DAILY #30 tablet 11/12/21 Saccharomyces Boulardii [Florastor] 250 mg PO BIDWM #10 cap 11/12/21 - PHYSICAL EXAM AT DISCHARGE General Appearance: positive: No acute distress, Alert. negative: Lethargic Eyes Bilateral: positive: Normal inspection, No lid inflammation ENT: positive: ENT inspection nml, No signs of dehydration. negative: Purulent nasal drainage Neck: positive: Nml inspection, Trachea midline. negative: Tracheal deviation Respiratory: positive: Chest non-tender, No respiratory distress. negative: Wheezes Cardiovascular: positive: Regular rate & rhythm, No murmur. negative: Tachycardia, Bradycardia, Systolic murmur Peripheral Pulses: positive: 2+ Abdomen: positive: Non-tender, Nml bowel sounds, No distention. negative: Tenderness Back: positive: Nml inspection Skin: positive: Color nml, Warm, Dry. negative: Cyanosis Extremities: positive: Non-tender, Nml appearance Neurologic/Psychiatric: positive: Weakness, Slurred/abnml speech, Other (left upper and lower extremities weakness). negative: Facial droop - LABS Result Diagrams: 11/12/21 06:04 11/12/21 06:04 - FOLLOW UP Follow Up: you were found to have stroke and your left side has significant weakness. you and your declined to be discharged to SNF or inpatient rehab. You are at the high risk of fall and aspiration pneumonia as we discussed with you and your . We discussed the Fall precaution and aspiration prevention. Home health PT/OT/ST/skill nurse and home health Aide are arranged for you. You may resume your home medications as the schedule. Antibiotics are prescribed for you continue treatment for your aspiration pneumonia. You may followup with your PCP in one week, Follow-up with neurologist as outpatient, Should your symptoms return or worsen, you may present to ER or call 911 for help - TIME SPENT Time Spent in Discharge (Minutes): 30
[2021-11-12] MEDS ORDERED: AMOX/CLAV 875 MG/125 MG TABLET PO ONE (16:00)
== END 2021-11-12 15:50 | disposition home health service (06) | DRG 64 ==
LOC: EDUNIT# → ED 10:05 → MS2 13:51 → OBSVTOIN 11-05 11:11
PROVIDERS: ADMIT Internal Medicine; ATTEND Nurse Practitioner Gerontology
DX: I63.9 Cerebral infarction, unspecified (principal); J69.0 Pneumonitis due to inhalation of food and vomit; G81.94 Hemiplegia, unspecified affecting left nondominant side; G20 Parkinson's disease; S00.81XA Abrasion of other part of head, initial encounter; W19.XXXA Unspecified fall, initial encounter; I50.30 Unspecified diastolic (congestive) heart failure; N17.9 Acute kidney failure, unspecified; Y92.009 Unspecified place in unspecified non-institutional (private) residence as the place of occurrence of the external cause; I10 Essential (primary) hypertension; I65.01 Occlusion and stenosis of right vertebral artery; I67.2 Cerebral atherosclerosis; T68.XXXA Hypothermia, initial encounter; R07.9 Chest pain, unspecified; I11.0 Hypertensive heart disease with heart failure; Z20.822 Contact with and (suspected) exposure to COVID-19; I25.10 Atherosclerotic heart disease of native coronary artery without angina pectoris; E78.00 Pure hypercholesterolemia, unspecified; N40.0 Benign prostatic hyperplasia without lower urinary tract symptoms; F41.9 Anxiety disorder, unspecified; R29.810 Facial weakness; R47.81 Slurred speech; Z79.01 Long term (current) use of anticoagulants; Z79.82 Long term (current) use of aspirin; Z79.899 Other long term (current) drug therapy; Z87.891 Personal history of nicotine dependence; Z95.0 Presence of cardiac pacemaker
CPT/HCPCS: 36415; 51702; 70450; 70496; 70498; 71045; 80048; 80053; 80061; 80306; 81001; 82550; 82607; 82728; 83540; 83605; 83615; 83690; 83735; 83880; 84443; 84466; 84484; 85025; 85045; 85610; 85730; 87070; 87205; 87631; 92523; 92610; 93005; 93306; 96361; 96365; 96366; 96375; 97116; 97162; 97530; 99285; 99291; A9270; G0480; J1200; J2060; Q9967; 0202U; 80320; 81003; 83721; 87086

== ENCOUNTER 2022-01-11 19:55 | Outpatient (CLI) | payer MEDICARE, OTHER | END 2022-01-11 19:56 | disposition critical access hospital (66) | LOC: EMS 19:55 | DX: R41.82 Altered mental status, unspecified (principal) | CPT/HCPCS: A0425; A0427 ==

== ENCOUNTER 2022-01-11 20:10 | Inpatient (IN) | payer MEDICARE, OTHER ==
[2022-01-11 20:29] LABS: BASOPHILS % (AUTO) 0.2 %; EOSINOPHILS % (AUTO) 0.4 %; HCT - HEMATOCRIT 28.7 % (42.0-52.0); HGB - HEMOGLOBIN 9.5 g/dL (14.0-18.0); LYMPHOCYTES # (AUTO) 0.4 10^3/uL (1.5-3.5); LYMPHOCYTES % (AUTO) 8.6 %; MEAN CORPUSCULAR HEMOGLOBIN 26.2 pg (27.0-31.0); MEAN CORPUSCULAR HGB CONC 33.1 g/dL (32.0-36.0); MEAN CORPUSCULAR VOLUME 79.1 fL (80.0-94.0); MONOCYTES # (AUTO) 0.3 10^3/uL (0.0-1.0); MONOCYTES % (AUTO) 6.2 %; NEUTROPHILS # (AUTO) 3.8 10^3/uL (1.5-6.6); NEUTROPHILS % (AUTO) 84.4 %; NRBC ABSOLUTE COUNT (AUTO) 0.04 x10^3/uL; NUCLEATED RED BLOOD CELLS AUTO 0.9 /100WBC; PLT - PLATELET COUNT 114 10^3/uL (130-450); RED BLOOD COUNT 3.63 10^6/uL (4.70-6.10); WHITE BLOOD COUNT 4.5 x10^3/uL (4.8-10.8)
[2022-01-11 20:32] LABS: VBG PCO2 42.2 mmHg (41-51); VBG PH 7.293 (7.31-7.41); VBG PO2 45.9 mmHg (25-47)
[2022-01-11 20:33] LABS: VBG BASE EXCESS -6.2 mmol/L (-2 - +2); VBG OXYGEN SATURATION 78.2 % (60-80); VBG TOTAL CO2 21.3 mmol/L (24-29)
--- NOTE | 2022-01-11 20:33 | ED Physician Documentation ---
PD HPI ALTERED MENTAL STATUS - Stated complaint Stated Complaint: GLF/AMS - Chief complaint Chief Complaint: Neuro - History obtained from History obtained from: EMS - Additional information Additional information: 86-year-old gentleman brought in by ambulance for altered mental status. 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 He is on Eliquis now. Reportedly fell 5 days ago and hit his head, did not seek medical attention at that time. Reportedly has had a slow decline since then culminating in an episode of weakness today where he had to be helped to the ground by his without obvious entered injury. He is noted to be quite hypothermic now and patient is unable to give any history due to altered mental status on arrival. Review of the chart shows that he also has a history of hypertension, hyperlipidemia, Parkinson's, BPH, and a pacemaker. Review of Systems Unable to obtain: Confused PD PAST MEDICAL HISTORY - Past Medical History Past Medical History: Yes Cardiovascular: Hypertension, Coronary artery disease Neuro: CVA, Parkinson's : Benign prostate hypertrophy Psych: Anxiety Musculoskeletal: None - Past Surgical History Past Surgical History: Yes Cardiovascular: Pacemaker - Present Medications Home Medications: Ambulatory Orders Medication Instructions Recorded Confirmed Apixaban [Eliquis] 5 mg PO BID 11/04/21 01/11/22 Aspirin Chewable [St Jimmy 81 mg PO QPM 11/04/21 01/11/22 Aspirin] Carbidopa/Levodopa 25/100 [Sinemet 1 tablet PO TID 11/04/21 01/11/22 25 mg/100 mg] Cyanocobalamin [Vitamin B-12] 250 mcg PO DAILY 11/04/21 01/11/22 Isosorbide Mononitrate [Isosorbide 90 mg PO DAILY 11/04/21 01/11/22 Mononitrate ER] Lisinopril [Zestril] 40 mg PO DAILY 11/04/21 01/11/22 Meloxicam [Mobic] 15 mg PO DAILY 11/04/21 01/11/22 Metoprolol Tartrate [Lopressor] 50 mg PO BID 11/04/21 01/11/22 Nitroglycerin [Nitrostat] 0.4 mg SL Q5MIN PRN 11/04/21 01/11/22 Simvastatin [Zocor] 40 mg PO QPM 11/04/21 01/11/22 Tamsulosin HCl [Flomax] 0.8 mg PO QPM 11/04/21 01/11/22 amLODIPine [Norvasc] 5 mg PO DAILY 11/04/21 01/11/22 Ferrous Gluconate [Fergon] 324 mg PO DAILYWM #30 tablet 11/12/21 01/11/22 Furosemide [Lasix] 20 mg PO DAILY #30 tablet 11/12/21 01/11/22 Saccharomyces Boulardii [Florastor] 250 mg PO BIDWM #10 cap 11/12/21 01/11/22 - Allergies Allergies/Adverse Reactions: Allergies Allergy/AdvReac Type Severity Reaction Status Date / Time No Known Drug Allergies Allergy Verified 01/11/22 20:22 - Living Situation Living Situation: reports: With spouse/s.o. - Social History Does the pt smoke?: No Smoking Status: Never smoker - POLST Patient has POLST: No POLST Status: Full Code PD ED PE NORMAL - Vitals Vital signs reviewed: Yes - General General: Other (He is moaning, incomprehensible. He will briefly follow simple commands but also resists others.) - HEENT HEENT: Other (Smallish pupils, unable to check extraocular movements) - Neck Neck: Other (No bony tenderness but maintained in a collar pending imaging given altered mental status; C-collar removed at 8:[address] PM after completion of CT imaging) - Cardiac Cardiac: RRR, No murmur - Respiratory Respiratory: No respiratory distress, Clear bilaterally - Abdomen Abdomen: Normal bowel sounds, Soft, Non tender - Back Back: No CVA TTP, No spinal TTP - Derm Derm: Normal color, Other (Feels cool to the touch) - Extremities Extremities: No edema, No calf tenderness / cord - Neuro Neuro: Other (Seems to respond to pain better in the left upper and lower extremity than the right) Eye Opening: To Voice Motor: Localizes to Pain Verbal: Incomprehensible GCS Score: 10 Results - Vitals Vitals: Vital Signs - 24 hr 01/11/22 01/11/22 01/11/22 20:05 20:38 20:44 Temperature 29.0 C L 30.0 C L Heart Rate 68 60 61 Respiratory 21 12 16 Rate Blood Pressure 144/95 H 156/79 H 156/79 H O2 Saturation 100 98 97 01/11/22 01/11/22 01/11/22 20:45 21:15 21:30 Temperature 30.0 C L 30.3 C L 30.5 C L Heart Rate 70 64 65 Respiratory 20 12 12 Rate Blood Pressure 156/79 H 85/68 L 84/63 L O2 Saturation 98 96 96 01/11/22 01/11/22 01/11/22 22:00 22:04 22:30 Temperature 31.4 C L 31 C L 31.4 C L Heart Rate 60 60 62 Respiratory 16 24 Rate Blood Pressure 108/78 88/75 L 108/78 O2 Saturation 96 96 Oxygen O2 Source Room air - Labs Labs: Laboratory Tests 01/11/22 01/11/22 01/11/22 20:25 20:25 20:25 WBC 4.5 L RBC 3.63 L Hgb 9.5 L Hct 28.7 L MCV 79.1 L MCH 26.2 L MCHC 33.1 RDW 16.0 H Plt Count 114 L MPV 10.0 Neut # (Auto) 3.8 Lymph # (Auto) 0.4 L [place] # (Auto) 0.3 Eos # (Auto) 0.0 Baso # (Auto) 0.0 Absolute Nucleated RBC 0.04 Nucleated RBC % 0.9 VBG pH VBG pCO2 VBG pO2 VBG HCO3 VBG Total CO2 VBG O2 Saturation VBG Base Excess Sodium 137 Potassium 4.6 Chloride 106 Carbon Dioxide 20 L Anion Gap 11.0 BUN 29 H Creatinine 1.1 Estimated GFR (MDRD) 63 L Glucose 91 Lactic Acid Calcium 9.2 Phosphorus 4.3 Magnesium 2.1 Total Bilirubin 1.0 AST 103 H ALT 37 Alkaline Phosphatase 68 Total Creatine Kinase 200 Troponin I High Sens 16.1 B-Natriuretic Peptide Total Protein 6.2 L Albumin 3.5 Globulin 2.7 Albumin/Globulin Ratio 1.3 Lipase 105 H TSH Urine Color Urine Clarity Urine pH Ur Specific Winter Urine Protein Urine Glucose (UA) Urine Ketones Urine Occult Blood Urine Nitrite Urine Bilirubin Urine Urobilinogen Ur Leukocyte Esterase Urine RBC Urine WBC Urine WBC Clumps Ur Squamous Epith Cells Urine Bacteria Ur Microscopic Review Urine Culture Comments Nasal Adenovirus (PCR) Nasal B. parapertussis DNA (PCR) Nasal Coronavir 229E PCR Nasal Coronavir HKU1 PCR Nasal Coronavir NL63 PCR Nasal Coronavir OC43 PCR Nasal Enterovir/Rhinovir PCR Nasal Influenza B PCR Nasal Influenza A PCR Nasal Parainfluen 1 PCR Nasal Parainfluen 2 PCR Nasal Parainfluen 3 PCR Nasal Parainfluen 4 PCR Nasal RSV (PCR) Nasal B.pertussis DNA PCR Nasal C.pneumoniae (PCR) Micky Human Metapneumo PCR Nasal M.pneumoniae (PCR) Nasal SARS-CoV-2 (PCR) Salicylates < 6.0 Urine Opiates Screen Ur Oxycodone Screen Urine Methadone Screen Ur Propoxyphene Screen Acetaminophen < 10 L Ur Barbiturates Screen Ur Tricyclics Screen Ur Phencyclidine Scrn Ur Amphetamine Screen U Methamphetamines Scrn U Benzodiazepines Scrn Urine Cocaine Screen U Cannabinoids Screen Ethyl Alcohol < 5.0 01/11/22 01/11/22 01/11/22 20:25 20:25 20:25 WBC RBC Hgb Hct MCV MCH MCHC RDW Plt Count MPV Neut # (Auto) Lymph # (Auto) [place] # (Auto) Eos # (Auto) Baso # (Auto) Absolute Nucleated RBC Nucleated RBC % VBG pH 7.293 L VBG pCO2 42.2 VBG pO2 45.9 VBG HCO3 20.0 L VBG Total CO2 21.3 L VBG O2 Saturation 78.2 VBG Base Excess -6.2 L Sodium Potassium Chloride Carbon Dioxide Anion Gap BUN Creatinine Estimated GFR (MDRD) Glucose Lactic Acid 3.7 H* Calcium Phosphorus Magnesium Total Bilirubin AST ALT Alkaline Phosphatase Total Creatine Kinase Troponin I High Sens B-Natriuretic Peptide Total Protein Albumin Globulin Albumin/Globulin Ratio Lipase TSH 4.53 Urine Color Urine Clarity Urine pH Ur Specific Winter Urine Protein Urine Glucose (UA) Urine Ketones Urine Occult Blood Urine Nitrite Urine Bilirubin Urine Urobilinogen Ur Leukocyte Esterase Urine RBC Urine WBC Urine WBC Clumps Ur Squamous Epith Cells Urine Bacteria Ur Microscopic Review Urine Culture Comments Nasal Adenovirus (PCR) Nasal B. parapertussis DNA (PCR) Nasal Coronavir 229E PCR Nasal Coronavir HKU1 PCR Nasal Coronavir NL63 PCR Nasal Coronavir OC43 PCR Nasal Enterovir/Rhinovir PCR Nasal Influenza B PCR Nasal Influenza A PCR Nasal Parainfluen 1 PCR Nasal Parainfluen 2 PCR Nasal Parainfluen 3 PCR Nasal Parainfluen 4 PCR Nasal RSV (PCR) Nasal B.pertussis DNA PCR Nasal C.pneumoniae (PCR) Micky Human Metapneumo PCR Nasal M.pneumoniae (PCR) Nasal SARS-CoV-2 (PCR) Salicylates Urine Opiates Screen Ur Oxycodone Screen Urine Methadone Screen Ur Propoxyphene Screen Acetaminophen Ur Barbiturates Screen Ur Tricyclics Screen Ur Phencyclidine Scrn Ur Amphetamine Screen U Methamphetamines Scrn U Benzodiazepines Scrn Urine Cocaine Screen U Cannabinoids Screen Ethyl Alcohol 01/11/22 01/11/22 01/11/22 20:25 20:37 20:50 WBC RBC Hgb Hct MCV MCH MCHC RDW Plt Count MPV Neut # (Auto) Lymph # (Auto) [place] # (Auto) Eos # (Auto) Baso # (Auto) Absolute Nucleated RBC Nucleated RBC % VBG pH VBG pCO2 VBG pO2 VBG HCO3 VBG Total CO2 VBG O2 Saturation VBG Base Excess Sodium Potassium Chloride Carbon Dioxide Anion Gap BUN Creatinine Estimated GFR (MDRD) Glucose Lactic Acid Calcium Phosphorus Magnesium Total Bilirubin AST ALT Alkaline Phosphatase Total Creatine Kinase Troponin I High Sens B-Natriuretic Peptide 396 H Total Protein Albumin Globulin Albumin/Globulin Ratio Lipase TSH Urine Color YELLOW Urine Clarity HAZY Urine pH 5.0 Ur Specific Winter >=1.030 H Urine Protein 30 H Urine Glucose (UA) NEGATIVE Urine Ketones NEGATIVE Urine Occult Blood MODERATE H Urine Nitrite NEGATIVE Urine Bilirubin NEGATIVE Urine Urobilinogen 0.2 (NORMAL) Ur Leukocyte Esterase NEGATIVE Urine RBC 11-25 H Urine WBC 4-5 Urine WBC Clumps PRESENT Ur Squamous Epith Cells FEW Squamous Urine Bacteria Rare Ur Microscopic Review INDICATED Urine Culture Comments NOT INDICATED Nasal Adenovirus (PCR) NOT DETECTED Nasal B. parapertussis DNA (PCR) NOT DETECTED Nasal Coronavir 229E PCR NOT DETECTED Nasal Coronavir HKU1 PCR NOT DETECTED Nasal Coronavir NL63 PCR NOT DETECTED Nasal Coronavir OC43 PCR NOT DETECTED Nasal Enterovir/Rhinovir PCR NOT DETECTED Nasal Influenza B PCR NOT DETECTED Nasal Influenza A PCR NOT DETECTED Nasal Parainfluen 1 PCR NOT DETECTED Nasal Parainfluen 2 PCR NOT DETECTED Nasal Parainfluen 3 PCR NOT DETECTED Nasal Parainfluen 4 PCR NOT DETECTED Nasal RSV (PCR) NOT DETECTED Nasal B.pertussis DNA PCR NOT DETECTED Nasal C.pneumoniae (PCR) NOT DETECTED Micky Human Metapneumo PCR NOT DETECTED Nasal M.pneumoniae (PCR) NOT DETECTED Nasal SARS-CoV-2 (PCR) NOT DETECTED Salicylates Urine Opiates Screen NEGATIVE Ur Oxycodone Screen NEGATIVE Urine Methadone Screen NEGATIVE Ur Propoxyphene Screen NEGATIVE Acetaminophen Ur Barbiturates Screen NEGATIVE Ur Tricyclics Screen NEGATIVE Ur Phencyclidine Scrn NEGATIVE Ur Amphetamine Screen NEGATIVE U Methamphetamines Scrn NEGATIVE U Benzodiazepines Scrn NEGATIVE Urine Cocaine Screen NEGATIVE U Cannabinoids Screen NEGATIVE Ethyl Alcohol - Rads (name of study) CT KUB Radiology: EMP read contemporaneously (CT KUB demonstrates L4 burst fracture, coronary artery calcifications and atherosclerosis, no hydronephrosis and bilateral pleural effusions with dependent bibasilar atelectasis.) CT of the cervical spine demonstrates spondylosis otherwise negative. Radiology: EMP read contemporaneously Procedures - Central Line Central Line Preparation: Consent Obtained (verbal from ), Time out completed, Ultrasound used Central line location: Right IJ Central line type: Triple lumen Central line aftercare: Chlorhexidine disc placed, Secured, Placement confirmed, No pneumothorax, No complications, Bundle checklist complete, Pt tolerated well PD MEDICAL DECISION MAKING - ED course ED course: 86-year-old gentleman presents by ambulance with encephalopathy, potentially a recent fall or 2, he is anticoagulated and found to be significantly hypothermic. Work-up here demonstrates low normal white count, elevated lactate and mild acidosis. His urinalysis has white blood cell clumps and it is quite cloudy which is concerning for UTI in the setting of sepsis. He also has potential aspiration. His chest x-ray was read as severe CHF, but I believe this is due to supine positioning and his pleural effusions as opposed to actual CHF. He did develop some borderline hypotension here and I presented the case to Dr. King for admission who asked me to place a central line prior to admission in case he developed a requirement for pressors. He was given broad- spectrum antibiotics after cultures including cefepime, Flagyl, vancomycin. This should cover him for aspiration or UTI. - Critical Care Time(min): 45 Time Includes: Direct patient care, Review records, Reassess patient, Document care, Coordinate care, Medical consult, Family consult for tx dec (Including code discussions with the and she would like him full code with all advanced treatments.) Data interpretation: Labs, Pulse ox Procedures excluded from critical care time: Central IV, EKG - Sepsis Event Sepsis Onset Date: 01/11/22 Sepsis Onset Time: 20:00 Current Stage of Sepsis: Severe sepsis Initial Hypotension: Not hypotensive Possible source of Sepsis: Genitourinary Mental/Cognitive Status: Lethargic Reason for not giving 30ml/kg crystalloid fluids: Not in septic shock Capillary refill: Greater than 2 seconds Peripheral Pulse Strength: 2+ Slightly Diminished Peripheral Pulse Location: Radial Departure - Departure Disposition: 66 [facility] DC/Xfer Clinical Impression: Delirium, Transient hypotension, Pleural effusion, Anticoagulation adequate, Full code status Sepsis Qualifiers: Sepsis type: sepsis due to unspecified organism Sepsis acute organ dysfunction status: with acute organ dysfunction Severe sepsis acute organ dysfunction type: encephalopathy Severe sepsis shock status: without septic shock Qualified Code(s): A41.9 - Sepsis, unspecified organism Fall Qualifiers: Encounter type: initial encounter Qualified Code(s): W19.XXXA - Unspecified fall, initial encounter Head injury Qualifiers: Encounter type: initial encounter Qualified Code(s): S09.90XA - Unspecified injury of head, initial encounter Condition: Critical Discharge Date/Time: 01/11/22 23:00
--- NOTE | 2022-01-11 20:49 | CT Report ---
PROCEDURE: HEAD WO INDICATIONS: head injury TECHNIQUE: Noncontrast 4.5 mm thick angled axial sections acquired from the foramen magnum to the vertex. For r adiation dose reduction, the following was used: automated exposure control, adjustment of mA and/or kV according to patient size. COMPARISON: None. FINDINGS: Image quality: Excellent. CSF spaces: Basal cisterns are patent. No extra-axial fluid collections. Ventricles are normal in size and shape. Brain: No midline shift. No intracranial masses or hemorrhage. Garcia-white matter interface is norm al. Age-related volume loss and small vessel ischemic change. Bilateral intracranial carotid calcifi cations. Skull and face: Calvarium and visualized facial bones are intact, without suspicious lesions. Sinuses: Minimal bilateral maxillary sinus air-fluid levels. No obvious facial bone fractures. IMPRESSION: 1. No evidence acute stroke, hemorrhage, or mass. 2. No evidence of significant intracranial sequelae of acute trauma. 3. Minimal bilateral maxillary sinusitis. Reviewed by: Herbert Marquez MD on 01/11/2022 8:48 PM PST Approved by: Herbert Marquez MD on 01/11/2022 8:48 PM PST Station ID: [id number]
[2022-01-11 20:51] LABS: ACETAMINOPHEN < 10 ug/mL (10-30); ALBUMIN 3.5 g/dL (3.2-5.5); ALBUMIN/GLOBULIN RATIO 1.3 (1.0-2.2); ALKALINE PHOSPHATASE 68 IU/L (42-121); ALT ALANINE AMINOTRANSFERASE 37 IU/L (10-60); AST ASPARTATE AMINOTRANSFERASE 103 IU/L (10-42); BUN - BLOOD UREA NITROGEN 29 mg/dL (6-20); CALCIUM 9.2 mg/dL (8.5-10.3); CARBON DIOXIDE - CO2 20 mmol/L (21-32); CHLORIDE 106 mmol/L (101-111); CK- CREATINE KINASE 200 IU/L (22-269); CREATININE 1.1 mg/dL (0.6-1.2); ETOH - ETHANOL < 5.0 mg/dL; GFR - MDRD 63 (>89); GLUCOSE 91 mg/dL (70-100); LIPASE 105 U/L (22-51); MAGNESIUM 2.1 mg/dL (1.7-2.8); PHOSPHORUS 4.3 mg/dL (2.5-4.6); POTASSIUM 4.6 mmol/L (3.5-5.0); SALICYLATE < 6.0 mg/dL; SODIUM 137 mmol/L (135-145); TOTAL PROTEIN 6.2 g/dL (6.7-8.2)
--- NOTE | 2022-01-11 20:52 | CT Report ---
PROCEDURE: CERVICAL SPINE WO INDICATIONS: trauma TECHNIQUE: Noncontrast 3 mm thick sections acquired from the skull base to the T4 level. Sagittal and coronal r eformats were then constructed. For radiation dose reduction, the following was used: automated exp osure control, adjustment of mA and/or kV according to patient size. COMPARISON: None. FINDINGS: Image quality: Diagnostic. There is some patient motion artifact.. Bones: No fractures or dislocations. Visualized superior ribs are intact. Moderate cervical spondy litic change. Soft tissues: Prevertebral soft tissues are normal in thickness. No paravertebral hematomas. No ap ical pneumothoraces. Bilateral pleural effusions. IMPRESSION: Moderate cervical spondylosis. No evidence acute cervical fracture or dislocation. Reviewed by: Herbert Marquez MD on 01/11/2022 8:50 PM PST Approved by: Herbert Marquez MD on 01/11/2022 8:50 PM PST Station ID: [id number]
--- NOTE | 2022-01-11 20:54 | XRAY Report ---
PROCEDURE: Chest 1 View X-Ray INDICATIONS: ams TECHNIQUE: One view of the chest was acquired. COMPARISON: 01/11/2022 chest films, cervical spine CT from today FINDINGS: Surgical changes and devices: Pacemaker. Lungs and pleura: Severe pulmonary edema. Bilateral pleural effusions, as is seen on the cervical spi ne CT Mediastinum: Mediastinal contours appear normal. Heart size is normal. Bones and chest wall: No suspicious bony lesions. Overlying soft tissues appear unremarkable. IMPRESSION: Severe congestive heart failure exacerbation. Reviewed by: Herbert Marquez MD on 01/11/2022 8:52 PM PST Approved by: Herbert Marquez MD on 01/11/2022 8:52 PM PST Station ID: [id number]
[2022-01-11 20:55] LABS: MUDS CUTOFF CONCENTRATIONS CUTOFF CONC BELOW:
[2022-01-11 20:56] LABS: BILIRUBIN,URINE NEGATIVE (NEGATIVE); GLUCOSE, URINE (UA) NEGATIVE (NEGATIVE); KETONES,URINE (UA) NEGATIVE (NEGATIVE); LEUKOCYTE ESTERASE, URINE NEGATIVE (NEGATIVE); NITRITE,URINE NEGATIVE (NEGATIVE); OCCULT BLOOD,URINE MODERATE (NEGATIVE); PROTEIN,URINE 30 mg/dL (NEGATIVE); UROBILINOGEN,URINE 0.2 (NORMAL) E.U./dL (NORMAL)
[2022-01-11] MEDS ORDERED: SODIUM CHLORIDE 0.9% 1,000 ML IV STA ×2 (20:56→21:35)
[2022-01-11 21:00] LABS: CLARITY,URINE HAZY (CLEAR)
[2022-01-11] MEDS ORDERED: VANCOMYCIN INJ 1.5 GM in SODIUM CHLORIDE 0.9% 500 ML IV STA (21:09)
[2022-01-11] MEDS ORDERED: metroNIDAZOLE 500 MG/100 ML 500 MG/100 ML BAG IV STA (21:09)
[2022-01-11] MEDS ORDERED: CEFEPIME 2 GM in SODIUM CHLORIDE 0.9% MINIBAG 100 ML IV STA (21:09)
[2022-01-11 21:11] LABS: AMPHETAMINE SCREEN,URINE NEGATIVE (NEGATIVE); BACTERIA,URINE Rare /HPF (None Seen); BENZODIAZEPINES SCREEN, URINE NEGATIVE (NEGATIVE); COCAINE SCREEN URINE NEGATIVE (NEGATIVE); METHADONE SCREEN, URINE NEGATIVE (NEGATIVE); METHAMPHETAMINES SCREEN, URINE NEGATIVE (NEGATIVE); OPIATE SCREEN, URINE NEGATIVE (NEGATIVE); SQUAMOUS EPITHELIAL CELL,UR FEW Squamous (<= Few); THC CANNABINOID SCREEN, URINE NEGATIVE (NEGATIVE); TRICYCLIC ANTIDEPRESSANT,URINE NEGATIVE (NEGATIVE); WBC CLUMPS,URINE PRESENT
[2022-01-11 21:12] LABS: BARBITURATE SCREEN,UR NEGATIVE (NEGATIVE); OXYCODONE SCREEN, URINE NEGATIVE (NEGATIVE); PROPOXYPHENE SCREEN, URINE NEGATIVE (NEGATIVE)
[2022-01-11 21:32] LABS: B. PARAPERTUSSIS- RESP PCR PAN NOT DETECTED; B. PERTUSSIS- RESP PCR PANEL NOT DETECTED; C. PNEUMONIAE- RESP PCR PANEL NOT DETECTED; CORONAVIRUS 229E-RESP PCR NOT DETECTED; CORONAVIRUS HKU1-RESP PCR NOT DETECTED; CORONAVIRUS NL63-RESP PCR NOT DETECTED; CORONAVIRUS OC43-RESP PCR NOT DETECTED; HUMAN METAPNEUMOVIRUS NOT DETECTED; INFLUENZA A- RESP PCR PANEL NOT DETECTED; INFLUENZA B - RESP PCR PANEL NOT DETECTED; M. PNEUMONIAE- RESP PCR PANEL NOT DETECTED; PARAINFLUENZA VIRUS 1 NOT DETECTED; PARAINFLUENZA VIRUS 2 NOT DETECTED; PARAINFLUENZA VIRUS 3 NOT DETECTED; PARAINFLUENZA VIRUS 4 NOT DETECTED; RHINOVIRUS/ENTEROVIRUS NOT DETECTED; RSV- RESP PCR PANEL NOT DETECTED; SARS-CoV-2 -RESP PCR PANEL NOT DETECTED
[2022-01-11] MEDS ORDERED: VANCOMYCIN 1 GM VIAL ONE (22:05)
--- NOTE | 2022-01-11 22:15 | CT Report ---
PROCEDURE: Abdomen/Pelvis WO INDICATIONS: UTI/Sepsis, R/O obstruction TECHNIQUE: Noncontrast 5 mm thick sections acquired from the diaphragms to the symphysis. 5 mm coronal and sagi ttal reformats were then performed. For radiation dose reduction, the following was used: automated exposure control, adjustment of mA and/or kV according to patient size. COMPARISON: None. FINDINGS: Image quality: Excellent. ABDOMEN: Lung bases: Moderate bilateral pleural effusions. Bibasilar atelectasis. Dense coronary artery athero sclerotic calcifications. Pacemaker. Solid organs: Liver and spleen are normal in size. Gallbladder is unremarkable. Pancreas is normal in contours. No adrenal nodules. Kidneys are normal in size, without hydronephrosis or nephrolithi asis. Bilateral renal cysts. Peritoneum and bowel: Unenhanced bowel loops demonstrate normal wall thickness and caliber. No free fluid or air. Nodes and vessels: No retroperitoneal or mesenteric adenopathy by size criteria. Aorta and inferior vena cava are normal in caliber. Dense abdominal aortic and bilateral common iliac artery atheroscle rotic calcifications. Miscellaneous: No ventral hernias. PELVIS: Genitourinary: Enlarged prostate. Burden catheter in place. Bladder is decompressed. Probable mild johanna dder wall thickening. Miscellaneous: No inguinal hernias or adenopathy. Bones: No suspicious bony lesions. There is a markedly comminuted burst type fracture of the L4 vert ebral body. There is no significant posterior bony retropulsion. IMPRESSION: 1. Acute burst type severe markedly comminuted fracture of the L4 vertebral body. 2. Advanced coronary artery atherosclerotic calcifications. 3. Dense aortobiiliac atherosclerotic calcifications. 4. No hydronephrosis. No stone disease. 5. Moderate bilateral pleural effusions, bibasilar atelectasis. Reviewed by: Herbert Marquez MD on 01/11/2022 10:14 PM PST Approved by: Herbert Marquez MD on 01/11/2022 10:14 PM PST Station ID: [id number]
[2022-01-11] MEDS ORDERED: ONDANSETRON 4 MG/2 ML VIAL IVP PRN (22:32)
--- NOTE | 2022-01-11 22:43 | XRAY Report ---
PROCEDURE: Chest for Line Placement INDICATIONS: line placement TECHNIQUE: One view of the chest was acquired. COMPARISON: 01/11/2022 at 2016 hours FINDINGS: Surgical changes and devices: Pacemaker is before, right IJ line, projecting to the superior vena cav a. Lungs and pleura: No pleural effusions or pneumothorax. Pulmonary edema, bilateral pleural effusions , basilar atelectasis Mediastinum: Mediastinal contours appear normal. Heart size is normal. Bones and chest wall: No suspicious bony lesions. Overlying soft tissues appear unremarkable. IMPRESSION: 1. Severe congestive heart failure. 2. Right IJ line projects to the superior vena cava. Reviewed by: Herbert Marquez MD on 01/11/2022 10:41 PM PST Approved by: Herbert Marquez MD on 01/11/2022 10:41 PM PST Station ID: [email or web address]
--- NOTE | 2022-01-11 22:54 | HISTORY & PHYSICAL EXAMINATION ---
Chief Complaint - Chief Complaint Chief Complaint: altered mental status, hypothermia, multiple falls History of Present Illness - Admitted From Admitted From:: [facility] ED - History Obtained From Records Reviewed: yes History obtained from: pt and records Exam Limitations: altered mental status - History of Present Illness HPI Comment/Other: Patient is an 86-year-old male who was brought to the ED via EMS for altered mental status. Patient's mentation was significantly different today around 3 AM onwards however it has progressively been worsening over the past 3 days to the point where he has not been able to feed himself. It is also reported that he has fallen about 4 times in the past week. He is on blood thinner Eliquis. Called EMS today because of the altered mental status, wheezing and another ep isode of almost falling. The patient was last admitted to the hospital on 11/04/2021 for altered mental status during which hospital stay he was diagnosed with a CVA. Recommendation at the time after treatment in the hospital was for group home facility for rehab. The patient's declined the recommendation saying that she would to take care of the patient at home. Upon presentation to the ED he had a core temperature of 29 C. Further work-up included a CBC which showed a WBC of 4.5. He also had a lactic acid of 3.7. Urine analysis has white blood cell clumps present. Even though leukocyte esterase and nitrates negative the urine appears very cloudy. She reported severe congestive heart failure. Patient's blood pressure has been as low was 88/75 in the ED. As a result of his presentation, he was presented for admission for further treatment. History - Past Medical History Cardiovascular: reports: Hypertension, Coronary artery disease Neuro: reports: CVA, Parkinson's : reports: Benign prostate hypertrophy Psych: reports: Anxiety Musculoskeletal: reports: None - Past Surgical History Cardiovascular: reports: Pacemaker - Family & Social History Family History Comment/Other: Family history is limited because the patient is currently encephalopathic and unable to provide. His does not know his family medical history Living Situation: With spouse/s.o. Social History Notes: He lives at home with his . He quit smoking about 50 years ago. He rarely consumes alcohol. He does not consume any recreational substance.. They have been for 11 years only. - POLST Patient has POLST: No POLST Status: Full Code Meds/Allgy - Home Medications Home Medications: Ambulatory Orders Medication Instructions Recorded Confirmed Apixaban [Eliquis] 5 mg PO BID 11/04/21 01/11/22 Aspirin Chewable [St Jimmy 81 mg PO QPM 11/04/21 01/11/22 Aspirin] Carbidopa/Levodopa 25/100 [Sinemet 1 tablet PO TID 11/04/21 01/11/22 25 mg/100 mg] Cyanocobalamin [Vitamin B-12] 250 mcg PO DAILY 11/04/21 01/11/22 Isosorbide Mononitrate [Isosorbide 90 mg PO DAILY 11/04/21 01/11/22 Mononitrate ER] Lisinopril [Zestril] 40 mg PO DAILY 11/04/21 01/11/22 Meloxicam [Mobic] 15 mg PO DAILY 11/04/21 01/11/22 Metoprolol Tartrate [Lopressor] 50 mg PO BID 11/04/21 01/11/22 Nitroglycerin [Nitrostat] 0.4 mg SL Q5MIN PRN 11/04/21 01/11/22 Simvastatin [Zocor] 40 mg PO QPM 11/04/21 01/11/22 Tamsulosin HCl [Flomax] 0.8 mg PO QPM 11/04/21 01/11/22 amLODIPine [Norvasc] 5 mg PO DAILY 11/04/21 01/11/22 Ferrous Gluconate [Fergon] 324 mg PO DAILYWM #30 tablet 11/12/21 01/11/22 Furosemide [Lasix] 20 mg PO DAILY #30 tablet 11/12/21 01/11/22 Saccharomyces Boulardii [Florastor] 250 mg PO BIDWM #10 cap 11/12/21 01/11/22 - Allergies Allergies/Adverse Reactions: Allergies Allergy/AdvReac Type Severity Reaction Status Date / Time No Known Drug Allergies Allergy Verified 01/11/22 20:22 Review of Systems - Other Findings Other Findings: A 12 point review of system is currently limited because the patient has altered mental status and is unable to provide a reliable history. Prior Level of Functionality: Patient recently had a stroke in October 2021. It had been recommended that he go to group home facility for rehab but his had declined. His reports that the patient is supposed to use a cane to get around the house but in the past 3 days it seems he has not been able to use it due to altered mental status. His is also been feeding the patient because he has been unable to feed himself. Exam - Vital Signs Vital Signs: Vital Signs x48h Temp Pulse Resp BP Pulse Ox 01/11/22 22:30 31.4 C L 62 24 108/78 96 01/11/22 22:04 31 C L 60 88/75 L 01/11/22 22:00 31.4 C L 60 16 108/78 96 01/11/22 21:30 30.5 C L 65 12 84/63 L 96 01/11/22 21:15 30.3 C L 64 12 85/68 L 96 01/11/22 20:45 30.0 C L 70 20 156/79 H 98 01/11/22 20:44 30.0 C L 61 16 156/79 H 97 01/11/22 20:38 60 12 156/79 H 98 01/11/22 20:05 29.0 C L 68 21 144/95 H 100 - Physical Exam General Appearance: positive: Mild distress, Other (altered mental status. Not oriented to place, time or reason). negative: Alert Eyes Bilateral: positive: PERRL, EOMI Neck: positive: No JVD, Trachea midline Respiratory: positive: Chest non-tender, No respiratory distress, Breath sounds nml. negative: Wheezes, Rales Cardiovascular: positive: Regular rate & rhythm Abdomen: positive: Non-tender, No organomegaly, Nml bowel sounds, No distention. negative: Guarding, Rebound Skin: positive: Color nml, No rash, Warm, Dry Extremities: positive: Nml appearance, No pedal edema Neurologic/Psychiatric: positive: Disoriented to person, Disoriented to place, Disoriented to time. negative: Oriented x3 Sepsis Event Note (H) - Evaluation Current Stage of Sepsis: Septic shock Possible source of Sepsis: positive: Genitourinary - Sepsis Criteria Sepsis Criteria: Recorded Temperature greater than 38.3C or Less than 36C, SBP drop more than 40mHg, SBP less than 90 mmHg, Metabolic: lactate > 2 mmol/L Conclusion/Plan - Problem List (1) Septic shock Conclusion/Plan: Etiology is unclear However UTI is suspected as potential cause. Also cannot rule out pneumonia. Blood cultures pending. WBC 4.5, lactic acid 3.7, temperature 29 C. Patient received 2 L of normal saline in the ED. Warming unit applied. Trend lactic acid every 4 hours X 3 Due to chest x-raypotentially showing severe CHF patient is currently on D5 plus half normal saline at 75 mL/h. Currently on vancomycin, cefepime and Flagyl. If no improvement in systolic blood pressure will consider adding Levophed. Patient was admitted to the ICU. (2) UTI (urinary tract infection) Conclusion/Plan: Suspected. Urine analysis showed WBC clumps. Urine appears very cloudy. Urine and blood cultures pending. Patient is on vancomycin, cefepime and Flagyl. (3) History of CVA (cerebrovascular accident) Conclusion/Plan: Patient was admitted to the hospital on 11/04/2021 with altered mental status which was eventually determined to be due to CVA. An MRI could not be done because the patient has a pacemaker. [facility] facility had been recommended for rehab at the time of discharge but family declined. On Eliquis 5 mg p.o. twice daily, baby aspirin every afternoon, Imdur 90 mg p.o. daily, Metoprolol tartrate 50 mg p.o. twice daily, lisinopril 40 mg p.o. daily and Simvastatin 40 mg p.o. every afternoon. We will hold lisinopril, Imdur and metoprolol for now due to septic shock. (4) Fall Conclusion/Plan: Patient has fallen at least 4 times in the past week. CT of the head without contrast and cervical spine was negative for any acute process. CT of the abdomen/pelvis showed an acute type with severe markedly comminuted fraction of the L4 vertebral body We will hold patient's Eliquis due to frequent falls. Qualifiers: Encounter type: initial encounter Qualified Code(s): W19.XXXA - Unspecified fall, initial encounter (5) L4 vertebral fracture Conclusion/Plan: Likely secondary to multiple falls. Pain management as needed. Patient may benefit from a back brace when ambulatory. (6) Altered mental status Conclusion/Plan: Likely secondary to septic shock. Patient currently on vancomycin, cefepime and Flagyl. Anticipating improvement in mentation with treatment of infection. Qualifiers: Altered mental status type: disorientation Qualified Code(s): R41.0 - Disorientation, unspecified (7) Hypothermia Conclusion/Plan: Body temperature was 29 C at presentation. Likely secondary to septic state. TSH was normal. Patient is currently on empiric antibiotics which include vancomycin, cefepime and Flagyl. A warming unit has been applied upon the patient. Qualifiers: Encounter type: initial encounter Qualified Code(s): T68.XXXA - Hypothermia, initial encounter (8) Diastolic heart failure Conclusion/Plan: Chest x-ray read severe heart failure. However patient is breathing comfortably on room air with oxygen saturation at 96%. BNP was 346. Mild wheezing noted. Patient required 2 L of NS in the ED per sepsis pathway. We will continue IV hydration with D5 plus half NS at 75 mL/h. (9) BPH (benign prostatic hyperplasia) Conclusion/Plan: Burden catheter in place. On tamsulosin 0.8 mg p.o. every afternoon. (10) History of coronary artery disease Conclusion/Plan: We will hold Imdur, lisinopril, metoprolol, amlodipine, lasix and nitroglycerin due to septic shock and low blood pressure (86/63). Eliquis held due to multiple falls. We will continue baby aspirin and simvastatin. (11) Hyperlipidemia Conclusion/Plan: On simvastatin (12) Parkinson disease Conclusion/Plan: On carbidopa/levodopa 1 tablet p.o. 3 times daily - Lab Results Fish Bones: 01/12/22 05:28 01/12/22 05:28 Core Measures - Anticipated LOS I expect patient to be DC'd or transferred within 96 hours.: Yes - DVT/VTE - Prophylaxis VTE/DVT Prophylaxis med ordered at admit?: Yes
[2022-01-11] MEDS ORDERED: DEXTROSE 5%-0.45% NACL 1,000 ML IV SCH (23:00)
[2022-01-11] MEDS: SODIUM CHLORIDE FLUSH 0.9% 10 ML SYRINGE IVP SCH (23:53)
[2022-01-12] MEDS ORDERED: SODIUM CHLORIDE 0.9% 500 ML IV ONE (00:10)
[2022-01-12] MEDS: SODIUM CHLORIDE FLUSH 0.9% 10 ML SYRINGE IVP PRN ×5 (04:33→07:10)
[2022-01-12] MEDS: HYDROmorphone 0.5 MG/0.5 ML SYRINGE IVP PRN ×4 (04:33→20:24)
[2022-01-12] MEDS ORDERED: HYDROmorphone 0.5 MG/0.5 ML SYRINGE ONE (04:37)
[2022-01-12] MEDS ORDERED: FUROSEMIDE 40 MG/4 ML VIAL IVP STA (05:10)
[2022-01-12] MEDS: metroNIDAZOLE 500 MG/100 ML 500 MG/100 ML BAG IV SCH ×3 (05:18→20:50)
[2022-01-12] MEDS ORDERED: FUROSEMIDE 40 MG/4 ML VIAL ONE (05:19)
[2022-01-12] MEDS ORDERED: SODIUM CHLORIDE 0.9% 250 ML IV ONE (05:22)
[2022-01-12 05:32] LABS: ABG HCO3 19.6 mmol/L (22.0-26.0); ABG PCO2 44 mmHg (34-45); ABG PH 7.27 (7.35-7.45); ABG TCO2 20.9 MMOL/L (21.0-29.0)
[2022-01-12 05:33] LABS: ALLEN TEST POSITIVE
[2022-01-12 05:35] LABS: ABG OXYGEN SATURATION 57 % (94-98); ABG PO2 34 mmHg (80-100)
[2022-01-12 05:44] LABS: BASOPHILS % (AUTO) 0.1 %; EOSINOPHILS % (AUTO) 0.3 %; HCT - HEMATOCRIT 26.7 % (42.0-52.0); HGB - HEMOGLOBIN 8.9 g/dL (14.0-18.0); MEAN CORPUSCULAR HEMOGLOBIN 26.5 pg (27.0-31.0); MEAN CORPUSCULAR HGB CONC 33.3 g/dL (32.0-36.0); MEAN CORPUSCULAR VOLUME 79.5 fL (80.0-94.0); MEAN PLATELET VOLUME 9.3 fL (7.4-11.4); MONOCYTES # (AUTO) 0.3 10^3/uL (0.0-1.0); MONOCYTES % (AUTO) 4.2 %; NEUTROPHILS # (AUTO) 6.8 10^3/uL (1.5-6.6); NEUTROPHILS % (AUTO) 95.1 %; NRBC ABSOLUTE COUNT (AUTO) 0.54 x10^3/uL; NUCLEATED RED BLOOD CELLS AUTO 7.5 /100WBC; PLT - PLATELET COUNT 102 10^3/uL (130-450); RED BLOOD COUNT 3.36 10^6/uL (4.70-6.10); WHITE BLOOD COUNT 7.2 x10^3/uL (4.8-10.8)
[2022-01-12 05:50] LABS: PT - PROTHROMBIN TIME 22.7 secs (9.9-12.6)
[2022-01-12 05:53] LABS: CALCIUM 8.2 mg/dL (8.5-10.3); CREATININE 1.6 mg/dL (0.6-1.2); POTASSIUM 4.9 mmol/L (3.5-5.0)
[2022-01-12] MEDS: PANTOPRAZOLE 40 MG VIAL IVP SCH (07:10)
[2022-01-12] MEDS: CARBIDOPA/LEVODOPA 25 MG/100 MG TABLET PO SCH ×3 (07:11→20:45)
[2022-01-12] MEDS: FERROUS GLUCONATE 324 MG TABLET PO SCH (07:47)
--- NOTE | 2022-01-12 07:52 | PHARMACY PROGRESS NOTE ---
- Best Possible Medication History Admit Date and Time: 01/11/222231 Processed by: Nursing Medication History completed: Yes As the person ultimately responsible for medication therapy, providers are able to order a medication from an existing home medication list in [facility] via the "Reconcile Routine" prior to Confirmation of that medication by retail support associate. Such practice is discouraged except when the physician, in their clinical judgment, deems that a medical need exists for a medication without regard to previous use.
[2022-01-12] MEDS: CYANOCOBALAMIN 500 MCG TABLET PO SCH (08:01)
[2022-01-12 08:18] LABS: ABG BASE EXCESS -8.1 mmol/L (-2.0-3.0); ABG HCO3 15.7 mmol/L (22.0-26.0); ABG OXYGEN SATURATION 97 % (94-98); ABG PCO2 27 mmHg (34-45); ABG PH 7.39 (7.35-7.45); ABG PO2 105 mmHg (80-100); ABG TCO2 16.5 MMOL/L (21.0-29.0)
--- NOTE | 2022-01-12 08:42 | XRAY Report ---
PROCEDURE: Chest 1 View X-Ray INDICATIONS: chf TECHNIQUE: One view of the chest was acquired. COMPARISON: Multiple chest radiographs dated 01/11/2022 FINDINGS: Surgical changes and devices: Left-sided cardiac pacer device is in place. Right central venous jnonie ter is unchanged in position with the distal tip projecting near the lower SVC. Lungs and pleura: Diffuse interstitial prominence. Mild vascular congestion. Findings are less promin ent compared to prior studies. Bilateral pleural effusions. Patchy bibasilar opacities likely represe nting atelectasis. No pneumothorax. Mediastinum: Mediastinal contours appear normal. Heart size is normal. Bones and chest wall: No suspicious bony lesions. Overlying soft tissues appear unremarkable. IMPRESSION: 1. Findings consistent with pulmonary edema which overall has improved compared to 01/11/2022. 2. Small bilateral pleural effusions and patchy bibasilar opacities which may represent atelectasis a nd/or concurrent air space disease. 3. Stable positioning of right central venous catheter. Reviewed by: Rudi Reyes MD on 01/12/2022 7:41 AM [facility] Approved by: Rudi Reyes MD on 01/12/2022 7:41 AM [facility] Station ID: [id number]
[2022-01-12] MEDS: SODIUM CHLORIDE FLUSH 0.9% 10 ML SYRINGE IVP SCH ×3 (09:20→23:10)
[2022-01-12] MEDS: CEFEPIME 2 GM in SODIUM CHLORIDE 0.9% MINIBAG 100 ML IV SCH ×2 (09:20→20:50)
--- NOTE | 2022-01-12 18:53 | PROVIDER PROGRESS NOTE ---
Subjective - Prog Note Date Prog Note Date: 01/12/22 Objective - Vital Signs/Intake & Output Reviewed Vital Signs: Yes Vital Signs: Vital Signs Temp Pulse Resp BP Pulse Ox 01/12/22 18:00 37.1 C 70 24 150/119 H 95 01/12/22 17:00 37 C 70 24 165/127 H 97 01/12/22 16:00 37 C 60 18 123/107 H 96 01/12/22 15:00 37.1 C 69 22 131/100 H 98 Intake & Output: Intake & Output 01/09/22 01/10/22 01/11/22 01/12/22 23:59 23:59 23:59 23:59 Intake Total 2200 1857.500 Output Total 0 145 Balance 2200 1712.500 - Objective General Appearance: positive: Moderate distress (Fidgity, eyes are closed, he is grunting, turning head and pulling at bedsheets and his Burden catheter, he requires soft wrist restraints attached to bed rails.) Eyes Bilateral: positive: Other (closed) ENT: positive: No signs of dehydration Neck: positive: Nml inspection Respiratory: positive: Breath sounds nml (anteriorly) Cardiovascular: positive: Regular rate & rhythm, No murmur Abdomen: positive: No distention Skin: positive: Warm, Dry Extremities: positive: No pedal edema Neurologic/Psychiatric: positive: Other (Obtunded, not responding to voice commands, fidgety, turning his head, pulling at bed sheets, moving all extremities spontaneously) - Lab Results Fish Bones: 01/13/22 04:45 01/13/22 04:45 Other Labs: Lab Results x24hrs 01/12/22 01/12/22 01/12/22 Range/Units 08:12 08:05 05:28 WBC (4.8-10.8) x10^3/uL RBC (4.70-6.10) 10^6/uL Hgb (14.0-18.0) g/dL Hct (42.0-52.0) % MCV (80.0-94.0) fL MCH (27.0-31.0) pg MCHC (32.0-36.0) g/dL RDW (12.0-15.0) % Plt Count (130-450) 10^3/uL MPV (7.4-11.4) fL Neut # (Auto) (1.5-6.6) 10^3/uL Lymph # (Auto) (1.5-3.5) 10^3/uL [place] # (Auto) (0.0-1.0) 10^3/uL Eos # (Auto) (0.0-0.7) 10^3/uL Baso # (Auto) (0.0-0.1) 10^3/uL Absolute Nucleated RBC x10^3/uL Nucleated RBC % /100WBC PT (9.9-12.6) secs INR (0.8-1.2) Bld Gas Analysis Time 0805 Sample Site LEFT BRACHIAL ABG pH 7.39 (7.35-7.45) ABG pCO2 27 L (34-45) mmHg ABG pO2 105 H (80-100) mmHg ABG HCO3 15.7 L (22.0-26.0) mmol/L ABG Total CO2 16.5 L (21.0-29.0) MMOL/L ABG O2 Saturation 97 (94-98) % ABG Base Excess -8.1 L (-2.0-3.0) mmol/L Sigifredo Test NOT APPLICABLE VBG pH (7.31-7.41) VBG pCO2 (41-51) mmHg VBG pO2 (25-47) mmHg VBG HCO3 (23-28) mmol/L VBG Total CO2 (24-29) mmol/L VBG O2 Saturation (60-80) % VBG Base Excess (-2 - +2) mmol/L O2 Delivery Device NASAL CANNULA O2 Liters/Min 3.00 LPM Sodium (135-145) mmol/L Potassium (3.5-5.0) mmol/L Chloride (101-111) mmol/L Carbon Dioxide (21-32) mmol/L Anion Gap (6-13) BUN (6-20) mg/dL Creatinine (0.6-1.2) mg/dL Estimated GFR (MDRD) (>89) Glucose (70-100) mg/dL Lactic Acid (0.5-2.2) mmol/L Calcium (8.5-10.3) mg/dL Phosphorus (2.5-4.6) mg/dL Magnesium (1.7-2.8) mg/dL Total Bilirubin (0.2-1.0) mg/dL AST (10-42) IU/L ALT (10-60) IU/L Alkaline Phosphatase (42-121) IU/L Total Creatine Kinase (22-269) IU/L Troponin I High Sens 32.7 H* (2.3-19.7) ng/L B-Natriuretic Peptide 503 H (5-100) pg/mL Total Protein (6.7-8.2) g/dL Albumin (3.2-5.5) g/dL Globulin (2.1-4.2) g/dL Albumin/Globulin Ratio (1.0-2.2) Lipase (22-51) U/L TSH (0.34-5.60) uIU/mL Urine Color Urine Clarity (CLEAR) Urine pH (5.0-7.5) PH Ur Specific Arthur (1.002-1.030) Urine Protein (NEGATIVE) mg/dL Urine Glucose (UA) (NEGATIVE) mg/dL Urine Ketones (NEGATIVE) mg/dL Urine Occult Blood (NEGATIVE) Urine Nitrite (NEGATIVE) Urine Bilirubin (NEGATIVE) Urine Urobilinogen (NORMAL) E.U./dL Ur Leukocyte Esterase (NEGATIVE) Urine RBC (0-5) /HPF Urine WBC (0-3) /HPF Urine WBC Clumps Ur Squamous Epith Cells (<= Few) Urine Bacteria (None Seen) /HPF Ur Microscopic Review Urine Culture Comments Nasal Adenovirus (PCR) Nasal B. parapertussis DNA (PCR) Nasal Coronavir 229E PCR Nasal Coronavir HKU1 PCR Nasal Coronavir NL63 PCR Nasal Coronavir OC43 PCR Nasal Enterovir/Rhinovir PCR Nasal Influenza B PCR Nasal Influenza A PCR Nasal Parainfluen 1 PCR Nasal Parainfluen 2 PCR Nasal Parainfluen 3 PCR Nasal Parainfluen 4 PCR Nasal RSV (PCR) Nasal Screen MRSA (PCR) (NEGATIVE) Nasal B.pertussis DNA PCR Nasal C.pneumoniae (PCR) Micky Human Metapneumo PCR Nasal M.pneumoniae (PCR) Nasal SARS-CoV-2 (PCR) Salicylates mg/dL Urine Opiates Screen (NEGATIVE) Ur Oxycodone Screen (NEGATIVE) Urine Methadone Screen (NEGATIVE) Ur Propoxyphene Screen (NEGATIVE) Acetaminophen (10-30) ug/mL Ur Barbiturates Screen (NEGATIVE) Ur Tricyclics Screen (NEGATIVE) Ur Phencyclidine Scrn (NEGATIVE) Ur Amphetamine Screen (NEGATIVE) U Methamphetamines Scrn (NEGATIVE) U Benzodiazepines Scrn (NEGATIVE) Urine Cocaine Screen (NEGATIVE) U Cannabinoids Screen (NEGATIVE) Ethyl Alcohol mg/dL 01/12/22 01/12/22 01/12/22 Range/Units 05:28 05:28 05:28 WBC (4.8-10.8) x10^3/uL RBC (4.70-6.10) 10^6/uL Hgb (14.0-18.0) g/dL Hct (42.0-52.0) % MCV (80.0-94.0) fL MCH (27.0-31.0) pg MCHC (32.0-36.0) g/dL RDW (12.0-15.0) % Plt Count (130-450) 10^3/uL MPV (7.4-11.4) fL Neut # (Auto) (1.5-6.6) 10^3/uL Lymph # (Auto) (1.5-3.5) 10^3/uL [place] # (Auto) (0.0-1.0) 10^3/uL Eos # (Auto) (0.0-0.7) 10^3/uL Baso # (Auto) (0.0-0.1) 10^3/uL Absolute Nucleated RBC x10^3/uL Nucleated RBC % /100WBC PT 22.7 H (9.9-12.6) secs INR 2.0 H (0.8-1.2) Bld Gas Analysis Time Sample Site ABG pH (7.35-7.45) ABG pCO2 (34-45) mmHg ABG pO2 (80-100) mmHg ABG HCO3 (22.0-26.0) mmol/L ABG Total CO2 (21.0-29.0) MMOL/L ABG O2 Saturation (94-98) % ABG Base Excess (-2.0-3.0) mmol/L Sigifredo Test VBG pH (7.31-7.41) VBG pCO2 (41-51) mmHg VBG pO2 (25-47) mmHg VBG HCO3 (23-28) mmol/L VBG Total CO2 (24-29) mmol/L VBG O2 Saturation (60-80) % VBG Base Excess (-2 - +2) mmol/L O2 Delivery Device O2 Liters/Min LPM Sodium 138 (135-145) mmol/L Potassium 4.9 (3.5-5.0) mmol/L Chloride 109 (101-111) mmol/L Carbon Dioxide 21 (21-32) mmol/L Anion Gap 8.0 (6-13) BUN 30 H (6-20) mg/dL Creatinine 1.6 H (0.6-1.2) mg/dL Estimated GFR (MDRD) 41 L (>89) Glucose 74 (70-100) mg/dL Lactic Acid 1.6 (0.5-2.2) mmol/L Calcium 8.2 L (8.5-10.3) mg/dL Phosphorus (2.5-4.6) mg/dL Magnesium (1.7-2.8) mg/dL Total Bilirubin (0.2-1.0) mg/dL AST (10-42) IU/L ALT (10-60) IU/L Alkaline Phosphatase (42-121) IU/L Total Creatine Kinase (22-269) IU/L Troponin I High Sens (2.3-19.7) ng/L B-Natriuretic Peptide (5-100) pg/mL Total Protein (6.7-8.2) g/dL Albumin (3.2-5.5) g/dL Globulin (2.1-4.2) g/dL Albumin/Globulin Ratio (1.0-2.2) Lipase (22-51) U/L TSH (0.34-5.60) uIU/mL Urine Color Urine Clarity (CLEAR) Urine pH (5.0-7.5) PH Ur Specific Arthur (1.002-1.030) Urine Protein (NEGATIVE) mg/dL Urine Glucose (UA) (NEGATIVE) mg/dL Urine Ketones (NEGATIVE) mg/dL Urine Occult Blood (NEGATIVE) Urine Nitrite (NEGATIVE) Urine Bilirubin (NEGATIVE) Urine Urobilinogen (NORMAL) E.U./dL Ur Leukocyte Esterase (NEGATIVE) Urine RBC (0-5) /HPF Urine WBC (0-3) /HPF Urine WBC Clumps Ur Squamous Epith Cells (<= Few) Urine Bacteria (None Seen) /HPF Ur Microscopic Review Urine Culture Comments Nasal Adenovirus (PCR) Nasal B. parapertussis DNA (PCR) Nasal Coronavir 229E PCR Nasal Coronavir HKU1 PCR Nasal Coronavir NL63 PCR Nasal Coronavir OC43 PCR Nasal Enterovir/Rhinovir PCR Nasal Influenza B PCR Nasal Influenza A PCR Nasal Parainfluen 1 PCR Nasal Parainfluen 2 PCR Nasal Parainfluen 3 PCR Nasal Parainfluen 4 PCR Nasal RSV (PCR) Nasal Screen MRSA (PCR) (NEGATIVE) Nasal B.pertussis DNA PCR Nasal C.pneumoniae (PCR) Micky Human Metapneumo PCR Nasal M.pneumoniae (PCR) Nasal SARS-CoV-2 (PCR) Salicylates mg/dL Urine Opiates Screen (NEGATIVE) Ur Oxycodone Screen (NEGATIVE) Urine Methadone Screen (NEGATIVE) Ur Propoxyphene Screen (NEGATIVE) Acetaminophen (10-30) ug/mL Ur Barbiturates Screen (NEGATIVE) Ur Tricyclics Screen (NEGATIVE) Ur Phencyclidine Scrn (NEGATIVE) Ur Amphetamine Screen (NEGATIVE) U Methamphetamines Scrn (NEGATIVE) U Benzodiazepines Scrn (NEGATIVE) Urine Cocaine Screen (NEGATIVE) U Cannabinoids Screen (NEGATIVE) Ethyl Alcohol mg/dL 01/12/22 01/12/22 01/12/22 Range/Units 05:28 05:25 01:42 WBC 7.2 (4.8-10.8) x10^3/uL RBC 3.36 L (4.70-6.10) 10^6/uL Hgb 8.9 L (14.0-18.0) g/dL Hct 26.7 L (42.0-52.0) % MCV 79.5 L (80.0-94.0) fL MCH 26.5 L (27.0-31.0) pg MCHC 33.3 (32.0-36.0) g/dL RDW 16.0 H (12.0-15.0) % Plt Count 102 L (130-450) 10^3/uL MPV 9.3 (7.4-11.4) fL Neut # (Auto) 6.8 H (1.5-6.6) 10^3/uL Lymph # (Auto) 0.0 L (1.5-3.5) 10^3/uL [place] # (Auto) 0.3 (0.0-1.0) 10^3/uL Eos # (Auto) 0.0 (0.0-0.7) 10^3/uL Baso # (Auto) 0.0 (0.0-0.1) 10^3/uL Absolute Nucleated RBC 0.54 x10^3/uL Nucleated RBC % 7.5 /100WBC PT (9.9-12.6) secs INR (0.8-1.2) Bld Gas Analysis Time 0531 Sample Site RIGHT RADIAL ABG pH 7.27 L (7.35-7.45) ABG pCO2 44 (34-45) mmHg ABG pO2 34 L* (80-100) mmHg ABG HCO3 19.6 L (22.0-26.0) mmol/L ABG Total CO2 20.9 L (21.0-29.0) MMOL/L ABG O2 Saturation 57 L* (94-98) % ABG Base Excess -7.0 L (-2.0-3.0) mmol/L Sigifredo Test POSITIVE VBG pH (7.31-7.41) VBG pCO2 (41-51) mmHg VBG pO2 (25-47) mmHg VBG HCO3 (23-28) mmol/L VBG Total CO2 (24-29) mmol/L VBG O2 Saturation (60-80) % VBG Base Excess (-2 - +2) mmol/L O2 Delivery Device NASAL CANNULA O2 Liters/Min 3.00 LPM Sodium (135-145) mmol/L Potassium (3.5-5.0) mmol/L Chloride (101-111) mmol/L Carbon Dioxide (21-32) mmol/L Anion Gap (6-13) BUN (6-20) mg/dL Creatinine (0.6-1.2) mg/dL Estimated GFR (MDRD) (>89) Glucose (70-100) mg/dL Lactic Acid 1.4 (0.5-2.2) mmol/L Calcium (8.5-10.3) mg/dL Phosphorus (2.5-4.6) mg/dL Magnesium (1.7-2.8) mg/dL Total Bilirubin (0.2-1.0) mg/dL AST (10-42) IU/L ALT (10-60) IU/L Alkaline Phosphatase (42-121) IU/L Total Creatine Kinase (22-269) IU/L Troponin I High Sens (2.3-19.7) ng/L B-Natriuretic Peptide (5-100) pg/mL Total Protein (6.7-8.2) g/dL Albumin (3.2-5.5) g/dL Globulin (2.1-4.2) g/dL Albumin/Globulin Ratio (1.0-2.2) Lipase (22-51) U/L TSH (0.34-5.60) uIU/mL Urine Color Urine Clarity (CLEAR) Urine pH (5.0-7.5) PH Ur Specific [place] (1.002-1.030) Urine Protein (NEGATIVE) mg/dL Urine Glucose (UA) (NEGATIVE) mg/dL Urine Ketones (NEGATIVE) mg/dL Urine Occult Blood (NEGATIVE) Urine Nitrite (NEGATIVE) Urine Bilirubin (NEGATIVE) Urine Urobilinogen (NORMAL) E.U./dL Ur Leukocyte Esterase (NEGATIVE) Urine RBC (0-5) /HPF Urine WBC (0-3) /HPF Urine WBC Clumps Ur Squamous Epith Cells (<= Few) Urine Bacteria (None Seen) /HPF Ur Microscopic Review Urine Culture Comments Nasal Adenovirus (PCR) Nasal B. parapertussis DNA (PCR) Nasal Coronavir 229E PCR Nasal Coronavir HKU1 PCR Nasal Coronavir NL63 PCR Nasal Coronavir OC43 PCR Nasal Enterovir/Rhinovir PCR Nasal Influenza B PCR Nasal Influenza A PCR Nasal Parainfluen 1 PCR Nasal Parainfluen 2 PCR Nasal Parainfluen 3 PCR Nasal Parainfluen 4 PCR Nasal RSV (PCR) Nasal Screen MRSA (PCR) (NEGATIVE) Nasal B.pertussis DNA PCR Nasal C.pneumoniae (PCR) Micky Human Metapneumo PCR Nasal M.pneumoniae (PCR) Nasal SARS-CoV-2 (PCR) Salicylates mg/dL Urine Opiates Screen (NEGATIVE) Ur Oxycodone Screen (NEGATIVE) Urine Methadone Screen (NEGATIVE) Ur Propoxyphene Screen (NEGATIVE) Acetaminophen (10-30) ug/mL Ur Barbiturates Screen (NEGATIVE) Ur Tricyclics Screen (NEGATIVE) Ur Phencyclidine Scrn (NEGATIVE) Ur Amphetamine Screen (NEGATIVE) U Methamphetamines Scrn (NEGATIVE) U Benzodiazepines Scrn (NEGATIVE) Urine Cocaine Screen (NEGATIVE) U Cannabinoids Screen (NEGATIVE) Ethyl Alcohol mg/dL 02/26/22 02/26/22 02/26/22 Range/Units 23:15 22:35 20:50 WBC (4.8-10.8) x10^3/uL RBC (4.70-6.10) 10^6/uL Hgb (14.0-18.0) g/dL Hct (42.0-52.0) % MCV (80.0-94.0) fL MCH (27.0-31.0) pg MCHC (32.0-36.0) g/dL RDW (12.0-15.0) % Plt Count (130-450) 10^3/uL MPV (7.4-11.4) fL Neut # (Auto) (1.5-6.6) 10^3/uL Lymph # (Auto) (1.5-3.5) 10^3/uL [place] # (Auto) (0.0-1.0) 10^3/uL Eos # (Auto) (0.0-0.7) 10^3/uL Baso # (Auto) (0.0-0.1) 10^3/uL Absolute Nucleated RBC x10^3/uL Nucleated RBC % /100WBC PT (9.9-12.6) secs INR (0.8-1.2) Bld Gas Analysis Time Sample Site ABG pH (7.35-7.45) ABG pCO2 (34-45) mmHg ABG pO2 (80-100) mmHg ABG HCO3 (22.0-26.0) mmol/L ABG Total CO2 (21.0-29.0) MMOL/L ABG O2 Saturation (94-98) % ABG Base Excess (-2.0-3.0) mmol/L Sigifredo Test VBG pH (7.31-7.41) VBG pCO2 (41-51) mmHg VBG pO2 (25-47) mmHg VBG HCO3 (23-28) mmol/L VBG Total CO2 (24-29) mmol/L VBG O2 Saturation (60-80) % VBG Base Excess (-2 - +2) mmol/L O2 Delivery Device O2 Liters/Min LPM Sodium (135-145) mmol/L Potassium (3.5-5.0) mmol/L Chloride (101-111) mmol/L Carbon Dioxide (21-32) mmol/L Anion Gap (6-13) BUN (6-20) mg/dL Creatinine (0.6-1.2) mg/dL Estimated GFR (MDRD) (>89) Glucose (70-100) mg/dL Lactic Acid 1.2 (0.5-2.2) mmol/L Calcium (8.5-10.3) mg/dL Phosphorus (2.5-4.6) mg/dL Magnesium (1.7-2.8) mg/dL Total Bilirubin (0.2-1.0) mg/dL AST (10-42) IU/L ALT (10-60) IU/L Alkaline Phosphatase (42-121) IU/L Total Creatine Kinase (22-269) IU/L Troponin I High Sens (2.3-19.7) ng/L B-Natriuretic Peptide (5-100) pg/mL Total Protein (6.7-8.2) g/dL Albumin (3.2-5.5) g/dL Globulin (2.1-4.2) g/dL Albumin/Globulin Ratio (1.0-2.2) Lipase (22-51) U/L TSH (0.34-5.60) uIU/mL Urine Color YELLOW Urine Clarity HAZY (CLEAR) Urine pH 5.0 (5.0-7.5) PH Ur Specific Arthur >=1.030 H (1.002-1.030) Urine Protein 30 H (NEGATIVE) mg/dL Urine Glucose (UA) NEGATIVE (NEGATIVE) mg/dL Urine Ketones NEGATIVE (NEGATIVE) mg/dL Urine Occult Blood MODERATE H (NEGATIVE) Urine Nitrite NEGATIVE (NEGATIVE) Urine Bilirubin NEGATIVE (NEGATIVE) Urine Urobilinogen 0.2 (NORMAL) (NORMAL) E.U./dL Ur Leukocyte Esterase NEGATIVE (NEGATIVE) Urine RBC 11-25 H (0-5) /HPF Urine WBC 4-5 (0-3) /HPF Urine WBC Clumps PRESENT Ur Squamous Epith Cells FEW Squamous (<= Few) Urine Bacteria Rare (None Seen) /HPF Ur Microscopic Review INDICATED Urine Culture Comments NOT INDICATED Nasal Adenovirus (PCR) Nasal B. parapertussis DNA (PCR) Nasal Coronavir 229E PCR Nasal Coronavir HKU1 PCR Nasal Coronavir NL63 PCR Nasal Coronavir OC43 PCR Nasal Enterovir/Rhinovir PCR Nasal Influenza B PCR Nasal Influenza A PCR Nasal Parainfluen 1 PCR Nasal Parainfluen 2 PCR Nasal Parainfluen 3 PCR Nasal Parainfluen 4 PCR Nasal RSV (PCR) Nasal Screen MRSA (PCR) NEGATIVE (NEGATIVE) Nasal B.pertussis DNA PCR Nasal C.pneumoniae (PCR) Micky Human Metapneumo PCR Nasal M.pneumoniae (PCR) Nasal SARS-CoV-2 (PCR) Salicylates mg/dL Urine Opiates Screen NEGATIVE (NEGATIVE) Ur Oxycodone Screen NEGATIVE (NEGATIVE) Urine Methadone Screen NEGATIVE (NEGATIVE) Ur Propoxyphene Screen NEGATIVE (NEGATIVE) Acetaminophen (10-30) ug/mL Ur Barbiturates Screen NEGATIVE (NEGATIVE) Ur Tricyclics Screen NEGATIVE (NEGATIVE) Ur Phencyclidine Scrn NEGATIVE (NEGATIVE) Ur Amphetamine Screen NEGATIVE (NEGATIVE) U Methamphetamines Scrn NEGATIVE (NEGATIVE) U Benzodiazepines Scrn NEGATIVE (NEGATIVE) Urine Cocaine Screen NEGATIVE (NEGATIVE) U Cannabinoids Screen NEGATIVE (NEGATIVE) Ethyl Alcohol mg/dL 01/11/22 01/11/22 01/11/22 Range/Units 20:37 20:25 20:25 WBC (4.8-10.8) x10^3/uL RBC (4.70-6.10) 10^6/uL Hgb (14.0-18.0) g/dL Hct (42.0-52.0) % MCV (80.0-94.0) fL MCH (27.0-31.0) pg MCHC (32.0-36.0) g/dL RDW (12.0-15.0) % Plt Count (130-450) 10^3/uL MPV (7.4-11.4) fL Neut # (Auto) (1.5-6.6) 10^3/uL Lymph # (Auto) (1.5-3.5) 10^3/uL [place] # (Auto) (0.0-1.0) 10^3/uL Eos # (Auto) (0.0-0.7) 10^3/uL Baso # (Auto) (0.0-0.1) 10^3/uL Absolute Nucleated RBC x10^3/uL Nucleated RBC % /100WBC PT (9.9-12.6) secs INR (0.8-1.2) Bld Gas Analysis Time Sample Site ABG pH (7.35-7.45) ABG pCO2 (34-45) mmHg ABG pO2 (80-100) mmHg ABG HCO3 (22.0-26.0) mmol/L ABG Total CO2 (21.0-29.0) MMOL/L ABG O2 Saturation (94-98) % ABG Base Excess (-2.0-3.0) mmol/L Sigifredo Test VBG pH 7.293 L (7.31-7.41) VBG pCO2 42.2 (41-51) mmHg VBG pO2 45.9 (25-47) mmHg VBG HCO3 20.0 L (23-28) mmol/L VBG Total CO2 21.3 L (24-29) mmol/L VBG O2 Saturation 78.2 (60-80) % VBG Base Excess -6.2 L (-2 - +2) mmol/L O2 Delivery Device O2 Liters/Min LPM Sodium (135-145) mmol/L Potassium (3.5-5.0) mmol/L Chloride (101-111) mmol/L Carbon Dioxide (21-32) mmol/L Anion Gap (6-13) BUN (6-20) mg/dL Creatinine (0.6-1.2) mg/dL Estimated GFR (MDRD) (>89) Glucose (70-100) mg/dL Lactic Acid (0.5-2.2) mmol/L Calcium (8.5-10.3) mg/dL Phosphorus (2.5-4.6) mg/dL Magnesium (1.7-2.8) mg/dL Total Bilirubin (0.2-1.0) mg/dL AST (10-42) IU/L ALT (10-60) IU/L Alkaline Phosphatase (42-121) IU/L Total Creatine Kinase (22-269) IU/L Troponin I High Sens (2.3-19.7) ng/L B-Natriuretic Peptide 396 H (5-100) pg/mL Total Protein (6.7-8.2) g/dL Albumin (3.2-5.5) g/dL Globulin (2.1-4.2) g/dL Albumin/Globulin Ratio (1.0-2.2) Lipase (22-51) U/L TSH (0.34-5.60) uIU/mL Urine Color Urine Clarity (CLEAR) Urine pH (5.0-7.5) PH Ur Specific [place] (1.002-1.030) Urine Protein (NEGATIVE) mg/dL Urine Glucose (UA) (NEGATIVE) mg/dL Urine Ketones (NEGATIVE) mg/dL Urine Occult Blood (NEGATIVE) Urine Nitrite (NEGATIVE) Urine Bilirubin (NEGATIVE) Urine Urobilinogen (NORMAL) E.U./dL Ur Leukocyte Esterase (NEGATIVE) Urine RBC (0-5) /HPF Urine WBC (0-3) /HPF Urine WBC Clumps Ur Squamous Epith Cells (<= Few) Urine Bacteria (None Seen) /HPF Ur Microscopic Review Urine Culture Comments Nasal Adenovirus (PCR) NOT DETECTED Nasal B. parapertussis DNA (PCR) NOT DETECTED Nasal Coronavir 229E PCR NOT DETECTED Nasal Coronavir HKU1 PCR NOT DETECTED Nasal Coronavir NL63 PCR NOT DETECTED Nasal Coronavir OC43 PCR NOT DETECTED Nasal Enterovir/Rhinovir PCR NOT DETECTED Nasal Influenza B PCR NOT DETECTED Nasal Influenza A PCR NOT DETECTED Nasal Parainfluen 1 PCR NOT DETECTED Nasal Parainfluen 2 PCR NOT DETECTED Nasal Parainfluen 3 PCR NOT DETECTED Nasal Parainfluen 4 PCR NOT DETECTED Nasal RSV (PCR) NOT DETECTED Nasal Screen MRSA (PCR) (NEGATIVE) Nasal B.pertussis DNA PCR NOT DETECTED Nasal C.pneumoniae (PCR) NOT DETECTED Micky Human Metapneumo PCR NOT DETECTED Nasal M.pneumoniae (PCR) NOT DETECTED Nasal SARS-CoV-2 (PCR) NOT DETECTED Salicylates mg/dL Urine Opiates Screen (NEGATIVE) Ur Oxycodone Screen (NEGATIVE) Urine Methadone Screen (NEGATIVE) Ur Propoxyphene Screen (NEGATIVE) Acetaminophen (10-30) ug/mL Ur Barbiturates Screen (NEGATIVE) Ur Tricyclics Screen (NEGATIVE) Ur Phencyclidine Scrn (NEGATIVE) Ur Amphetamine Screen (NEGATIVE) U Methamphetamines Scrn (NEGATIVE) U Benzodiazepines Scrn (NEGATIVE) Urine Cocaine Screen (NEGATIVE) U Cannabinoids Screen (NEGATIVE) Ethyl Alcohol mg/dL 01/11/22 01/11/22 01/11/22 Range/Units 20:25 20:25 20:25 WBC (4.8-10.8) x10^3/uL RBC (4.70-6.10) 10^6/uL Hgb (14.0-18.0) g/dL Hct (42.0-52.0) % MCV (80.0-94.0) fL MCH (27.0-31.0) pg MCHC (32.0-36.0) g/dL RDW (12.0-15.0) % Plt Count (130-450) 10^3/uL MPV (7.4-11.4) fL Neut # (Auto) (1.5-6.6) 10^3/uL Lymph # (Auto) (1.5-3.5) 10^3/uL [place] # (Auto) (0.0-1.0) 10^3/uL Eos # (Auto) (0.0-0.7) 10^3/uL Baso # (Auto) (0.0-0.1) 10^3/uL Absolute Nucleated RBC x10^3/uL Nucleated RBC % /100WBC PT (9.9-12.6) secs INR (0.8-1.2) Bld Gas Analysis Time Sample Site ABG pH (7.35-7.45) ABG pCO2 (34-45) mmHg ABG pO2 (80-100) mmHg ABG HCO3 (22.0-26.0) mmol/L ABG Total CO2 (21.0-29.0) MMOL/L ABG O2 Saturation (94-98) % ABG Base Excess (-2.0-3.0) mmol/L Sigifredo Test VBG pH (7.31-7.41) VBG pCO2 (41-51) mmHg VBG pO2 (25-47) mmHg VBG HCO3 (23-28) mmol/L VBG Total CO2 (24-29) mmol/L VBG O2 Saturation (60-80) % VBG Base Excess (-2 - +2) mmol/L O2 Delivery Device O2 Liters/Min LPM Sodium (135-145) mmol/L Potassium (3.5-5.0) mmol/L Chloride (101-111) mmol/L Carbon Dioxide (21-32) mmol/L Anion Gap (6-13) BUN (6-20) mg/dL Creatinine (0.6-1.2) mg/dL Estimated GFR (MDRD) (>89) Glucose (70-100) mg/dL Lactic Acid 3.7 H* (0.5-2.2) mmol/L Calcium (8.5-10.3) mg/dL Phosphorus (2.5-4.6) mg/dL Magnesium (1.7-2.8) mg/dL Total Bilirubin (0.2-1.0) mg/dL AST (10-42) IU/L ALT (10-60) IU/L Alkaline Phosphatase (42-121) IU/L Total Creatine Kinase (22-269) IU/L Troponin I High Sens 16.1 (2.3-19.7) ng/L B-Natriuretic Peptide (5-100) pg/mL Total Protein (6.7-8.2) g/dL Albumin (3.2-5.5) g/dL Globulin (2.1-4.2) g/dL Albumin/Globulin Ratio (1.0-2.2) Lipase (22-51) U/L TSH 4.53 (0.34-5.60) uIU/mL Urine Color Urine Clarity (CLEAR) Urine pH (5.0-7.5) PH Ur Specific Arthur (1.002-1.030) Urine Protein (NEGATIVE) mg/dL Urine Glucose (UA) (NEGATIVE) mg/dL Urine Ketones (NEGATIVE) mg/dL Urine Occult Blood (NEGATIVE) Urine Nitrite (NEGATIVE) Urine Bilirubin (NEGATIVE) Urine Urobilinogen (NORMAL) E.U./dL Ur Leukocyte Esterase (NEGATIVE) Urine RBC (0-5) /HPF Urine WBC (0-3) /HPF Urine WBC Clumps Ur Squamous Epith Cells (<= Few) Urine Bacteria (None Seen) /HPF Ur Microscopic Review Urine Culture Comments Nasal Adenovirus (PCR) Nasal B. parapertussis DNA (PCR) Nasal Coronavir 229E PCR Nasal Coronavir HKU1 PCR Nasal Coronavir NL63 PCR Nasal Coronavir OC43 PCR Nasal Enterovir/Rhinovir PCR Nasal Influenza B PCR Nasal Influenza A PCR Nasal Parainfluen 1 PCR Nasal Parainfluen 2 PCR Nasal Parainfluen 3 PCR Nasal Parainfluen 4 PCR Nasal RSV (PCR) Nasal Screen MRSA (PCR) (NEGATIVE) Nasal B.pertussis DNA PCR Nasal C.pneumoniae (PCR) Micky Human Metapneumo PCR Nasal M.pneumoniae (PCR) Nasal SARS-CoV-2 (PCR) Salicylates mg/dL Urine Opiates Screen (NEGATIVE) Ur Oxycodone Screen (NEGATIVE) Urine Methadone Screen (NEGATIVE) Ur Propoxyphene Screen (NEGATIVE) Acetaminophen (10-30) ug/mL Ur Barbiturates Screen (NEGATIVE) Ur Tricyclics Screen (NEGATIVE) Ur Phencyclidine Scrn (NEGATIVE) Ur Amphetamine Screen (NEGATIVE) U Methamphetamines Scrn (NEGATIVE) U Benzodiazepines Scrn (NEGATIVE) Urine Cocaine Screen (NEGATIVE) U Cannabinoids Screen (NEGATIVE) Ethyl Alcohol mg/dL 01/11/22 01/11/22 Range/Units 20:25 20:25 WBC 4.5 L (4.8-10.8) x10^3/uL RBC 3.63 L (4.70-6.10) 10^6/uL Hgb 9.5 L (14.0-18.0) g/dL Hct 28.7 L (42.0-52.0) % MCV 79.1 L (80.0-94.0) fL MCH 26.2 L (27.0-31.0) pg MCHC 33.1 (32.0-36.0) g/dL RDW 16.0 H (12.0-15.0) % Plt Count 114 L (130-450) 10^3/uL MPV 10.0 (7.4-11.4) fL Neut # (Auto) 3.8 (1.5-6.6) 10^3/uL Lymph # (Auto) 0.4 L (1.5-3.5) 10^3/uL [place] # (Auto) 0.3 (0.0-1.0) 10^3/uL Eos # (Auto) 0.0 (0.0-0.7) 10^3/uL Baso # (Auto) 0.0 (0.0-0.1) 10^3/uL Absolute Nucleated RBC 0.04 x10^3/uL Nucleated RBC % 0.9 /100WBC PT (9.9-12.6) secs INR (0.8-1.2) Bld Gas Analysis Time Sample Site ABG pH (7.35-7.45) ABG pCO2 (34-45) mmHg ABG pO2 (80-100) mmHg ABG HCO3 (22.0-26.0) mmol/L ABG Total CO2 (21.0-29.0) MMOL/L ABG O2 Saturation (94-98) % ABG Base Excess (-2.0-3.0) mmol/L Sigifredo Test VBG pH (7.31-7.41) VBG pCO2 (41-51) mmHg VBG pO2 (25-47) mmHg VBG HCO3 (23-28) mmol/L VBG Total CO2 (24-29) mmol/L VBG O2 Saturation (60-80) % VBG Base Excess (-2 - +2) mmol/L O2 Delivery Device O2 Liters/Min LPM Sodium 137 (135-145) mmol/L Potassium 4.6 (3.5-5.0) mmol/L Chloride 106 (101-111) mmol/L Carbon Dioxide 20 L (21-32) mmol/L Anion Gap 11.0 (6-13) BUN 29 H (6-20) mg/dL Creatinine 1.1 (0.6-1.2) mg/dL Estimated GFR (MDRD) 63 L (>89) Glucose 91 (70-100) mg/dL Lactic Acid (0.5-2.2) mmol/L Calcium 9.2 (8.5-10.3) mg/dL Phosphorus 4.3 (2.5-4.6) mg/dL Magnesium 2.1 (1.7-2.8) mg/dL Total Bilirubin 1.0 (0.2-1.0) mg/dL AST 103 H (10-42) IU/L ALT 37 (10-60) IU/L Alkaline Phosphatase 68 (42-121) IU/L Total Creatine Kinase 200 (22-269) IU/L Troponin I High Sens (2.3-19.7) ng/L B-Natriuretic Peptide (5-100) pg/mL Total Protein 6.2 L (6.7-8.2) g/dL Albumin 3.5 (3.2-5.5) g/dL Globulin 2.7 (2.1-4.2) g/dL Albumin/Globulin Ratio 1.3 (1.0-2.2) Lipase 105 H (22-51) U/L TSH (0.34-5.60) uIU/mL Urine Color Urine Clarity (CLEAR) Urine pH (5.0-7.5) PH Ur Specific Arthur (1.002-1.030) Urine Protein (NEGATIVE) mg/dL Urine Glucose (UA) (NEGATIVE) mg/dL Urine Ketones (NEGATIVE) mg/dL Urine Occult Blood (NEGATIVE) Urine Nitrite (NEGATIVE) Urine Bilirubin (NEGATIVE) Urine Urobilinogen (NORMAL) E.U./dL Ur Leukocyte Esterase (NEGATIVE) Urine RBC (0-5) /HPF Urine WBC (0-3) /HPF Urine WBC Clumps Ur Squamous Epith Cells (<= Few) Urine Bacteria (None Seen) /HPF Ur Microscopic Review Urine Culture Comments Nasal Adenovirus (PCR) Nasal B. parapertussis DNA (PCR) Nasal Coronavir 229E PCR Nasal Coronavir HKU1 PCR Nasal Coronavir NL63 PCR Nasal Coronavir OC43 PCR Nasal Enterovir/Rhinovir PCR Nasal Influenza B PCR Nasal Influenza A PCR Nasal Parainfluen 1 PCR Nasal Parainfluen 2 PCR Nasal Parainfluen 3 PCR Nasal Parainfluen 4 PCR Nasal RSV (PCR) Nasal Screen MRSA (PCR) (NEGATIVE) Nasal B.pertussis DNA PCR Nasal C.pneumoniae (PCR) Micky Human Metapneumo PCR Nasal M.pneumoniae (PCR) Nasal SARS-CoV-2 (PCR) Salicylates < 6.0 mg/dL Urine Opiates Screen (NEGATIVE) Ur Oxycodone Screen (NEGATIVE) Urine Methadone Screen (NEGATIVE) Ur Propoxyphene Screen (NEGATIVE) Acetaminophen < 10 L (10-30) ug/mL Ur Barbiturates Screen (NEGATIVE) Ur Tricyclics Screen (NEGATIVE) Ur Phencyclidine Scrn (NEGATIVE) Ur Amphetamine Screen (NEGATIVE) U Methamphetamines Scrn (NEGATIVE) U Benzodiazepines Scrn (NEGATIVE) Urine Cocaine Screen (NEGATIVE) U Cannabinoids Screen (NEGATIVE) Ethyl Alcohol < 5.0 mg/dL Sepsis Event Note (H) - Evaluation Current Stage of Sepsis: Septic shock Possible source of Sepsis: positive: Genitourinary - Sepsis Criteria Sepsis Criteria: Recorded Temperature greater than 38.3C or Less than 36C, SBP drop more than 40mHg, SBP less than 90 mmHg, Metabolic: lactate > 2 mmol/L Assessment/Plan - Problem List (1) Septic shock Impression: He presented with WBC 4.5, lactic acid 3.7, temperature 29 C. Patient received 2 L of normal saline in the ED. Warming unit applied. Trend lactic acid every 4 hours. Antibx empirically started using vancomycin, cefepime and Flagyl. Etiology is unclear, however UTI is suspected as potential cause. Also cannot rule out pneumonia. Blood cultures were drawn and are pending. Due to chest x-ray showing CHF, patient is currently on iv fluids only at 75 mL/h. BP remains low and Levophed ordered to start today. Pt in critical consition. Remain in ICU. (2) UTI (urinary tract infection) Conclusion/Plan: Suspected. Urine analysis showed WBC in clumps. Urine appears very cloudy. Urine and blood cultures pending. Patient is on vancomycin, cefepime and Flagyl. (3) Delerium Conclusion/Plan: He is fidgety, pulling at bedsheets and reaching for his Burden, eyes are closed and he does not respond or follow commands. Likely secondary to infection and shocky BP. He also may be in pain due to L4 fx. Patient currently on vancomycin, cefepime and Flagyl also gentle iv hydration. Anticipating improvement in mentation with treatment of infection. (4) BORIS Conclusion/Plan: Patient is making very little urine output, less than 40 cc/h. Creatinine has increased since admission. Follow BMP daily. Avoid nephrotoxins. Continue gentle IV hydration (5) History of CVA (cerebrovascular accident) Conclusion/Plan: Patient was admitted to the hospital on 11/04/2021 with altered mental status which was eventually determined to be due to CVA. An MRI could not be done because the patient has a pacemaker. [facility]-way facility had been recommended for rehab at the time of discharge but family declined and took him home. He was on Eliquis 5 mg p.o. twice daily, baby aspirin every afternoon, Imdur 90 mg p.o. daily, Metoprolol tartrate 50 mg p.o. twice daily, lisinopril 40 mg p.o. daily and Simvastatin 40 mg p.o. every afternoon. We will hold lisinopril, Imdur and metoprolol due to shock. Will hold Eliquis due to bleeding at CVP site, frequent falls (see below) and he is unable to swallow with his current delerium (6) Parkinson disease Conclusion/Plan: On carbidopa/levodopa 1 tablet p.o. 3 times daily. Will order this, however the patient's mentation is not safe for him to take p.o. meds. (7) Fall Conclusion/Plan: Patient had fallen at home at least 4 times in the past week per his CT of the head without contrast and cervical spine imaging were done and were negative for any acute process. CT of the abdomen/pelvis showed an acute type, severe, markedly comminuted fracture of the L4 vertebral body We will hold patient's Eliquis due to frequent falls. Qualifiers: Encounter type: subsequent encounter (8) L4 vertebral fracture Conclusion/Plan: Likely secondary to multiple falls. Pain management as needed. Patient may benefit from a back brace when ambulatory. (9) Diastolic heart failure Conclusion/Plan: Chest x-ray read as having severe heart failure. However patient with oxygen saturation at 96%. Last Echo showed normal LVEF and diastolic heart failure. BNP was 346. Patient required 2 L of NS in the ED per sepsis pathway. We will continue IV hydration at 75 mL/h. (10) BPH (benign prostatic hyperplasia) Conclusion/Plan: Burden catheter in place. He was on tamsulosin 0.8 mg p.o. every afternoon. This will be resumed when he is more awake (11) History of coronary artery disease Conclusion/Plan: We will hold Imdur, lisinopril, metoprolol, amlodipine, lasix and nitroglycerin due to septic shock and low blood pressure in 80's. Eliquis held and may not be resumed, due to multiple falls. We will continue baby aspirin and simvastatin. (12) Hyperlipidemia Conclusion/Plan: On simvastatin at home (13) Hypothermia Conclusion/Plan: Resolved with a warming blanket. This ws likely one of his signs of sepsis
[2022-01-12] MEDS: TAMSULOSIN 0.4 MG CAPSULE PO SCH (20:45)
[2022-01-12] MEDS: ATORVASTATIN 10 MG TABLET PO SCH (20:45)
[2022-01-12] MEDS: ASPIRIN CHEW 81 MG TABLET PO SCH (20:45)
[2022-01-12] MEDS ORDERED: VANCOMYCIN INJ 1 GM in SODIUM CHLORIDE 0.9% 250 ML IV SCH (22:00)
[2022-01-12] MEDS ORDERED: SODIUM CHLORIDE 0.9% 500 ML IV PRN (23:22)
[2022-01-13] MEDS: HYDROmorphone 0.5 MG/0.5 ML SYRINGE IVP PRN ×5 (00:47→21:49)
[2022-01-13] MEDS: LIDOCAINE PATCH 5% TOP PRN (00:51)
[2022-01-13] MEDS: metroNIDAZOLE 500 MG/100 ML 500 MG/100 ML BAG IV SCH ×3 (04:32→20:39)
[2022-01-13] MEDS: SODIUM CHLORIDE FLUSH 0.9% 10 ML SYRINGE IVP PRN ×2 (04:45→06:37)
[2022-01-13 04:53] LABS: BASOPHILS % (AUTO) 0.2 %; EOSINOPHILS # (AUTO) 0.1 10^3/uL (0.0-0.7); EOSINOPHILS % (AUTO) 0.6 %; HCT - HEMATOCRIT 25.8 % (42.0-52.0); HGB - HEMOGLOBIN 8.5 g/dL (14.0-18.0); LYMPHOCYTES # (AUTO) 0.8 10^3/uL (1.5-3.5); LYMPHOCYTES % (AUTO) 9.2 %; MEAN CORPUSCULAR HEMOGLOBIN 25.8 pg (27.0-31.0); MEAN CORPUSCULAR HGB CONC 32.9 g/dL (32.0-36.0); MEAN CORPUSCULAR VOLUME 78.2 fL (80.0-94.0); MEAN PLATELET VOLUME 10.6 fL (7.4-11.4); MONOCYTES # (AUTO) 0.8 10^3/uL (0.0-1.0); MONOCYTES % (AUTO) 8.9 %; NEUTROPHILS # (AUTO) 7.2 10^3/uL (1.5-6.6); NEUTROPHILS % (AUTO) 80.9 %; NRBC ABSOLUTE COUNT (AUTO) 0.04 x10^3/uL; NUCLEATED RED BLOOD CELLS AUTO 0.5 /100WBC; PLT - PLATELET COUNT 98 10^3/uL (130-450); RED CELL DISTRIBUTION WIDTH 16.4 % (12.0-15.0); WHITE BLOOD COUNT 8.9 x10^3/uL (4.8-10.8)
[2022-01-13 04:54] LABS: CALCIUM, IONIZED 1.15 mmol/L (1.15-1.33); VBG PH 7.295 (7.31-7.41)
[2022-01-13 05:03] LABS: CALCIUM 8.3 mg/dL (8.5-10.3); CREATININE 2.3 mg/dL (0.6-1.2); MAGNESIUM 1.9 mg/dL (1.7-2.8); PHOSPHORUS 3.7 mg/dL (2.5-4.6)
[2022-01-13] MEDS ORDERED: DEXTROSE 50% ABBOJECT 25 GM/50 ML SYRINGE IVP ONE (06:20)
[2022-01-13] MEDS: CARBIDOPA/LEVODOPA 25 MG/100 MG TABLET PO SCH ×3 (06:21→21:48)
[2022-01-13] MEDS ORDERED: DEXTROSE 50% ABBOJECT 25 GM/50 ML SYRINGE ONE (06:31)
[2022-01-13] MEDS: PANTOPRAZOLE 40 MG VIAL IVP SCH (06:36)
[2022-01-13] MEDS: DEXTROSE 5% 1,000 ML IV SCH ×2 (06:37→17:05)
[2022-01-13] MEDS: SODIUM CHLORIDE FLUSH 0.9% 10 ML SYRINGE IVP SCH ×3 (08:35→21:49)
[2022-01-13] MEDS: FERROUS GLUCONATE 324 MG TABLET PO SCH (08:37)
[2022-01-13] MEDS: CYANOCOBALAMIN 500 MCG TABLET PO SCH (08:38)
[2022-01-13] MEDS: CEFEPIME 2 GM in SODIUM CHLORIDE 0.9% MINIBAG 100 ML IV SCH (08:49)
[2022-01-13 08:57] LABS: INR 2.1 (0.8-1.2); PT - PROTHROMBIN TIME 23.3 secs (9.9-12.6)
--- NOTE | 2022-01-13 11:25 | XRAY Report ---
PROCEDURE: Chest for Line Placement INDICATIONS: ng placement, also suspect aspiration PNA TECHNIQUE: One view of the chest was acquired. COMPARISON: 01/12/2022 FINDINGS: Surgical changes and devices: New nasogastric tube is present. The tip at this off the inferior porti on of the film. Right IJ central venous line is in stable position. Dual-lead pacemaker leads are pre sent.. Lungs and pleura: Lower lung volumes. Bilateral perihilar alveolar opacities are accentuated by lower lung volumes. Probable small right pleural effusion. No pneumothorax. Mediastinum: Mediastinal contours appear normal. Heart size is normal. Moderate central vascular c ongestion. Bones and chest wall: No suspicious bony lesions. Overlying soft tissues appear unremarkable. IMPRESSION: 1. Adequate placement of nasogastric tube. 2. Bilateral perihilar alveolar opacities and probable small right effusion, accentuated by lower dalton g volumes compared to the prior study. No significant improvement. 3. Central vascular congestion, similar compared to prior. Reviewed by: Jennifer Geller MD on 01/13/2022 11:23 AM PST Approved by: Jennifer Geller MD on 01/13/2022 11:23 AM PST Station ID: [id number]
[2022-01-13] MEDS: SCOPOLAMINE PATCH TOP SCH (12:59)
--- NOTE | 2022-01-13 15:18 | CT Report ---
PROCEDURE: HEAD WO INDICATIONS: new stroke and F/U new stroke TECHNIQUE: Noncontrast 4.5 mm thick angled axial sections acquired from the foramen magnum to the vertex. For r adiation dose reduction, the following was used: automated exposure control, adjustment of mA and/or kV according to patient size. COMPARISON: CT head 01/11/2022 FINDINGS: Image quality: Excellent. The ventricular system and cortical sulci demonstrate atrophy, consistent for patient's stated age. There are areas of hypodensity in the periventricular and subcortical white matter. There is no acut e intra or extra-axial fluid collection. No acute hemorrhage, mass lesion or midline shift. Brainst em is unremarkable. Globes are symmetrical. Sinuses demonstrate minimal maxillary and ethmoid mucosal thickening. The oss eous structures are intact. IMPRESSION: 1. No acute intracranial process. 2. Mild atrophy and chronic microvascular ischemic changes. Reviewed by: Sejal Moe MD on 01/13/2022 3:17 PM PST Approved by: Sejal Moe MD on 01/13/2022 3:17 PM PST Station ID: [id number]
--- NOTE | 2022-01-13 19:31 | PROVIDER PROGRESS NOTE ---
Subjective - Prog Note Date Prog Note Date: 01/13/22 - Subjective Subjective: He is delerious, not responding to his name or following any commands, cannot communicate, unchanghed from yesterday. Objective - Vital Signs/Intake & Output Vital Signs: Vital Signs Temp Pulse Resp BP Pulse Ox 01/13/22 19:00 35.9 C L 60 13 113/50 L 98 01/13/22 18:00 36.1 C L 62 19 148/90 H 99 01/13/22 17:00 36.1 C L 75 18 146/105 H 98 01/13/22 16:00 36.2 C L 22 112/67 96 Intake & Output: Intake & Output 01/10/22 01/11/22 01/12/22 01/13/22 23:59 23:59 23:59 23:59 Intake Total 2200 2370.938 2716.291 Output Total 0 320 1205 Balance 2200 2050.938 1511.291 - Objective General Appearance: positive: Moderate distress (Writhing in bed vs fidgety with pill rolling) Eyes Bilateral: positive: Normal inspection (Mostly has his eyes closed) ENT: positive: No signs of dehydration, Other (posterior pharynx plegn) Neck: positive: Nml inspection Respiratory: positive: Breath sounds nml, Other (Upper airway phlegm heard throughout) Cardiovascular: positive: Regular rate & rhythm, No murmur Abdomen: positive: Non-tender, No distention Skin: positive: Warm, Dry Extremities: positive: No pedal edema Neurologic/Psychiatric: positive: Other (delerious, moves all extrem, picking at bed sheets with his hands, proximal extrem appear stiffeyes closed, shaking head from side to side) - Lab Results Fish Bones: 01/13/22 04:45 01/13/22 04:45 Other Labs: Lab Results x24hrs 01/13/22 01/13/22 01/13/22 Range/Units 15:00 11:28 08:34 WBC (4.8-10.8) x10^3/uL RBC (4.70-6.10) 10^6/uL Hgb (14.0-18.0) g/dL Hct (42.0-52.0) % MCV (80.0-94.0) fL MCH (27.0-31.0) pg MCHC (32.0-36.0) g/dL RDW (12.0-15.0) % Plt Count (130-450) 10^3/uL MPV (7.4-11.4) fL Neut # (Auto) (1.5-6.6) 10^3/uL Lymph # (Auto) (1.5-3.5) 10^3/uL [place] # (Auto) (0.0-1.0) 10^3/uL Eos # (Auto) (0.0-0.7) 10^3/uL Baso # (Auto) (0.0-0.1) 10^3/uL Absolute Nucleated RBC x10^3/uL Nucleated RBC % /100WBC PT 23.3 H (9.9-12.6) secs INR 2.1 H (0.8-1.2) VBG pH (7.31-7.41) Ionized Calcium (1.15-1.33) mmol/L Sodium (135-145) mmol/L Potassium (3.5-5.0) mmol/L Chloride (101-111) mmol/L Carbon Dioxide (21-32) mmol/L Anion Gap (6-13) BUN (6-20) mg/dL Creatinine (0.6-1.2) mg/dL Estimated GFR (MDRD) (>89) Glucose (70-100) mg/dL Calcium (8.5-10.3) mg/dL Phosphorus (2.5-4.6) mg/dL Magnesium (1.7-2.8) mg/dL Troponin I High Sens 91.4 H* 110.4 H* (2.3-19.7) ng/L B-Natriuretic Peptide (5-100) pg/mL 01/13/22 01/13/22 01/13/22 Range/Units 04:45 04:45 04:45 WBC (4.8-10.8) x10^3/uL RBC (4.70-6.10) 10^6/uL Hgb (14.0-18.0) g/dL Hct (42.0-52.0) % MCV (80.0-94.0) fL MCH (27.0-31.0) pg MCHC (32.0-36.0) g/dL RDW (12.0-15.0) % Plt Count (130-450) 10^3/uL MPV (7.4-11.4) fL Neut # (Auto) (1.5-6.6) 10^3/uL Lymph # (Auto) (1.5-3.5) 10^3/uL [place] # (Auto) (0.0-1.0) 10^3/uL Eos # (Auto) (0.0-0.7) 10^3/uL Baso # (Auto) (0.0-0.1) 10^3/uL Absolute Nucleated RBC x10^3/uL Nucleated RBC % /100WBC PT (9.9-12.6) secs INR (0.8-1.2) VBG pH 7.295 L (7.31-7.41) Ionized Calcium 1.15 (1.15-1.33) mmol/L Sodium (135-145) mmol/L Potassium (3.5-5.0) mmol/L Chloride (101-111) mmol/L Carbon Dioxide (21-32) mmol/L Anion Gap (6-13) BUN (6-20) mg/dL Creatinine (0.6-1.2) mg/dL Estimated GFR (MDRD) (>89) Glucose (70-100) mg/dL Calcium (8.5-10.3) mg/dL Phosphorus (2.5-4.6) mg/dL Magnesium (1.7-2.8) mg/dL Troponin I High Sens 108.3 H* (2.3-19.7) ng/L B-Natriuretic Peptide 398 H (5-100) pg/mL 01/13/22 01/13/22 Range/Units 04:45 04:45 WBC 8.9 (4.8-10.8) x10^3/uL RBC 3.30 L (4.70-6.10) 10^6/uL Hgb 8.5 L (14.0-18.0) g/dL Hct 25.8 L (42.0-52.0) % MCV 78.2 L (80.0-94.0) fL MCH 25.8 L (27.0-31.0) pg MCHC 32.9 (32.0-36.0) g/dL RDW 16.4 H (12.0-15.0) % Plt Count 98 L (130-450) 10^3/uL MPV 10.6 (7.4-11.4) fL Neut # (Auto) 7.2 H (1.5-6.6) 10^3/uL Lymph # (Auto) 0.8 L (1.5-3.5) 10^3/uL [place] # (Auto) 0.8 (0.0-1.0) 10^3/uL Eos # (Auto) 0.1 (0.0-0.7) 10^3/uL Baso # (Auto) 0.0 (0.0-0.1) 10^3/uL Absolute Nucleated RBC 0.04 x10^3/uL Nucleated RBC % 0.5 /100WBC PT (9.9-12.6) secs INR (0.8-1.2) VBG pH (7.31-7.41) Ionized Calcium (1.15-1.33) mmol/L Sodium 140 (135-145) mmol/L Potassium 4.0 (3.5-5.0) mmol/L Chloride 114 H (101-111) mmol/L Carbon Dioxide 17 L (21-32) mmol/L Anion Gap 9.0 (6-13) BUN 44 H (6-20) mg/dL Creatinine 2.3 H (0.6-1.2) mg/dL Estimated GFR (MDRD) 27 L (>89) Glucose 69 L (70-100) mg/dL Calcium 8.3 L (8.5-10.3) mg/dL Phosphorus 3.7 (2.5-4.6) mg/dL Magnesium 1.9 (1.7-2.8) mg/dL Troponin I High Sens (2.3-19.7) ng/L B-Natriuretic Peptide (5-100) pg/mL Sepsis Event Note (H) - Evaluation Current Stage of Sepsis: Septic shock Possible source of Sepsis: positive: Genitourinary - Sepsis Criteria Sepsis Criteria: Recorded Temperature greater than 38.3C or Less than 36C, SBP drop more than 40mHg, SBP less than 90 mmHg, Metabolic: lactate > 2 mmol/L Assessment/Plan - Problem List (1) Septic shock Impression: He presented with low WBC 4.5, lactic acid 3.7, hypothermic with temperature 29 C. Covid neg. He received 2 L of normal saline. Warming unit applied. Trended lactic acid every 4 hours. Antibx empirically started using vancomycin, cefepime and Flagyl. Etiology is unclear, however UTI was suspected as potential cause. Also cannot rule out pneumonia. The urine cx grew polymicrobial wendy however. A CXR was repeated again today and no infiltrate reported. NG in good position. Blood cultures were drawn and are neg to date. We repeated brain imaging today with CT and no new fidings reported. He will probably need an LP Due to chest x-ray that showed CHF, patient is currently on iv fluids only at 75 mL/h. BP remains low but is very labile and Levophed is needed intermittently. Pt in critical condition. I updated the at bedside of this today. She may visit due to his critical condition. Remain in ICU. (2) UTI (urinary tract infection) Conclusion/Plan: UTI suspected. Urine analysis showed WBC in clumps. Urine appeared very cloudy. The urine cx grew polymicrobial wendy however. Blood cultures were drawn and are neg to date. Patient is on empiric vancomycin, cefepime and Flagyl. (3) Delerium Conclusion/Plan: He is fidgety, pulling at bedsheets and reaching for his Burden, eyes are closed and he does not respond or follow commands. Likely secondary to infection and shocky BP on top of Parkinsons and old stroke. He also may be in pain due to L4 fx. IV Dilaudid small dose prn ordered. Patient currently on vancomycin, cefepime and Flagyl also gentle iv hydration. We repeated brain imaging today with CT head and no new findings reported. He will probably need an LP He does not have an active gag reflex and has alot of pharyngeal secretions, will order Scopalamine patch to help dry. Will cancel any po diet ordered and start ng feeds today. (4) BORIS Conclusion/Plan: Patient is making very little urine output, less than 40 cc/h. Creatinine has increased since admission. Follow BMP daily. Avoid nephrotoxins. Continue gentle IV hydration and will start slow ng feeds today. (5) History of CVA (cerebrovascular accident) Conclusion/Plan: Patient was admitted to the hospital on 11/04/2021 with altered mental status which was eventually determined to be due to CVA. An MRI could not be done because the patient has a pacemaker. [facility] facility had been recomm ended for rehab at the time of discharge but declined and took him home. He was on Eliquis 5 mg p.o. twice daily (but no obvious reason noted, no Afib), baby aspirin every afternoon, Imdur 90 mg p.o. daily, Metoprolol tartrate 50 mg p.o. twice daily, lisinopril 40 mg p.o. daily and Simvastatin 40 mg p.o. every afternoon. We are holding lisinopril, Imdur and metoprolol due to shock. We are holding Eliquis due to bleeding at CVP site, and presentation this time with frequent falls (see below) (6) Parkinson disease Conclusion/Plan: On carbidopa/levodopa 1 tablet p.o. 3 times daily. Will order this per ng that was placed today. (7) Falls Conclusion/Plan: Patient had fallen at home at least 4 times in the past week per his . She took pictures of how he landed and showed me these today on her iPhone. He was stiff, not flaccid, eyes were open. CT of the head without contrast and cervical spine imaging were done and were negative for any acute process. CT of the abdomen/pelvis however showed an acute type, severe, markedly comminuted fracture of the L4 vertebral body. We will stop the patient's Eliquis from now on, due to frequent falls. (8) L4 vertebral fracture Conclusion/Plan: Likely secondary to multiple falls. Pain management as needed with iv Dilaudid ordered. Patient may benefit from a back brace when ambulatory. (9) Diastolic heart failure Conclusion/Plan: Chest x-ray read as having severe heart failure. BNP was 346. However patient had oxygen saturation at 96%. Last Echo showed normal LVEF and diastolic heart failure. Patient required 2 L of NS in the ED per sepsis pathway. We will continue IV hydration at 75 mL/h. Will repeat the Echo, given hypotension and the CHF seen by CXR. He does not have an active gag reflex and has pharyngeal secretions, will order Scopalamine patch to help dry. (10) BPH (benign prostatic hyperplasia) Conclusion/Plan: Burden catheter in place. He was on tamsulosin 0.8 mg p.o. every afternoon. This will be resumed when BP improves. (11) History of coronary artery disease Conclusion/Plan: We are holding Imdur, lisinopril, metoprolol, amlodipine, lasix and prn nitroglycerin due to shock, with blood pressure occasionally in 80's. Eliquis held and will not be resumed, due to multiple falls. We will continue baby aspirin and simvastatin per ng tube. (12) Hyperlipidemia Conclusion/Plan: On simvastatin at home (13) Hypothermia Conclusion/Plan: Resolved with a warming blanket. This was likely one of his signs of sepsis
[2022-01-13] MEDS: ASPIRIN CHEW 81 MG TABLET PO SCH (20:37)
[2022-01-13] MEDS: TAMSULOSIN 0.4 MG CAPSULE PO SCH (20:38)
[2022-01-13] MEDS: ATORVASTATIN 10 MG TABLET PO SCH (20:39)
[2022-01-14] MEDS: LIDOCAINE PATCH 5% TOP PRN (01:40)
[2022-01-14] MEDS: SODIUM CHLORIDE FLUSH 0.9% 10 ML SYRINGE IVP PRN ×5 (01:40→21:39)
[2022-01-14] MEDS: HYDROmorphone 0.5 MG/0.5 ML SYRINGE IVP PRN ×5 (01:40→21:39)
[2022-01-14] MEDS: DEXTROSE 5% 1,000 ML IV SCH ×2 (02:45→18:40)
[2022-01-14] MEDS: metroNIDAZOLE 500 MG/100 ML 500 MG/100 ML BAG IV SCH ×2 (05:09→12:29)
[2022-01-14] MEDS: CARBIDOPA/LEVODOPA 25 MG/100 MG TABLET PO SCH ×3 (05:24→21:26)
[2022-01-14 05:38] LABS: BASOPHILS % (AUTO) 0.4 %; EOSINOPHILS # (AUTO) 0.1 10^3/uL (0.0-0.7); EOSINOPHILS % (AUTO) 0.9 %; HGB - HEMOGLOBIN 8.7 g/dL (14.0-18.0); LYMPHOCYTES # (AUTO) 0.7 10^3/uL (1.5-3.5); LYMPHOCYTES % (AUTO) 10.1 %; MEAN CORPUSCULAR HEMOGLOBIN 25.9 pg (27.0-31.0); MEAN CORPUSCULAR HGB CONC 33.5 g/dL (32.0-36.0); MEAN CORPUSCULAR VOLUME 77.4 fL (80.0-94.0); MEAN PLATELET VOLUME 10.1 fL (7.4-11.4); MONOCYTES % (AUTO) 14.3 %; NEUTROPHILS % (AUTO) 73.9 %; NRBC ABSOLUTE COUNT (AUTO) 0.05 x10^3/uL; NUCLEATED RED BLOOD CELLS AUTO 0.7 /100WBC; PLT - PLATELET COUNT 82 10^3/uL (130-450); RED BLOOD COUNT 3.36 10^6/uL (4.70-6.10); RED CELL DISTRIBUTION WIDTH 16.4 % (12.0-15.0); WHITE BLOOD COUNT 6.7 x10^3/uL (4.8-10.8)
[2022-01-14 05:41] LABS: INR 1.7 (0.8-1.2); PT - PROTHROMBIN TIME 18.9 secs (9.9-12.6)
[2022-01-14 05:42] LABS: CALCIUM, IONIZED 1.15 mmol/L (1.15-1.33); VBG PH 7.372 (7.31-7.41)
[2022-01-14 05:51] LABS: ALBUMIN 3.1 g/dL (3.2-5.5); ALBUMIN/GLOBULIN RATIO 1.1 (1.0-2.2); BILIRUBIN,TOTAL 1.6 mg/dL (0.2-1.0); CALCIUM 8.3 mg/dL (8.5-10.3); CREATININE 1.9 mg/dL (0.6-1.2); MAGNESIUM 1.8 mg/dL (1.7-2.8); PHOSPHORUS 2.8 mg/dL (2.5-4.6); POTASSIUM 3.8 mmol/L (3.5-5.0); TOTAL PROTEIN 5.9 g/dL (6.7-8.2)
[2022-01-14] MEDS: PANTOPRAZOLE 40 MG VIAL IVP SCH (06:44)
[2022-01-14] MEDS ORDERED: POTASSIUM CHLOR 20 MEQ/100 ML 20 MEQ/100 ML BAG IV ONE (08:00)
[2022-01-14] MEDS ORDERED: MAGNESIUM SULFATE 2 GRAM 2 GM/50 ML BAG IV ONE (08:00)
[2022-01-14 08:14] LABS: ABG HCO3 16.8 mmol/L (22.0-26.0); ABG OXYGEN SATURATION 93 % (94-98); ABG PCO2 28 mmHg (34-45); ABG PH 7.39 (7.35-7.45); ABG PO2 69 mmHg (80-100); ABG TCO2 17.7 MMOL/L (21.0-29.0); ALLEN TEST POSITIVE
[2022-01-14] MEDS: FERROUS GLUCONATE 324 MG TABLET PO SCH (08:39)
[2022-01-14] MEDS ORDERED: CEFEPIME 1 GM in SODIUM CHLORIDE 0.9% MINIBAG 100 ML IV SCH (09:00)
[2022-01-14] MEDS: SODIUM CHLORIDE FLUSH 0.9% 10 ML SYRINGE IVP SCH ×2 (09:27→18:40)
--- NOTE | 2022-01-14 10:56 | PROVIDER PROGRESS NOTE ---
Subjective - Prog Note Date Prog Note Date: 01/14/22 Prog Note Time: 11:00 - Subjective Subjective: Patient is unresponsive. No change from yesterday. Current Medications - Current Medications Current Medications: Active Medications Acetaminophen (Acetaminophen 325 Mg Tablet) 650 mg PO Q4HR PRN PRN Reason: Pain 1 to 4 Aspirin (Aspirin Chew 81 Mg Tablet) 81 mg PO QPM [facility] Last Admin: 01/13/22 20:37 Dose: 81 mg Atorvastatin Calcium (Atorvastatin 10 Mg Tablet) 20 mg PO QPM [facility] Last Admin: 01/13/22 20:39 Dose: 20 mg Carbidopa/Levodopa (Carbidopa/Levodopa 25 Mg/100 Mg Tablet) 1 tab PO TID [facility] Last Admin: 01/14/22 05:24 Dose: 1 tab Ferrous Gluconate (Ferrous Gluconate 324 Mg Tablet) 324 mg PO DAILYWM [facility] Last Admin: 01/14/22 08:39 Dose: Not Given Hydromorphone HCl (Hydromorphone 0.5 Mg/0.5 Ml Syringe) 0.5 mg IVP Q4H PRN PRN Reason: PAIN Last Admin: 01/14/22 05:22 Dose: 0.5 mg Metronidazole (Flagyl 500 Mg/100 Ml) 500 mg in 100 mls @ 100 mls/hr IV Q8H [facility] Last Infusion: 01/14/22 06:15 Dose: Infused Norepinephrine Bitartrate 8 mg (/ Dextrose) 250 mls @ 15 mls/hr IV .[id number] [facility]; Protocol Last Titration: 01/13/22 08:00 Dose: 0 mcg/min, 0 mls/hr Sodium Chloride (Normal Saline 0.9%) 500 mls @ 20 mls/hr IV Q24H PRN PRN Reason: TKO RATE Last Infusion: 01/14/22 07:51 Dose: 20 mls/hr Dextrose (D5w) 1,000 mls @ 100 mls/hr IV .Q10H [facility] Last Infusion: 01/14/22 10:10 Dose: 0 mls/hr Cefepime HCl 1 gm/ Sodium (Chloride) 100 mls @ 200 mls/hr IV Q24H [facility] Last Infusion: 01/14/22 09:40 Dose: Infused Lidocaine (Lidocaine Patch 5%) 1 patch TOP DAILY PRN PRN Reason: PAIN Last Admin: 01/14/22 01:40 Dose: 1 patch Ondansetron HCl (Ondansetron 4 Mg/2 Ml Vial) 4 mg IVP Q6HR PRN PRN Reason: Nausea / Vomiting Pantoprazole Sodium (Pantoprazole 40 Mg Vial) 40 mg IVP QDAC [facility] Last Admin: 01/14/22 06:44 Dose: 40 mg Scopolamine HBr (Scopolamine Patch) 1 patch TOP Q3D [facility] Last Admin: 01/13/22 12:59 Dose: 1 patch Sodium Chloride (Sodium Chloride Flush 0.9% 10 Ml Syringe) 10 ml IVP 0100,0900,1700 [facility] Last Admin: 01/14/22 09:27 Dose: 10 ml Sodium Chloride (Sodium Chloride Flush 0.9% 10 Ml Syringe) 10 ml IVP PRN PRN PRN Reason: NEEDED PER PROVIDER ORDERS Last Admin: 01/14/22 06:44 Dose: 10 ml Sodium Chloride (Sodium Chloride Flush 0.9% 10 Ml Syringe) 20 ml IVP PRN PRN PRN Reason: After Blood Draw Last Admin: 01/14/22 06:44 Dose: 20 ml Tamsulosin HCl (Tamsulosin 0.4 Mg Capsule) 0.8 mg PO QPM [facility] Last Admin: 01/13/22 20:38 Dose: 0.8 mg Apixaban [Eliquis] 5 mg PO BID 11/04/21 Aspirin Chewable [St Jimmy Aspirin] 81 mg PO QPM 11/04/21 Carbidopa/Levodopa 25/100 [Sinemet 25 mg/100 mg] 1 tablet PO TID 11/04/21 Cyanocobalamin [Vitamin B-12] 250 mcg PO DAILY 11/04/21 Isosorbide Mononitrate [Isosorbide Mononitrate ER] 90 mg PO DAILY 11/04/21 Lisinopril [Zestril] 40 mg PO DAILY 11/04/21 Meloxicam [Mobic] 15 mg PO DAILY 11/04/21 Metoprolol Tartrate [Lopressor] 50 mg PO BID 11/04/21 Nitroglycerin [Nitrostat] 0.4 mg SL Q5MIN PRN 11/04/21 Simvastatin [Zocor] 40 mg PO QPM 11/04/21 Tamsulosin HCl [Flomax] 0.8 mg PO QPM 11/04/21 amLODIPine [Norvasc] 5 mg PO DAILY 11/04/21 Objective - Vital Signs/Intake & Output Reviewed Vital Signs: Yes Vital Signs: Vital Signs x48h Temp Pulse Resp BP Pulse Ox 01/14/22 10:00 37.1 C 60 8 L 108/45 L 99 01/14/22 09:00 37.1 C 60 8 L 108/45 L 99 01/14/22 08:00 37.3 C 12 113/57 L 97 01/14/22 07:00 37.3 C 69 10 L 106/59 L 94 01/14/22 06:52 37.5 C 12 95 01/14/22 06:00 37.5 C 78 12 107/52 L 95 01/14/22 05:39 37.5 C 72 16 118/63 94 01/14/22 04:00 36.8 C 70 17 125/93 H 97 01/14/22 03:00 36.7 C 60 9 L 101/52 L 98 Intake & Output: Intake & Output 01/11/22 01/12/22 01/13/22 01/14/22 23:59 23:59 23:59 23:59 Intake Total 2200 2370.938 3920.291 2425.000 Output Total 0 320 1510 340 Balance 2200 2050.938 2410.291 2085.000 - Objective General Appearance: positive: Moderate distress, Other (Occasional grimacing to pain. No eye or verbal response.). negative: Alert Eyes Bilateral: positive: Normal inspection, Conjunctivae nml ENT: positive: Dry mucous membranes Neck: positive: No JVD, Trachea midline Respiratory: positive: No respiratory distress, Rhonchi Cardiovascular: positive: Regular rate & rhythm, No murmur, No gallop. negative: Tachycardia, Bradycardia Abdomen: positive: Nml bowel sounds, No distention Skin: positive: Color nml Extremities: positive: No pedal edema Neurologic/Psychiatric: positive: Other (Unresponsive to stimuli). negative: Oriented x3 - Lab Results Fish Bones: 01/14/22 05:20 01/14/22 05:20 Other Labs: Lab Results x24hrs 01/14/22 01/14/22 01/14/22 Range/Units 08:00 05:20 05:20 WBC (4.8-10.8) x10^3/uL RBC (4.70-6.10) 10^6/uL Hgb (14.0-18.0) g/dL Hct (42.0-52.0) % MCV (80.0-94.0) fL MCH (27.0-31.0) pg MCHC (32.0-36.0) g/dL RDW (12.0-15.0) % Plt Count (130-450) 10^3/uL MPV (7.4-11.4) fL Neut # (Auto) (1.5-6.6) 10^3/uL Lymph # (Auto) (1.5-3.5) 10^3/uL Weber # (Auto) (0.0-1.0) 10^3/uL Eos # (Auto) (0.0-0.7) 10^3/uL Baso # (Auto) (0.0-0.1) 10^3/uL Absolute Nucleated RBC x10^3/uL Nucleated RBC % /100WBC PT 18.9 H (9.9-12.6) secs INR 1.7 H (0.8-1.2) Bld Gas Analysis Time 0800 Sample Site RIGHT RADIAL ABG pH 7.39 (7.35-7.45) ABG pCO2 28 L (34-45) mmHg ABG pO2 69 L (80-100) mmHg ABG HCO3 16.8 L (22.0-26.0) mmol/L ABG Total CO2 17.7 L (21.0-29.0) MMOL/L ABG O2 Saturation 93 L (94-98) % ABG Base Excess -7.0 L (-2.0-3.0) mmol/L Sigifredo Test POSITIVE VBG pH (7.31-7.41) Ionized Calcium (1.15-1.33) mmol/L Room Air YES Sodium 134 L (135-145) mmol/L Potassium 3.8 (3.5-5.0) mmol/L Chloride 108 (101-111) mmol/L Carbon Dioxide 18 L (21-32) mmol/L Anion Gap 8.0 (6-13) BUN 40 H (6-20) mg/dL Creatinine 1.9 H (0.6-1.2) mg/dL Estimated GFR (MDRD) 34 L (>89) Glucose 126 H (70-100) mg/dL Calcium 8.3 L (8.5-10.3) mg/dL Phosphorus 2.8 (2.5-4.6) mg/dL Magnesium 1.8 (1.7-2.8) mg/dL Total Bilirubin 1.6 H (0.2-1.0) mg/dL AST 120 H (10-42) IU/L ALT 20 (10-60) IU/L Alkaline Phosphatase 48 (42-121) IU/L Troponin I High Sens (2.3-19.7) ng/L Total Protein 5.9 L (6.7-8.2) g/dL Albumin 3.1 L (3.2-5.5) g/dL Globulin 2.8 (2.1-4.2) g/dL Albumin/Globulin Ratio 1.1 (1.0-2.2) Prealbumin 16 L (18-45) mg/dL 01/14/22 01/14/22 01/13/22 Range/Units 05:20 05:20 15:00 WBC 6.7 (4.8-10.8) x10^3/uL RBC 3.36 L (4.70-6.10) 10^6/uL Hgb 8.7 L (14.0-18.0) g/dL Hct 26.0 L (42.0-52.0) % MCV 77.4 L (80.0-94.0) fL MCH 25.9 L (27.0-31.0) pg MCHC 33.5 (32.0-36.0) g/dL RDW 16.4 H (12.0-15.0) % Plt Count 82 L (130-450) 10^3/uL MPV 10.1 (7.4-11.4) fL Neut # (Auto) 5.0 (1.5-6.6) 10^3/uL Lymph # (Auto) 0.7 L (1.5-3.5) 10^3/uL Weber # (Auto) 1.0 (0.0-1.0) 10^3/uL Eos # (Auto) 0.1 (0.0-0.7) 10^3/uL Baso # (Auto) 0.0 (0.0-0.1) 10^3/uL Absolute Nucleated RBC 0.05 x10^3/uL Nucleated RBC % 0.7 /100WBC PT (9.9-12.6) secs INR (0.8-1.2) Bld Gas Analysis Time Sample Site ABG pH (7.35-7.45) ABG pCO2 (34-45) mmHg ABG pO2 (80-100) mmHg ABG HCO3 (22.0-26.0) mmol/L ABG Total CO2 (21.0-29.0) MMOL/L ABG O2 Saturation (94-98) % ABG Base Excess (-2.0-3.0) mmol/L Sigifredo Test VBG pH 7.372 (7.31-7.41) Ionized Calcium 1.15 (1.15-1.33) mmol/L Room Air Sodium (135-145) mmol/L Potassium (3.5-5.0) mmol/L Chloride (101-111) mmol/L Carbon Dioxide (21-32) mmol/L Anion Gap (6-13) BUN (6-20) mg/dL Creatinine (0.6-1.2) mg/dL Estimated GFR (MDRD) (>89) Glucose (70-100) mg/dL Calcium (8.5-10.3) mg/dL Phosphorus (2.5-4.6) mg/dL Magnesium (1.7-2.8) mg/dL Total Bilirubin (0.2-1.0) mg/dL AST (10-42) IU/L ALT (10-60) IU/L Alkaline Phosphatase (42-121) IU/L Troponin I High Sens 91.4 H* (2.3-19.7) ng/L Total Protein (6.7-8.2) g/dL Albumin (3.2-5.5) g/dL Globulin (2.1-4.2) g/dL Albumin/Globulin Ratio (1.0-2.2) Prealbumin (18-45) mg/dL 01/13/22 Range/Units 11:28 WBC (4.8-10.8) x10^3/uL RBC (4.70-6.10) 10^6/uL Hgb (14.0-18.0) g/dL Hct (42.0-52.0) % MCV (80.0-94.0) fL MCH (27.0-31.0) pg MCHC (32.0-36.0) g/dL RDW (12.0-15.0) % Plt Count (130-450) 10^3/uL MPV (7.4-11.4) fL Neut # (Auto) (1.5-6.6) 10^3/uL Lymph # (Auto) (1.5-3.5) 10^3/uL Weber # (Auto) (0.0-1.0) 10^3/uL Eos # (Auto) (0.0-0.7) 10^3/uL Baso # (Auto) (0.0-0.1) 10^3/uL Absolute Nucleated RBC x10^3/uL Nucleated RBC % /100WBC PT (9.9-12.6) secs INR (0.8-1.2) Bld Gas Analysis Time Sample Site ABG pH (7.35-7.45) ABG pCO2 (34-45) mmHg ABG pO2 (80-100) mmHg ABG HCO3 (22.0-26.0) mmol/L ABG Total CO2 (21.0-29.0) MMOL/L ABG O2 Saturation (94-98) % ABG Base Excess (-2.0-3.0) mmol/L Sigifredo Test VBG pH (7.31-7.41) Ionized Calcium (1.15-1.33) mmol/L Room Air Sodium (135-145) mmol/L Potassium (3.5-5.0) mmol/L Chloride (101-111) mmol/L Carbon Dioxide (21-32) mmol/L Anion Gap (6-13) BUN (6-20) mg/dL Creatinine (0.6-1.2) mg/dL Estimated GFR (MDRD) (>89) Glucose (70-100) mg/dL Calcium (8.5-10.3) mg/dL Phosphorus (2.5-4.6) mg/dL Magnesium (1.7-2.8) mg/dL Total Bilirubin (0.2-1.0) mg/dL AST (10-42) IU/L ALT (10-60) IU/L Alkaline Phosphatase (42-121) IU/L Troponin I High Sens 110.4 H* (2.3-19.7) ng/L Total Protein (6.7-8.2) g/dL Albumin (3.2-5.5) g/dL Globulin (2.1-4.2) g/dL Albumin/Globulin Ratio (1.0-2.2) Prealbumin (18-45) mg/dL Sepsis Event Note (H) - Evaluation Current Stage of Sepsis: Septic shock Possible source of Sepsis: positive: Genitourinary - Sepsis Criteria Sepsis Criteria: Recorded Temperature greater than 38.3C or Less than 36C, SBP drop more than 40mHg, SBP less than 90 mmHg, Metabolic: lactate > 2 mmol/L
--- NOTE | 2022-01-14 11:06 | PROVIDER PROGRESS NOTE ---
Subjective - Prog Note Date Prog Note Date: 01/14/22 Prog Note Time: 11:00 - Subjective Subjective: Patient is unresponsive to all but pain, unable to follow commands. Current Medications - Current Medications Current Medications: Active Medications Acetaminophen (Acetaminophen 325 Mg Tablet) 650 mg PO Q4HR PRN PRN Reason: Pain 1 to 4 Aspirin (Aspirin Chew 81 Mg Tablet) 81 mg PO QPM [facility] Last Admin: 01/13/22 20:37 Dose: 81 mg Atorvastatin Calcium (Atorvastatin 10 Mg Tablet) 20 mg PO QPM [facility] Last Admin: 01/13/22 20:39 Dose: 20 mg Carbidopa/Levodopa (Carbidopa/Levodopa 25 Mg/100 Mg Tablet) 1 tab PO TID [facility] Last Admin: 01/14/22 05:24 Dose: 1 tab Ferrous Gluconate (Ferrous Gluconate 324 Mg Tablet) 324 mg PO DAILYWM [facility] Last Admin: 01/14/22 08:39 Dose: Not Given Hydromorphone HCl (Hydromorphone 0.5 Mg/0.5 Ml Syringe) 0.5 mg IVP Q4H PRN PRN Reason: PAIN Last Admin: 01/14/22 05:22 Dose: 0.5 mg Metronidazole (Flagyl 500 Mg/100 Ml) 500 mg in 100 mls @ 100 mls/hr IV Q8H [facility] Last Infusion: 01/14/22 06:15 Dose: Infused Norepinephrine Bitartrate 8 mg (/ Dextrose) 250 mls @ 15 mls/hr IV .[id number] [facility]; Protocol Last Titration: 01/13/22 08:00 Dose: 0 mcg/min, 0 mls/hr Sodium Chloride (Normal Saline 0.9%) 500 mls @ 20 mls/hr IV Q24H PRN PRN Reason: TKO RATE Last Infusion: 01/14/22 07:51 Dose: 20 mls/hr Dextrose (D5w) 1,000 mls @ 100 mls/hr IV .Q10H [facility] Last Infusion: 01/14/22 10:10 Dose: 0 mls/hr Cefepime HCl 1 gm/ Sodium (Chloride) 100 mls @ 200 mls/hr IV Q24H [facility] Last Infusion: 01/14/22 09:40 Dose: Infused Lidocaine (Lidocaine Patch 5%) 1 patch TOP DAILY PRN PRN Reason: PAIN Last Admin: 01/14/22 01:40 Dose: 1 patch Ondansetron HCl (Ondansetron 4 Mg/2 Ml Vial) 4 mg IVP Q6HR PRN PRN Reason: Nausea / Vomiting Pantoprazole Sodium (Pantoprazole 40 Mg Vial) 40 mg IVP QDAC [facility] Last Admin: 01/14/22 06:44 Dose: 40 mg Scopolamine HBr (Scopolamine Patch) 1 patch TOP Q3D [facility] Last Admin: 01/13/22 12:59 Dose: 1 patch Sodium Chloride (Sodium Chloride Flush 0.9% 10 Ml Syringe) 10 ml IVP 0100,0900,1700 [facility] Last Admin: 01/14/22 09:27 Dose: 10 ml Sodium Chloride (Sodium Chloride Flush 0.9% 10 Ml Syringe) 10 ml IVP PRN PRN PRN Reason: NEEDED PER PROVIDER ORDERS Last Admin: 01/14/22 06:44 Dose: 10 ml Sodium Chloride (Sodium Chloride Flush 0.9% 10 Ml Syringe) 20 ml IVP PRN PRN PRN Reason: After Blood Draw Last Admin: 01/14/22 06:44 Dose: 20 ml Tamsulosin HCl (Tamsulosin 0.4 Mg Capsule) 0.8 mg PO QPM [facility] Last Admin: 01/13/22 20:38 Dose: 0.8 mg Apixaban [Eliquis] 5 mg PO BID 11/04/21 Aspirin Chewable [St Jimmy Aspirin] 81 mg PO QPM 11/04/21 Carbidopa/Levodopa 25/100 [Sinemet 25 mg/100 mg] 1 tablet PO TID 11/04/21 Cyanocobalamin [Vitamin B-12] 250 mcg PO DAILY 11/04/21 Isosorbide Mononitrate [Isosorbide Mononitrate ER] 90 mg PO DAILY 11/04/21 Lisinopril [Zestril] 40 mg PO DAILY 11/04/21 Meloxicam [Mobic] 15 mg PO DAILY 11/04/21 Metoprolol Tartrate [Lopressor] 50 mg PO BID 11/04/21 Nitroglycerin [Nitrostat] 0.4 mg SL Q5MIN PRN 11/04/21 Simvastatin [Zocor] 40 mg PO QPM 11/04/21 Tamsulosin HCl [Flomax] 0.8 mg PO QPM 11/04/21 amLODIPine [Norvasc] 5 mg PO DAILY 11/04/21 Objective - Vital Signs/Intake & Output Reviewed Vital Signs: Yes Vital Signs: Vital Signs Temp Pulse Resp BP Pulse Ox 01/14/22 10:00 37.1 C 60 8 L 108/45 L 99 01/14/22 09:00 37.1 C 60 8 L 108/45 L 99 01/14/22 08:00 37.3 C 12 113/57 L 97 Intake & Output: Intake & Output 01/11/22 01/12/22 01/13/22 01/14/22 23:59 23:59 23:59 23:59 Intake Total 2200 2370.938 3920.291 2425.000 Output Total 0 320 1510 340 Balance 2200 2050.938 2410.291 2085.000 - Objective General Appearance: positive: Moderate distress, Other (Grimacing to pain. No eye or verbal response.). negative: Alert Eyes Bilateral: positive: Normal inspection ENT: positive: Dry mucous membranes, Other (NG tube in place) Neck: positive: No JVD, Trachea midline Respiratory: positive: Rhonchi, Other (Bradypnic. Audible secretions and gurgling upon respiration.). negative: Wheezes Cardiovascular: positive: Regular rate & rhythm, No murmur, No gallop. negative: Tachycardia Abdomen: positive: Nml bowel sounds, No distention Skin: positive: No rash, Warm, Dry Extremities: positive: No pedal edema Neurologic/Psychiatric: positive: Other (Unresponsive, non-verbal.). negative: Oriented x3 - Lab Results Fish Bones: 01/14/22 05:20 01/14/22 11:08 Other Labs: Lab Results x24hrs 01/14/22 01/14/22 01/14/22 Range/Units 08:00 05:20 05:20 WBC (4.8-10.8) x10^3/uL RBC (4.70-6.10) 10^6/uL Hgb (14.0-18.0) g/dL Hct (42.0-52.0) % MCV (80.0-94.0) fL MCH (27.0-31.0) pg MCHC (32.0-36.0) g/dL RDW (12.0-15.0) % Plt Count (130-450) 10^3/uL MPV (7.4-11.4) fL Neut # (Auto) (1.5-6.6) 10^3/uL Lymph # (Auto) (1.5-3.5) 10^3/uL Dixon # (Auto) (0.0-1.0) 10^3/uL Eos # (Auto) (0.0-0.7) 10^3/uL Baso # (Auto) (0.0-0.1) 10^3/uL Absolute Nucleated RBC x10^3/uL Nucleated RBC % /100WBC PT 18.9 H (9.9-12.6) secs INR 1.7 H (0.8-1.2) Bld Gas Analysis Time 0800 Sample Site RIGHT RADIAL ABG pH 7.39 (7.35-7.45) ABG pCO2 28 L (34-45) mmHg ABG pO2 69 L (80-100) mmHg ABG HCO3 16.8 L (22.0-26.0) mmol/L ABG Total CO2 17.7 L (21.0-29.0) MMOL/L ABG O2 Saturation 93 L (94-98) % ABG Base Excess -7.0 L (-2.0-3.0) mmol/L Sigifredo Test POSITIVE VBG pH (7.31-7.41) Ionized Calcium (1.15-1.33) mmol/L Room Air YES Sodium 134 L (135-145) mmol/L Potassium 3.8 (3.5-5.0) mmol/L Chloride 108 (101-111) mmol/L Carbon Dioxide 18 L (21-32) mmol/L Anion Gap 8.0 (6-13) BUN 40 H (6-20) mg/dL Creatinine 1.9 H (0.6-1.2) mg/dL Estimated GFR (MDRD) 34 L (>89) Glucose 126 H (70-100) mg/dL Calcium 8.3 L (8.5-10.3) mg/dL Phosphorus 2.8 (2.5-4.6) mg/dL Magnesium 1.8 (1.7-2.8) mg/dL Total Bilirubin 1.6 H (0.2-1.0) mg/dL AST 120 H (10-42) IU/L ALT 20 (10-60) IU/L Alkaline Phosphatase 48 (42-121) IU/L Troponin I High Sens (2.3-19.7) ng/L Total Protein 5.9 L (6.7-8.2) g/dL Albumin 3.1 L (3.2-5.5) g/dL Globulin 2.8 (2.1-4.2) g/dL Albumin/Globulin Ratio 1.1 (1.0-2.2) Prealbumin 16 L (18-45) mg/dL 01/14/22 01/14/22 01/13/22 Range/Units 05:20 05:20 15:00 WBC 6.7 (4.8-10.8) x10^3/uL RBC 3.36 L (4.70-6.10) 10^6/uL Hgb 8.7 L (14.0-18.0) g/dL Hct 26.0 L (42.0-52.0) % MCV 77.4 L (80.0-94.0) fL MCH 25.9 L (27.0-31.0) pg MCHC 33.5 (32.0-36.0) g/dL RDW 16.4 H (12.0-15.0) % Plt Count 82 L (130-450) 10^3/uL MPV 10.1 (7.4-11.4) fL Neut # (Auto) 5.0 (1.5-6.6) 10^3/uL Lymph # (Auto) 0.7 L (1.5-3.5) 10^3/uL Dixon # (Auto) 1.0 (0.0-1.0) 10^3/uL Eos # (Auto) 0.1 (0.0-0.7) 10^3/uL Baso # (Auto) 0.0 (0.0-0.1) 10^3/uL Absolute Nucleated RBC 0.05 x10^3/uL Nucleated RBC % 0.7 /100WBC PT (9.9-12.6) secs INR (0.8-1.2) Bld Gas Analysis Time Sample Site ABG pH (7.35-7.45) ABG pCO2 (34-45) mmHg ABG pO2 (80-100) mmHg ABG HCO3 (22.0-26.0) mmol/L ABG Total CO2 (21.0-29.0) MMOL/L ABG O2 Saturation (94-98) % ABG Base Excess (-2.0-3.0) mmol/L Sigifredo Test VBG pH 7.372 (7.31-7.41) Ionized Calcium 1.15 (1.15-1.33) mmol/L Room Air Sodium (135-145) mmol/L Potassium (3.5-5.0) mmol/L Chloride (101-111) mmol/L Carbon Dioxide (21-32) mmol/L Anion Gap (6-13) BUN (6-20) mg/dL Creatinine (0.6-1.2) mg/dL Estimated GFR (MDRD) (>89) Glucose (70-100) mg/dL Calcium (8.5-10.3) mg/dL Phosphorus (2.5-4.6) mg/dL Magnesium (1.7-2.8) mg/dL Total Bilirubin (0.2-1.0) mg/dL AST (10-42) IU/L ALT (10-60) IU/L Alkaline Phosphatase (42-121) IU/L Troponin I High Sens 91.4 H* (2.3-19.7) ng/L Total Protein (6.7-8.2) g/dL Albumin (3.2-5.5) g/dL Globulin (2.1-4.2) g/dL Albumin/Globulin Ratio (1.0-2.2) Prealbumin (18-45) mg/dL 01/13/ Range/Units 11:28 WBC (4.8-10.8) x10^3/uL RBC (4.70-6.10) 10^6/uL Hgb (14.0-18.0) g/dL Hct (42.0-52.0) % MCV (80.0-94.0) fL MCH (27.0-31.0) pg MCHC (32.0-36.0) g/dL RDW (12.0-15.0) % Plt Count (130-450) 10^3/uL MPV (7.4-11.4) fL Neut # (Auto) (1.5-6.6) 10^3/uL Lymph # (Auto) (1.5-3.5) 10^3/uL Dixon # (Auto) (0.0-1.0) 10^3/uL Eos # (Auto) (0.0-0.7) 10^3/uL Baso # (Auto) (0.0-0.1) 10^3/uL Absolute Nucleated RBC x10^3/uL Nucleated RBC % /100WBC PT (9.9-12.6) secs INR (0.8-1.2) Bld Gas Analysis Time Sample Site ABG pH (7.35-7.45) ABG pCO2 (34-45) mmHg ABG pO2 (80-100) mmHg ABG HCO3 (22.0-26.0) mmol/L ABG Total CO2 (21.0-29.0) MMOL/L ABG O2 Saturation (94-98) % ABG Base Excess (-2.0-3.0) mmol/L Sigifredo Test VBG pH (7.31-7.41) Ionized Calcium (1.15-1.33) mmol/L Room Air Sodium (135-145) mmol/L Potassium (3.5-5.0) mmol/L Chloride (101-111) mmol/L Carbon Dioxide (21-32) mmol/L Anion Gap (6-13) BUN (6-20) mg/dL Creatinine (0.6-1.2) mg/dL Estimated GFR (MDRD) (>89) Glucose (70-100) mg/dL Calcium (8.5-10.3) mg/dL Phosphorus (2.5-4.6) mg/dL Magnesium (1.7-2.8) mg/dL Total Bilirubin (0.2-1.0) mg/dL AST (10-42) IU/L ALT (10-60) IU/L Alkaline Phosphatase (42-121) IU/L Troponin I High Sens 110.4 H* (2.3-19.7) ng/L Total Protein (6.7-8.2) g/dL Albumin (3.2-5.5) g/dL Globulin (2.1-4.2) g/dL Albumin/Globulin Ratio (1.0-2.2) Prealbumin (18-45) mg/dL Sepsis Event Note (H) - Evaluation Current Stage of Sepsis: Resolved Possible source of Sepsis: positive: Unknown Assessment/Plan - Problem List (1) Septic shock Impression: Upon admission, there was concern for sepsis. He had a low WBC count 4.5, lactic acid 3.7, and was hypothermic with temperature 29 C. Sepsis protocol initiated, he received 2 L normal saline and warming unit applied. He has also been intermittently hypotensive throughout admission. Today, WBC 6.7, last lactic acid 1.6 (01/12), temperature 37.1 C. However, he is still non-responsive. Etiology remains unclear. UTI was suspected as potential cause, however, urine culture grew out only polymicrobial wendy. Pneumonia unlikely, chest x-ray shows no infiltrates. His O2 saturation has been consistently 99% on RA. Blood cultures negative. Continue to give empiric cefepime and Flagyl. Discontinue vancomycin today due to decreased renal function. BP stable today, 108/45 with a MAP of 66, Levophed discontinued. He is receiving 20 mL/hr normal saline due to CHF. Patient remains in critical condition. We will discuss transitioning to comfort care today with and daughter. Remain in ICU. (2) UTI (urinary tract infection) Impression: UTI suspected. Urine analysis showed WBC in clumps. Urine appeared cloudy. However, urine culture negative. Blood cultures were drawn and are neg to date. Patient is on empiric cefepime and Flagyl. (3) Delirium Impression: He is unresponsive today, occasional grimaces to pain. Likely secondary to infection and shock on top of Parkinsons and prior CVA. He also may be in pain due to L4 fx. No new findings on repeat head CT yesterday. IV Dilaudid small dose prn ordered. Patient currently on cefepime and Flagyl and gentle IV hydration. Scopalamine patch to help with copious pharyngeal sections. He does not have an active gag reflex. NG tube in place, receiving TF at 20 mL/hr. He was previously receiving D5 fluids due to hypoglycemia and inability for PO intake. However, this has been discontinued now that he is receiving tube feedings. (4) Acute kidney injury Impression: Ogliuria, 360 ml total chaidez output today. Creatinine has increased since admission, currently 1.9, BUN 40. Continue to monitor I/Os and BMP daily. Avoid nephrotoxins. Continue gentle IV hydration. (5) History of CVA (cerebrovascular accident) Impression: Patient was admitted to the hospital on 11/04/2021 with altered mental status which was eventually determined to be due to CVA. An MRI could not be done because the patient has a pacemaker. residential facility had been recommended for rehab at the time of discharge but declined and took him home. He was discharged on Eliquis 5 mg PO twice daily for Afib. Provider recommended discontinuing at this time but wished to keep him on it. He was also taking Aspirin, Imdur, Metoprolol, lisinopril and simvastatin. We are holding lisinopril, Imdur and metoprolol due to shock. We are holding Eliquis due to bleeding at CVP site, and presentation this time with frequent falls (see below) (6) Parkinson disease Impression: Continue usual carbidopa/levodopa. Administer via NG tube. (7) Fall Impression: Patient had fallen at home at least 4 times in the past week per his . CT of the head without contrast and cervical spine imaging were done and were negative for any acute process. CT of the abdomen/pelvis however showed an acute type, severe, markedly comminuted fracture of the L4 vertebral body. Discontinue Eliquis. Qualifiers: Encounter type: initial encounter Qualified Code(s): W19.XXXA - Unspecified fall, initial encounter (8) L4 vertebral fracture Impression: Likely secondary to multiple falls. Pain management as needed with IV Dilaudid ordered. (9) Diastolic heart failure Impression: Serial chest x-ray have shown continued pulmonary edema. BNP 398 yesterday. O2 saturation 99% on room air. Echo showed normal LVEF and diastolic heart failure. Patient required 2 L of NS in the ED per sepsis pathway. We will continue IV hydration at 20 mL/hr today. Scopalamine patch for copious secretions due to lack of gag reflex. (10) BPH (benign prostatic hyperplasia) Impression: Chaidez catheter in place. Tamsulosin discontinued due to hypotension. (11) History of coronary artery disease Impression: We are holding Imdur, lisinopril, metoprolol, amlodipine, lasix and prn nitroglycerin due to shock, with intermittent hypotension. Eliquis held and will not be resumed, due to multiple falls. We will continue baby aspirin and simvastatin via NG tube. (12) Hyperlipemia Impression: Continue usual simvastatin (13) Hypothermia Impression: Resolved. Likely due to sepsis.
[2022-01-14 11:27] LABS: MAGNESIUM 2.5 mg/dL (1.7-2.8); POTASSIUM 4.1 mmol/L (3.5-5.0)
[2022-01-14] MEDS ORDERED: diltiaZEM INJ 5 MG/ML VIAL IVP STA (12:41)
[2022-01-14] MEDS ORDERED: diltiaZEM INJ 5 MG/ML VIAL ONE (12:49)
--- NOTE | 2022-01-14 13:24 | ADVANCE CARE PLANNING NOTE ---
Advance Care Planning - Planning Encounter Date: 01/14/22 Time: 13:11 Purpose: establish care goals and resuscitation status Parties in Attendance: Palliative Care consult (BORIS Prasad), Mrs. Swann, Hospitalist in person Alexi (daughter) on the phone [phone] Decisional Capacity of the Patient: raya coma scale 3 - Encounter Subjective/Patient's Story: in speaking to his and daughter, the patient was described as a stubborn, hard-working individual. But he was fiercely independent. He grew up watching his father and grandfather deteriorate within normal processes of aging. They did live ~90s but his father of dementia, and had an amputation due to peripheral vascular disease. His even jokes that the reason he probably her (about 10 to 11 years ago) was so that someone would be around to take care of him. Daughter reports that dad has been very vocal with her in the past. He would state, as he approached his 70s, that he did not want to end up like his father or grandfather. He did not want to be disabled and be in a bed with people taking care of him. He never wanted to be in a fpc facility. He developed a movement disorder with a diagnosis of Parkinson's. But the kept on telling us that he is not with Parkinson's. Daughter states that her stepmom is sometimes not able to process bad news, and has a fierce belief system in its place. Even if she is giving him his Sinemet. That last time The patient's daughter saw him, was August 2021. She said he was a little forgetful, and had definitely become more frail over the last year or so. But was still himself. He was ambulating in spite of his tremor, eating normally, and conversing normally. He then went on to have a stroke in October 2021. He had problems with slurred speech, increasing memory loss, and fpc facility with rehab was recommended. The did not want that knowing that her would not want to go to a facility. So she took him home and she felt like "he was getting better" and that his slurred speech went away. But she noticed that he was not quite back to normal. He would hallucinate things that were not there. He would ask about things that happened way in the past and were not ongoing. For instance he would talk about his old girlfriend Mae and mention her as if she had just been in his room. And his would have to remind him that Mae was from many years ago and that he was now to her. He would also talk about a fence in the backyard from his previous house that was not present in the current house. He will hallucinate that the hose was on in the backyard and demand to go out in the backyard to turn it off but there was nothing there. He wasn't eating as much and sleeping more and more. In the last few weeks he started to fall more. His could not really state why. But he is on Eliquis. At our last discharge, we had recommended that he not be on Eliquis due to his risk of falls. He is on Eliquis due to a history of atrial fibrillation. But his is adamant that he be on the same medicines that he was on when he was discharged from [facility]. He has become increasingly somnolent, confused, and had stopped eating. Acutely worse over the last few days prior to admission. We have treated him with broad-spectrum antibiotics, temporary Levophed, and he has not improved. She is concerned because she thought that he would "go back to what he was before". She is having a hard time processing that he is not getting better. She has wanted "everything done to revive him". In presenting her with his lack of response, lack of consciousness, she was frozen and unable to make a decision. That is when she asked me to discuss this with his daughter, Alexi, and we spoke on the phone. Alexi relates that dad would never want this. She was very clear, in spite of her grief, that he should be a DO NOT RESUSCITATE. My description of him shocked her. Her last memory of her father is from August when he was still relatively independent and just needing help. She is very clear that this is unacceptable to him. In discussing this with Mrs. Swann, she heard this and decided she would like to transition her to DO NOT RESUSCITATE. She had a long conversation with our Palliative identity management consultant while I spoke to Alexi. His would also like us to stop all of the tubes, SCDs, and only feed him. She recognizes that he may . This is shocking to her. But she would like us to make him comfortable and only give him NG tube feedings and see how he does. Objective/Medical Story: Patient is an 86-year-old male who was brought to the ED via EMS for altered mental status. Patient's mentation was significantly different today around 3 AM onwards however it has progressively been worsening over the past 3 days to the point where he has not been able to feed himself. It is also reported that he has fallen about 4 times in the past week. He is on blood thinner Eliquis. Called EMS today because of the altered mental status, wheezing and another episode of almost falling. The patient was last admitted to the hospital on 11/04/2021 for altered mental status during which hospital stay he was diagnosed with a CVA. Recommendation at the time after treatment in the hospital was for fpc facility for rehab. The patient's declined the recommendation saying that she would to take care of the patient at home. Upon presentation to the ED he had a core temperature of 29 C. Further work-up included a CBC which showed a WBC of 4.5. He also had a lactic acid of 3.7. Urine analysis has white blood cell clumps present. Even though leukocyte esterase and nitrates negative the urine appears very cloudy. She reported severe congestive heart failure. Patient's blood pressure has been as low was 88/75 in the ED. As a result of his presentation, he was presented for admission for further treatment. - Past Medical History Cardiovascular: reports: Hypertension, Coronary artery disease Neuro: reports: CVA, Parkinson's : reports: Benign prostate hypertrophy Psych: reports: Anxiety Musculoskeletal: reports: None - Past Surgical History Cardiovascular: reports: Pacemaker He was placed on broad-spectrum antibiotics, treated with the sepsis protocol, temporarily on Levophed and responded to have a relatively normal blood pressure with a mean arterial pressure of 63 by this morning. But he is not waking up. He is gurgling more more and is required scopolamine. Temperature is now normal., However, again, he is not responding with improvement. Goals of Care: Like us to transition him to more of a comfort measure status. She would like us to stop a lot of things and has elucidated with those things are. Plan: 1. DO NOT RESUSCITATE status 2. Stop antibiotics, and usual home meds. Focus on Tylenol, Ativan, opioids as needed. Continue Scopolamine patch. 3. Stop SCDs. Her hope was that there will be a miracle and he will recover even though it was made clear to her that he may be actively dying Code Status: Do Not Attempt Resuscitation Time spent on advance care plannin minutes
--- NOTE | 2022-01-14 14:20 | CONSULTATION NOTE ---
Palliative Care Consultation - Referral Referring Provider: Dr. Liv Goddard Time of Visit: [id number] Referral setting: Hospitalized patient Referral Reason: FTT/Goals of Care - Information Sources Records reviewed: Previous records reviewed History/Review of Systems obtained from: Family ( Reji), Nursing, Other (hospitalsit) Exam limitations: Clinical condition (patient unresponsive) - History of Present Illness Brief History of Present Illness: This is an 86-year-old gentleman who has been hospitalized since 01/11/2022 for altered mental status, presenting with septic shock, UTI, hypothermia, and his not been responding to antibiotics and ICU support.Palliative care has been asked to provide support in family meeting regarding goals of care and advanced care planning.There is been concern regarding the who is the decision maker, understanding of patient's dire condition, and pending decision needing to be made regarding resuscitation status.She has been somewhat immobilized in the context of her understanding of his current condition, as well as believing that he is most likely on a path for end-of-life. She is hoping for her "miracle". In review with both and chart, patient has been deteriorating particularly since he had a stroke, he was most recently hospitalized end of October, with CVA, aspiration pneumonia, and declining functional status. She feels patient has worsened as far as his mental status, with confusion, wondering about "dementia", and had been watching him the last few days. She seems to have difficulty transitioning his status prior to hospitalization to his current condition.She reports he has only allowed her to help with his care this last year, when asked about Parkinson's. She is somewhat distressed with his current status of "being controlled" with all the tubes, restraints needed, and interventions. She reports she is "old school" and left to the old way, and natural processes, he might "revive". During family meeting which included Dr. Goddard, myself, and nurses at bedside she was able to verbalize her distress and requesting input from his daughter Alexi. Dr. Goddard was able to solicit helpful information in defining goals moving forward for to define next steps. Medical/Surgical History - Past Medical History Cardiovascular: reports: Congestive heart failure, Hypertension, Coronary artery disease, Peripheral Vascular Disease Respiratory: reports: Pneumonia (aspiration pneumonia 11/05) Neuro: CVA, Parkinson's GI: reports: Chronic constipation, Other (postive stools; not worked up had consult) : reports: Benign prostate hypertrophy, Renal insuffiency Psych: reports: Anxiety Musculoskeletal: reports: None - Past Surgical History Cardiovascular: reports: Coronary stent (x3), Pacemaker Social History - Living Situation Living arrangement: At home Living Situation: With spouse/s.o. Support System: Patient lives at home with his Reji, they have been 11 years. He has 2 daughters, Alexi is in [place], his son is in [place]. Family History - Family History Family History: Mother: , Father: , CAD (known dementia father) Medications/Allergies - Medications Active Medication List: Active Medications Acetaminophen (Acetaminophen 325 Mg Tablet) 650 mg PO Q4HR PRN PRN Reason: Pain 1 to 4 Hydromorphone HCl (Hydromorphone 0.5 Mg/0.5 Ml Syringe) 0.5 mg IVP Q4H PRN PRN Reason: PAIN Last Admin: 01/14/22 11:43 Dose: 0.5 mg Sodium Chloride (Normal Saline 0.9%) 500 mls @ 20 mls/hr IV Q24H PRN PRN Reason: TKO RATE Last Infusion: 01/14/22 07:51 Dose: 20 mls/hr Dextrose (D5w) 1,000 mls @ 100 mls/hr IV .Q10H LITA Last Infusion: 01/14/22 10:10 Dose: 0 mls/hr Lidocaine (Lidocaine Patch 5%) 1 patch TOP DAILY PRN PRN Reason: PAIN Last Admin: 01/14/22 01:40 Dose: 1 patch Ondansetron HCl (Ondansetron 4 Mg/2 Ml Vial) 4 mg IVP Q6HR PRN PRN Reason: Nausea / Vomiting Scopolamine HBr (Scopolamine Patch) 1 patch TOP Q3D [facility] [place] Last Admin: 01/13/22 12:59 Dose: 1 patch Sodium Chloride (Sodium Chloride Flush 0.9% 10 Ml Syringe) 10 ml IVP 0100,0900,1700 [facility] Last Admin: 01/14/22 09:27 Dose: 10 ml Sodium Chloride (Sodium Chloride Flush 0.9% 10 Ml Syringe) 10 ml IVP PRN PRN PRN Reason: NEEDED PER PROVIDER ORDERS Last Admin: 01/14/22 06:44 Dose: 10 ml Sodium Chloride (Sodium Chloride Flush 0.9% 10 Ml Syringe) 20 ml IVP PRN PRN PRN Reason: After Blood Draw Last Admin: 01/14/22 06:44 Dose: 20 ml Apixaban [Eliquis] 5 mg PO BID 11/04/21 Aspirin Chewable [St Jimmy Aspirin] 81 mg PO QPM 11/04/21 Carbidopa/Levodopa 25/100 [Sinemet 25 mg/100 mg] 1 tablet PO TID 11/04/21 Cyanocobalamin [Vitamin B-12] 250 mcg PO DAILY 11/04/21 Isosorbide Mononitrate [Isosorbide Mononitrate ER] 90 mg PO DAILY 11/04/21 Lisinopril [Zestril] 40 mg PO DAILY 11/04/21 Meloxicam [Mobic] 15 mg PO DAILY 11/04/21 Metoprolol Tartrate [Lopressor] 50 mg PO BID 11/04/21 Nitroglycerin [Nitrostat] 0.4 mg SL Q5MIN PRN 11/04/21 Simvastatin [Zocor] 40 mg PO QPM 11/04/21 Tamsulosin HCl [Flomax] 0.8 mg PO QPM 11/04/21 amLODIPine [Norvasc] 5 mg PO DAILY 11/04/21 - Allergies Allergies/Adverse Reactions: Allergies Allergy/AdvReac Type Severity Reaction Status Date / Time No Known Drug Allergies Allergy Verified 01/11/22 20:22 Review of Systems - Respiratory Respiratory: reports: Other (increased respiratory secretions) - Gastrointestinal Gastrointestinal: reports: Other (has TF) - Genitourinary Genitourinary: reports: Other (has chaidez catheter) - Musculoskeletal Musculoskeletal: reports: Other (bedbound) - Hematologic/Lymphatic Hematologic/Lymph: reports: Recurrent infections (hospitalized 11/05 with aspiration pneumonia) - All Other Systems All Other Systems: reports: Other (min responsive) Physical Exam - Vital Signs Vital Signs: Vital Signs x48h Temp Pulse Resp BP Pulse Ox 01/14/22 14:00 37.1 C 54 L 9 L 85/56 L 01/14/22 13:00 37.1 C 70 11 L 87/56 L 95 01/14/22 12:00 37.3 C 120 H 13 112/92 H 94 01/14/22 11:00 37.1 C 75 8 L 110/60 100 01/14/22 10:00 37.1 C 60 8 L 108/45 L 99 01/14/22 09:00 37.1 C 60 8 L 108/45 L 99 01/14/22 08:00 37.3 C 12 113/57 L 97 01/14/22 07:00 37.3 C 69 10 L 106/59 L 94 01/14/22 06:52 37.5 C 12 95 - Physical Exam General Appearance: positive: Moderate distress (with management of secretions) Eyes Bilateral: positive: Other (eyes closed) Cardiovascular: positive: Tachycardia Respiratory: negative: No respiratory distress (respiratory effort/needing deep suctioning) Neurologic/Psychiatric: positive: Other (unresponsive) Palliative Care - POLST Patient has POLST: No Performance Status: Patient had been having declining functional status over the last several weeks, more acutely over the last several days with multiple falls. - Palliative Care Discussion: Palliative care discussion included family meeting with review 's current understanding, regarding patient's severity of illness and not responding to current interventions and continues to deteriorate. Continues to have difficulty absorbing this information, and is distressed regarding patient's deterioration from the last several days to currently his condition. She does seem to be aware that he is not getting well, and does want him to be comfortab le. After much discussion was wanting input from daughter, Dr. Taylor collected this. In the meantime discussed at length with her journey over the last several days to weeks, with patient's decline, concerns, hopes that a "miracle to happen". We did discuss certainly could align our care with her wishes which is to withdraw all the tubes and interventions, and aligned with what she perceives as "the old way". Revisited those several times that this may also be his time and transition to end-of-life as we withdraw these supports. With the information that daughter Alexi, provided in the context of what his wishes have been expressed before, she was able to transition to do not attempt resuscitation. It was shared with from daughter that he would NOT have wanted to be revived given his experience with his father, and it would be in alignment with his wishes and would have her support in transitioning to comfort care. very much wanted to allow "the miracle to happen" and withdraw care that she felt was interfering with this. We did though discuss that it most likely is his time and he will most likely this admit, but can hope with her. Results - Lab Results Lab results reviewed: Yes Fish Bones: 01/14/22 05:20 01/14/22 11:08 Lab and Imaging Results: Lab Results x24hrs 01/14/22 01/14/22 01/14/22 Range/Units 11:08 08:00 05:20 WBC (4.8-10.8) x10^3/uL RBC (4.70-6.10) 10^6/uL Hgb (14.0-18.0) g/dL Hct (42.0-52.0) % MCV (80.0-94.0) fL MCH (27.0-31.0) pg MCHC (32.0-36.0) g/dL RDW (12.0-15.0) % Plt Count (130-450) 10^3/uL MPV (7.4-11.4) fL Neut # (Auto) (1.5-6.6) 10^3/uL Lymph # (Auto) (1.5-3.5) 10^3/uL Kings # (Auto) (0.0-1.0) 10^3/uL Eos # (Auto) (0.0-0.7) 10^3/uL Baso # (Auto) (0.0-0.1) 10^3/uL Absolute Nucleated RBC x10^3/uL Nucleated RBC % /100WBC PT (9.9-12.6) secs INR (0.8-1.2) Bld Gas Analysis Time 0800 Sample Site RIGHT RADIAL ABG pH 7.39 (7.35-7.45) ABG pCO2 28 L (34-45) mmHg ABG pO2 69 L (80-100) mmHg ABG HCO3 16.8 L (22.0-26.0) mmol/L ABG Total CO2 17.7 L (21.0-29.0) MMOL/L ABG O2 Saturation 93 L (94-98) % ABG Base Excess -7.0 L (-2.0-3.0) mmol/L Sigifredo Test POSITIVE VBG pH (7.31-7.41) Ionized Calcium (1.15-1.33) mmol/L Room Air YES Sodium 134 L (135-145) mmol/L Potassium 4.1 3.8 (3.5-5.0) mmol/L Chloride 108 (101-111) mmol/L Carbon Dioxide 18 L (21-32) mmol/L Anion Gap 8.0 (6-13) BUN 40 H (6-20) mg/dL Creatinine 1.9 H (0.6-1.2) mg/dL Estimated GFR (MDRD) 34 L (>89) Glucose 126 H (70-100) mg/dL Calcium 8.3 L (8.5-10.3) mg/dL Phosphorus 2.8 (2.5-4.6) mg/dL Magnesium 2.5 1.8 (1.7-2.8) mg/dL Total Bilirubin 1.6 H (0.2-1.0) mg/dL AST 120 H (10-42) IU/L ALT 20 (10-60) IU/L Alkaline Phosphatase 48 (42-121) IU/L Troponin I High Sens (2.3-19.7) ng/L Total Protein 5.9 L (6.7-8.2) g/dL Albumin 3.1 L (3.2-5.5) g/dL Globulin 2.8 (2.1-4.2) g/dL Albumin/Globulin Ratio 1.1 (1.0-2.2) Prealbumin 16 L (18-45) mg/dL 01/14/22 01/14/22 01/14/22 Range/Units 05:20 05:20 05:20 WBC 6.7 (4.8-10.8) x10^3/uL RBC 3.36 L (4.70-6.10) 10^6/uL Hgb 8.7 L (14.0-18.0) g/dL Hct 26.0 L (42.0-52.0) % MCV 77.4 L (80.0-94.0) fL MCH 25.9 L (27.0-31.0) pg MCHC 33.5 (32.0-36.0) g/dL RDW 16.4 H (12.0-15.0) % Plt Count 82 L (130-450) 10^3/uL MPV 10.1 (7.4-11.4) fL Neut # (Auto) 5.0 (1.5-6.6) 10^3/uL Lymph # (Auto) 0.7 L (1.5-3.5) 10^3/uL Kings # (Auto) 1.0 (0.0-1.0) 10^3/uL Eos # (Auto) 0.1 (0.0-0.7) 10^3/uL Baso # (Auto) 0.0 (0.0-0.1) 10^3/uL Absolute Nucleated RBC 0.05 x10^3/uL Nucleated RBC % 0.7 /100WBC PT 18.9 H (9.9-12.6) secs INR 1.7 H (0.8-1.2) Bld Gas Analysis Time Sample Site ABG pH (7.35-7.45) ABG pCO2 (34-45) mmHg ABG pO2 (80-100) mmHg ABG HCO3 (22.0-26.0) mmol/L ABG Total CO2 (21.0-29.0) MMOL/L ABG O2 Saturation (94-98) % ABG Base Excess (-2.0-3.0) mmol/L Sigifredo Test VBG pH 7.372 (7.31-7.41) Ionized Calcium 1.15 (1.15-1.33) mmol/L Room Air Sodium (135-145) mmol/L Potassium (3.5-5.0) mmol/L Chloride (101-111) mmol/L Carbon Dioxide (21-32) mmol/L Anion Gap (6-13) BUN (6-20) mg/dL Creatinine (0.6-1.2) mg/dL Estimated GFR (MDRD) (>89) Glucose (70-100) mg/dL Calcium (8.5-10.3) mg/dL Phosphorus (2.5-4.6) mg/dL Magnesium (1.7-2.8) mg/dL Total Bilirubin (0.2-1.0) mg/dL AST (10-42) IU/L ALT (10-60) IU/L Alkaline Phosphatase (42-121) IU/L Troponin I High Sens (2.3-19.7) ng/L Total Protein (6.7-8.2) g/dL Albumin (3.2-5.5) g/dL Globulin (2.1-4.2) g/dL Albumin/Globulin Ratio (1.0-2.2) Prealbumin (18-45) mg/dL 01/13/22 Range/Units 15:00 WBC (4.8-10.8) x10^3/uL RBC (4.70-6.10) 10^6/uL Hgb (14.0-18.0) g/dL Hct (42.0-52.0) % MCV (80.0-94.0) fL MCH (27.0-31.0) pg MCHC (32.0-36.0) g/dL RDW (12.0-15.0) % Plt Count (130-450) 10^3/uL MPV (7.4-11.4) fL Neut # (Auto) (1.5-6.6) 10^3/uL Lymph # (Auto) (1.5-3.5) 10^3/uL Kings # (Auto) (0.0-1.0) 10^3/uL Eos # (Auto) (0.0-0.7) 10^3/uL Baso # (Auto) (0.0-0.1) 10^3/uL Absolute Nucleated RBC x10^3/uL Nucleated RBC % /100WBC PT (9.9-12.6) secs INR (0.8-1.2) Bld Gas Analysis Time Sample Site ABG pH (7.35-7.45) ABG pCO2 (34-45) mmHg ABG pO2 (80-100) mmHg ABG HCO3 (22.0-26.0) mmol/L ABG Total CO2 (21.0-29.0) MMOL/L ABG O2 Saturation (94-98) % ABG Base Excess (-2.0-3.0) mmol/L Sigifredo Test VBG pH (7.31-7.41) Ionized Calcium (1.15-1.33) mmol/L Room Air Sodium (135-145) mmol/L Potassium (3.5-5.0) mmol/L Chloride (101-111) mmol/L Carbon Dioxide (21-32) mmol/L Anion Gap (6-13) BUN (6-20) mg/dL Creatinine (0.6-1.2) mg/dL Estimated GFR (MDRD) (>89) Glucose (70-100) mg/dL Calcium (8.5-10.3) mg/dL Phosphorus (2.5-4.6) mg/dL Magnesium (1.7-2.8) mg/dL Total Bilirubin (0.2-1.0) mg/dL AST (10-42) IU/L ALT (10-60) IU/L Alkaline Phosphatase (42-121) IU/L Troponin I High Sens 91.4 H* (2.3-19.7) ng/L Total Protein (6.7-8.2) g/dL Albumin (3.2-5.5) g/dL Globulin (2.1-4.2) g/dL Albumin/Globulin Ratio (1.0-2.2) Prealbumin (18-45) mg/dL Impression and Recommendations - Palliative Care Impression: This is a very frail 86-year-old gentleman who was admitted for altered mental status, has continued to decline, despite being on broad-spectrum antibiotics and treated with sepsis protocol. He has been in ICU, but is having more respiratory distress, and has been neurologically unresponsive.Given patient's ongoing decline, decision was made for DN AR, and more comfort focused care. Palliative care providing support through family meeting to assist with defining goals. Recommendations/Counseling Done: 1. Goals of Care. Advanced care planning completed through family meeting, decision made for DN AR/DNI and more comfort focused care. at high risk for complicated grief and may need bereavement follow-up. Continue to provide support in the context of her "hoping for a miracle", but does have some insight to seriousness of illness, able to move forward with support of patient's daughter's input for decision making. 45 minutes with greater than 50% of this done in counseling with family conference, coordination of care with hospitalist team, will follow for psychosocial support.
[2022-01-14] MEDS ORDERED: VANCOMYCIN INJ 1 GM, VANCOMYCIN INJ 500 MG in SODIUM CHLORIDE 0.9% 500 ML IV SCH (22:00)
[2022-01-15] MEDS: HYDROmorphone 0.5 MG/0.5 ML SYRINGE IVP PRN ×3 (01:12→07:59)
[2022-01-15] MEDS: SODIUM CHLORIDE FLUSH 0.9% 10 ML SYRINGE IVP SCH ×3 (01:13→19:50)
[2022-01-15] MEDS: LIDOCAINE PATCH 5% TOP PRN (01:14)
[2022-01-15] MEDS: SODIUM CHLORIDE FLUSH 0.9% 10 ML SYRINGE IVP PRN ×5 (03:04→21:42)
[2022-01-15 05:43] LABS: CALCIUM, IONIZED 1.19 mmol/L (1.15-1.33); VBG PH 7.371 (7.31-7.41)
[2022-01-15 05:49] LABS: BASOPHILS % (AUTO) 0.4 %; EOSINOPHILS # (AUTO) 0.1 10^3/uL (0.0-0.7); EOSINOPHILS % (AUTO) 1.7 %; HGB - HEMOGLOBIN 7.7 g/dL (14.0-18.0); LYMPHOCYTES # (AUTO) 0.5 10^3/uL (1.5-3.5); LYMPHOCYTES % (AUTO) 8.9 %; MEAN CORPUSCULAR HEMOGLOBIN 26.1 pg (27.0-31.0); MEAN CORPUSCULAR HGB CONC 33.5 g/dL (32.0-36.0); MEAN PLATELET VOLUME 10.8 fL (7.4-11.4); MONOCYTES # (AUTO) 0.9 10^3/uL (0.0-1.0); MONOCYTES % (AUTO) 15.9 %; NEUTROPHILS # (AUTO) 3.9 10^3/uL (1.5-6.6); NEUTROPHILS % (AUTO) 72.7 %; NRBC ABSOLUTE COUNT (AUTO) 0.03 x10^3/uL; NUCLEATED RED BLOOD CELLS AUTO 0.6 /100WBC; PLT - PLATELET COUNT 82 10^3/uL (130-450); RED BLOOD COUNT 2.95 10^6/uL (4.70-6.10); RED CELL DISTRIBUTION WIDTH 16.4 % (12.0-15.0); WHITE BLOOD COUNT 5.4 x10^3/uL (4.8-10.8)
[2022-01-15 05:56] LABS: CALCIUM 8.2 mg/dL (8.5-10.3); CREATININE 1.9 mg/dL (0.6-1.2); MAGNESIUM 2.4 mg/dL (1.7-2.8); POTASSIUM 4.2 mmol/L (3.5-5.0)
[2022-01-15] MEDS: CARBIDOPA/LEVODOPA 25 MG/100 MG TABLET PO SCH ×3 (06:17→21:39)
[2022-01-15] MEDS: MORPHINE 2 MG/ML CARPUJECT IVP PRN ×3 (10:17→21:41)
[2022-01-15] MEDS: ACETAMINOPHEN 325 MG TABLET PO PRN (10:24)
--- NOTE | 2022-01-15 10:55 | PROVIDER PROGRESS NOTE ---
Subjective - Prog Note Date Prog Note Date: 01/15/22 Prog Note Time: 11:00 - Subjective Subjective: Patient is restless and agitated today. Unresponsive to all but pain, unable to follow commands. Current Medications - Current Medications Current Medications: Active Medications Acetaminophen (Acetaminophen 325 Mg Tablet) 650 mg PO Q4HR PRN PRN Reason: Pain 1 to 4 Last Admin: 01/15/22 10:24 Dose: 650 mg Carbidopa/Levodopa (Carbidopa/Levodopa 25 Mg/100 Mg Tablet) 1 tab PO TID [facility] Last Admin: 01/15/22 06:17 Dose: 1 tab Sodium Chloride (Normal Saline 0.9%) 500 mls @ 20 mls/hr IV Q24H PRN PRN Reason: TKO RATE Last Infusion: 01/14/22 15:04 Dose: Infused Lidocaine (Lidocaine Patch 5%) 1 patch TOP DAILY PRN PRN Reason: PAIN Last Admin: 01/15/22 01:14 Dose: 1 patch Lorazepam (Lorazepam 2 Mg/Ml Vial) 0.5 mg IVP Q2H PRN PRN Reason: Anxiety Morphine Sulfate (Morphine 2 Mg/Ml Carpuject) 2 mg IVP Q2HR PRN PRN Reason: PAIN Last Admin: 01/15/22 10:17 Dose: 2 mg Ondansetron HCl (Ondansetron 4 Mg/2 Ml Vial) 4 mg IVP Q6HR PRN PRN Reason: Nausea / Vomiting Scopolamine HBr (Scopolamine Patch) 1 patch TOP Q3D [facility] Last Admin: 01/13/22 12:59 Dose: 1 patch Sodium Chloride (Sodium Chloride Flush 0.9% 10 Ml Syringe) 10 ml IVP 0100 ,0900,1700 [facility] Last Admin: 01/15/22 09:43 Dose: 10 ml Sodium Chloride (Sodium Chloride Flush 0.9% 10 Ml Syringe) 10 ml IVP PRN PRN PRN Reason: NEEDED PER PROVIDER ORDERS Last Admin: 01/15/22 05:25 Dose: 10 ml Sodium Chloride (Sodium Chloride Flush 0.9% 10 Ml Syringe) 20 ml IVP PRN PRN PRN Reason: After Blood Draw Last Admin: 01/15/22 05:25 Dose: 20 ml Apixaban [Eliquis] 5 mg PO BID 11/04/21 Aspirin Chewable [St Jimmy Aspirin] 81 mg PO QPM 11/04/21 Carbidopa/Levodopa 25/100 [Sinemet 25 mg/100 mg] 1 tablet PO TID 11/04/21 Cyanocobalamin [Vitamin B-12] 250 mcg PO DAILY 11/04/21 Isosorbide Mononitrate [Isosorbide Mononitrate ER] 90 mg PO DAILY 11/04/21 Lisinopril [Zestril] 40 mg PO DAILY 11/04/21 Meloxicam [Mobic] 15 mg PO DAILY 11/04/21 Metoprolol Tartrate [Lopressor] 50 mg PO BID 11/04/21 Nitroglycerin [Nitrostat] 0.4 mg SL Q5MIN PRN 11/04/21 Simvastatin [Zocor] 40 mg PO QPM 11/04/21 Tamsulosin HCl [Flomax] 0.8 mg PO QPM 11/04/21 amLODIPine [Norvasc] 5 mg PO DAILY 11/04/21 Objective - Vital Signs/Intake & Output Reviewed Vital Signs: Yes Vital Signs: Vital Signs Temp Pulse Resp BP Pulse Ox 01/15/22 09:00 37.3 C 84 18 108/94 H 97 01/15/22 08:00 37.2 C 60 14 114/55 L 97 Intake & Output: Intake & Output 01/12/22 01/13/22 01/14/22 01/15/22 23:59 23:59 23:59 23:59 Intake Total 2370.938 4088.728 3089.001 876 Output Total 320 0501 616 1401 Balance 2050.938 2578.728 2419.001 -144 - Objective General Appearance: positive: Moderate distress, Other (Appears restless and figity on bed, moving all extremities and shaking head back and forth. Grimaces in response to pain but no verbal or eye response.). negative: Alert Eyes Bilateral: positive: Normal inspection, Conjunctivae nml ENT: positive: Dry mucous membranes, Other (NG tube in place) Neck: positive: Nml inspection, No JVD, Trachea midline, Other (Central line) Respiratory: positive: Rhonchi, Other (Audible secretions and gurgling upon respiration). negative: Wheezes Cardiovascular: positive: Regular rate & rhythm, No murmur, No gallop Abdomen: positive: Nml bowel sounds, No distention Skin: positive: No rash, Warm, Dry Extremities: positive: No pedal edema Neurologic/Psychiatric: positive: Other (Unresponsive, non-verbal). negative: Oriented x3 - Lab Results Fish Bones: 01/15/22 05:28 01/15/22 05:28 Other Labs: Lab Results x24hrs 01/15/22 01/15/22 01/15/22 Range/Units 05:28 05:28 05:28 WBC 5.4 (4.8-10.8) x10^3/uL RBC 2.95 L (4.70-6.10) 10^6/uL Hgb 7.7 L (14.0-18.0) g/dL Hct 23.0 L (42.0-52.0) % MCV 78.0 L (80.0-94.0) fL MCH 26.1 L (27.0-31.0) pg MCHC 33.5 (32.0-36.0) g/dL RDW 16.4 H (12.0-15.0) % Plt Count 82 L (130-450) 10^3/uL MPV 10.8 (7.4-11.4) fL Neut # (Auto) 3.9 (1.5-6.6) 10^3/uL Lymph # (Auto) 0.5 L (1.5-3.5) 10^3/uL Boone # (Auto) 0.9 (0.0-1.0) 10^3/uL Eos # (Auto) 0.1 (0.0-0.7) 10^3/uL Baso # (Auto) 0.0 (0.0-0.1) 10^3/uL Absolute Nucleated RBC 0.03 x10^3/uL Nucleated RBC % 0.6 /100WBC VBG pH 7.371 (7.31-7.41) Ionized Calcium 1.19 (1.15-1.33) mmol/L Sodium 134 L (135-145) mmol/L Potassium 4.2 (3.5-5.0) mmol/L Chloride 108 (101-111) mmol/L Carbon Dioxide 20 L (21-32) mmol/L Anion Gap 6.0 (6-13) BUN 46 H (6-20) mg/dL Creatinine 1.9 H (0.6-1.2) mg/dL Estimated GFR (MDRD) 34 L (>89) Glucose 129 H (70-100) mg/dL Calcium 8.2 L (8.5-10.3) mg/dL Phosphorus 3.0 (2.5-4.6) mg/dL Magnesium 2.4 (1.7-2.8) mg/dL 01/14/22 Range/Units 11:08 WBC (4.8-10.8) x10^3/uL RBC (4.70-6.10) 10^6/uL Hgb (14.0-18.0) g/dL Hct (42.0-52.0) % MCV (80.0-94.0) fL MCH (27.0-31.0) pg MCHC (32.0-36.0) g/dL RDW (12.0-15.0) % Plt Count (130-450) 10^3/uL MPV (7.4-11.4) fL Neut # (Auto) (1.5-6.6) 10^3/uL Lymph # (Auto) (1.5-3.5) 10^3/uL Boone # (Auto) (0.0-1.0) 10^3/uL Eos # (Auto) (0.0-0.7) 10^3/uL Baso # (Auto) (0.0-0.1) 10^3/uL Absolute Nucleated RBC x10^3/uL Nucleated RBC % /100WBC VBG pH (7.31-7.41) Ionized Calcium (1.15-1.33) mmol/L Sodium (135-145) mmol/L Potassium 4.1 (3.5-5.0) mmol/L Chloride (101-111) mmol/L Carbon Dioxide (21-32) mmol/L Anion Gap (6-13) BUN (6-20) mg/dL Creatinine (0.6-1.2) mg/dL Estimated GFR (MDRD) (>89) Glucose (70-100) mg/dL Calcium (8.5-10.3) mg/dL Phosphorus (2.5-4.6) mg/dL Magnesium 2.5 (1.7-2.8) mg/dL Sepsis Event Note (H) - Evaluation Current Stage of Sepsis: Resolved Possible source of Sepsis: positive: Unknown Assessment/Plan - Problem List (1) Septic shock Impression: Upon admission, there was concern for sepsis. He had a low WBC count 4.5, lactic acid 3.7, and was hypothermic with temperature 29 C. He has also been intermittently hypotensive throughout admission. Today, vitals are stable. WBC 5.4, last lactic acid 1.6 (01/12), temperature 37.3 C. However, he is still non- responsive. Etiology remains unclear. No source of infection identified on blood or urine cultures. He did not seem to be responding to empiric antibiotics and his wishes to focus on comfort care so these have been discontinued. DNR status as of yesterday. (2) Delirium Impression: He is unresponsive but agitated today, occasional grimaces to pain. He does not have an active cough or gag reflex and is having a hard time managing his copious pharyngeal secretions. His delirium is likely secondary to infection and shock on top of Parkinsons and prior CVA. He also may be in pain due to L4 fx. He is receiving Ativan for the agitation and morphine PRN for pain. Focus on comfort. Scopalamine patch to help with copious pharyngeal sections. Continue to suction oral secretions as needed. NG tube in place, receiving TF at 30 mL/hr. (3) Acute kidney injury Impression: His chaidez output is improved today, approximately 100 cc/hr. BUN 46, Cr 1.9. Continue to monitor I/Os and BMP daily. (4) UTI (urinary tract infection) Impression: UTI initially suspected. Urine analysis showed WBC in clumps. Urine appeared cloudy. However, urine culture negative. Blood cultures were drawn and are neg to date. Discontinued cefapime and Flagyl yesterday. (5) History of CVA (cerebrovascular accident) Impression: Patient was admitted to the hospital for altered mental status due to CVA on 11/04/2021. nursing home facility had been recommended for rehab at the time of discharge but declined and took him home. Focus on comfort at this time, lisinopril, Imdur, metoprolol and Eliquis discontinued. (6) Parkinson disease Impression: Continue usual carbidopa/levodopa. Administer via NG tube. (7) Fall Impression: Patient had fallen at home at least 4 times in the past week per his . CT of the head without contrast and cervical spine imaging were done and were negative for any acute process. CT of the abdomen/pelvis however showed an acute type, severe, markedly comminuted fracture of the L4 vertebral body. Discontinue Eliquis. Qualifiers: Encounter type: initial encounter Qualified Code(s): W19.XXXA - Unspecified fall, initial encounter (8) L4 vertebral fracture Impression: Likely secondary to multiple falls. Pain management as needed with IV morphine and lidocaine patch (9) Anemia Impression: He has been getting progressively more anemic throughout his admission. Hgb today 7.7. The etiology is unclear, however he is on comfort measures at this time so no EGD. (10) Diastolic heart failure Impression: Serial chest x-ray have shown continued pulmonary edema. O2 saturation 97% on room air today. Echo showed normal LVEF and diastolic heart failure. Scopalamine patch for copious secretions due to lack of gag reflex. (11) BPH (benign prostatic hyperplasia) Impression: Chaidez catheter in place. Tamsulosin discontinued due to hypotension. (12) History of coronary artery disease Impression: Discontinued aspirin and Lipitor today to focus on comfort measures. Previously discontinued Imdur, lisinopril, metoprolol, amlodipine, lasix and prn nitroglycerin due to shock, with intermittent hypotension. (13) Hyperlipemia Impression: Continue usual simvastatin (14) Hypothermia Impression: Resolved. Was likely due to sepsis.
[2022-01-16] MEDS: SODIUM CHLORIDE FLUSH 0.9% 10 ML SYRINGE IVP SCH ×4 (01:02→21:18)
[2022-01-16] MEDS: MORPHINE 2 MG/ML CARPUJECT IVP PRN ×2 (01:02→10:18)
[2022-01-16] MEDS: LIDOCAINE PATCH 5% TOP PRN (01:30)
[2022-01-16] MEDS: LORazepam 2 MG/ML VIAL IVP PRN ×2 (01:55→10:17)
[2022-01-16] MEDS: SODIUM CHLORIDE FLUSH 0.9% 10 ML SYRINGE IVP PRN ×5 (01:56→21:18)
[2022-01-16] MEDS: CARBIDOPA/LEVODOPA 25 MG/100 MG TABLET PO SCH ×3 (05:39→21:18)
[2022-01-16 05:42] LABS: BASOPHILS % (AUTO) 0.2 %; EOSINOPHILS # (AUTO) 0.1 10^3/uL (0.0-0.7); EOSINOPHILS % (AUTO) 2.8 %; HCT - HEMATOCRIT 22.8 % (42.0-52.0); HGB - HEMOGLOBIN 7.6 g/dL (14.0-18.0); LYMPHOCYTES # (AUTO) 0.6 10^3/uL (1.5-3.5); LYMPHOCYTES % (AUTO) 12.7 %; MEAN CORPUSCULAR HEMOGLOBIN 25.9 pg (27.0-31.0); MEAN CORPUSCULAR HGB CONC 33.3 g/dL (32.0-36.0); MEAN CORPUSCULAR VOLUME 77.8 fL (80.0-94.0); MEAN PLATELET VOLUME 10.1 fL (7.4-11.4); MONOCYTES # (AUTO) 0.9 10^3/uL (0.0-1.0); MONOCYTES % (AUTO) 18.6 %; NEUTROPHILS # (AUTO) 3.1 10^3/uL (1.5-6.6); NEUTROPHILS % (AUTO) 65.5 %; PLT - PLATELET COUNT 104 10^3/uL (130-450); RED BLOOD COUNT 2.93 10^6/uL (4.70-6.10); RED CELL DISTRIBUTION WIDTH 16.5 % (12.0-15.0); WHITE BLOOD COUNT 4.7 x10^3/uL (4.8-10.8)
[2022-01-16 05:55] LABS: ALBUMIN 2.8 g/dL (3.2-5.5); BILIRUBIN,TOTAL 1.2 mg/dL (0.2-1.0); CALCIUM 8.9 mg/dL (8.5-10.3); CREATININE 1.5 mg/dL (0.6-1.2); MAGNESIUM 2.4 mg/dL (1.7-2.8); PHOSPHORUS 3.3 mg/dL (2.5-4.6); POTASSIUM 4.5 mmol/L (3.5-5.0); TOTAL PROTEIN 5.6 g/dL (6.7-8.2)
--- NOTE | 2022-01-16 08:14 | PROVIDER PROGRESS NOTE ---
Subjective - Prog Note Date Prog Note Date: 01/16/22 - Subjective Subjective: Patient responsive to pain only. Non-verbal and unable to follow commands. Current Medications - Current Medications Current Medications: Active Medications Acetaminophen (Acetaminophen 325 Mg Tablet) 650 mg PO Q4HR PRN PRN Reason: Pain 1 to 4 Last Admin: 01/15/22 10:24 Dose: 650 mg Carbidopa/Levodopa (Carbidopa/Levodopa 25 Mg/100 Mg Tablet) 1 tab PO TID [facility] Last Admin: 01/16/22 05:39 Dose: 1 tab Sodium Chloride (Normal Saline 0.9%) 500 mls @ 20 mls/hr IV Q24H PRN PRN Reason: TKO RATE Last Infusion: 01/14/22 15:04 Dose: Infused Lidocaine (Lidocaine Patch 5%) 1 patch TOP DAILY PRN PRN Reason: PAIN Last Admin: 01/16/22 01:30 Dose: 1 patch Lorazepam (Lorazepam 2 Mg/Ml Vial) 0.5 mg IVP Q2H PRN PRN Reason: Anxiety Last Admin: 01/16/22 10:17 Dose: 0.5 mg Morphine Sulfate (Morphine 2 Mg/Ml Carpuject) 2 mg IVP Q2HR PRN PRN Reason: PAIN Last Admin: 01/16/22 10:18 Dose: 2 mg Ondansetron HCl (Ondansetron 4 Mg/2 Ml Vial) 4 mg IVP Q6HR PRN PRN Reason: Nausea / Vomiting Scopolamine HBr (Scopolamine Patch) 1 patch TOP Q3D [facility] Last Admin: 01/13/22 12:59 Dose: 1 patch Sodium Chloride (Sodium Chloride Flush 0.9% 10 Ml Syringe) 10 ml IVP 0100,0900,1700 [facility] Last Admin: 01/16/22 08:09 Dose: 30 ml Sodium Chloride (Sodium Chloride Flush 0.9% 10 Ml Syringe) 10 ml IVP PRN PRN PRN Reason: NEEDED PER PROVIDER ORDERS Last Admin: 01/16/22 10:16 Dose: 20 ml Sodium Chloride (Sodium Chloride Flush 0.9% 10 Ml Syringe) 20 ml IVP PRN PRN PRN Reason: After Blood Draw Last Admin: 01/16/22 05:39 Dose: 20 ml Apixaban [Eliquis] 5 mg PO BID 11/04/21 Aspirin Chewable [[facility] Jimmy Aspirin] 81 mg PO QPM 11/04/21 Carbidopa/Levodopa 25/100 [Sinemet 25 mg/100 mg] 1 tablet PO TID 11/04/21 Cyanocobalamin [Vitamin B-12] 250 mcg PO DAILY 11/04/21 Isosorbide Mononitrate [Isosorbide Mononitrate ER] 90 mg PO DAILY 11/04/21 Lisinopril [Zestril] 40 mg PO DAILY 11/04/21 Meloxicam [Mobic] 15 mg PO DAILY 11/04/21 Metoprolol Tartrate [Lopressor] 50 mg PO BID 11/04/21 Nitroglycerin [Nitrostat] 0.4 mg SL Q5MIN PRN 11/04/21 Simvastatin [Zocor] 40 mg PO QPM 11/04/21 Tamsulosin HCl [Flomax] 0.8 mg PO QPM 11/04/21 amLODIPine [Norvasc] 5 mg PO DAILY 11/04/21 Objective - Vital Signs/Intake & Output Reviewed Vital Signs: Yes Vital Signs: Vital Signs Temp Pulse Resp BP Pulse Ox 01/16/22 08:10 37 C 63 16 141/51 H 99 01/16/22 06:00 37.1 C 60 20 132/48 H 97 Intake & Output: Intake & Output 01/13/22 01/14/22 01/15/22 01/16/22 23:59 23:59 23:59 23:59 Intake Total 4088.728 3089.001 2394 754 Output Total 0720 434 6725 1470 Balance 2578.728 2419.001 -141 -716 - Objective General Appearance: positive: Moderate distress, Other (Eyes closed, moving all limbs and opening mouth. Grimaces to pain but otherwise non-responsive.). negative: Alert Eyes Bilateral: positive: PERRL, Conjunctivae nml, Other (arcus senilis) ENT: positive: Oral lesions (White patch on roof of mouth), Dry mucous membranes, Other (NG tube in place) Neck: positive: No JVD, Trachea midline, Other (central line) Respiratory: positive: Rhonchi, Other (Audible secretions and gurgling upon respiration). negative: Wheezes Cardiovascular: positive: Regular rate & rhythm, No murmur, No gallop Abdomen: positive: Nml bowel sounds, No distention Skin: positive: Warm, Dry Extremities: positive: No pedal edema, Other (Mildly edematous upper e xtremities. Rigid lower extremities.) Neurologic/Psychiatric: positive: Other (Non-verbal, non-responsive). negative: Oriented x3 - Lab Results Fish Bones: 01/16/22 05:30 01/16/22 05:30 Other Labs: Lab Results x24hrs 01/16/22 01/16/22 Range/Units 05:30 05:30 WBC 4.7 L (4.8-10.8) x10^3/uL RBC 2.93 L (4.70-6.10) 10^6/uL Hgb 7.6 L (14.0-18.0) g/dL Hct 22.8 L (42.0-52.0) % MCV 77.8 L (80.0-94.0) fL MCH 25.9 L (27.0-31.0) pg MCHC 33.3 (32.0-36.0) g/dL RDW 16.5 H (12.0-15.0) % Plt Count 104 L (130-450) 10^3/uL MPV 10.1 (7.4-11.4) fL Neut # (Auto) 3.1 (1.5-6.6) 10^3/uL Lymph # (Auto) 0.6 L (1.5-3.5) 10^3/uL Kay # (Auto) 0.9 (0.0-1.0) 10^3/uL Eos # (Auto) 0.1 (0.0-0.7) 10^3/uL Baso # (Auto) 0.0 (0.0-0.1) 10^3/uL Absolute Nucleated RBC 0.00 x10^3/uL Nucleated RBC % 0.0 /100WBC Sodium 145 (135-145) mmol/L Potassium 4.5 (3.5-5.0) mmol/L Chloride 113 H (101-111) mmol/L Carbon Dioxide 24 (21-32) mmol/L Anion Gap 8.0 (6-13) BUN 36 H (6-20) mg/dL Creatinine 1.5 H (0.6-1.2) mg/dL Estimated GFR (MDRD) 44 L (>89) Glucose 109 H (70-100) mg/dL Calcium 8.9 (8.5-10.3) mg/dL Phosphorus 3.3 (2.5-4.6) mg/dL Magnesium 2.4 (1.7-2.8) mg/dL Total Bilirubin 1.2 H (0.2-1.0) mg/dL AST 49 H (10-42) IU/L ALT 32 (10-60) IU/L Alkaline Phosphatase 54 (42-121) IU/L Total Protein 5.6 L (6.7-8.2) g/dL Albumin 2.8 L (3.2-5.5) g/dL Globulin 2.8 (2.1-4.2) g/dL Albumin/Globulin Ratio 1.0 (1.0-2.2) Prealbumin 14 L (18-45) mg/dL Sepsis Event Note (H) - Evaluation Current Stage of Sepsis: Resolved Possible source of Sepsis: positive: Unknown Assessment/Plan - Problem List (1) Anemia Impression: He has become increasingly anemic throughout his admission; RBC 2.79, Hgb 7.6 today. Iron studies show iron deficiency anemia. Because of this with his new onset thrombocytopenia and decreased renal function were concerned for thrombotic thrombocytopenic purpura but LDH is normal. Restart home B12 and folate today Qualifiers: Anemia type: iron deficiency (2) Thrombocytopenia Impression: Platelets have been low throughout admission, 104 today. (3) Delirium Impression: He is unresponsive but agitated today, occasional grimaces to pain. He does not have an active cough or gag reflex and is having a hard time managing his copious pharyngeal secretions. His delirium is likely secondary to infection and shock on top of Parkinsons and prior CVA. He also may be in pain due to L4 fx. He is receiving Ativan for the agitation and morphine PRN for pain. Focus on comfort per family wishes, DNR. Scopalamine patch and Robinul drops to help with copious pharyngeal sections. Co ntinue to suction oral secretions as needed. NG tube in place, receiving TF at 30 mL/hr. (4) Acute kidney injury Impression: Seems to be resolving, good chaidez output today. BUN 36, Cr 1.5. Continue to monitor I/Os and BMP daily. (5) Oral thrush Impression: Administer nystatin (6) History of CVA (cerebrovascular accident) Impression: Patient was admitted to the hospital for altered mental status due to CVA on 11/04/2021. nursing home facility had been recommended for rehab at the time of discharge but declined and took him home. Focus on comfort at this time, lisinopril, Imdur, metoprolol and Eliquis discontinued. (7) Parkinson disease Impression: Continue usual carbidopa/levodopa. Administer via NG tube. (8) Fall Impression: Patient had fallen at home at least 4 times in the past week per his . CT of the head without contrast and cervical spine imaging were done and were negative for any acute process. CT of the abdomen/pelvis however showed an acute type, severe, markedly comminuted fracture of the L4 vertebral body. Discontinue Eliquis. Qualifiers: Encounter type: initial encounter Qualified Code(s): W19.XXXA - Unspecified fall, initial encounter (9) L4 vertebral fracture Impression: Likely secondary to multiple falls. Pain management as needed with IV morphine and lidocaine patch (10) Diastolic heart failure Impression: Serial chest x-ray have shown continued pulmonary edema. O2 saturation 97% on room air today. Echo showed normal LVEF and diastolic heart failure. Scopalamine patch and Robinul drops for copious secretions due to lack of gag reflex. (11) BPH (benign prostatic hyperplasia) Impression: Chaidez catheter in place. Tamsulosin discontinued due to hypotension. (12) History of coronary artery disease Impression: Discontinued Aspirin, Lipitor, Imdur, lisinopril, metoprolol, amlodipine, lasix and prn nitroglycerin to focus on comfort (13) Hyperlipemia Impression: Discontinue simvastatin to focus on comfort (14) Septic shock Impression: This seems to have resolved, vitals are stable. No source of infection identified on blood or urine cultures. Focus on comfort care so no antibiotics. (15) Hypothermia Impression: Resolved. Was likely due to sepsis. (16) UTI (urinary tract infection) Impression: UTI initially suspected due to cloudy urine and WBC clumps. However, urine and blood culture negative. Comfort measures and no clear source of infection so no antibiotics.
[2022-01-16 08:39] LABS: ABSOLUTE RETICS # AUTO 0.037 10^6/uL (0.020-0.110); RED BLOOD COUNT 2.79 10^6/uL (4.70-6.10); RETICULOCYTE COUNT % (AUTO) 1.34 % (0.5-2.3)
[2022-01-16 08:58] LABS: % IRON SATURATION 7 % (20-50); IRON 15 ug/dL (45-182); TOTAL IRON BINDING CAPACITY 224 ug/dL (250-450); TRANSFERRIN 160 mg/dL (180-329)
[2022-01-16 09:24] LABS: FERRITIN 613.4 ng/mL (23.9-336.2)
[2022-01-16] MEDS: SCOPOLAMINE PATCH TOP SCH (13:51)
[2022-01-16] MEDS ORDERED: CYANOCOBALAMIN 1,000 MCG/ML VIAL IM ONE (17:29)
[2022-01-16] MEDS ORDERED: GLYCOPYRROLATE 1 MG/5 ML VIAL SUBQ SCH (18:00)
[2022-01-16] MEDS: NYSTATIN 500000 UNITS/5 ML UDC PO SCH ×2 (18:20→21:18)
[2022-01-16] MEDS ORDERED: GLYCOPYRROLATE 1 MG/5 ML VIAL SUBQ ONE (19:00)
[2022-01-17] MEDS: SODIUM CHLORIDE FLUSH 0.9% 10 ML SYRINGE IVP PRN (04:24)
[2022-01-17 04:33] LABS: BASOPHILS % (AUTO) 0.3 %; EOSINOPHILS # (AUTO) 0.1 10^3/uL (0.0-0.7); EOSINOPHILS % (AUTO) 1.8 %; HCT - HEMATOCRIT 25.6 % (42.0-52.0); HGB - HEMOGLOBIN 8.5 g/dL (14.0-18.0); LYMPHOCYTES # (AUTO) 0.7 10^3/uL (1.5-3.5); LYMPHOCYTES % (AUTO) 9.9 %; MEAN CORPUSCULAR HEMOGLOBIN 26.3 pg (27.0-31.0); MEAN CORPUSCULAR HGB CONC 33.2 g/dL (32.0-36.0); MEAN CORPUSCULAR VOLUME 79.3 fL (80.0-94.0); MEAN PLATELET VOLUME 9.9 fL (7.4-11.4); MONOCYTES # (AUTO) 0.8 10^3/uL (0.0-1.0); MONOCYTES % (AUTO) 10.7 %; NEUTROPHILS # (AUTO) 5.7 10^3/uL (1.5-6.6); NEUTROPHILS % (AUTO) 76.8 %; PLT - PLATELET COUNT 145 10^3/uL (130-450); RED BLOOD COUNT 3.23 10^6/uL (4.70-6.10); RED CELL DISTRIBUTION WIDTH 16.6 % (12.0-15.0); WHITE BLOOD COUNT 7.4 x10^3/uL (4.8-10.8)
[2022-01-17 04:41] LABS: CALCIUM 9.1 mg/dL (8.5-10.3); CREATININE 1.1 mg/dL (0.6-1.2); POTASSIUM 4.7 mmol/L (3.5-5.0)
[2022-01-17] MEDS: CARBIDOPA/LEVODOPA 25 MG/100 MG TABLET PO SCH ×3 (06:26→21:34)
[2022-01-17] MEDS: NYSTATIN 500000 UNITS/5 ML UDC PO SCH ×4 (08:54→21:34)
[2022-01-17] MEDS: FERROUS GLUCONATE 324 MG TABLET PO SCH (08:54)
[2022-01-17] MEDS: SODIUM CHLORIDE FLUSH 0.9% 10 ML SYRINGE IVP SCH ×2 (08:56→16:40)
--- NOTE | 2022-01-17 12:32 | PROVIDER PROGRESS NOTE ---
Subjective - Prog Note Date Prog Note Date: 01/17/22 Prog Note Time: 11:00 - Subjective Subjective: He turns his head to verbal cues today. He makes incomprehensible sounds and grimaces in response to pain. Current Medications - Current Medications Current Medications: Active Medications Acetaminophen (Acetaminophen 325 Mg Tablet) 650 mg PO Q4HR PRN PRN Reason: Pain 1 to 4 Last Admin: 01/15/22 10:24 Dose: 650 mg Carbidopa/Levodopa (Carbidopa/Levodopa 25 Mg/100 Mg Tablet) 1 tab PO TID [facility] Last Admin: 01/17/22 06:26 Dose: 1 tab Ferrous Gluconate (Ferrous Gluconate 324 Mg Tablet) 324 mg PO DAILYWM [facility] Last Admin: 01/17/22 08:54 Dose: 324 mg Sodium Chloride (Normal Saline 0.9%) 500 mls @ 20 mls/hr IV Q24H PRN PRN Reason: TKO RATE Last Infusion: 01/14/22 15:04 Dose: Infused Lidocaine (Lidocaine Patch 5%) 1 patch TOP DAILY PRN PRN Reason: PAIN Last Admin: 01/16/22 01:30 Dose: 1 patch Lorazepam (Lorazepam 2 Mg/Ml Vial) 0.5 mg IVP Q2H PRN PRN Reason: Anxiety Last Admin: 01/16/22 10:17 Dose: 0.5 mg Morphine Sulfate (Morphine 2 Mg/Ml Carpuject) 2 mg IVP Q2HR PRN PRN Reason: PAIN Last Admin: 01/16/22 10:18 Dose: 2 mg Nystatin (Nystatin 669371 Units/5 Ml Udc) 5 ml PO QID [facility] Last Admin: 01/17/22 08:54 Dose: 5 ml Ondansetron HCl (Ondansetron 4 Mg/2 Ml Vial) 4 mg IVP Q6HR PRN PRN Reason: Nausea / Vomiting Scopolamine HBr (Scopolamine Patch) 1 patch TOP Q3D [facility] Last Admin: 01/16/22 13:51 Dose: 1 patch Sodium Chloride (Sodium Chloride Flush 0.9% 10 Ml Syringe) 10 ml IVP 0100,0900,1700 [facility] Last Admin: 01/17/22 08:56 Dose: 10 ml Sodium Chloride (Sodium Chloride Flush 0.9% 10 Ml Syringe) 10 ml IVP PRN PRN PRN Reason: NEEDED PER PROVIDER ORDERS Last Admin: 01/16/22 21:18 Dose: 10 ml Sodium Chloride (Sodium Chloride Flush 0.9% 10 Ml Syringe) 20 ml IVP PRN PRN PRN Reason: After Blood Draw Last Admin: 01/17/22 04:24 Dose: 20 ml Apixaban [Eliquis] 5 mg PO BID 11/04/21 Aspirin Chewable [St Jimmy Aspirin] 81 mg PO QPM 11/04/21 Carbidopa/Levodopa 25/100 [Sinemet 25 mg/100 mg] 1 tablet PO TID 11/04/21 Cyanocobalamin [Vitamin B-12] 250 mcg PO DAILY 11/04/21 Isosorbide Mononitrate [Isosorbide Mononitrate ER] 90 mg PO DAILY 11/04/21 Lisinopril [Zestril] 40 mg PO DAILY 11/04/21 Meloxicam [Mobic] 15 mg PO DAILY 11/04/21 Metoprolol Tartrate [Lopressor] 50 mg PO BID 11/04/21 Nitroglycerin [Nitrostat] 0.4 mg SL Q5MIN PRN 11/04/21 Simvastatin [Zocor] 40 mg PO QPM 11/04/21 Tamsulosin HCl [Flomax] 0.8 mg PO QPM 11/04/21 amLODIPine [Norvasc] 5 mg PO DAILY 11/04/21 Objective - Vital Signs/Intake & Output Reviewed Vital Signs: Yes Vital Signs: Vital Signs Temp Pulse Resp BP Pulse Ox 01/17/22 11:56 37.4 C 63 18 158/46 H 95 01/17/22 08:45 37.3 C 64 18 145/58 H 92 Intake & Output: Intake & Output 01/14/22 01/15/22 01/16/22 01/17/22 23:59 23:59 23:59 23:59 Intake Total 3080.001 8018 8323 916 Output Total 427 4236 9267 1170 Balance 4809.001 -141 -1077 -254 - Objective General Appearance: positive: Moderate distress, Other (Eyes closed, moving all extremties, agitated, grimacing and making incomprehsible sounds in response to pain. Turns head to his 's voice.). negative: Alert Eyes Bilateral: positive: Conjunctivae nml, Other (arcus senalis) ENT: positive: Dry mucous membranes, Other (NG tube) Neck: positive: Nml inspection, No JVD, Trachea midline Respiratory: positive: Other (Intermittent gurgles). negative: Wheezes, Rhonchi Cardiovascular: positive: Regular rate & rhythm, No murmur, No gallop Peripheral Pulses: 1+ Femoral (R), 1+ Femoral (L), 2+ Radial (R), 2+ Radial (L) Abdomen: positive: Nml bowel sounds, No distention Skin: positive: Warm, Dry Extremities: positive: No pedal edema, Other (mild edema in upper extremtities) Neurologic/Psychiatric: positive: Other (Non-verbal, delerious). negative: Oriented x3 - Lab Results Fish Bones: 01/17/22 04:20 01/17/22 04:20 Other Labs: Lab Results x24hrs 01/17/22 01/17/22 Range/Units 04:20 04:20 WBC 7.4 (4.8-10.8) x10^3/uL RBC 3.23 L (4.70-6.10) 10^6/uL Hgb 8.5 L (14.0-18.0) g/dL Hct 25.6 L (42.0-52.0) % MCV 79.3 L (80.0-94.0) fL MCH 26.3 L (27.0-31.0) pg MCHC 33.2 (32.0-36.0) g/dL RDW 16.6 H (12.0-15.0) % Plt Count 145 (130-450) 10^3/uL MPV 9.9 (7.4-11.4) fL Neut # (Auto) 5.7 (1.5-6.6) 10^3/uL Lymph # (Auto) 0.7 L (1.5-3.5) 10^3/uL [place] # (Auto) 0.8 (0.0-1.0) 10^3/uL Eos # (Auto) 0.1 (0.0-0.7) 10^3/uL Baso # (Auto) 0.0 (0.0-0.1) 10^3/uL Absolute Nucleated RBC 0.00 x10^3/uL Nucleated RBC % 0.0 /100WBC Sodium 143 (135-145) mmol/L Potassium 4.7 (3.5-5.0) mmol/L Chloride 112 H (101-111) mmol/L Carbon Dioxide 24 (21-32) mmol/L Anion Gap 7.0 (6-13) BUN 31 H (6-20) mg/dL Creatinine 1.1 (0.6-1.2) mg/dL Estimated GFR (MDRD) 63 L (>89) Glucose 124 H (70-100) mg/dL Calcium 9.1 (8.5-10.3) mg/dL Sepsis Event Note (H) - Evaluation Current Stage of Sepsis: Resolved Possible source of Sepsis: positive: Unknown Assessment/Plan - Problem List (1) Delirium Impression: He makes incomprehensible sounds and grimaces to pain but is otherwise continues to be unresponsive and agitated today. He continues to have a difficult time managing his secretions secondary to a diminished gag reflex. His delirium is likely secondary to infection and shock on top of Parkinsons and prior CVA. He also may be in pain due to L4 fx. He is DNR and his has request that all medications be stopped including morphine and ativan He continues to receive tube feeds via NG tube at 30 mL/hr per 's wishes Suction as needed Palliative care consulted and deemed him a good candidate for hospice. However, the does not want this. She does not want him to go to a SNF. She wishes to bring him home and care for him herself. We believe that this will be more challenging than she realizes as he requires 24/7 care. We are working in collaboration with the patient's daughter and social work to get them the support that they will require at home (see advanced care planning note). (2) Anemia Impression: RBC 3.23, Hgb 8.5 today. Iron studies show iron deficiency anemia. Administer ferrous gluconate He received 1,000 mcg IM B12 yesterday (3) Oral thrush Impression: Continue Nystatin (4) Parkinson disease Impression: Continue usual carbidopa/levodopa due to extensive tremors and agitation. Administer via NG tube. (5) History of CVA (cerebrovascular accident) Impression: Patient was admitted to the hospital for altered mental status due to CVA on 11/04/2021. shelter facility had been recommended for rehab at the time of discharge but declined and took him home. Focus on comfort at this time, lisinopril, Imdur, metoprolol and Eliquis discontinued. (6) Fall Impression: Patient had fallen at home at least 4 times in the past week per his . CT of the head without contrast and cervical spine imaging were done and were negative for any acute process. CT of the abdomen/pelvis however showed an acute type, severe, markedly co mminuted fracture of the L4 vertebral body. Discontinue Eliquis. Qualifiers: Qualified Code(s): W19.XXXA - Unspecified fall, initial encounter (7) L4 vertebral fracture Impression: Likely secondary to multiple falls. Pain medications held per 's request (8) Acute kidney injury Impression: Seems have resolved, good chaidez output today. BUN 31, Cr 1.1. Continue to monitor I/Os and BMP daily. (9) Thrombocytopenia Impression: Resolved, platelets 145 today. (10) Diastolic heart failure Impression: Serial chest x-ray have shown continued pulmonary edema. O2 saturation 97% on room air today. Echo showed normal LVEF and diastolic heart failure. No medications at this time, comfort care measures (11) BPH (benign prostatic hyperplasia) Impression: Chaidez catheter in place. Good output. (12) History of coronary artery disease Impression: Discontinued Aspirin, Lipitor, Imdur, lisinopril, metoprolol, amlodipine, lasix and prn nitroglycerin to focus on comfort (13) Hyperlipemia Impression: Discontinue simvastatin to focus on comfort (14) Septic shock Impression: This seems to have resolved, vitals are stable. No source of infection identified on blood or urine cultures. Focus on comfort care so no antibiotics. (15) Hypothermia Impression: Resolved. Was likely due to sepsis. (16) UTI (urinary tract infection) Impression: UTI initially suspected due to cloudy urine and WBC clumps. However, urine and blood culture negative. Comfort measures and no clear source of infection so no antibiotics
--- NOTE | 2022-01-17 16:55 | ADVANCE CARE PLANNING NOTE ---
Advance Care Planning - Planning Encounter Date: 01/17/22 Time: 16:53 Purpose: discuss discharge disposition Parties in Attendance: hospitalist and with in his bed Decisional Capacity of the Patient: he responds to voice by opening his eyes or stopping his snoring or occasional grimace but no purposeful gaze, no speech - Encounter Subjective/Patient's Story: We are now transitioning to discharge disposition. has been told over the last couple of days that he is not responding. It might be time to take him home. She has been offered group home facility placement because his care needs are so great and she declines. She feels that she was able to take care of her mother with "heart problem" for several years. She feels that it is her duty to take care of her like she took care of her mom. She does not believe her stepdaughter Alexi when Alexi has stated that the patient would never want to be living life this way. While she recognizes and acknowledges that he is stated he never wanted to go to group home facility, she does not feel that Alexi is stating the case correctly about what he would want. With this in mind, she is declining hospice referral. She really wants to take care of him on her own. She does not want morphine or Ativan given to him and she would refuses to take any prescriptions home with her. I expressed to her my alarm that she is going to to undertake his care on her own. She feels that she will use her daughter and daughter's boyfriend to help her. And if she feels like she is overwhelmed and cannot take care of him she will bring him back to the hospital as many times as she feels as needed to strengthen him up and give her respite. She also does not want referral because she wants his children to come up and "take their turn" taking care of him. She wants them to see how difficult it has been to take care of him. She wants them to acknowledge the work it has taken. I did rephrase that and asked her if she meant to keep him alive if only to prove to her stepchildren how hard the work was and she said that that was some of it. I carefully replied that I do not think this is a good idea. Her has stated in the past to his children that he did not want to live life this way. But she keeps on bringing up her mother is an example of how you can keep someone alive until her heart finally stops. Objective/Medical Story: The patient has now been hospitalized 7 days for gradually increasing weakness, increasing falls, confusion superimposed on chronic Parkinson's disease and a stroke in October 2021. He was found to have sepsis and hypotension on admission. He was treated as sepsis with broad-spectrum antibiotics. UTI was most likely contaminated. Chest x-ray did not show pneumonia but he had severe congestive heart failure on findings. After advanced planning conversation with his on January 14, she opted to transition him to focus on comfort measures. At times she has been resistant to giving him medicines like Sinemet to avoid tremors. She also fiercely opposes the use of morphine or Ativan to make him c omfortable even though he has a vertebral compression fracture. She feels that we are keeping him sedated if we do that and she would rather he be more responsive. Goals of Care: Per the , according to his daughter's description, he would want to at home. Not been in long-term care, and also not be ill for a very long time requiring the care he is receiving right now. Per the , she feels that he will live longer than we predict. All she has to do is take him home and feed him, take care of him and he will wake up, sit up, walk, and learn to have more conversations with her. This is in spite of Parkinson's disease, dysphagia, recent stroke, dementia, and a [place] Coma Scale of 3 or 4 Plan: At this time the plan is still to discharge him to home. declines any durable medical equipment or referral to hospice or home health. Social work is already spoken to his daughter, Alexi, in [place]. Eric plans on flying appearing having a family conference with her stepmother, and hopes to bring her other sister with her. Code Status: Do Not Attempt Resuscitation
[2022-01-18] MEDS: SODIUM CHLORIDE FLUSH 0.9% 10 ML SYRINGE IVP SCH ×3 (02:39→17:28)
[2022-01-18 05:22] LABS: BASOPHILS % (AUTO) 0.2 %; EOSINOPHILS # (AUTO) 0.1 10^3/uL (0.0-0.7); EOSINOPHILS % (AUTO) 0.8 %; HCT - HEMATOCRIT 25.8 % (42.0-52.0); HGB - HEMOGLOBIN 8.5 g/dL (14.0-18.0); LYMPHOCYTES # (AUTO) 0.8 10^3/uL (1.5-3.5); LYMPHOCYTES % (AUTO) 9.7 %; MEAN CORPUSCULAR HEMOGLOBIN 25.9 pg (27.0-31.0); MEAN CORPUSCULAR HGB CONC 32.9 g/dL (32.0-36.0); MEAN CORPUSCULAR VOLUME 78.7 fL (80.0-94.0); MEAN PLATELET VOLUME 10.1 fL (7.4-11.4); MONOCYTES % (AUTO) 11.6 %; NEUTROPHILS # (AUTO) 6.4 10^3/uL (1.5-6.6); NEUTROPHILS % (AUTO) 77.3 %; PLT - PLATELET COUNT 190 10^3/uL (130-450); RED BLOOD COUNT 3.28 10^6/uL (4.70-6.10); RED CELL DISTRIBUTION WIDTH 15.9 % (12.0-15.0); WHITE BLOOD COUNT 8.3 x10^3/uL (4.8-10.8)
[2022-01-18 05:38] LABS: POTASSIUM 4.3 mmol/L (3.5-5.0)
[2022-01-18] MEDS: FERROUS GLUCONATE 324 MG TABLET PO SCH (08:04)
[2022-01-18] MEDS: NYSTATIN 500000 UNITS/5 ML UDC PO SCH ×4 (08:04→20:55)
[2022-01-18] MEDS: ACETAMINOPHEN 325 MG TABLET PO PRN (08:05)
[2022-01-18] MEDS: LIDOCAINE PATCH 5% TOP PRN (08:05)
[2022-01-18] MEDS ORDERED: FUROSEMIDE 20 MG/2 ML VIAL IVP STA (08:13)
--- NOTE | 2022-01-18 08:21 | PROVIDER PROGRESS NOTE ---
Subjective - Prog Note Date Prog Note Date: 01/18/22 Prog Note Time: 16:41 - Subjective Subjective: Patient was a Medrg status bed in the ICU. He is now finally on the MedSurg floor. is coming in still to see him daily. She is still planning on t aking him home on January 20. Caregivers will be her daughter and daughter's boyfriend. She anticipates seeing 2 daughters and a son come in to say goodbye to their father. These are children from his first marriage. She is not wanting to hire caregivers. She still declines hospice. Social work has been in to see her, case management has been to see her, I have been to see her and she is holding firm with her thought process. The patient is occasionally quite uncomfortable. He will suddenly start twitching, and a slack face will change to grimacing of pain and furrowed brow. Respiratory rate continues to be slow, unlabored with constant gurgling phlegm. She does not want us to give him morphine or Ativan and we have not done so for a couple of days. She feels that the morphine is hastening his and she "knows what it does to people" and does not want to see her on it. I have carefully explained as has nursing that he is a vertebral compression fracture and is in quite a bit of pain but she still would like us not to give him medicine for that. Current Medications - Current Medications Current Medications: Active Medications Acetaminophen (Acetaminophen 325 Mg Tablet) 650 mg PO Q4HR PRN PRN Reason: Pain 1 to 4 Last Admin: 01/18/22 08:05 Dose: 650 mg Carbidopa/Levodopa (Carbidopa/Levodopa 25 Mg/100 Mg Tablet) 1 tab PO TID [facility] Last Admin: 01/18/22 13:29 Dose: 1 tab Ferrous Gluconate (Ferrous Gluconate 324 Mg Tablet) 324 mg PO DAILYWM [facility] Last Admin: 01/18/22 08:04 Dose: 324 mg Sodium Chloride (Normal Saline 0.9%) 500 mls @ 20 mls/hr IV Q24H PRN PRN Reason: TKO RATE Last Infusion: 01/14/22 15:04 Dose: Infused Lidocaine (Lidocaine Patch 5%) 1 patch TOP DAILY PRN PRN Reason: PAIN Last Admin: 01/18/22 08:05 Dose: 1 patch Lorazepam (Lorazepam 2 Mg/Ml Vial) 0.5 mg IVP Q2H PRN PRN Reason: Anxiety Last Admin: 01/16/22 10:17 Dose: 0.5 mg Morphine Sulfate (Morphine 2 Mg/Ml Carpuject) 2 mg IVP Q2HR PRN PRN Reason: PAIN Last Admin: 01/16/22 10:18 Dose: 2 mg Nystatin (Nystatin [id number] Units/5 Ml Udc) 5 ml PO QID [facility] Last Admin: 01/18/22 13:29 Dose: 5 ml Ondansetron HCl (Ondansetron 4 Mg/2 Ml Vial) 4 mg IVP Q6HR PRN PRN Reason: Nausea / Vomiting Scopolamine HBr (Scopolamine Patch) 1 patch TOP Q3D [facility] Last Admin: 01/16/22 13:51 Dose: 1 patch Sodium Chloride (Sodium Chloride Flush 0.9% 10 Ml Syringe) 10 ml IVP 0100,0900,1700 [facility] Last Admin: 01/18/22 08:05 Dose: 10 ml Sodium Chloride (Sodium Chloride Flush 0.9% 10 Ml Syringe) 10 ml IVP PRN PRN PRN Reason: NEEDED PER PROVIDER ORDERS Last Admin: 01/16/22 21:18 Dose: 10 ml Sodium Chloride (Sodium Chloride Flush 0.9% 10 Ml Syringe) 20 ml IVP PRN PRN PRN Reason: After Blood Draw Last Admin: 01/17/22 04:24 Dose: 20 ml Apixaban [Eliquis] 5 mg PO BID 11/04/21 Aspirin Chewable [St Jimmy Aspirin] 81 mg PO QPM 11/04/21 Carbidopa/Levodopa 25/100 [Sinemet 25 mg/100 mg] 1 tablet PO TID 11/04/21 Cyanocobalamin [Vitamin B-12] 250 mcg PO DAILY 11/04/21 Isosorbide Mononitrate [Isosorbide Mononitrate ER] 90 mg PO DAILY 11/04/21 Lisinopril [Zestril] 40 mg PO DAILY 11/04/21 Meloxicam [Mobic] 15 mg PO DAILY 11/04/21 Metoprolol Tartrate [Lopressor] 50 mg PO BID 11/04/21 Nitroglycerin [Nitrostat] 0.4 mg SL Q5MIN PRN 11/04/21 Simvastatin [Zocor] 40 mg PO QPM 11/04/21 Tamsulosin HCl [Flomax] 0.8 mg PO QPM 11/04/21 amLODIPine [Norvasc] 5 mg PO DAILY 11/04/21 Objective - Vital Signs/Intake & Output Reviewed Vital Signs: Yes Vital Signs: Vital Signs x48h Temp Pulse Pulse Resp BP Pulse Ox 01/18/22 07:43 36.8 C 62 16 145/45 H 95 01/18/22 04:25 36.8 C 105 H 18 145/91 H 98 Intake & Output: Intake & Output 01/15/22 01/16/22 01/17/22 01/18/22 23:59 23:59 23:59 23:59 Intake Total 2394 1943 1363 645 Output Total 2535 3020 1605 595 Balance -141 -1077 -242 50 - Objective General Appearance: positive: Other (Opens eyes to voice 1 out of 4 times. The rest the time his eyes are closed with furrowed brow. Gurgling respiration with occasional cough when he tries to bring up the phlegm and cannot. Nares has NG tube with tube feeds.) Eyes Bilateral: positive: PERRL, Other (Bilateral arcus senilis) ENT: positive: Pharynx nml Neck: positive: No JVD. negative: Stiff neck Respiratory: positive: No respiratory distress, Rhonchi (Gurgling rhonchi in all lung barker.), Other (No tachypnea or increased respiratory effort. I did start Robinul yesterday in addition to scopolamine patch and it does not seem to have done much to the secretions). negative: Wheezes Cardiovascular: positive: Regular rate & rhythm. negative: Gallop/S4, Friction rub Abdomen: positive: Non-tender, No organomegaly, Nml bowel sounds, No distention Skin: positive: Warm, Dry Extremities: positive: Pedal edema (Of forearms and hands. Mild edema of feet and legs. Forearms are worse than legs.) Neurologic/Psychiatric: positive: Other (Occasional twitching. I have not seen a tremor in a few days. Spontaneous movement of both upper extremities when he is uncomfortable. When I do Babinski's both feet withdraw and he bends at the knees to withdraw his feet away from me. Toes are upgoing. No spontaneous verbalization. Eyes open) - Lab Results Fish Bones: 01/18/22 05:10 01/18/22 05:10 Other Labs: Lab Results x24hrs 01/18/22 01/18/22 Range/Units 05:10 05:10 WBC 8.3 (4.8-10.8) x10^3/uL RBC 3.28 L (4.70-6.10) 10^6/uL Hgb 8.5 L (14.0-18.0) g/dL Hct 25.8 L (42.0-52.0) % MCV 78.7 L (80.0-94.0) fL MCH 25.9 L (27.0-31.0) pg MCHC 32.9 (32.0-36.0) g/dL RDW 15.9 H (12.0-15.0) % Plt Count 190 (130-450) 10^3/uL MPV 10.1 (7.4-11.4) fL Neut # (Auto) 6.4 (1.5-6.6) 10^3/uL Lymph # (Auto) 0.8 L (1.5-3.5) 10^3/uL [place] # (Auto) 1.0 (0.0-1.0) 10^3/uL Eos # (Auto) 0.1 (0.0-0.7) 10^3/uL Baso # (Auto) 0.0 (0.0-0.1) 10^3/uL Absolute Nucleated RBC 0.00 x10^3/uL Nucleated RBC % 0.0 /100WBC Sodium 142 (135-145) mmol/L Potassium 4.3 (3.5-5.0) mmol/L Chloride 106 (101-111) mmol/L Carbon Dioxide 28 (21-32) mmol/L Anion Gap 8.0 (6-13) BUN 26 H (6-20) mg/dL Creatinine 1.0 (0.6-1.2) mg/dL Estimated GFR (MDRD) 71 L (>89) Glucose 117 H (70-100) mg/dL Calcium 9.0 (8.5-10.3) mg/dL ABX Reporting Has patient been on IV antibiotics over the past 48 hours?: No Sepsis Event Note (H) - Evaluation Current Stage of Sepsis: Resolved Possible source of Sepsis: positive: Unknown - Sepsis Criteria Sepsis Criteria: Recorded Temperature greater than 38.3C or Less than 36C, SBP drop more than 40mHg, SBP less than 90 mmHg, Metabolic: lactate > 2 mmol/L Assessment/Plan - Problem List (1) Metabolic encephalopathy Impression: He makes incomprehensible sounds and grimaces to pain but is otherwise continues to be unresponsive and occ agitated . He continues to have a difficult time managing his secretions secondary to a diminished gag reflex. His delirium is likely secondary to infection and shock on top of Parkinsons and prior CVA. He also may be in pain due to L4 fx. He is DNR and his has request that all medications be stopped including morphine and ativan He continues to receive tube feeds via NG tube at 30 mL/hr per 's wishes Suction as needed with robinul added to scopalamine 3/. Palliative care consulted and deemed him a good candidate for hospice. However, the does not want this. She does not want him to go to a SNF. She wishes to bring him home and care for him herself. We believe that this will be more challenging than she realizes as he requires 24/7 care. We are working in collaboration with the patient's daughter and social work to get them the support that they will require at home (see advanced care planning note). there are not changes for today. (2) Anemia Impression: Iron studies show iron deficiency anemia. Administer ferrous gluconate He received 1,000 mcg IM B12 01/16 once (3) Oral thrush Impression: Continue Nystatin mouth swabs (4) Parkinson disease Impression: Continue usual carbidopa/levodopa due to extensive tremors and agitation. Administer via NG tube. His really doesn't want this but I have insisted since his tremors and jerking worsen considerably. (5) History of CVA (cerebrovascular accident) Impression: Patient was admitted to the hospital for altered mental status due to CVA on 11/04/2021. halfway facility had been recommended for rehab at the time of discharge but declined and took him home. Focus on comfort at this time, lisinopril, Imdur, metoprolol and Eliquis discontinued. (6) Fall Impression: Patient had fallen at home at least 4 times in the past week per his . CT of the head without contrast and cervical spine imaging were done and were negative for any acute process. CT of the abdomen/pelvis however showed an acute type, severe, markedly comminuted fracture of the L4 vertebral body. Discontinue Eliquis. We had started pain meds but has asked us to stop these since she feels it causes more sedation and when he does wake up eventually he won't "be himself" Qualifiers: Qualified Code(s): W19.XXXA - Unspecified fall, initial encounter (7) L4 vertebral fracture Impression: Likely secondary to multiple falls. Pain medications held per 's request (8) Acute kidney injury Impression: Seems have resolved, good chaidez output today. BUN 31, Cr 1.1. Continue to monitor I/Os and BMP daily. (9) Thrombocytopenia Impression: Resolved (10) Diastolic heart failure Impression: Serial chest x-ray have shown continued pulmonary edema. O2 saturation 97% on room air today. Echo showed normal LVEF and diastolic heart failure. lasix x 1 today in hopes it will help the gurgling (11) BPH (benign prostatic hyperplasia) Impression: Chaidez catheter in place. Good output. (12) History of coronary artery disease Impression: Discontinued Aspirin, Lipitor, Imdur, lisinopril, metoprolol, amlodipine, lasix and prn nitroglycerin to focus on comfort (13) Hyperlipemia Impression: Discontinue simvastatin to focus on comfort (14) Septic shock Impression: This seems to have resolved, vitals are stable. No source of infection identified on blood or urine cultures. Focus on comfort care so no antibiotics. (15) Hypothermia Impression: Resolved. Was likely due to sepsis. (16) UTI (urinary tract infection) Impression: UTI initially suspected due to cloudy urine and WBC clumps. However, urine and blood culture negative. Comfort measures and no clear source of infection so no antibiotics
[2022-01-18] MEDS: CARBIDOPA/LEVODOPA 25 MG/100 MG TABLET PO SCH ×3 (08:23→20:16)
[2022-01-18] MEDS: LORazepam 2 MG/ML VIAL IVP PRN (20:55)
[2022-01-19] MEDS: LORazepam 2 MG/ML VIAL IVP PRN (03:32)
[2022-01-19] MEDS: SODIUM CHLORIDE FLUSH 0.9% 10 ML SYRINGE IVP SCH ×3 (04:20→18:08)
[2022-01-19] MEDS: CARBIDOPA/LEVODOPA 25 MG/100 MG TABLET PO SCH ×3 (04:20→21:26)
[2022-01-19 05:29] LABS: ALBUMIN 2.9 g/dL (3.2-5.5); ALBUMIN/GLOBULIN RATIO 0.9 (1.0-2.2); BILIRUBIN,TOTAL 1.2 mg/dL (0.2-1.0); CALCIUM 8.6 mg/dL (8.5-10.3); CREATININE 1.1 mg/dL (0.6-1.2); MAGNESIUM 1.9 mg/dL (1.7-2.8); PHOSPHORUS 3.1 mg/dL (2.5-4.6); POTASSIUM 4.2 mmol/L (3.5-5.0); TOTAL PROTEIN 6.1 g/dL (6.7-8.2)
[2022-01-19] MEDS: FERROUS GLUCONATE 324 MG TABLET PO SCH (08:24)
[2022-01-19] MEDS: LIDOCAINE PATCH 5% TOP PRN (08:27)
[2022-01-19] MEDS: NYSTATIN 500000 UNITS/5 ML UDC PO SCH ×4 (08:27→21:03)
--- NOTE | 2022-01-19 12:12 | XRAY Report ---
PROCEDURE: Chest for Line Placement INDICATIONS: NG TUBE PLACEMENT TECHNIQUE: One view of the chest was acquired. COMPARISON: 01/13/2022 FINDINGS: Surgical changes and devices: NG tube tip projects to the stomach. Pacemaker. Right IJ line. Lungs and pleura: Pulmonary edema, large posteriorly layering pleural effusions, bibasilar atelectas is.. Mediastinum: Mediastinal contours appear normal. Mild cardiomegaly. Bones and chest wall: No suspicious bony lesions. Overlying soft tissues appear unremarkable. IMPRESSION: 1. NG tube tip projects to the stomach. 2. Congestive heart failure. Reviewed by: Herbert Marquez MD on 01/19/2022 11:11 AM [facility] Approved by: Herbert Marquez MD on 01/19/2022 11:11 AM [facility] Station ID: [id number]
[2022-01-19] MEDS: SCOPOLAMINE PATCH TOP SCH (13:42)
--- NOTE | 2022-01-19 16:40 | PROVIDER PROGRESS NOTE ---
Subjective - Prog Note Date Prog Note Date: 01/19/22 Prog Note Time: 16:39 - Subjective Subjective: He will occasionally open his eyes. Occasionally have nonpurposeful movement of his right arm. He will withdraw to pain and grimace and flex his knees and his hips to get away from a Babinski test. He pulled out his NG tube last night. This morning his wanted us to put it back in again. Please see advance care planning conversation. Conversation lasted for close to an hour. There have been multiple conversations with this unfortunate overwhelmed between nursing and her, social media analyst her, discharge planning/case management and her. The patient continues to be responsive to mainly pain, minimally to voice. Gurgling respirations. Current Medications - Current Medications Current Medications: Active Medications Acetaminophen (Acetaminophen 325 Mg Tablet) 650 mg PO Q4HR PRN PRN Reason: Pain 1 to 4 Last Admin: 01/18/22 08:05 Dose: 650 mg Amlodipine Besylate (Amlodipine 5 Mg Tablet) 5 mg PO DAILY [facility] Carbidopa/Levodopa (Carbidopa/Levodopa 25 Mg/100 Mg Tablet) 1 tab PO TID [facility] Last Admin: 01/19/22 13:56 Dose: 1 tab Ferrous Gluconate (Ferrous Gluconate 324 Mg Tablet) 324 mg PO DAILYWM [facility] Last Admin: 01/19/22 08:24 Dose: Not Given Furosemide (Furosemide 20 Mg Tablet) 20 mg PO DAILY [facility] Sodium Chloride (Normal Saline 0.9%) 500 mls @ 20 mls/hr IV Q24H PRN PRN Reason: TKO RATE Last Infusion: 01/14/22 15:04 Dose: Infused Isosorbide Mononitrate (Isosorbide Mononitrate Er 30 Mg Tablet) 90 mg PO DAILY [facility] Lidocaine (Lidocaine Patch 5%) 1 patch TOP DAILY PRN PRN Reason: PAIN Last Admin: 01/19/22 08:27 Dose: 1 patch Lisinopril (Lisinopril 20 Mg Tablet) 40 mg PO DAILY [facility] Metoprolol Tartrate (Metoprolol Tartrate 50 Mg Tablet) 50 mg PO BID [facility] Nystatin (Nystatin 478224 Units/5 Ml Udc) 5 ml PO QID [facility] Last Admin: 01/19/22 13:42 Dose: 5 ml Ondansetron HCl (Ondansetron 4 Mg/2 Ml Vial) 4 mg IVP Q6HR PRN PRN Reason: Nausea / Vomiting Scopolamine HBr (Scopolamine Patch) 1 patch TOP Q3D [facility] Last Admin: 01/19/22 13:42 Dose: 1 patch Sodium Chloride (Sodium Chloride Flush 0.9% 10 Ml Syringe) 10 ml IVP 0100,0900,1700 [facility] Last Admin: 01/19/22 08:27 Dose: 10 ml Sodium Chloride (Sodium Chloride Flush 0.9% 10 Ml Syringe) 10 ml IVP PRN PRN PRN Reason: NEEDED PER PROVIDER ORDERS Last Admin: 01/16/22 21:18 Dose: 10 ml Sodium Chloride (Sodium Chloride Flush 0.9% 10 Ml Syringe) 20 ml IVP PRN PRN PRN Reason: After Blood Draw Last Admin: 01/17/22 04:24 Dose: 20 ml Apixaban [Eliquis] 5 mg PO BID 11/04/21 Aspirin Chewable [[facility] Jimmy Aspirin] 81 mg PO QPM 11/04/21 Carbidopa/Levodopa 25/100 [Sinemet 25 mg/100 mg] 1 tablet PO TID 11/04/21 Cyanocobalamin [Vitamin B-12] 250 mcg PO DAILY 11/04/21 Isosorbide Mononitrate [Isosorbide Mononitrate ER] 90 mg PO DAILY 11/04/21 Lisinopril [Zestril] 40 mg PO DAILY 11/04/21 Meloxicam [Mobic] 15 mg PO DAILY 11/04/21 Metoprolol Tartrate [Lopressor] 50 mg PO BID 11/04/21 Nitroglycerin [Nitrostat] 0.4 mg SL Q5MIN PRN 11/04/21 Simvastatin [Zocor] 40 mg PO QPM 11/04/21 Tamsulosin HCl [Flomax] 0.8 mg PO QPM 11/04/21 amLODIPine [Norvasc] 5 mg PO DAILY 11/04/21 Objective - Vital Signs/Intake & Output Reviewed Vital Signs: Yes Vital Signs: Vital Signs x48h Temp Pulse Resp BP Pulse Ox 01/19/22 16:11 37.4 C 64 24 128/34 L 92 Intake & Output: Intake & Output 01/16/22 01/17/22 01/18/22 01/19/22 23:59 23:59 23:59 23:59 Intake Total 8366 1363 867 20 Output Total 2630 0724 2958 1250 [facility] -2707 -242 [phone] -1230 - Objective Eyes Bilateral: positive: PERRL (Small pupils, but are reactive, severe arcus senilis), EOMI (What I can see as his eyes will move right to left.) ENT: positive: Dry mucous membranes Neck: positive: No JVD. negative: Stiff neck Respiratory: positive: Other (No tachypnea but shallow, severely gurgling respirations. Occasional cough. Diffuse rhonchi due to the gurgling respirations. No wheezing, no use of accessory muscles.) Cardiovascular: positive: Regular rate & rhythm. negative: Gallop/S4, Friction rub Abdomen: positive: Non-tender (He will Grimace with pain or withdraw to pain, and palpation of his abdomen does not cause discomfort), No organomegaly, Nml bowel sounds, No distention Skin: positive: Warm, Dry Extremities: positive: Other (Anasarca of the upper extremities. However lower extremities are quite thin and no edema. He has numerous old abrasions that have healed. Onychomycosis of the toenails.) Neurologic/Psychiatric: positive: Other (Eyes open occasionally to speech. No response verbally. He does flexed withdraw from pain. [place] Coma Scale 8) - Lab Results Fish Bones: 01/18/22 05:10 01/19/22 04:15 Other Labs: Lab Results x24hrs 01/19/22 Range/Units 04:15 Sodium 141 (135-145) mmol/L Potassium 4.2 (3.5-5.0) mmol/L Chloride 104 (101-111) mmol/L Carbon Dioxide 29 (21-32) mmol/L Anion Gap 8.0 (6-13) BUN 26 H (6-20) mg/dL Creatinine 1.1 (0.6-1.2) mg/dL Estimated GFR (MDRD) 63 L (>89) Glucose 95 (70-100) mg/dL Calcium 8.6 (8.5-10.3) mg/dL Phosphorus 3.1 (2.5-4.6) mg/dL Magnesium 1.9 (1.7-2.8) mg/dL Total Bilirubin 1.2 H (0.2-1.0) mg/dL AST 24 (10-42) IU/L ALT 52 (10-60) IU/L Alkaline Phosphatase 60 (42-121) IU/L Total Protein 6.1 L (6.7-8.2) g/dL Albumin 2.9 L (3.2-5.5) g/dL Globulin 3.2 (2.1-4.2) g/dL Albumin/Globulin Ratio 0.9 L (1.0-2.2) Prealbumin 17 L (18-45) mg/dL ABX Reporting Has patient been on IV antibiotics over the past 48 hours?: No Sepsis Event Note (H) - Evaluation Current Stage of Sepsis: Resolved Possible source of Sepsis: positive: Unknown - Sepsis Criteria Sepsis Criteria: Recorded Temperature greater than 38.3C or Less than 36C, SBP drop more than 40mHg, SBP less than 90 mmHg, Metabolic: lactate > 2 mmol/L Assessment/Plan - Problem List (1) Metabolic encephalopathy Impression: On admission the patient was opening his eyes to voice, had localized withdrawal to pain, was incomprehensible speech, and had a [place] Coma Scale of 10. He would deteriorate to a [place] Coma Scale of 3 and today is 8. He has no gag reflex and is unable to control his secretions. We think he has had a de terioration in mental status due to sepsis, hypothermia, his old stroke, Parkinson's disease. We also think he is in pain from an L4 compression fracture. on 01/14: He is DNR and his has request that all medications be stopped including morphine and ativan He continues to receive tube feeds via NG tube at 30 mL/hr per 's wishes. But his NG last night and she wants him to have the NG again. Suction as needed with robinul added to scopalamine 01/17. Palliative care consulted and deemed him a good candidate for hospice. However, the does not want this. She does not want him to go to a SNF. She wishes to bring him home and care for him herself. We believe that this will be more kwame llenging than she realizes as he requires 24/7 care. We are working in collaboration with the patient's daughter and social work to get them the support that they will require at home (see advanced care planning note). there are not changes for today. (2) Anemia Impression: Iron studies show iron deficiency anemia. Administer ferrous gluconate He received 1,000 mcg IM B12 / once (3) Oral thrush Impression: Continue Nystatin mouth swabs (4) Parkinson disease Impression: Continue usual carbidopa/levodopa due to extensive tremors and agitation. Administer via NG tube. His really doesn't want this but I have insisted since his tremors and jerking worsen considerably. (5) History of CVA (cerebrovascular accident) Impression: Patient was admitted to the hospital for altered mental status due to CVA on 11/04/2021. senior care facility had been recommended for rehab at the time of discharge but declined and took him home. Focus on comfort at this time, lisinopril, Imdur, metoprolol and Eliquis discontinued. (6) Fall Impression: Patient had fallen at home at least 4 times in the past week per his . CT of the head without contrast and cervical spine imaging were done and were negative for any acute process. CT of the abdomen/pelvis however showed an acute type, severe, markedly comminuted fracture of the L4 vertebral body. Discontinue Eliquis. We had started pain meds but has asked us to stop these since she feels it causes more sedation and when he does wake up eventually he won't "be himself" Qualifiers: Qualified Code(s): W19.XXXA - Unspecified fall, initial encounter (7) L4 vertebral fracture Impression: Likely secondary to multiple falls. Pain medications held per 's request Resolved or PMH: (8) Acute kidney injury Impression: Seems have resolved, good chaidez output today. BUN 31, Cr 1.1. Continue to monitor I/Os and BMP daily. (9) Thrombocytopenia Impression: Resolved (10) Diastolic heart failure Impression: Serial chest x-ray have shown continued pulmonary edema. O2 saturation 97% on room air today. Echo showed normal LVEF and diastolic heart failure. lasix x 1 yesterday in hopes it will help the gurgling (11) BPH (benign prostatic hyperplasia) Impression: Chaidez catheter in place. Good output. (12) History of coronary artery disease Impression: Discontinued Aspirin, Lipitor, Imdur, lisinopril, metoprolol, amlodipine, lasix and prn nitroglycerin to focus on comfort (13) Hyperlipemia Impression: Discontinue simvastatin to focus on comfort (14) Septic shock Impression: This seems to have resolved, vitals are stable. No source of infection identified on blood or urine cultures. Focus on comfort care so no antibiotics. (15) Hypothermia Impression: Resolved. Was likely due to sepsis. (16) UTI (urinary tract infection) Impression: UTI initially suspected due to cloudy urine and WBC clumps. However, urine and blood culture negative. Comfort measures and no clear source of infection so no antibiotics
--- NOTE | 2022-01-19 17:19 | ADVANCE CARE PLANNING NOTE ---
Advance Care Planning - Planning Encounter Date: 01/19/22 Time: 02:30 Purpose: her request to re-discuss goals Parties in Attendance: Patient who is not able to respond, social work Vince, , hospitalist Decisional Capacity of the Patient: not present. 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 She says she is overwhelmed and is tearful, emotionally labile, and has had social work, nursing, case management and myself in her 's room today several times. She expresses unhappiness that he has not been getting his isosorbide. She feels that not getting his isosorbide has caused his heart damage and as such sped up his demise and is crying. She states that she wanted him to get all of his medications. I reminded her that on January 14, in the presence of palliative care, she surprisingly asked us to stop everything. She really did not want him to get morphine or Ativan. She wanted to see if we stopped giving him "our drugs" if you would wake up with a miracle. That day asked her twice to make sure she understood what she was asking and she, at that time, said she did. Today's she is saying that she never meant for him not to get his home medications and is upset that he is not getting his home medications. I reminded her that she had asked me not to give any medications including the Sinemet because he does not have Parkinson's. But I have been giving him his Sinemet because of jerking and movement. She says that she is just confused and feels as if she still meant him to get his medications but did not understand what she was agreeing to on January 14. She still feels that a miracle will happen if given enough time. If given the time he will wake up and become what he was before. Her description of "before" is a person who will be walking, talking, eating normally, with only "a little bit of memory loss". Social work and I spoke to her at length. I reiterated that I have felt that this unfortunate gentleman has not responded to our treatment. That his comatose status was due to combination of his old stroke, Parkinson's disease, infection and that he was probably not going to survive this event if we let nature take its course. I also reminded her that she and her stepdaughter had opted to change Mr. Swann to DO NOT RESUSCITATE status and she was still in agreement with that. But she was just hoping that there would be a miracle. She still wants to take him home. She has declined a hospital bed. She has declined the offer of suction equipment for his secretions. She states that when he gets home she has every intention of resuming all of his medications even though he cannot swallow. She also intends on starting him on a diet that she feels will "bring him back to health". That includes solid food. Again I warn her that he has no swallow mechanism, and that he will most likely aspirate. She does not want a feeding tube. She declines a bath aid to help her with his care. She is adamant that he is not to receive any morphine, Ativan, for his back pain from vertebral compression fracture nor medications for secretions . She declines hospice referral. We have offered her a possibility of inpatient hospice care and she does not want that. She does not want him placed in a penitentiary facility for care. We have asked her to make sure she keeps them clean, turns him regularly to avoid ulcers, and to rinse out his mouth. Objective/Medical Story: 86-year-old male with history of stroke in October, Parkinson disease and multiple falls, atrial fibrillation on Eliquis that was brought in with sepsis criteria, source suspicious for UTI. He has not responded to treatment and asked us to transition him to focus on comfort measures January 14. Is been very difficult for her. Emotional lability, crying, overwhelmed. Social work has had multiple, multiple conversations with her. Case management has also spent time with her trying to explain to her how this hospitalization works. Language barrier was overcome with case management able to speak her language. In addition to his , we have been updating his daughter Alexi on a regular basis. Goals of Care: 1. her goal is still for him to return to home Plan: 2. She has declined all the services as listed above 3. She would like us to resume all of his usual home medicines today via NG tube. 4. NG tube will be removed at discharge and he will have to be n.p.o. but she insist on giving him his medicines 5. Case rediscussed with his daughter as well 6. Home caregivers will be the daughter and boyfriend. She is also received a list from social work about private duty caregivers and she says she will call a few of them to help her as well. Code Status: Do Not Attempt Resuscitation Time spent on advance care plannin minutes
[2022-01-19] MEDS: METOPROLOL TARTRATE 50 MG TABLET PO SCH (21:05)
[2022-01-19] MEDS: ACETAMINOPHEN 325 MG TABLET PO PRN (21:22)
[2022-01-20] MEDS: ACETAMINOPHEN 325 MG TABLET PO PRN (07:11)
[2022-01-20] MEDS: SODIUM CHLORIDE FLUSH 0.9% 10 ML SYRINGE IVP SCH ×2 (07:11→08:10)
[2022-01-20] MEDS: CARBIDOPA/LEVODOPA 25 MG/100 MG TABLET PO SCH ×2 (07:11→13:16)
[2022-01-20 08:08] VITALS: BP 136/38
[2022-01-20] MEDS: FERROUS GLUCONATE 324 MG TABLET PO SCH (08:08)
[2022-01-20] MEDS: METOPROLOL TARTRATE 50 MG TABLET PO SCH (08:09)
[2022-01-20] MEDS: NYSTATIN 500000 UNITS/5 ML UDC PO SCH ×2 (08:09→13:16)
--- NOTE | 2022-01-20 08:27 | Discharge Plan ---
Discharge Plan Problem Reviewed?: Yes Disposition: 01 Home, Self Care Condition: Critical Activity Restrictions: bed restriction Shower Restrictions: Yes (bed bath) Driving Restrictions: Yes (no driving) Health Concerns: The patient is nonverbal. [place] Coma Scale varies between 3-8. Instructions are provided to his power of technical business systems analyst/. Your was admitted with severe infection most likely from a urinary tract infection. He already has a history of memory loss, falls, Parkinson's disease, stroke. You are already taking care of him due to his inabilities of taking care of himself. Since admission he has not really woken up to be speaking for himself and you have been his advocate. He was transitioned to none of our medications on January 14 per your request. On January 19 you decided you needed to resume his usual home medications. Unfortunately your cannot swallow at all. He has no gag reflex and if he has things put in his mouth, he is inability to protect his lungs will most likely cause food, water, or medicines to go into his lungs. Plan of Treatment: You wish to take him home because you feel that you can take care of him and do care for him that would allow him to possibly, with a miracle, go back to the way he was before. We are asking you to please not give him his medications. Please keep him clean by bathing him daily. Please turn him frequently every 1-2 hours to prevent bedsores. Please rinse his mouth twice a day using a sponge swab. We wish that you would allow us to give him a little bit of pain medicine because he is in terrible pain from his back fracture but you do not wish us to send him home with prescriptions. Care Goals: To take your home. You have declined hospital bed, durable medical equipment in general, home health, hospice, suction for his secretions, inpatient hospice, referral to group home facility. Assessment: Many conversations have been had with his power of technical business systems analyst/. Social work, case management, nursing, physical therapy, and myself have spoken at length about our alarms and concerns about taking him home without a lot of help. We are also hoping that he can get some form of pain management due to his vertebral compression fracture and declines that at this time No Smoking: If you smoke, Please STOP! Call for help. Follow-up with: Emmanuel Hernandez MD [Primary Care Provider] -
[2022-01-20] MEDS ORDERED: FUROSEMIDE 20 MG TABLET PO SCH (09:00)
[2022-01-20] MEDS ORDERED: ISOSORBIDE MONONITRATE ER 30 MG TABLET PO SCH (09:00)
[2022-01-20] MEDS ORDERED: lisinopriL 20 MG TABLET PO SCH (09:00)
[2022-01-20] MEDS ORDERED: amLODIPine 5 MG TABLET PO SCH (09:00)
--- NOTE | 2022-01-30 19:44 | DISCHARGE SUMMARY ---
Discharge Summary Admit Date: 01/11/22 Discharge Date: 01/20/22 Discharging Provider: Liv Goddard MD Primary Care Provider: Emmanuel Hernandez MD Code Status: Do Not Attempt Resuscitation Condition at Discharge: Critical Discharge Disposition: 01 Home, Self Care - DIAGNOSES Discharge Diagnoses with Status of Each Condition: 1. Septic shock 2. UTI 3. Acute kidney injury 4. Acute diastolic heart failure 5. Metabolic encephalopathy 6. Hypothermia 7. Iron deficiency anemia 8. Oral thrush 9. Parkinson's disease 10. History of stroke November 04, 2021 with residual deficits of unilateral weakness, worsening cognitive deficits 11. Fall at home 12. Vertebral compression fracture 13. Thrombocytopenia 14. Benign prostatic hypertrophy with lower urinary tract symptoms of retention 15. History of coronary artery disease 16. Hyperlipidemia - HPI History of Present Illness: Patient is an 86-year-old male who was brought to the ED via EMS for altered mental status. Patient's mentation was significantly different today around 3 AM onwards. However, his confusion has progressively been worsening over the past 3 days to the point where he has not been able to feed himself. This worsening was on top of an already confused elderly man with Parkinson's and memory loss. It is also reported that he has fallen about 4 times in the past week. He is on blood thinner Eliquis. Called EMS today because of the altered mental status, wheezing and another episode of almost falling. The patient was last admitted to the hospital on 11/04/2021 for altered mental status during which hospital stay he was diagnosed with a CVA. Recommendation at the time after treatment in the hospital was for retirement facility for rehab. The patient's declined the recommendation saying that she would to take care of the patient at home. She states that she took care of her mother, and she will be able to take care of her the same way she took care of her mother. She says that he never really recovered from the stroke and that his memory was much worse. He would hallucinate and see things that were not there in the yard. He would also see things that were not present in the house. But she was still able to have conversations with him. he was having problems swallowing but denied cough, abd pain, aspiration, fever, chills, rigors. Upon presentation to the ED he had a core temperature of 29 C. Further work-up included a CBC which showed a WBC of 4.5. He also had a lactic acid of 3.7. Urine analysis has white blood cell clumps present. Even though leukocyte esterase and nitrates negative the urine appears very cloudy. She reported severe congestive heart failure. Patient's blood pressure has been as low was 88/75 in the ED. As a result of his presentation, he was presented for admission for further treatment. - Past Medical History Cardiovascular: reports: Hypertension, Coronary artery disease Neuro: reports: CVA, Parkinson's : reports: Benign prostate hypertrophy Psych: reports: Anxiety Musculoskeletal: reports: None - Past Surgical History Cardiovascular: reports: Pacemaker - CONSULTS | PROCEDURES Consultations: Palliative care consultation Procedures: 1. Head CT without evidence of acute stroke, hemorrhage or mass. No significant intracranial sequela of acute trauma. Minimal bilaterally maxillary sinusitis. Repeat head CT done because of encephalopathy and again without any acute intracranial process. Chronic microvascular ischemic changes. 2. Cervical spine CT with moderate cervical spondylosis. No acute cervical fracture. 3. Chest x-ray with changes of severe congestive heart failure and bilateral p leural effusions. 4. Abdomen pelvis CT with a large prostate, Burden catheter in place. Unenhanced bowel loops demonstrating normal wall thickness and caliber. No adenopathy. Moderate bilateral pleural effusions, bibasilar atelectasis. Gallbladder unremarkable. Pancreas normal. Unremarkable bilateral renal cyst. No hydronephrosis or stones. Markedly comminuted burst type fracture of L4 ve rtebral body. No significant posterior retropulsion 5. Several chest x-rays were done. All compatible with pulmonary edema, and an in place NG tube in the stomach. Also in place central line tip. 6. Echocardiogram with left ventricular systolic function 65 to 70%. Slightly hyperdynamic. Right ventricle normal size and function. No significant valvular heart disease. Left atrial volume index normal. 7. Blood cultures on January 11 -. 8. Urine culture negative. - HOSPITAL COURSE Hospital Course: With treated as septic shock with the source of a UTI. He was treated empirically with antibiotics. Blood cultures were negative and urine cultures were negative. Chest x-ray was compatible with severe congestive heart failure exacerbation. An echocardiogram had an ejection fraction that was hyperdynamic with an ejection fraction of 65 to 70%. As such he was treated with diuresis after aggressive fluid resuscitation was done to keep up his blood pressure due to sepsis. At one point he did require Levophed. His mental status was poor. Throughout his entire stay he manifested a metabolic encephalopathy with a Bienvenido Coma Scale that was at best 8 or 10 and usually stay down at 3. He never followed any commands, could not communicate, and would occasionally open his eyes to verbal stimuli. He did withdraw his extremities to noxious stimuli such as Babinski testing. Troponins were done and peaked at 110 but we felt this was due to sepsis and not true NSTEMI. As he was being followed for oliguria, acute kidney injury, and receiving fluid resuscitation, his felt that the treatment we were giving him was making him worse. I explained that our treatment was aggressive and keeping him alive and that if we stopped our treatment he may due to lack of antibiotics and fluids. By then he was already getting NG tube feedings because his is very concerned about him getting malnourished. He was unable to swallow and had almost no gag with no airway protection. On January 14 the approached me as the hospitalist and palliative care consultation and asked that we please stop everything. She did not even want to be on his Parkinson's meds and she was particularly adamant that he not receive comfort meds in the form of morphine or Ativan. We explained to her that he had grimacing of pain, and would get agitated as his Parkinson's drugs were not given to him. He would have more jerking and involuntary movement. We were able to give him back his Sinemet per her reluctant permission but she was adamant not to give him any Ativan or morphine. She felt that he was "going to get better" and that we just needed to wait for a "miracle". Numerous, numerous, numerous conversations were held with the between myself and the , nursing and the , palliative care and the , social work and the , and case management and the . He continued to deteriorate. We offered her home with hospice. We had spoken to his daughter, Alexi, on January 14 when the patient's transition him to comfort measures for the most part. Alexi did reiterate that dad would never want resuscitation at this point. His father and grandfather of old age in nursing homes with multiple complications and he had told her in the past that he never would want to live life that way. So his daughter positively endorsed a DO NOT RESUSCITATE status. Daughter and were not quite in sync with how they wanted dad taking care of. Sometimes our conversations were trying to understand the different desires of the family. But the was the power of state's attorney. She finally insisted on taking him home. We offered her retirement facility or Hospice or home health with home health RN, bath aide, social media job titles etc. This was done multiple times and she refused. She kept on insisting that she could take care of her and would get the help of her daughter and her daughter's boyfriend. On the day of discharge the became very upset when she stated that we were not giving him his medications. I reminded her that she had requested that we stop his medications on January 14 and she insisted that she did not. I explained that I can only go by my documentation from January 14 when both palliative care and I asked her repetitively if that was sure that she wanted us to do that. She was tearful, occasionally hostile. Threatened to osman me. But then turned around and said "I do not want to hate you please let me hug you". Social work spent many many encounters in the room trying to ascertain the 's desires and needs and we expressed our alarm at her not really having adequate help at home. She was also insistent that she was going to feed him. We explained to her that he had no swallow mechanism and could not protect his airway and that she would cause further aspiration that we were already witnessing in the hospital. She did not wanted to go home with tube feedings. The finally decided that she wanted to take him home after all. And he was sent home with no durable medical equipment, or appropriate follow-up care due to the 's refusal to let them into her house. At discharge his eyes were open, he would occasionally grimace with pain. He would withdraw to noxious stimuli. But there is no spontaneous verbalization. Very rarely he will spontaneously move his arm. Temperature was 37.2. Heart rate 64. Blood pressure 136/38. 94% on room air. Coarse, gurgling respirations that were loud and audible without a stethoscope. Occasional weak cough where he would swallow secretions and not be able to bring them up. Coarse rhonchi throughout all lung barker. No tachypnea or use of accessory muscles. Respirations were slow and unlabored. And a regular rate and rhythm. And abdomen that had hypo-active bowel sounds. Slightly distended. No rebound or guarding seen in his facial expressions. He had anasarca of his upper extremities. Minimal 2+ edema of his lower extremities. Central line was removed. He is discharged in poor condition. is expected to be in the next few days. He is DO NOT RESUSCITATE. - ALLERGIES Allergies/Adverse Reactions: Allergies Allergy/AdvReac Type Severity Reaction Status Date / Time No Known Drug Allergies Allergy Verified 01/11/22 20:22 - LABS Result Diagrams: 01/18/22 05:10 01/19/22 04:15 - SEPSIS Current Stage of Sepsis: Resolved Possible source of Sepsis: Unknown Sepsis Criteria: Recorded Temperature greater than 38.3C or Less than 36C, SBP drop more than 40mHg, SBP less than 90 mmHg, Metabolic: lactate > 2 mmol/L
== END 2022-01-20 17:20 | disposition home or self-care (01) | DRG 871 ==
LOC: EDUNIT# → ED 20:10 → ICU 22:32 → MS2 01-17 19:00
PROVIDERS: ADMIT Internal Medicine; ATTEND Specialist
DX: A41.9 Sepsis, unspecified organism (principal); R65.20 Severe sepsis without septic shock; I95.89 Other hypotension; R41.0 Disorientation, unspecified; J90 Pleural effusion, not elsewhere classified; R65.21 Severe sepsis with septic shock; Z20.822 Contact with and (suspected) exposure to COVID-19; S09.90XA Unspecified injury of head, initial encounter; I50.31 Acute diastolic (congestive) heart failure; I69.354 Hemiplegia and hemiparesis following cerebral infarction affecting left non-dominant side; T68.XXXA Hypothermia, initial encounter; I10 Essential (primary) hypertension; G93.41 Metabolic encephalopathy; S32.049A Unspecified fracture of fourth lumbar vertebra, initial encounter for closed fracture; N39.0 Urinary tract infection, site not specified; N17.9 Acute kidney failure, unspecified; B37.0 Candidal stomatitis; F41.9 Anxiety disorder, unspecified; I69.359 Hemiplegia and hemiparesis following cerebral infarction affecting unspecified side; I11.0 Hypertensive heart disease with heart failure; G20 Parkinson's disease; I25.10 Atherosclerotic heart disease of native coronary artery without angina pectoris; I69.319 Unspecified symptoms and signs involving cognitive functions following cerebral infarction; R68.0 Hypothermia, not associated with low environmental temperature; E78.5 Hyperlipidemia, unspecified; Z91.81 History of falling; D50.9 Iron deficiency anemia, unspecified; W19.XXXA Unspecified fall, initial encounter; N40.0 Benign prostatic hyperplasia without lower urinary tract symptoms; R41.82 Altered mental status, unspecified; Z79.01 Long term (current) use of anticoagulants; Z95.5 Presence of coronary angioplasty implant and graft; Z95.0 Presence of cardiac pacemaker; Z66 Do not resuscitate; Z78.1 Physical restraint status; I48.91 Unspecified atrial fibrillation; D69.6 Thrombocytopenia, unspecified; Z79.82 Long term (current) use of aspirin; Z79.899 Other long term (current) drug therapy; Z87.891 Personal history of nicotine dependence; Z51.5 Encounter for palliative care
CPT/HCPCS: 36415; 36556; 36600; 70450; 71045; 72125; 74176; 80048; 80053; 80306; 80307; 81001; 82330; 82550; 82607; 82728; 82803; 83540; 83605; 83615; 83690; 83735; 83880; 84100; 84132; 84134; 84443; 84466; 84484; 85025; 85045; 85610; 87040; 87086; 87150; 87631; 93306; 96365; 96368; 99221; 99285; 99291; A9270; G0480; J1170; J2060; J3370; J3490; 0202U; 80320; 80329; 81003

== ENCOUNTER 2022-01-20 17:23 | Outpatient (CLI) | payer MEDICARE, OTHER | END 2022-01-20 17:24 | disposition home or self-care (01) | LOC: EMS 17:23 | PROVIDERS: ATTEND Specialist | DX: R41.82 Altered mental status, unspecified (principal); R53.1 Weakness; Z74.01 Bed confinement status | CPT/HCPCS: A0425; A0428 ==

== ENCOUNTER 2022-10-31 21:27 | Outpatient (CLI) | payer MEDICARE, OTHER | END 2022-10-31 21:28 | disposition E | LOC: EMS 21:27 | CPT/HCPCS: A0425; A0428 ==